=== PATIENT | female | born 1935 | race African-American/Black ===

== ENCOUNTER 2017-09-21 13:51 | Inpatient (IN) | payer OTHER ==
[~2017-09-21] VITALS: Ht 165.1 cm; Wt 72.9 kg
--- NOTE | 2017-09-21 14:16 | EKG ---
[address] [address] Test Date: 2017-09-21 Test Time: 14:03:52 Pat Name: BLAS HUGHES Department: Room: Gender: F Bunch Breaker: : 1935 Requested By: KESHA YEN Order Number: [id number] Reading MD: Arnol Greco MD Measurements Intervals [place] Rate: 85 P: 58 MI: 128 QRS: -12 QRSD: 68 T: 10 QT: 354 QTc: 427 Interpretive Statements SINUS RHYTHM LEFTWARD AXIS QRS(T) CONTOUR ABNORMALITY CONSISTENT WITH INFERIOR INFARCT PROBABLY OLD Electronically Signed On 09-22-2017 15:27:20 CDT by Arnol Greco MD
[2017-09-21 14:29] LABS: BASO % 0 % (0-3); EOS # 0.1 x10^3/uL (0.0-0.7); EOS % 1 % (0-3); HEMATOCRIT 36.2 % (36.0-47.0); HEMOGLOBIN 12.3 g/dL (12.0-15.5); LYMPH # 1.7 x10^3/uL (1.0-4.8); LYMPH % 33 % (24-48); MEAN CORPUSCULAR HEMOGLOBIN 32 pg (25-35); MEAN CORPUSCULAR HGB CONC 34 g/dL (31-37); MEAN CORPUSCULAR VOLUME 94 fL (79-100); MONO # 0.4 x10^3/uL (0.0-1.1); MONO % 7 % (0-9); NEUT # 3.1 x10^3uL (1.8-7.7); NEUT % 59 % (31-73); PLATELET COUNT 320 x10^3/uL (140-400); RED BLOOD COUNT 3.88 x10^6/uL (3.50-5.40); RED CELL DISTRIBUTION WIDTH 14.4 % (11.5-14.5); WHITE BLOOD COUNT 5.3 x10^3/uL (4.0-11.0)
[2017-09-21 14:43] LABS: ALBUMIN 2.9 g/dL (3.4-5.0); ALBUMIN/GLOBULIN RATIO 0.6 (1.0-1.7); CREATININE 0.9 mg/dL (0.6-1.0); GFR 72.9; MAGNESIUM 1.6 mg/dL (1.8-2.4); POTASSIUM 3.6 mmol/L (3.5-5.1); TOTAL BILIRUBIN 0.2 mg/dL (0.2-1.0); TOTAL PROTEIN 7.5 g/dL (6.4-8.2)
[2017-09-21 16:04] LABS: BACTERIA,URINE MANY /HPF (0-FEW); BILIRUBIN,URINE NEG (NEG); CLARITY,URINE HAZY; COLOR,URINE YELLOW; GLUCOSE,URINE 250 mg/dL (NEG); NITRITE,URINE POS (NEG); RBC,URINE OCC /HPF (0-2); SQUAMOUS EPITHELIAL CELL,UR OCC /LPF; UROBILINOGEN,URINE 0.2 mg/dL (0.2 mg/dL)
[2017-09-21] MEDS ORDERED: CEPHALEXIN 250 MG CAPSULE PO ONE (17:00)
--- NOTE | 2017-09-21 17:02 | ED.ADGEN ---
Past History Past Medical History: Anxiety, CVA, Dementia, Diabetes, Glaucoma, Hypertension , IBS, Schizophrenia, Other Past Surgical History: Other Alcohol Use: None Drug Use: None Adult General Chief Complaint Chief Complaint Medical screening exam for psychiatric admission [facility] HPI Patient is a 82-year-old -[place] female shelter patient with history of anxiety, schizophrenia CVA with left-sided hemiparesis presents with agitation, yelling at shelter and otherwise uncontrolled. Patient tentatively accepted by Dr. Jarrell for medical stabilization. Patient is a poor historian and is not able to provide meaningful information while in the emergency department[] Review of Systems Review of Systems ROS as per HPI All other systems were reviewed and found to be within normal limits, except as documented in this note. Current Medications Current Medications Current Medications Medications (Trade) Dose Ordered Sig/Chiara Start Time Stop Time Status Last Admin Dose Admin Cephalexin HCl (Keflex) 500 mg 1X ONCE 09/21/17 17:00 09/21/17 17:01 09/21/17 16:55 500 MG Allergies Allergies Allergies Coded Allergies Type Severity Reaction Last Updated Verified hydrocodone Allergy Unknown 09/21/17 Yes Physical Exam Physical Exam Constitutional: Well developed, anxious, tearful[] HENT: Normocephalic, atraumatic, bilateral external ears normal, oropharynx moist, nose normal. [] Eyes: PERRLA, EOMI, conjunctiva normal, no discharge. [] Neck: Normal range of motion, no tenderness. [] Cardiovascular:Heart rate regular rhythm, no murmur [] Lungs & Thorax: Bilateral breath sounds clear to auscultation [] Abdomen: Bowel sounds normal, soft, no tenderness. [] Skin: Warm, dry. [] Back: No tenderness, no CVA tenderness. [] Extremities: No tenderness,no edema. [] Neurologic: Alert and oriented, left-sided paralysis[] Psychologic: Affect normal, judgement normal, mood normal. [] Current Patient Data Vital Signs Vital Signs Date Time Temp Pulse Resp B/P (MAP) Pulse Ox O2 Delivery O2 Flow Rate FiO2 09/21/17 13:51 98.2 83 18 96 Room Air Lab Results Laboratory Tests Test 09/21/17 14:12 09/21/17 15:04 White Blood Count 5.3 x10^3/uL (4.0-11.0) Red Blood Count 3.88 x10^6/uL (3.50-5.40) Hemoglobin 12.3 g/dL (12.0-15.5) Hematocrit 36.2 % (36.0-47.0) Mean Corpuscular Volume 94 fL (79-100) Mean Corpuscular Hemoglobin 32 pg (25-35) Mean Corpuscular Hemoglobin Concent 34 g/dL (31-37) Red Cell Distribution Width 14.4 % (11.5-14.5) Platelet Count 320 x10^3/uL (140-400) Neutrophils (%) (Auto) 59 % (31-73) Lymphocytes (%) (Auto) 33 % (24-48) Monocytes (%) (Auto) 7 % (0-9) Eosinophils (%) (Auto) 1 % (0-3) Basophils (%) (Auto) 0 % (0-3) Neutrophils # (Auto) 3.1 x10^3uL (1.8-7.7) Lymphocytes # (Auto) 1.7 x10^3/uL (1.0-4.8) Monocytes # (Auto) 0.4 x10^3/uL (0.0-1.1) Eosinophils # (Auto) 0.1 x10^3/uL (0.0-0.7) Basophils # (Auto) 0.0 x10^3/uL (0.0-0.2) Sodium Level 144 mmol/L (136-145) Potassium Level 3.6 mmol/L (3.5-5.1) Chloride Level 108 mmol/L (98-107) H Carbon Dioxide Level 27 mmol/L (21-32) Anion Gap 9 (6-14) Blood Urea Nitrogen 10 mg/dL (7-20) Creatinine 0.9 mg/dL (0.6-1.0) Estimated GFR (Cockcroft-Gault) 72.9 BUN/Creatinine Ratio 11 (6-20) Glucose Level 181 mg/dL (70-99) H Calcium Level 9.0 mg/dL (8.5-10.1) Magnesium Level 1.6 mg/dL (1.8-2.4) L Total Bilirubin 0.2 mg/dL (0.2-1.0) Aspartate Amino Transferase (AST) 26 U/L (15-37) Alanine Aminotransferase (ALT) 32 U/L (14-59) Alkaline Phosphatase 79 U/L (46-116) Total Protein 7.5 g/dL (6.4-8.2) Albumin 2.9 g/dL (3.4-5.0) L Albumin/Globulin Ratio 0.6 (1.0-1.7) L Urine Collection Type U cath Urine Color Yellow Urine Clarity Hazy Urine pH 5.0 Urine Specific [place] >=1.030 Urine Protein Trace (NEG-TRACE) Urine Glucose (UA) 250 mg/dL (NEG) Urine Ketones (Stick) Trace mg/dL (NEG) Urine Blood Neg (NEG) Urine Nitrite Pos (NEG) Urine Bilirubin Neg (NEG) Urine Urobilinogen Dipstick 0.2 mg/dL (0.2 mg/dL) Urine Leukocyte Esterase Trace (NEG) Urine RBC Occ /HPF (0-2) Urine WBC 11-20 /HPF (0-4) Urine Squamous Epithelial Cells Occ /LPF Urine Bacteria Many /HPF (0-FEW) Urine Mucus Mod /LPF EKG EKG [EKG: Reviewed] Radiology/Procedures Radiology/Procedures [] Course & Med Decision Making Course & Med Decision Making Pertinent Labs and Imaging studies reviewed. (See chart for details) [Patient is medically stable for admission. First dose of antibiotics given in the emergency department.] Final Impression Final Impression [1. Encounter for medical screening exam 2. Urinary tract infection] Dragon Disclaimer Dragon Disclaimer This electronic medical record was generated, in whole or in part, using a voice recognition dictation system. KESHA YEN DO Sep 21, 2017 17:02
[2017-09-21 17:15] VITALS: BP 174/107
[2017-09-21] MEDS ORDERED: MAGN400O7 PO (20:04)
[2017-09-21] MEDS ORDERED: ASPI-630 PO (20:04)
[2017-09-21] MEDS ORDERED: LISI10TA2 PO (20:04)
[2017-09-21] MEDS ORDERED: DEXT15DR5 EACHEYE (20:04)
[2017-09-21] MEDS ORDERED: INSU100I17 SQ (20:04)
[2017-09-21] MEDS ORDERED: MENT118G TP (20:04)
[2017-09-21] MEDS ORDERED: ARIP5TAB13 PO (20:04)
[2017-09-21] MEDS ORDERED: LORA-254 PO (20:04)
[2017-09-21] MEDS ORDERED: BACL10TA PO (20:04)
[2017-09-21] MEDS ORDERED: QUET300T6 PO (20:04)
[2017-09-21] MEDS ORDERED: LORA10TA68 PO (20:04)
[2017-09-21] MEDS ORDERED: INSU100I27 SQ (20:04)
[2017-09-21] MEDS ORDERED: ACET325T9 PO ×2 (20:04)
[2017-09-21] MEDS ORDERED: METF10007 PO (20:04)
[2017-09-21] MEDS ORDERED: GLIP10TA13 PO (20:04)
[2017-09-21] MEDS ORDERED: TIMO10DR5 EACHEYE (20:04)
[2017-09-21] MEDS ORDERED: DONE10TA7 PO (20:04)
[2017-09-21] MEDS ORDERED: LATA2.5D2 EACHEYE (20:04)
[2017-09-21] MEDS ORDERED: PARO30TA45 PO (20:04)
[2017-09-21] MEDS ORDERED: OXYC5CAP PO ×2 (20:04)
[2017-09-21] MEDS ORDERED: ONDA4TAB7 PO (20:04)
[2017-09-21] MEDS ORDERED: DULO30CA2 PO (20:04)
[2017-09-21] MEDS ORDERED: ACETAMINOPHEN 325 MG TABLET PO PRN ×2 (20:15)
[2017-09-21] MEDS ORDERED: METHYL SALICYLATE/MENTHOL TOPICAL OINTMENT 29GM TUBE. TP PRN (20:15)
[2017-09-21] MEDS ORDERED: MAGNESIUM HYDROXIDE 2,400 MG/30 ML ORAL.SUSP. PO PRN ×2 (20:15)
[2017-09-21] MEDS ORDERED: NON FORMULARY ITEM (Menthol (Biofreeze) 1 APP) TP PRN (20:15)
[2017-09-21] MEDS ORDERED: MAG HYDROX/AL HYDROX/SIMETH 30 ML ORAL.SUSP PO PRN (20:15)
[2017-09-21] MEDS ORDERED: ONDANSETRON ODT 4 MG TAB.RAPDIS PO PRN (20:30)
[2017-09-21] MEDS ORDERED: CETIRIZINE HCL 10 MG TABLET PO PRN (20:41)
[2017-09-21] MEDS: POLYVINYL ALCOHOL/POVIDONE/PF OPHTH SOLUTION DROPERETTE. OU SCH (21:00)
[2017-09-21] MEDS: BACLOFEN 10 MG TABLET PO SCH (21:00)
[2017-09-21] MEDS: oxyCODONE IR 5 MG TABLET PO SCH (21:24)
[2017-09-21] MEDS: QUEtiapine 100 MG TABLET. PO SCH (21:24)
[2017-09-21] MEDS: ACETAMINOPHEN 325 MG TABLET PO SCH (21:25)
[2017-09-21] MEDS ORDERED: DEXTROSE 50% 25 GM / 50ML DISP.SYRIN. IV PRN (21:30)
[2017-09-21] MEDS: LATANOPROST 0.005% OPHTH SOLUTION 2.5ML BOTTLE. OU SCH (22:07)
[2017-09-21] MEDS: INSULIN GLARGINE 300 UNITS/3 ML INSULN.PEN. SQ SCH (22:11)
[2017-09-22 06:17] VITALS: BP 155/88
[2017-09-22] MEDS: oxyCODONE IR 5 MG TABLET PO PRN (06:32)
[2017-09-22] MEDS ORDERED: NON FORMULARY ITEM (Insulin Aspart (Novolog Flexpen) 0 UNIT) SQ SCH (07:30)
[2017-09-22] MEDS: INSULIN LISPRO 300 UNITS/3 ML INSULN.PEN. SQ SCH ×6 (08:28→16:47)
[2017-09-22] MEDS: POLYVINYL ALCOHOL/POVIDONE/PF OPHTH SOLUTION DROPERETTE. OU SCH ×2 (08:29→21:09)
[2017-09-22] MEDS: BACLOFEN 10 MG TABLET PO SCH ×3 (08:29→21:10)
[2017-09-22] MEDS: TIMOLOL 0.5% OPHTH SOLUTION 5ML BOTTLE. OU SCH (08:29)
[2017-09-22] MEDS: ACETAMINOPHEN 325 MG TABLET PO SCH ×2 (08:30→21:11)
[2017-09-22] MEDS: glipiZIDE 5 MG TABLET PO SCH ×2 (08:35→16:44)
[2017-09-22] MEDS: ARIPiprazole 5 MG TABLET PO SCH (08:35)
[2017-09-22] MEDS: LISINOPRIL 10 MG TABLET PO SCH (08:36)
[2017-09-22] MEDS: ASPIRIN 81 MG TAB.CHEW PO SCH (08:36)
[2017-09-22] MEDS: DONEPEZIL 23 MG TABLET PO SCH (08:36)
[2017-09-22] MEDS: DULoxetine HCL 30 MG CAPSULE.DR PO SCH (08:36)
[2017-09-22] MEDS: oxyCODONE IR 5 MG TABLET PO SCH ×4 (08:38→21:10)
[2017-09-22] MEDS ORDERED: PARoxetine 10 MG TABLET PO SCH (09:00)
[2017-09-22] MEDS: MAGNESIUM CHLORIDE ER 64 MG TABLET.ER PO SCH (13:32)
--- NOTE | 2017-09-22 15:44 | PDOC2 ---
CONSULT Date of Admission DATE: 09/21/17 Reason for Consult: Medical management Referring Physician: Dr Jarrlel Source: Caregiver, Chart review, Patient Problem List Problems Medical Problems: (1) Encounter for medical screening examination Status: Acute (2) Urinary tract infection Status: Acute History of Present Illness 82-year-old female evaluated in the emergency department from [facility] for worsening behavior. Records indicate that the patient was yelling and disruptive, verbally abusive and kicking at people in the [place] [facility]. She was medically cleared through the emergency department and found to have a urinary tract infection, she received 1 dose of Rocephin prior to being admitted to the [facility] behavioral health unit. I find the patient in the activity room sitting in her Broda chair with no apparent distress. She denies any complaints and is disoriented 3. She is pleasant and cooperative. Past medical history: CVA with left-sided hemiparesis, anxiety, dementia, diabetes, glaucoma, hypertension, irritable bowel syndrome, schizophrenia Past surgical history: No obvious surgical scars as evaluated Social history: Lives in a [place] [facility] facility, no tobacco alcohol or illicit drug abuse Current Medications Current Medications Cephalexin HCl (Keflex) 500 mg 1X ONCE PO Last administered on 09/21/17at 16:55 ; Start 09/21/17 at 17:00; Stop 09/21/17 at 17:01; Status DC Acetaminophen (Tylenol) 650 mg BID PO Last administered on 09/22/17at 08:30; Start 09/21/17 at 21:00 Acetaminophen (Tylenol) 650 mg PRN Q6HRS PRN PO mild pain ; Start 09/21/17 at 20:15 Lisinopril (Prinivil) 10 mg DAILY PO Last administered on 09/22/17at 08:36; Start 09/22/17 at 09:00 Lorazepam (Ativan) 1 mg PRN DAILY PRN PO crying outbursts; Start 09/21/17 at 20 :15 Magnesium Hydroxide (Milk Of Magnesia) 2,400 mg PRN BID PRN PO constipation if no BM 3 days; Start 09/21/17 at 20:15 Aripiprazole (Abilify) 5 mg DAILY PO Last administered on 09/22/17at 08:35; Start 09/22/17 at 09:00 Aspirin (Children'S Aspirin) 81 mg DAILY PO Last administered on 09/22/17 08: 36; Start 09/22/17 at 09:00 Baclofen (Lioresal) 5 mg TID PO Last administered on 09/22/17at 13:29; Start at 21:00 Artificial Tears (Refresh Classic) 1 drop BID OU Last administered on at 08:29; Start 09/21/17 at 21:00 Donepezil HCl (Aricept) 23 mg DAILY PO Last administered on 09/22/17at 08:36; Start 09/22/17 at 09:00 Duloxetine HCl (Cymbalta) 30 mg DAILY PO Last administered on 09/22/17 08:36; Start 09/22/17 at 09:00 Glipizide (Glucotrol) 10 mg BIDBFRMEAL PO Last administered on 09/22/17at 08:35 ; Start 09/22/17 at 07:30 Non-Formulary Medication (Insulin Aspart (Novolog Flexpen)) TIDAC SQ ; Start at 07:30; Status UNV Insulin Human Lispro (HumaLOG) 8 units TIDWMEALS SQ Last administered on at 11:47; Start 09/22/17 at 08:00 Insulin Glargine (Lantus) 14 units QHS SQ Last administered on 09/21/17at 22:11 ; Start 09/21/17 at 21:00 Latanoprost (Xalatan) 1 drop QHS OU Last administered on 09/21/17at 22:07; Start 09/21/17 at 21:00 Cetirizine HCl (ZyrTEC) 10 mg PRN Q24HRS PRN PO ALLERGIES; Start 09/21/17 at 20 :41 Non-Formulary Medication (Menthol (Biofreeze)) 1 marjorie PRN Q4HRS PRN TP lower back pain; Start 09/21/17 at 20:15; Status UNV Metformin HCl (Glucophage) 1,000 mg DAILYWSUP PO ; Start 09/22/17 at 17:00 Ondansetron HCl (Zofran Odt) 4 mg PRN Q8HRS PRN PO NAUSEA/VOMITING; Start 09/21 at 20:30 Oxycodone HCl (Roxicodone) 5 mg PRN Q12HR PRN PO SEVERE PAIN Last administered on 09/22/17at 06:32; Start 09/21/17 at 21:00 Oxycodone HCl (Roxicodone) 5 mg QID PO Last administered on 09/22/17at 11:54; Start 09/21/17 at 21:00 Paroxetine HCl (Paxil) 30 mg DAILY PO Last administered on 09/22/17at 08:36; Start 09/22/17 at 09:00 Quetiapine Fumarate (SEROquel) 300 mg QHS PO Last administered on 09/21/17at 21: 24; Start 09/21/17 at 21:00 Timolol Maleate (Timoptic 0.5% [facility]) 1 drop DAILY OU Last administered on 09/22at 08:29; Start 09/22/17 at 09:00 Acetaminophen (Tylenol) 650 mg PRN Q6HRS PRN PO PAIN / TEMP; Start 09/21/17 at 20:15; Status UNV Multi-Ingredient Ointment (Analgesic Farley) 1 marjorie PRN QID PRN TP MUSCLE PAIN; Start 09/21/17 at 20:15 Al Hydroxide/Mg Hydroxide (Mylanta Plus Xs) 15 ml PRN AFTMEALHC PRN PO DYSPEPSIA; Start 09/21/17 at 20:15 Magnesium Hydroxide (Milk Of Magnesia) 2,400 mg PRN QHS PRN PO CONSTIPATION; Start 09/21/17 at 20:15; Status UNV Insulin Human Lispro (HumaLOG) 0-7 UNITS TIDWMEALS SQ Last administered on 09/22at 11:48; Start 09/22/17 at 08:00 Dextrose 12.5 gm PRN Q15MIN PRN IV SEE COMMENTS; Start 09/21/17 at 21:30 Cefpodoxime Proxetil (Vantin) 200 mg BID PO ; Start 09/22/17 at 21:00; Stop at 21:00 Magnesium Chloride (Mag Delay) 64 mg DAILY PO Last administered on 09/22/17at 13 :32; Start 09/22/17 at 14:00 Lactobacillus Rhamnosus (Culturelle) 1 cap BID PO ; Start 09/22/17 at 21:00 Active Scripts Active Reported Zofran (Ondansetron Hcl) 4 Mg Tablet 4 Mg PO PRN Q8HRS PRN Xalatan (Latanoprost) 2.5 Ml Drops 1 Drop EACHEYE QHS Tylenol (Acetaminophen) 325 Mg Tablet 650 Mg PO BID Tylenol (Acetaminophen) 325 Mg Tablet 650 Mg PO PRN Q6HRS PRN Timoptic (Timolol Maleate) 10 Ml Drops 1 Drop EACHEYE DAILY Seroquel Xr (Quetiapine Fumarate) 300 Mg Tab.er.24h 300 Mg PO QHS Paxil (Paroxetine Hcl) 30 Mg Tablet 30 Mg PO DAILY Oxycodone Hcl 5 Mg Capsule 5 Mg PO QID PRN Oxycodone Hcl 5 Mg Capsule 5 Mg PO PRN Q12HR PRN Novolog Flexpen (Insulin Aspart) 100 Unit/1 Ml Insuln.pen 2-16 Unit SQ TIDAC Novolog Flexpen (Insulin Aspart) 100 Unit/1 Ml Insuln.pen 8 Unit SQ TIDAC Milk Of Magnesia (Magnesium Hydroxide) 400 Mg/5 Ml Oral.susp 30 Mg PO PRN BID PRN Metformin Hcl 1,000 Mg Tablet 1,000 Mg PO DAILYWSUP Lisinopril 10 Mg Tablet 10 Mg PO DAILY Levemir Flextouch (Insulin Detemir) 100 Unit/1 Ml Insuln.pen 14 Unit SQ HS Glipizide 10 Mg Tablet 10 Mg PO BID Donepezil Hcl 10 Mg Tablet 23 Mg PO DAILY Cymbalta (Duloxetine Hcl) 30 Mg Capsule.dr 30 Mg PO DAILY Claritin (Loratadine) 10 Mg Tablet 10 Mg PO PRN Q24HRS PRN Biofreeze (Menthol) 118 Ml Gel..ml. 1 Marjorie TP PRN Q4HRS PRN Baclofen 10 Mg Tablet 5 Mg PO TID Ativan (Lorazepam) 1 Mg Tablet 1 Mg PO PRN DAILY PRN Aspirin 81 Mg Tab.chew 81 Mg PO DAILY Artificial Tears Eye Drops (Dextran 70/Hypromellose) 15 Ml Drops 1 Drop EACHEYE BID Abilify (Aripiprazole) 5 Mg Tablet 5 Mg PO DAILY Allergies: Coded Allergies: hydrocodone (Verified Allergy, Unknown, 09/21/17) Review of System Patient replies no to/denies any complaints, however given her confusion and disorientation and accurate review of systems is unobtainable. General: Alert, Cooperative, No acute distress, Other (disoriented 3) HEENT: Atraumatic, Mucous membr. moist/pink, Other (conjunctiva clear) Lungs: Clear to auscultation, Normal air movement Heart: Normal S1, Normal S2, No murmurs Abdomen: Normal bowel sounds, Soft, No tenderness Extremities: Other (left hand and left leg contracted, no clubbing cyanosis or edema. There is a scabbed pressure ulcer at the posterior left heel approximately 1.5 cm in diameter with no surrounding erythema. There is also an area of mild skin breakdown at the dorsal aspect of the left foot) Neuro: Other (left hemiparesis and facial droop, slurred speech) Psych/Mental Status: Other (disoriented and cooperative) VITALS Vital Signs Date Time Temp Pulse Resp B/P (MAP) Pulse Ox O2 Delivery O2 Flow Rate FiO2 09/22/17 12:54 95 Room Air 09/22/17 08:36 55 155/88 09/22/17 06:32 16 09/22/17 06:17 97.8 Labs Laboratory Tests Test 09/21/17 14:12 09/21/17 14:42 09/21/17 15:04 09/21/17 19:08 White Blood Count 5.3 x10^3/uL (4.0-11.0) Red Blood Count 3.88 x10^6/uL (3.50-5.40) Hemoglobin 12.3 g/dL (12.0-15.5) Hematocrit 36.2 % (36.0-47.0) Mean Corpuscular Volume 94 fL (79-100) Mean Corpuscular Hemoglobin 32 pg (25-35) Mean Corpuscular Hemoglobin Concent 34 g/dL (31-37) Red Cell Distribution Width 14.4 % (11.5-14.5) Platelet Count 320 x10^3/uL (140-400) Neutrophils (%) (Auto) 59 % (31-73) Lymphocytes (%) (Auto) 33 % (24-48) Monocytes (%) (Auto) 7 % (0-9) Eosinophils (%) (Auto) 1 % (0-3) Basophils (%) (Auto) 0 % (0-3) Neutrophils # (Auto) 3.1 x10^3uL (1.8-7.7) Lymphocytes # (Auto) 1.7 x10^3/uL (1.0-4.8) Monocytes # (Auto) 0.4 x10^3/uL (0.0-1.1) Eosinophils # (Auto) 0.1 x10^3/uL (0.0-0.7) Basophils # (Auto) 0.0 x10^3/uL (0.0-0.2) Sodium Level 144 mmol/L (136-145) Potassium Level 3.6 mmol/L (3.5-5.1) Chloride Level 108 mmol/L (98-107) Carbon Dioxide Level 27 mmol/L (21-32) Anion Gap 9 (6-14) Blood Urea Nitrogen 10 mg/dL (7-20) Creatinine 0.9 mg/dL (0.6-1.0) Estimated GFR (Cockcroft-Gault) 72.9 BUN/Creatinine Ratio 11 (6-20) Glucose Level 181 mg/dL (70-99) Calcium Level 9.0 mg/dL (8.5-10.1) Magnesium Level 1.6 mg/dL (1.8-2.4) Total Bilirubin 0.2 mg/dL (0.2-1.0) Aspartate Amino Transf (AST/SGOT) 26 U/L (15-37) Alanine Aminotransferase (ALT/SGPT) 32 U/L (14-59) Alkaline Phosphatase 79 U/L (46-116) Total Protein 7.5 g/dL (6.4-8.2) Albumin 2.9 g/dL (3.4-5.0) Albumin/Globulin Ratio 0.6 (1.0-1.7) Thyroid Stimulating Hormone (TSH) 0.626 uIU/mL (0.358-3.740) Iron Level 78 ug/dL (50-170) Total Iron Binding Capacity 288 ug/dL (250-450) Iron Saturation 27 % (15-34) Triglycerides Level 358 mg/dL (0-150) Cholesterol Level 141 mg/dL (0-200) LDL Cholesterol, Calculated 23 mg/dL (0-100) VLDL Cholesterol, Calculated 71 mg/dL (0-40) Non-HDL Cholesterol Calculated 94 mg/dL (0-129) HDL Cholesterol 47 mg/dL (40-60) Cholesterol/HDL Ratio 3.0 Vitamin B12 Level 291 pg/mL (247-911) 25-Hydroxy Vitamin D Total 16.1 ng/mL (30-100) Treponema pallidum Antibody Nonreactive (Nonreactive) Urine Collection Type U cath Urine Color Yellow Urine Clarity Hazy Urine pH 5.0 Urine Specific [place] >=1.030 Urine Protein Trace (NEG-TRACE) Urine Glucose (UA) 250 mg/dL (NEG) Urine Ketones (Stick) Trace mg/dL (NEG) Urine Blood Neg (NEG) Urine Nitrite Pos (NEG) Urine Bilirubin Neg (NEG) Urine Urobilinogen Dipstick 0.2 mg/dL (0.2 mg/dL) Urine Leukocyte Esterase Trace (NEG) Urine RBC Occ /HPF (0-2) Urine WBC 11-20 /HPF (0-4) Urine Squamous Epithelial Cells Occ /LPF Urine Bacteria Many /HPF (0-FEW) Urine Mucus Mod /LPF Glucose (Fingerstick) 161 mg/dL (70-99) Test 09/22/17 07:35 09/22/17 11:35 Glucose (Fingerstick) 177 mg/dL (70-99) 229 mg/dL (70-99) Assessment/Plan 82-year-old female with multiple medical problems including left-sided hemiparesis from prior CVA now with worsening dementia and behavior. Wound care has already been consulted for what must be considered a diabetic foot ulcer. One blood pressure on the senior behavioral unit elevated at 155/88, will continue to monitor and if persistently elevated will treat as necessary. Urine was positive for infection and one dose Rocephin given, will initiate 10 days of Vantin therapy. Serum magnesium was low at 1.6 will initiate Slow-Mag by mouth. Vitamin D low at 16.1 we will initiate supplementation, triglycerides elevated at 358 will start TriCor. Will continue to follow and offer treatments as necessary. Thank you, Dr. Jarrell for allowing me to participate in the care of your patient. MISAEL POWELL DO Sep 22, 2017 15:43
[2017-09-22 16:06] VITALS: BP 151/88
[2017-09-22] MEDS: metFORMIN 500 MG TABLET PO SCH (16:44)
[2017-09-22 19:12] LABS: THYROXINE 5.4 ug/dL (4.5-12.0)
--- NOTE | 2017-09-22 20:17 | HP ---
ADMIT DATE: PSYCHIATRIC ADMISSION HISTORY/EVALUATION This note covers elements, not covered in my initial note, 09/22/2017. IDENTIFYING DATA: The patient is an 82-year-old -[place] female referred to us from [facility] by Dr. Quijano, her primary care physician, and Dr. Langley, her psychiatric provider, on account of significant crying spells, screaming out, hollering out being verbally abusive to staff and fellow residents. She was disruptive to other residents, threatening to hurt herself. She was kicking at other people, cursing name calling. Behaviors had failed outpatient psychiatric interventions. She was declining support from the therapist, referred for inpatient psychiatric stabilization. CHIEF COMPLAINT: "No, I don't do those things." The patient was seen individually evening of 09/22/2017, previously discussed with nursing staff on 3 or 4 occasions including prior to the patient's admission to gather background historical information, and criteria for inpatient psychiatric hospitalization were met. HISTORY OF PRESENT ILLNESS: The patient has a history of short term memory deficits, worsening psychosis, agitation. Records reveal that she has a past history of schizophrenia, but the patient denies this. She has had some sleep and appetite changes. No active suicidal or homicidal ideation. She does have a history of mood swings. PAST PSYCHIATRIC HISTORY: As noted above. PAST MEDICAL HISTORY: The patient does have a UTI and has been started on Vantin. She has a history of hypertension, diabetes mellitus, degenerative disk disease, osteoporosis, irritable bowel syndrome, glaucoma, status post CVA, Accu-Cheks a.c. and at bedtime, ambulates in Broda chair, sit to stand, 2 person pivot. DIET: Regular. CODE STATUS: Full code. ALLERGIES: HYDROCODONE. CURRENT PSYCHOTROPICS: Abilify 5 mg a day, Ativan 1 mg daily p.r.n., Cymbalta 30 mg a day, Paxil 30 mg a day, and has noted below the Paxil is being tapered down to 20 mg a day for 2 days, 10 mg for 2 days and then to be discontinued and she is also on Seroquel XR 300 mg at bedtime. FAMILY HISTORY: Noncontributory. SOCIAL HISTORY: No history of alcohol or drug abuse, physical, sexual or elder abuse. She is not known to be a perpetrator. REACTION TO HOSPITALIZATION: The patient is accepting of it, somewhat oblivious. ASSETS: Supportive living at [facility], supportive family. MENTAL STATUS EXAMINATION: The patient was seen individually evening of 09/22/2017. She is being fed by nursing staff for her supper. She is in a Broda chair, able to tell me that she was admitted here yesterday. She said she had come from [facility], but was unaware when I questioned her in what city [facility] was in. She was unable to name [place] as the city. Speech has some latency, low in volume, coherent, often responses monosyllabic. Abstraction fair, computation impaired, language function intact. Attention span short. She seems a little suspicious, but no active hallucinations, suicidal or homicidal ideation. Short term memory is impaired. IMPRESSION: Major neurocognitive disorder, probably vascular with delusion, depression; anxiety disorder, unspecified; impulse control disorder, unspecified; urinary tract infection. Rest as above. PLAN: Admit to geropsychiatry unit at [facility]. I will see the patient daily individually from a psychiatric standpoint, medical followup per Dr. Mcfarland/Dr. Michael. We will taper and stop the Paxil as noted above. Continue Abilify along with Cymbalta, Aricept, Seroquel for now. If agitation services, we will add Zyprexa p.r.n. Make sure her UTI is adequately addressed and add trazodone if needed for insomnia. If mood lability, agitation persists despite all of this, may consider addition of Depakote as a mood stabilizer. May need to increase Cymbalta if mood symptoms, agitation, anxiety seems to persist despite resolution of the UTI and discontinuation of the Paxil. Estimated length of stay is 10-12 days. DISCHARGE DISPOSITION: Will be back to [facility]. MELISSA SOLER MD DR: GABRIELA/sowmya JOB#: [id number] / [id number]
--- NOTE | 2017-09-22 20:17 | PDOC ---
Exam Note: Jonas Note: Please also refer to the separate dictated note~for this date of service dictated separately.~Patient seen individually. Discussed the patient with Nursing staff reviewed the chart.~Reviewed interim history and current functioning. Reviewed vital signs,~Labs/ Radiology~and current medications noted below. Continue current treatment with the changes noted in the dictated addendum note Assessment: Vital Signs: Vital Signs Date Time Temp Pulse Resp B/P (MAP) Pulse Ox O2 Delivery O2 Flow Rate FiO2 09/22/17 16:45 96 Room Air 09/22/17 16:06 97.8 80 18 151/88 (109) Labs: Laboratory Tests Test 09/22/17 07:35 09/22/17 11:35 09/22/17 16:22 09/22/17 19:13 Glucose (Fingerstick) 177 mg/dL (70-99) H 229 mg/dL (70-99) H 224 mg/dL (70-99) H 163 mg/dL (70-99) H Current Medications: Meds: Current Medications Cephalexin HCl (Keflex) 500 mg 1X ONCE PO Last administered on 09/21/17at 16:55 ; Start 09/21/17 at 17:00; Stop 09/21/17 at 17:01; Status DC Acetaminophen (Tylenol) 650 mg BID PO Last administered on 09/22/17at 08:30; Start 09/21/17 at 21:00 Acetaminophen (Tylenol) 650 mg PRN Q6HRS PRN PO mild pain ; Start 09/21/17 at 20:15 Lisinopril (Prinivil) 10 mg DAILY PO Last administered on 09/22/17at 08:36; Start 09/22/17 at 09:00 Lorazepam (Ativan) 1 mg PRN DAILY PRN PO crying outbursts; Start 09/21/17 at 20 :15 Magnesium Hydroxide (Milk Of Magnesia) 2,400 mg PRN BID PRN PO constipation if no BM 3 days; Start 09/21/17 at 20:15 Aripiprazole (Abilify) 5 mg DAILY PO Last administered on 09/22/17at 08:35; Start 09/22/17 at 09:00 Aspirin (Children'S Aspirin) 81 mg DAILY PO Last administered on 09/22/17at 08: 36; Start 09/22/17 at 09:00 Baclofen (Lioresal) 5 mg TID PO Last administered on 09/22/17at 13:29; Start at 21:00 Artificial Tears (Refresh Classic) 1 drop BID OU Last administered on at 08:29; Start 09/21/17 at 21:00 Donepezil HCl (Aricept) 23 mg DAILY PO Last administered on 09/22/17at 08:36; Start 09/22/17 at 09:00 Duloxetine HCl (Cymbalta) 30 mg DAILY PO Last administered on 09/22/17at 08:36; Start 09/22/17 at 09:00 Glipizide (Glucotrol) 10 mg BIDBFRMEAL PO Last administered on 09/22/17at 16:44 ; Start 09/22/17 at 07:30 Non-Formulary Medication (Insulin Aspart (Novolog Flexpen)) TIDAC SQ ; Start at 07:30; Status UNV Insulin Human Lispro (HumaLOG) 8 units TIDWMEALS SQ Last administered on at 16:46; Start 09/22/17 at 08:00 Insulin Glargine (Lantus) 14 units QHS SQ Last administered on 09/21/17at 22:11 ; Start 09/21/17 at 21:00 Latanoprost (Xalatan) 1 drop QHS OU Last administered on 09/21/17at 22:07; Start 09/21/17 at 21:00 Cetirizine HCl (ZyrTEC) 10 mg PRN Q24HRS PRN PO ALLERGIES; Start 09/21/17 at 20 :41 Non-Formulary Medication (Menthol (Biofreeze)) 1 marjorie PRN Q4HRS PRN TP lower back pain; Start 09/21/17 at 20:15; Status UNV Metformin HCl (Glucophage) 1,000 mg DAILYWSUP PO Last administered on at 16:44; Start 09/22/17 at 17:00 Ondansetron HCl (Zofran Odt) 4 mg PRN Q8HRS PRN PO NAUSEA/VOMITING; Start 09/21 at 20:30 Oxycodone HCl (Roxicodone) 5 mg PRN Q12HR PRN PO SEVERE PAIN Last administered on 09/22/17at 06:32; Start 09/21/17 at 21:00 Oxycodone HCl (Roxicodone) 5 mg QID PO Last administered on 09/22/17at 16:45; Start 09/21/17 at 21:00 Paroxetine HCl (Paxil) 30 mg DAILY PO Last administered on 09/22/17at 08:36; Start 09/22/17 at 09:00; Stop 09/22/17 at 17:29; Status DC Quetiapine Fumarate (SEROquel) 300 mg QHS PO Last administered on 09/21/17at 21: 24; Start 09/21/17 at 21:00 Timolol Maleate (Timoptic 0.5% [facility]) 1 drop DAILY OU Last administered on 09/22at 08:29; Start 09/22/17 at 09:00 Acetaminophen (Tylenol) 650 mg PRN Q6HRS PRN PO PAIN / TEMP; Start 09/21/17 at 20:15; Status UNV Multi-Ingredient Ointment (Analgesic [place]) 1 marjorie PRN QID PRN TP MUSCLE PAIN; Start 09/21/17 at 20:15 Al Hydroxide/Mg Hydroxide (Mylanta Plus Xs) 15 ml PRN AFTMEALHC PRN PO DYSPEPSIA; Start 09/21/17 at 20:15 Magnesium Hydroxide (Milk Of Magnesia) 2,400 mg PRN QHS PRN PO CONSTIPATION; Start 09/21/17 at 20:15; Status UNV Insulin Human Lispro (HumaLOG) 0-7 UNITS TIDWMEALS SQ Last administered on 09/22at 16:47; Start 09/22/17 at 08:00 Dextrose 12.5 gm PRN Q15MIN PRN IV SEE COMMENTS; Start 09/21/17 at 21:30 Cefpodoxime Proxetil (Vantin) 200 mg BID PO ; Start 09/22/17 at 21:00; Stop at 21:00 Magnesium Chloride (Mag Delay) 64 mg DAILY PO Last administered on 09/22/17at 13 :32; Start 09/22/17 at 14:00 Lactobacillus Rhamnosus (Culturelle) 1 cap BID PO ; Start 09/22/17 at 21:00 Magnesium Chloride (Mag Delay) 64 mg DAILY PO ; Start 09/23/17 at 09:00 Vitamin D (Vitamin D3) 50,000 unit WEEKLY PO ; Start 09/29/17 at 09:00 Fenofibrate (Tricor) 48 mg DAILY PO ; Start 09/23/17 at 09:00 Paroxetine HCl (Paxil) 20 mg DAILY PO ; Start 09/23/17 at 09:00; Stop 09/24/17 at 10:00 Paroxetine HCl (Paxil) 10 mg DAILY PO ; Start 09/25/17 at 09:00; Stop 09/26/17 at 10:00 Active Scripts Active Reported Zofran (Ondansetron Hcl) 4 Mg Tablet 4 Mg PO PRN Q8HRS PRN Xalatan (Latanoprost) 2.5 Ml Drops 1 Drop EACHEYE QHS Tylenol (Acetaminophen) 325 Mg Tablet 650 Mg PO BID Tylenol (Acetaminophen) 325 Mg Tablet 650 Mg PO PRN Q6HRS PRN Timoptic (Timolol Maleate) 10 Ml Drops 1 Drop EACHEYE DAILY Seroquel Xr (Quetiapine Fumarate) 300 Mg Tab.er.24h 300 Mg PO QHS Paxil (Paroxetine Hcl) 30 Mg Tablet 30 Mg PO DAILY Oxycodone Hcl 5 Mg Capsule 5 Mg PO QID PRN Oxycodone Hcl 5 Mg Capsule 5 Mg PO PRN Q12HR PRN Novolog Flexpen (Insulin Aspart) 100 Unit/1 Ml Insuln.pen 2-16 Unit SQ TIDAC Novolog Flexpen (Insulin Aspart) 100 Unit/1 Ml Insuln.pen 8 Unit SQ TIDAC Milk Of Magnesia (Magnesium Hydroxide) 400 Mg/5 Ml Oral.susp 30 Mg PO PRN BID PRN Metformin Hcl 1,000 Mg Tablet 1,000 Mg PO DAILYWSUP Lisinopril 10 Mg Tablet 10 Mg PO DAILY Levemir Flextouch (Insulin Detemir) 100 Unit/1 Ml Insuln.pen 14 Unit SQ HS Glipizide 10 Mg Tablet 10 Mg PO BID Donepezil Hcl 10 Mg Tablet 23 Mg PO DAILY Cymbalta (Duloxetine Hcl) 30 Mg Capsule.dr 30 Mg PO DAILY Claritin (Loratadine) 10 Mg Tablet 10 Mg PO PRN Q24HRS PRN Biofreeze (Menthol) 118 Ml Gel..ml. 1 Marjorie TP PRN Q4HRS PRN Baclofen 10 Mg Tablet 5 Mg PO TID Ativan (Lorazepam) 1 Mg Tablet 1 Mg PO PRN DAILY PRN Aspirin 81 Mg Tab.chew 81 Mg PO DAILY Artificial Tears Eye Drops (Dextran 70/Hypromellose) 15 Ml Drops 1 Drop EACHEYE BID Abilify (Aripiprazole) 5 Mg Tablet 5 Mg PO DAILY I have reviewed the current psychotropics carefully including drug interactions. Risk benefit ratio favors no change other than as noted in my dictated progress note. Diagnosis: Problems: (1) Encounter for medical screening examination (2) Urinary tract infection (3) Dementia with behavioral disturbance (4) Anxiety disorder (5) Dementia, vascular, with delusions (6) Dementia, vascular, with depression (7) Impulse control disorder (8) Urinary tract infection MELISSA SOLER MD Sep 22, 2017 20:17
[2017-09-22] MEDS: INSULIN GLARGINE 300 UNITS/3 ML INSULN.PEN. SQ SCH (21:00)
[2017-09-22] MEDS: LATANOPROST 0.005% OPHTH SOLUTION 2.5ML BOTTLE. OU SCH (21:09)
[2017-09-22] MEDS: LACTOBACILLUS RHAMNOSUS GG 1 CAPSULE. PO SCH (21:09)
[2017-09-22] MEDS: QUEtiapine 100 MG TABLET. PO SCH (21:10)
[2017-09-22] MEDS: CEFPODOXIME PROXETIL 100 MG TABLET PO SCH (21:12)
[2017-09-23 02:09] LABS: HEMOGLOBIN A1C 7.7 % (4.8-5.6)
[2017-09-23 05:56] VITALS: BP 146/70
[2017-09-23] MEDS: DONEPEZIL 23 MG TABLET PO SCH (08:20)
[2017-09-23] MEDS: CEFPODOXIME PROXETIL 100 MG TABLET PO SCH ×2 (08:20→20:03)
[2017-09-23] MEDS: glipiZIDE 5 MG TABLET PO SCH ×2 (08:20→17:24)
[2017-09-23] MEDS: ARIPiprazole 5 MG TABLET PO SCH (08:20)
[2017-09-23] MEDS: POLYVINYL ALCOHOL/POVIDONE/PF OPHTH SOLUTION DROPERETTE. OU SCH ×2 (08:20→20:02)
[2017-09-23] MEDS: LACTOBACILLUS RHAMNOSUS GG 1 CAPSULE. PO SCH ×2 (08:20→20:02)
[2017-09-23] MEDS: DULoxetine HCL 30 MG CAPSULE.DR PO SCH (08:21)
[2017-09-23] MEDS: BACLOFEN 10 MG TABLET PO SCH ×3 (08:21→20:02)
[2017-09-23] MEDS: LISINOPRIL 10 MG TABLET PO SCH (08:21)
[2017-09-23] MEDS: ACETAMINOPHEN 325 MG TABLET PO SCH ×2 (08:21→20:03)
[2017-09-23] MEDS: MAGNESIUM CHLORIDE ER 64 MG TABLET.ER PO SCH ×2 (08:22→09:00)
[2017-09-23] MEDS: ASPIRIN 81 MG TAB.CHEW PO SCH (08:22)
[2017-09-23] MEDS: INSULIN LISPRO 300 UNITS/3 ML INSULN.PEN. SQ SCH ×6 (08:24→17:29)
[2017-09-23] MEDS: TIMOLOL 0.5% OPHTH SOLUTION 5ML BOTTLE. OU SCH (08:28)
[2017-09-23] MEDS: oxyCODONE IR 5 MG TABLET PO SCH ×4 (08:28→20:02)
[2017-09-23] MEDS: FENOFIBRATE NANOCRYSTALLIZED 48 MG TABLET PO SCH (08:28)
[2017-09-23] MEDS: PARoxetine 20 MG TABLET PO SCH (08:29)
[2017-09-23 15:54] VITALS: BP 176/92
[2017-09-23] MEDS: metFORMIN 500 MG TABLET PO SCH (17:24)
[2017-09-23] MEDS: QUEtiapine 100 MG TABLET. PO SCH (20:02)
[2017-09-23] MEDS: LATANOPROST 0.005% OPHTH SOLUTION 2.5ML BOTTLE. OU SCH (20:02)
[2017-09-23] MEDS: INSULIN GLARGINE 300 UNITS/3 ML INSULN.PEN. SQ SCH (20:04)
--- NOTE | 2017-09-23 20:23 | PDOC ---
Exam Note: Jonas Note: Please also refer to the separate dictated note~for this date of service dictated separately.~Patient seen individually. Discussed the patient with Nursing staff reviewed the chart.~Reviewed interim history and current functioning. Reviewed vital signs,~Labs/ Radiology~and current medications noted below. Continue current treatment with the changes noted in the dictated addendum note Assessment: Vital Signs: Vital Signs Date Time Temp Pulse Resp B/P (MAP) Pulse Ox O2 Delivery O2 Flow Rate FiO2 09/23/17 20:02 16 97 09/23/17 17:25 Room Air 09/23/17 15:54 97.2 78 176/92 (120) I&O Intake and Output 09/23/17 06:59 Intake Total 840 ml Balance 840 ml Intake Oral 840 ml Labs: Laboratory Tests Test 09/23/17 07:17 09/23/17 11:48 09/23/17 16:12 09/23/17 19:39 Glucose (Fingerstick) 156 mg/dL (70-99) H 199 mg/dL (70-99) H 144 mg/dL (70-99) H 159 mg/dL (70-99) H Current Medications: Meds: Current Medications Cephalexin HCl (Keflex) 500 mg 1X ONCE PO Last administered on 09/21/17at 16:55 ; Start 09/21/17 at 17:00; Stop 09/21/17 at 17:01; Status DC Acetaminophen (Tylenol) 650 mg BID PO Last administered on 09/23/17at 20:03; Start 09/21/17 at 21:00 Acetaminophen (Tylenol) 650 mg PRN Q6HRS PRN PO mild pain ; Start 09/21/17 at 20:15 Lisinopril (Prinivil) 10 mg DAILY PO Last administered on 09/23/17at 08:21; Start 09/22/17 at 09:00 Lorazepam (Ativan) 1 mg PRN DAILY PRN PO crying outbursts; Start 09/21/17 at 20 :15 Magnesium Hydroxide (Milk Of Magnesia) 2,400 mg PRN BID PRN PO constipation if no BM 3 days; Start 09/21/17 at 20:15 Aripiprazole (Abilify) 5 mg DAILY PO Last administered on 09/23/17at 08:20; Start 09/22/17 at 09:00 Aspirin (Children'S Aspirin) 81 mg DAILY PO Last administered on 09/23/17at 08: 22; Start 09/22/17 at 09:00 Baclofen (Lioresal) 5 mg TID PO Last administered on 09/23/17at 20:02; Start at 21:00 Artificial Tears (Refresh Classic) 1 drop BID OU Last administered on at 20:02; Start 09/21/17 at 21:00 Donepezil HCl (Aricept) 23 mg DAILY PO Last administered on 09/23/17at 08:20; Start 09/22/17 at 09:00 Duloxetine HCl (Cymbalta) 30 mg DAILY PO Last administered on 09/23/17at 08:21; Start 09/22/17 at 09:00; Stop 09/23/17 at 19:38; Status DC Glipizide (Glucotrol) 10 mg BIDBFRMEAL PO Last administered on 09/23/17at 17:24 ; Start 09/22/17 at 07:30 Non-Formulary Medication (Insulin Aspart (Novolog Flexpen)) TIDAC SQ ; Start at 07:30; Status UNV Insulin Human Lispro (HumaLOG) 8 units TIDWMEALS SQ Last administered on at 17:29; Start 09/22/17 at 08:00 Insulin Glargine (Lantus) 14 units QHS SQ Last administered on 09/23/17at 20:04 ; Start 09/21/17 at 21:00 Latanoprost (Xalatan) 1 drop QHS OU Last administered on 09/23/17at 20:02; Start 09/21/17 at 21:00 Cetirizine HCl (ZyrTEC) 10 mg PRN Q24HRS PRN PO ALLERGIES; Start 09/21/17 at 20 :41 Non-Formulary Medication (Menthol (Biofreeze)) 1 marjorie PRN Q4HRS PRN TP lower back pain; Start 09/21/17 at 20:15; Status UNV Metformin HCl (Glucophage) 1,000 mg DAILYWSUP PO Last administered on at 17:24; Start 09/22/17 at 17:00 Ondansetron HCl (Zofran Odt) 4 mg PRN Q8HRS PRN PO NAUSEA/VOMITING; Start 09/21 at 20:30 Oxycodone HCl (Roxicodone) 5 mg PRN Q12HR PRN PO SEVERE PAIN Last administered on 09/22/17at 06:32; Start 09/21/17 at 21:00 Oxycodone HCl (Roxicodone) 5 mg QID PO Last administered on 09/23/17at 20:02; Start 09/21/17 at 21:00 Paroxetine HCl (Paxil) 30 mg DAILY PO Last administered on 09/22/17at 08:36; Start 09/22/17 at 09:00; Stop 09/22/17 at 17:29; Status DC Quetiapine Fumarate (SEROquel) 300 mg QHS PO Last administered on 09/23/17at 20: 02; Start 09/21/17 at 21:00 Timolol Maleate (Timoptic 0.5% [facility]) 1 drop DAILY OU Last administered on 09/23at 08:28; Start 09/22/17 at 09:00 Acetaminophen (Tylenol) 650 mg PRN Q6HRS PRN PO PAIN / TEMP; Start 09/21/17 at 20:15; Status UNV Multi-Ingredient Ointment (Analgesic [place]) 1 marjorie PRN QID PRN TP MUSCLE PAIN; Start 09/21/17 at 20:15 Al Hydroxide/Mg Hydroxide (Mylanta Plus Xs) 15 ml PRN AFTMEALHC PRN PO DYSPEPSIA; Start 09/21/17 at 20:15 Magnesium Hydroxide (Milk Of Magnesia) 2,400 mg PRN QHS PRN PO CONSTIPATION; Start 09/21/17 at 20:15; Status UNV Insulin Human Lispro (HumaLOG) 0-7 UNITS TIDWMEALS SQ Last administered on 09/23at 12:12; Start 09/22/17 at 08:00 Dextrose 12.5 gm PRN Q15MIN PRN IV SEE COMMENTS; Start 09/21/17 at 21:30 Cefpodoxime Proxetil (Vantin) 200 mg BID PO Last administered on 09/23/17at 20: 03; Start 09/22/17 at 21:00; Stop 10/02/17 at 21:00 Magnesium Chloride (Mag Delay) 64 mg DAILY PO Last administered on 09/23/17at 08 :22; Start 09/22/17 at 14:00; Stop 09/23/17 at 10:16; Status DC Lactobacillus Rhamnosus (Culturelle) 1 cap BID PO Last administered on at 20:02; Start 09/22/17 at 21:00 Magnesium Chloride (Mag Delay) 64 mg DAILY PO ; Start 09/23/17 at 09:00 Vitamin D (Vitamin D3) 50,000 unit WEEKLY PO ; Start 09/29/17 at 09:00 Fenofibrate (Tricor) 48 mg DAILY PO Last administered on 09/23/17at 08:28; Start 09/23/17 at 09:00 Paroxetine HCl (Paxil) 20 mg DAILY PO Last administered on 09/23/17at 08:29; Start 09/23/17 at 09:00; Stop 09/24/17 at 10:00 Paroxetine HCl (Paxil) 10 mg DAILY PO ; Start 09/25/17 at 09:00; Stop 09/26/17 at 10:00 Duloxetine HCl (Cymbalta) 30 mg DAILY PO ; Start 09/24/17 at 09:00 Duloxetine HCl (Cymbalta) 20 mg DAILY PO ; Start 09/24/17 at 09:00 Active Scripts Active Reported Zofran (Ondansetron Hcl) 4 Mg Tablet 4 Mg PO PRN Q8HRS PRN Xalatan (Latanoprost) 2.5 Ml Drops 1 Drop EACHEYE QHS Tylenol (Acetaminophen) 325 Mg Tablet 650 Mg PO BID Tylenol (Acetaminophen) 325 Mg Tablet 650 Mg PO PRN Q6HRS PRN Timoptic (Timolol Maleate) 10 Ml Drops 1 Drop EACHEYE DAILY Seroquel Xr (Quetiapine Fumarate) 300 Mg Tab.er.24h 300 Mg PO QHS Paxil (Paroxetine Hcl) 30 Mg Tablet 30 Mg PO DAILY Oxycodone Hcl 5 Mg Capsule 5 Mg PO QID PRN Oxycodone Hcl 5 Mg Capsule 5 Mg PO PRN Q12HR PRN Novolog Flexpen (Insulin Aspart) 100 Unit/1 Ml Insuln.pen 2-16 Unit SQ TIDAC Novolog Flexpen (Insulin Aspart) 100 Unit/1 Ml Insuln.pen 8 Unit SQ TIDAC Milk Of Magnesia (Magnesium Hydroxide) 400 Mg/5 Ml Oral.susp 30 Mg PO PRN BID PRN Metformin Hcl 1,000 Mg Tablet 1,000 Mg PO DAILYWSUP Lisinopril 10 Mg Tablet 10 Mg PO DAILY Levemir Flextouch (Insulin Detemir) 100 Unit/1 Ml Insuln.pen 14 Unit SQ HS Glipizide 10 Mg Tablet 10 Mg PO BID Donepezil Hcl 10 Mg Tablet 23 Mg PO DAILY Cymbalta (Duloxetine Hcl) 30 Mg Capsule.dr 30 Mg PO DAILY Claritin (Loratadine) 10 Mg Tablet 10 Mg PO PRN Q24HRS PRN Biofreeze (Menthol) 118 Ml Gel..ml. 1 Marjorie TP PRN Q4HRS PRN Baclofen 10 Mg Tablet 5 Mg PO TID Ativan (Lorazepam) 1 Mg Tablet 1 Mg PO PRN DAILY PRN Aspirin 81 Mg Tab.chew 81 Mg PO DAILY Artificial Tears Eye Drops (Dextran 70/Hypromellose) 15 Ml Drops 1 Drop EACHEYE BID Abilify (Aripiprazole) 5 Mg Tablet 5 Mg PO DAILY I have reviewed the current psychotropics carefully including drug interactions. Risk benefit ratio favors no change other than as noted in my dictated progress note. Diagnosis: Problems: (1) Encounter for medical screening examination (2) Urinary tract infection (3) Dementia with behavioral disturbance (4) Anxiety disorder (5) Dementia, vascular, with delusions (6) Dementia, vascular, with depression (7) Impulse control disorder (8) Urinary tract infection MELISSA SOLER MD Sep 23, 2017 20:23
[2017-09-24 05:56] VITALS: BP 145/81
[2017-09-24] MEDS: INSULIN LISPRO 300 UNITS/3 ML INSULN.PEN. SQ SCH ×6 (08:00→17:06)
[2017-09-24] MEDS: ARIPiprazole 5 MG TABLET PO SCH (08:17)
[2017-09-24] MEDS: DONEPEZIL 23 MG TABLET PO SCH (08:17)
[2017-09-24] MEDS: BACLOFEN 10 MG TABLET PO SCH ×3 (08:17→19:33)
[2017-09-24] MEDS: MAGNESIUM CHLORIDE ER 64 MG TABLET.ER PO SCH (08:17)
[2017-09-24] MEDS: FENOFIBRATE NANOCRYSTALLIZED 48 MG TABLET PO SCH (08:18)
[2017-09-24] MEDS: CEFPODOXIME PROXETIL 100 MG TABLET PO SCH ×2 (08:18→19:32)
[2017-09-24] MEDS: PARoxetine 20 MG TABLET PO SCH (08:18)
[2017-09-24] MEDS: LISINOPRIL 10 MG TABLET PO SCH (08:18)
[2017-09-24] MEDS: LACTOBACILLUS RHAMNOSUS GG 1 CAPSULE. PO SCH ×2 (08:18→19:32)
[2017-09-24] MEDS: ACETAMINOPHEN 325 MG TABLET PO SCH ×3 (08:18→19:49)
[2017-09-24] MEDS: glipiZIDE 5 MG TABLET PO SCH ×2 (08:19→17:04)
[2017-09-24] MEDS: POLYVINYL ALCOHOL/POVIDONE/PF OPHTH SOLUTION DROPERETTE. OU SCH ×2 (08:19→19:31)
[2017-09-24] MEDS: ASPIRIN 81 MG TAB.CHEW PO SCH (08:19)
[2017-09-24] MEDS: TIMOLOL 0.5% OPHTH SOLUTION 5ML BOTTLE. OU SCH (08:19)
[2017-09-24] MEDS: DULoxetine HCL 20 MG CAPSULE.DR PO SCH (08:22)
[2017-09-24] MEDS: DULoxetine HCL 30 MG CAPSULE.DR PO SCH (08:23)
[2017-09-24] MEDS: oxyCODONE IR 5 MG TABLET PO SCH ×6 (08:23→19:47)
[2017-09-24] MEDS: LORazepam 1 MG TABLET PO PRN ×2 (09:29→19:46)
[2017-09-24] MEDS: oxyCODONE IR 5 MG TABLET PO PRN (09:30)
[2017-09-24 16:26] VITALS: BP 166/102
[2017-09-24] MEDS: metFORMIN 500 MG TABLET PO SCH (17:04)
[2017-09-24] MEDS: QUEtiapine 100 MG TABLET. PO SCH (19:32)
[2017-09-24] MEDS: LATANOPROST 0.005% OPHTH SOLUTION 2.5ML BOTTLE. OU SCH (19:32)
[2017-09-24] MEDS: INSULIN GLARGINE 300 UNITS/3 ML INSULN.PEN. SQ SCH (20:11)
--- NOTE | 2017-09-24 22:16 | PDOC ---
Exam Note: Jonas Note: Please also refer to the separate dictated note~for this date of service dictated separately.~Patient seen individually. Discussed the patient with Nursing staff reviewed the chart.~Reviewed interim history and current functioning. Reviewed vital signs,~Labs/ Radiology~and current medications noted below. Continue current treatment with the changes noted in the dictated addendum note Assessment: Vital Signs: Vital Signs Date Time Temp Pulse Resp B/P (MAP) Pulse Ox O2 Delivery O2 Flow Rate FiO2 09/24/17 21:13 18 Room Air 09/24/17 16:26 98.9 86 166/102 (123) 93 I&O Intake and Output 09/24/17 07:01 Intake Total 720 ml Balance 720 ml Intake Oral 720 ml # Bowel Movements 1 Labs: Laboratory Tests Test 09/24/17 07:32 09/24/17 11:21 09/24/17 16:50 09/24/17 19:47 Glucose (Fingerstick) 116 mg/dL (70-99) H 230 mg/dL (70-99) H 128 mg/dL (70-99) H 110 mg/dL (70-99) H Current Medications: Meds: Current Medications Cephalexin HCl (Keflex) 500 mg 1X ONCE PO Last administered on 09/21/17at 16:55 ; Start 09/21/17 at 17:00; Stop 09/21/17 at 17:01; Status DC Acetaminophen (Tylenol) 650 mg BID PO Last administered on 09/24/17at 08:18; Start 09/21/17 at 21:00 Acetaminophen (Tylenol) 650 mg PRN Q6HRS PRN PO mild pain ; Start 09/21/17 at 20:15 Lisinopril (Prinivil) 10 mg DAILY PO Last administered on 09/24/17at 08:18; Start 09/22/17 at 09:00 Lorazepam (Ativan) 1 mg PRN DAILY PRN PO crying outbursts Last administered on 09/24/17at 19:46; Start 09/21/17 at 20:15 Magnesium Hydroxide (Milk Of Magnesia) 2,400 mg PRN BID PRN PO constipation if no BM 3 days; Start 09/21/17 at 20:15 Aripiprazole (Abilify) 5 mg DAILY PO Last administered on 09/24/17at 08:17; Start 09/22/17 at 09:00 Aspirin (Children'S Aspirin) 81 mg DAILY PO Last administered on 09/24/17 08: 19; Start 09/22/17 at 09:00 Baclofen (Lioresal) 5 mg TID PO Last administered on 09/24/17at 19:33; Start at 21:00 Artificial Tears (Refresh Classic) 1 drop BID OU Last administered on at 19:31; Start 09/21/17 at 21:00 Donepezil HCl (Aricept) 23 mg DAILY PO Last administered on 09/24/17at 08:17; Start 09/22/17 at 09:00 Duloxetine HCl (Cymbalta) 30 mg DAILY PO Last administered on 09/23/17at 08:21; Start 09/22/17 at 09:00; Stop 09/23/17 at 19:38; Status DC Glipizide (Glucotrol) 10 mg BIDBFRMEAL PO Last administered on 09/24/17at 17:04 ; Start 09/22/17 at 07:30 Non-Formulary Medication (Insulin Aspart (Novolog Flexpen)) TIDAC SQ ; Start at 07:30; Status UNV Insulin Human Lispro (HumaLOG) 8 units TIDWMEALS SQ Last administered on at 17:06; Start 09/22/17 at 08:00 Insulin Glargine (Lantus) 14 units QHS SQ Last administered on 09/23/17at 20:04 ; Start 09/21/17 at 21:00 Latanoprost (Xalatan) 1 drop QHS OU Last administered on 09/24/17at 19:32; Start 09/21/17 at 21:00 Cetirizine HCl (ZyrTEC) 10 mg PRN Q24HRS PRN PO ALLERGIES; Start 09/21/17 at 20 :41 Non-Formulary Medication (Menthol (Biofreeze)) 1 marjorie PRN Q4HRS PRN TP lower back pain; Start 09/21/17 at 20:15; Status UNV Metformin HCl (Glucophage) 1,000 mg DAILYWSUP PO Last administered on at 17:04; Start 09/22/17 at 17:00 Ondansetron HCl (Zofran Odt) 4 mg PRN Q8HRS PRN PO NAUSEA/VOMITING; Start 09/21 at 20:30 Oxycodone HCl (Roxicodone) 5 mg PRN Q12HR PRN PO SEVERE PAIN Last administered on 09/24/17at 09:30; Start 09/21/17 at 21:00 Oxycodone HCl (Roxicodone) 5 mg QID PO Last administered on 09/24/17at 19:47; Start 09/21/17 at 21:00 Paroxetine HCl (Paxil) 30 mg DAILY PO Last administered on 09/22/17at 08:36; Start 09/22/17 at 09:00; Stop 09/22/17 at 17:29; Status DC Quetiapine Fumarate (SEROquel) 300 mg QHS PO Last administered on 09/24/17 19: 32; Start 09/21/17 at 21:00 Timolol Maleate (Timoptic 0.5% [facility]) 1 drop DAILY OU Last administered on 09/24at 08:19; Start 09/22/17 at 09:00 Acetaminophen (Tylenol) 650 mg PRN Q6HRS PRN PO PAIN / TEMP; Start 09/21/17 at 20:15; Status UNV Multi-Ingredient Ointment (Analgesic [place]) 1 marjorie PRN QID PRN TP MUSCLE PAIN; Start 09/21/17 at 20:15 Al Hydroxide/Mg Hydroxide (Mylanta Plus Xs) 15 ml PRN AFTMEALHC PRN PO DYSPEPSIA; Start 09/21/17 at 20:15 Magnesium Hydroxide (Milk Of Magnesia) 2,400 mg PRN QHS PRN PO CONSTIPATION; Start 09/21/17 at 20:15; Status UNV Insulin Human Lispro (HumaLOG) 0-7 UNITS TIDWMEALS SQ Last administered on 09/23at 12:12; Start 09/22/17 at 08:00 Dextrose 12.5 gm PRN Q15MIN PRN IV SEE COMMENTS; Start 09/21/17 at 21:30 Cefpodoxime Proxetil (Vantin) 200 mg BID PO Last administered on 09/24/17at 19: 32; Start 09/22/17 at 21:00; Stop 10/02/17 at 21:00 Magnesium Chloride (Mag Delay) 64 mg DAILY PO Last administered on 09/23/17at 08 :22; Start 09/22/17 at 14:00; Stop 09/23/17 at 10:16; Status DC Lactobacillus Rhamnosus (Culturelle) 1 cap BID PO Last administered on at 19:32; Start 09/22/17 at 21:00 Magnesium Chloride (Mag Delay) 64 mg DAILY PO Last administered on 09/24/17at 08 :17; Start 09/23/17 at 09:00 Vitamin D (Vitamin D3) 50,000 unit WEEKLY PO ; Start 09/29/17 at 09:00 Fenofibrate (Tricor) 48 mg DAILY PO Last administered on 09/24/17at 08:18; Start 09/23/17 at 09:00 Paroxetine HCl (Paxil) 20 mg DAILY PO Last administered on 09/24/17at 08:18; Start 09/23/17 at 09:00; Stop 09/24/17 at 10:00; Status DC Paroxetine HCl (Paxil) 10 mg DAILY PO ; Start 09/25/17 at 09:00; Stop 09/26/17 at 10:00 Duloxetine HCl (Cymbalta) 30 mg DAILY PO Last administered on 09/24/17at 08:23; Start 09/24/17 at 09:00 Duloxetine HCl (Cymbalta) 20 mg DAILY PO Last administered on 09/24/17at 08:22; Start 09/24/17 at 09:00 Active Scripts Active Reported Zofran (Ondansetron Hcl) 4 Mg Tablet 4 Mg PO PRN Q8HRS PRN Xalatan (Latanoprost) 2.5 Ml Drops 1 Drop EACHEYE QHS Tylenol (Acetaminophen) 325 Mg Tablet 650 Mg PO BID Tylenol (Acetaminophen) 325 Mg Tablet 650 Mg PO PRN Q6HRS PRN Timoptic (Timolol Maleate) 10 Ml Drops 1 Drop EACHEYE DAILY Seroquel Xr (Quetiapine Fumarate) 300 Mg Tab.er.24h 300 Mg PO QHS Paxil (Paroxetine Hcl) 30 Mg Tablet 30 Mg PO DAILY Oxycodone Hcl 5 Mg Capsule 5 Mg PO QID PRN Oxycodone Hcl 5 Mg Capsule 5 Mg PO PRN Q12HR PRN Novolog Flexpen (Insulin Aspart) 100 Unit/1 Ml Insuln.pen 2-16 Unit SQ TIDAC Novolog Flexpen (Insulin Aspart) 100 Unit/1 Ml Insuln.pen 8 Unit SQ TIDAC Milk Of Magnesia (Magnesium Hydroxide) 400 Mg/5 Ml Oral.susp 30 Mg PO PRN BID PRN Metformin Hcl 1,000 Mg Tablet 1,000 Mg PO DAILYWSUP Lisinopril 10 Mg Tablet 10 Mg PO DAILY Levemir Flextouch (Insulin Detemir) 100 Unit/1 Ml Insuln.pen 14 Unit SQ HS Glipizide 10 Mg Tablet 10 Mg PO BID Donepezil Hcl 10 Mg Tablet 23 Mg PO DAILY Cymbalta (Duloxetine Hcl) 30 Mg Capsule.dr 30 Mg PO DAILY Claritin (Loratadine) 10 Mg Tablet 10 Mg PO PRN Q24HRS PRN Biofreeze (Menthol) 118 Ml Gel..ml. 1 Marjorie TP PRN Q4HRS PRN Baclofen 10 Mg Tablet 5 Mg PO TID Ativan (Lorazepam) 1 Mg Tablet 1 Mg PO PRN DAILY PRN Aspirin 81 Mg Tab.chew 81 Mg PO DAILY Artificial Tears Eye Drops (Dextran 70/Hypromellose) 15 Ml Drops 1 Drop EACHEYE BID Abilify (Aripiprazole) 5 Mg Tablet 5 Mg PO DAILY I have reviewed the current psychotropics carefully including drug interactions. Risk benefit ratio favors no change other than as noted in my dictated progress note. Diagnosis: Problems: (1) Encounter for medical screening examination (2) Urinary tract infection (3) Dementia with behavioral disturbance (4) Anxiety disorder (5) Dementia, vascular, with delusions (6) Dementia, vascular, with depression (7) Impulse control disorder (8) Urinary tract infection MELISSA SOLER MD Sep 24, 2017 22:16
[2017-09-25 05:52] VITALS: BP 130/60
[2017-09-25] MEDS: INSULIN LISPRO 300 UNITS/3 ML INSULN.PEN. SQ SCH ×6 (07:51→17:13)
[2017-09-25] MEDS: DULoxetine HCL 30 MG CAPSULE.DR PO SCH (07:53)
[2017-09-25] MEDS: DULoxetine HCL 20 MG CAPSULE.DR PO SCH (07:53)
[2017-09-25] MEDS: MAGNESIUM CHLORIDE ER 64 MG TABLET.ER PO SCH (07:53)
[2017-09-25] MEDS: ASPIRIN 81 MG TAB.CHEW PO SCH (07:53)
[2017-09-25] MEDS: ARIPiprazole 5 MG TABLET PO SCH (07:53)
[2017-09-25] MEDS: ACETAMINOPHEN 325 MG TABLET PO SCH ×2 (07:54→19:29)
[2017-09-25] MEDS: CEFPODOXIME PROXETIL 100 MG TABLET PO SCH ×2 (07:54→19:25)
[2017-09-25] MEDS: BACLOFEN 10 MG TABLET PO SCH ×3 (07:54→19:28)
[2017-09-25] MEDS: FENOFIBRATE NANOCRYSTALLIZED 48 MG TABLET PO SCH (07:54)
[2017-09-25] MEDS: LISINOPRIL 10 MG TABLET PO SCH (07:55)
[2017-09-25] MEDS: glipiZIDE 5 MG TABLET PO SCH ×2 (07:55→17:09)
[2017-09-25] MEDS: DONEPEZIL 23 MG TABLET PO SCH (07:55)
[2017-09-25] MEDS: POLYVINYL ALCOHOL/POVIDONE/PF OPHTH SOLUTION DROPERETTE. OU SCH ×2 (07:55→19:28)
[2017-09-25] MEDS: LACTOBACILLUS RHAMNOSUS GG 1 CAPSULE. PO SCH ×2 (07:55→19:29)
[2017-09-25] MEDS: PARoxetine 10 MG TABLET PO SCH (07:57)
[2017-09-25] MEDS: oxyCODONE IR 5 MG TABLET PO PRN (08:00)
[2017-09-25] MEDS: TIMOLOL 0.5% OPHTH SOLUTION 5ML BOTTLE. OU SCH (08:00)
[2017-09-25] MEDS: oxyCODONE IR 5 MG TABLET PO SCH ×4 (13:08→19:28)
[2017-09-25 16:22] VITALS: BP 132/80
[2017-09-25] MEDS: metFORMIN 500 MG TABLET PO SCH (17:09)
[2017-09-25] MEDS: QUEtiapine 100 MG TABLET. PO SCH (19:26)
[2017-09-25] MEDS: LATANOPROST 0.005% OPHTH SOLUTION 2.5ML BOTTLE. OU SCH (19:31)
[2017-09-25] MEDS: INSULIN GLARGINE 300 UNITS/3 ML INSULN.PEN. SQ SCH (19:32)
--- NOTE | 2017-09-25 20:53 | PDOC ---
Exam Note: Jonas Note: Please also refer to the separate dictated note~for this date of service dictated separately.~Patient seen individually. Discussed the patient with Nursing staff reviewed the chart.~Reviewed interim history and current functioning. Reviewed vital signs,~Labs/ Radiology~and current medications noted below. Continue current treatment with the changes noted in the dictated addendum note Assessment: Vital Signs: Vital Signs Date Time Temp Pulse Resp B/P (MAP) Pulse Ox O2 Delivery O2 Flow Rate FiO2 09/25/17 19:48 20 Room Air 09/25/17 18:17 96 09/25/17 16:22 97.9 82 132/80 (97) I&O Intake and Output 09/25/17 07:01 Intake Total 240 ml Balance 240 ml Intake Oral 240 ml # Bowel Movements 2 Labs: Laboratory Tests Test 09/25/17 07:33 09/25/17 10:15 09/25/17 11:49 09/25/17 16:36 Glucose (Fingerstick) 104 mg/dL (70-99) H 230 mg/dL (70-99) H 193 mg/dL (70-99) H Magnesium Level 1.8 mg/dL (1.8-2.4) Test 09/25/17 19:06 Glucose (Fingerstick) 185 mg/dL (70-99) H Current Medications: Meds: Current Medications Cephalexin HCl (Keflex) 500 mg 1X ONCE PO Last administered on 09/21/17at 16:55 ; Start 09/21/17 at 17:00; Stop 09/21/17 at 17:01; Status DC Acetaminophen (Tylenol) 650 mg BID PO Last administered on 09/25/17at 19:29; Start 09/21/17 at 21:00 Acetaminophen (Tylenol) 650 mg PRN Q6HRS PRN PO mild pain ; Start 09/21/17 at 20:15 Lisinopril (Prinivil) 10 mg DAILY PO Last administered on 09/25/17at 07:55; Start 09/22/17 at 09:00; Stop 09/25/17 at 13:14; Status DC Lorazepam (Ativan) 1 mg PRN DAILY PRN PO crying outbursts Last administered on 09/24/17at 19:46; Start 09/21/17 at 20:15 Magnesium Hydroxide (Milk Of Magnesia) 2,400 mg PRN BID PRN PO constipation if no BM 3 days; Start 09/21/17 at 20:15 Aripiprazole (Abilify) 5 mg DAILY PO Last administered on 09/25/17at 07:53; Start 09/22/17 at 09:00 Aspirin (Children'S Aspirin) 81 mg DAILY PO Last administered on 09/25/17 07: 53; Start 09/22/17 at 09:00 Baclofen (Lioresal) 5 mg TID PO Last administered on 09/25/17 19:28; Start at 21:00 Artificial Tears (Refresh Classic) 1 drop BID OU Last administered on 19:28; Start 09/21/17 at 21:00 Donepezil HCl (Aricept) 23 mg DAILY PO Last administered on 09/25/17at 07:55; Start 09/22/17 at 09:00 Duloxetine HCl (Cymbalta) 30 mg DAILY PO Last administered on 09/23/17at 08:21; Start 09/22/17 at 09:00; Stop 09/23/17 at 19:38; Status DC Glipizide (Glucotrol) 10 mg BIDBFRMEAL PO Last administered on 09/25/17at 17:09 ; Start 09/22/17 at 07:30 Non-Formulary Medication (Insulin Aspart (Novolog Flexpen)) TIDAC SQ ; Start at 07:30; Status UNV Insulin Human Lispro (HumaLOG) 8 units TIDWMEALS SQ Last administered on 17:12; Start 09/22/17 at 08:00 Insulin Glargine (Lantus) 14 units QHS SQ Last administered on 09/25/17 19:32 ; Start 09/21/17 at 21:00 Latanoprost (Xalatan) 1 drop QHS OU Last administered on 09/25/17 19:31; Start 09/21/17 at 21:00 Cetirizine HCl (ZyrTEC) 10 mg PRN Q24HRS PRN PO ALLERGIES; Start 09/21/17 at 20 :41 Non-Formulary Medication (Menthol (Biofreeze)) 1 marjorie PRN Q4HRS PRN TP lower back pain; Start 09/21/17 at 20:15; Status UNV Metformin HCl (Glucophage) 1,000 mg DAILYWSUP PO Last administered on at 17:09; Start 09/22/17 at 17:00 Ondansetron HCl (Zofran Odt) 4 mg PRN Q8HRS PRN PO NAUSEA/VOMITING; Start 09/21 at 20:30 Oxycodone HCl (Roxicodone) 5 mg PRN Q12HR PRN PO SEVERE PAIN Last administered on 09/25/17at 08:00; Start 09/21/17 at 21:00 Oxycodone HCl (Roxicodone) 5 mg QID PO Last administered on 09/25/17at 19:28; Start 09/21/17 at 21:00 Paroxetine HCl (Paxil) 30 mg DAILY PO Last administered on 09/22/17at 08:36; Start 09/22/17 at 09:00; Stop 09/22/17 at 17:29; Status DC Quetiapine Fumarate (SEROquel) 300 mg QHS PO Last administered on 09/24/17at 19: 32; Start 09/21/17 at 21:00; Stop 09/25/17 at 18:45; Status DC Timolol Maleate (Timoptic 0.5% [facility]) 1 drop DAILY OU Last administered on 09/25at 08:00; Start 09/22/17 at 09:00 Acetaminophen (Tylenol) 650 mg PRN Q6HRS PRN PO PAIN / TEMP; Start 09/21/17 at 20:15; Status UNV Multi-Ingredient Ointment (Analgesic [place]) 1 marjorie PRN QID PRN TP MUSCLE PAIN; Start 09/21/17 at 20:15 Al Hydroxide/Mg Hydroxide (Mylanta Plus Xs) 15 ml PRN AFTMEALHC PRN PO DYSPEPSIA; Start 09/21/17 at 20:15 Magnesium Hydroxide (Milk Of Magnesia) 2,400 mg PRN QHS PRN PO CONSTIPATION; Start 09/21/17 at 20:15; Status UNV Insulin Human Lispro (HumaLOG) 0-7 UNITS TIDWMEALS SQ Last administered on 09/25at 17:13; Start 09/22/17 at 08:00 Dextrose 12.5 gm PRN Q15MIN PRN IV SEE COMMENTS; Start 09/21/17 at 21:30 Cefpodoxime Proxetil (Vantin) 200 mg BID PO Last administered on 09/25/17at 19: 25; Start 09/22/17 at 21:00; Stop 10/02/17 at 21:00 Magnesium Chloride (Mag Delay) 64 mg DAILY PO Last administered on 09/23/17at 08 :22; Start 09/22/17 at 14:00; Stop 09/23/17 at 10:16; Status DC Lactobacillus Rhamnosus (Culturelle) 1 cap BID PO Last administered on at 19:29; Start 09/22/17 at 21:00 Magnesium Chloride (Mag Delay) 64 mg DAILY PO Last administered on 09/25/17at 07 :53; Start 09/23/17 at 09:00 Vitamin D (Vitamin D3) 50,000 unit WEEKLY PO ; Start 09/29/17 at 09:00 Fenofibrate (Tricor) 48 mg DAILY PO Last administered on 09/25/17at 07:54; Start 09/23/17 at 09:00 Paroxetine HCl (Paxil) 20 mg DAILY PO Last administered on 09/24/17at 08:18; Start 09/23/17 at 09:00; Stop 09/24/17 at 10:00; Status DC Paroxetine HCl (Paxil) 10 mg DAILY PO Last administered on 09/25/17at 07:57; Start 09/25/17 at 09:00; Stop 09/26/17 at 10:00 Duloxetine HCl (Cymbalta) 30 mg DAILY PO Last administered on 09/25/17at 07:53; Start 09/24/17 at 09:00 Duloxetine HCl (Cymbalta) 20 mg DAILY PO Last administered on 09/25/17at 07:53; Start 09/24/17 at 09:00 Lisinopril (Prinivil) 20 mg DAILY PO ; Start 09/26/17 at 09:00 Quetiapine Fumarate (SEROquel) 175 mg QHS PO Last administered on 09/25/17at 19: 26; Start 09/25/17 at 21:00 Quetiapine Fumarate (SEROquel) 75 mg 0900,1300 PO ; Start 09/26/17 at 09:00 Olanzapine (ZyPREXA ZYDIS) 2.5 mg PRN Q2HR PRN PO PSYCHOSIS; Start 09/25/17 at 18:45 Active Scripts Active Reported Zofran (Ondansetron Hcl) 4 Mg Tablet 4 Mg PO PRN Q8HRS PRN Xalatan (Latanoprost) 2.5 Ml Drops 1 Drop EACHEYE QHS Tylenol (Acetaminophen) 325 Mg Tablet 650 Mg PO BID Tylenol (Acetaminophen) 325 Mg Tablet 650 Mg PO PRN Q6HRS PRN Timoptic (Timolol Maleate) 10 Ml Drops 1 Drop EACHEYE DAILY Seroquel Xr (Quetiapine Fumarate) 300 Mg Tab.er.24h 300 Mg PO QHS Paxil (Paroxetine Hcl) 30 Mg Tablet 30 Mg PO DAILY Oxycodone Hcl 5 Mg Capsule 5 Mg PO QID PRN Oxycodone Hcl 5 Mg Capsule 5 Mg PO PRN Q12HR PRN Novolog Flexpen (Insulin Aspart) 100 Unit/1 Ml Insuln.pen 2-16 Unit SQ TIDAC Novolog Flexpen (Insulin Aspart) 100 Unit/1 Ml Insuln.pen 8 Unit SQ TIDAC Milk Of Magnesia (Magnesium Hydroxide) 400 Mg/5 Ml Oral.susp 30 Mg PO PRN BID PRN Metformin Hcl 1,000 Mg Tablet 1,000 Mg PO DAILYWSUP Lisinopril 10 Mg Tablet 10 Mg PO DAILY Levemir Flextouch (Insulin Detemir) 100 Unit/1 Ml Insuln.pen 14 Unit SQ HS Glipizide 10 Mg Tablet 10 Mg PO BID Donepezil Hcl 10 Mg Tablet 23 Mg PO DAILY Cymbalta (Duloxetine Hcl) 30 Mg Capsule.dr 30 Mg PO DAILY Claritin (Loratadine) 10 Mg Tablet 10 Mg PO PRN Q24HRS PRN Biofreeze (Menthol) 118 Ml Gel..ml. 1 Marjorie TP PRN Q4HRS PRN Baclofen 10 Mg Tablet 5 Mg PO TID Ativan (Lorazepam) 1 Mg Tablet 1 Mg PO PRN DAILY PRN Aspirin 81 Mg Tab.chew 81 Mg PO DAILY Artificial Tears Eye Drops (Dextran 70/Hypromellose) 15 Ml Drops 1 Drop EACHEYE BID Abilify (Aripiprazole) 5 Mg Tablet 5 Mg PO DAILY I have reviewed the current psychotropics carefully including drug interactions. Risk benefit ratio favors no change other than as noted in my dictated progress note. Diagnosis: Problems: (1) Encounter for medical screening examination (2) Urinary tract infection (3) Dementia with behavioral disturbance (4) Anxiety disorder (5) Dementia, vascular, with delusions (6) Dementia, vascular, with depression (7) Impulse control disorder (8) Urinary tract infection MELISSA SOLER MD Sep 25, 2017 20:53
--- NOTE | 2017-09-25 22:18 | PN ---
DATE: 09/23/2017 This is a late entry, 09/23/2017, covers the elements not covered in my initial note. SUBJECTIVE: I met with the patient in the evening. The patient remains withdrawn in her Broda chair, constantly yelling, screaming, repetitive calling out when awake, quite obsessive. REVIEW OF SYSTEMS: No CV, , pulmonary, eye, ENT system symptoms on review. Gait unsteady. Reliability poor, does complain of pain in her feet. MENTAL STATUS EXAM: Oriented to herself. Insight, judgment, recent memory is impaired, remote is better. Language function intact, attention span short. Mood and affect is depressed, anxious, obsessive, and labile. LABORATORY DATA: Reviewed. 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 PLAN: Increase Cymbalta to 50 mg a day. Continue rest unchanged. MAN Twila SOLER MD DR: GABRIELA/sowmya JOB#: [id number] / [id number]
[2017-09-26 05:56] VITALS: BP 130/64
[2017-09-26] MEDS: INSULIN LISPRO 300 UNITS/3 ML INSULN.PEN. SQ SCH ×6 (08:00→17:17)
[2017-09-26] MEDS: CEFPODOXIME PROXETIL 100 MG TABLET PO SCH ×2 (08:08→19:28)
[2017-09-26] MEDS: PARoxetine 10 MG TABLET PO SCH (08:08)
[2017-09-26] MEDS: BACLOFEN 10 MG TABLET PO SCH ×3 (08:08→19:28)
[2017-09-26] MEDS: DULoxetine HCL 20 MG CAPSULE.DR PO SCH (08:10)
[2017-09-26] MEDS: DONEPEZIL 23 MG TABLET PO SCH (08:10)
[2017-09-26] MEDS: DULoxetine HCL 30 MG CAPSULE.DR PO SCH (08:11)
[2017-09-26] MEDS: ACETAMINOPHEN 325 MG TABLET PO SCH ×2 (08:11→19:28)
[2017-09-26] MEDS: POLYVINYL ALCOHOL/POVIDONE/PF OPHTH SOLUTION DROPERETTE. OU SCH ×2 (08:12→19:25)
[2017-09-26] MEDS: LACTOBACILLUS RHAMNOSUS GG 1 CAPSULE. PO SCH ×2 (08:12→19:33)
[2017-09-26] MEDS: glipiZIDE 5 MG TABLET PO SCH ×2 (08:12→17:14)
[2017-09-26] MEDS: TIMOLOL 0.5% OPHTH SOLUTION 5ML BOTTLE. OU SCH (08:12)
[2017-09-26] MEDS: ASPIRIN 81 MG TAB.CHEW PO SCH (08:12)
[2017-09-26] MEDS: ARIPiprazole 5 MG TABLET PO SCH (08:12)
[2017-09-26] MEDS: MAGNESIUM CHLORIDE ER 64 MG TABLET.ER PO SCH (08:12)
[2017-09-26] MEDS: LISINOPRIL 20 MG TABLET PO SCH (08:17)
[2017-09-26] MEDS: QUEtiapine 50 MG TABLET. PO SCH ×2 (08:18→13:49)
[2017-09-26] MEDS: FENOFIBRATE NANOCRYSTALLIZED 48 MG TABLET PO SCH (08:18)
[2017-09-26] MEDS: oxyCODONE IR 5 MG TABLET PO SCH ×4 (08:19→21:00)
[2017-09-26] MEDS: LORazepam 1 MG TABLET PO PRN (09:32)
[2017-09-26] MEDS: oxyCODONE IR 5 MG TABLET PO PRN (09:32)
--- NOTE | 2017-09-26 12:55 | PN ---
DATE: 09/24/2017 PSYCHIATRIC PROGRESS NOTE This is a late entry, 09/24, covers elements not covered in my initial note. SUBJECTIVE: I met with the patient in the morning. The patient slept 6 hours previous evening, has complained of increasing pain during the day. Complains of back hurting, foot hurting. We will defer to Dr. Mcfarland for this and she is on Roxicodone. Ambulation impaired, in Broda chair. REVIEW OF SYSTEMS: No CV, , pulmonary, eye system symptoms on review. MENTAL STATUS EXAM: Oriented to herself. Insight, judgment, recent memory is impaired. Language function intact. Attention span short. She has been yelling out at times, somewhat anxious, depressed. No active suicidal or homicidal ideation. LABORATORY DATA: Reviewed. IMPRESSION: Major depressive disorder, recurrent; anxiety disorder, unspecified; major neurocognitive disorder, Alzheimer, vascular with delusion, depression. PLAN: Maintain Abilify along with Cymbalta, Aricept, Paxil, is being tapered to be stopped. May need to change Seroquel to give a portion of it during the day to help with mood lability. MAN Twila SOLER MD DR: GABRIELA/sowmya JOB#: [id number] / [id number]
[2017-09-26 15:46] VITALS: BP 106/70
[2017-09-26 16:10] LABS: BASO % 1 % (0-3); EOS # 0.1 x10^3/uL (0.0-0.7); EOS % 2 % (0-3); HEMATOCRIT 37.9 % (36.0-47.0); HEMOGLOBIN 12.8 g/dL (12.0-15.5); LYMPH # 1.7 x10^3/uL (1.0-4.8); LYMPH % 37 % (24-48); MEAN CORPUSCULAR HEMOGLOBIN 32 pg (25-35); MEAN CORPUSCULAR HGB CONC 34 g/dL (31-37); MEAN CORPUSCULAR VOLUME 94 fL (79-100); MONO # 0.4 x10^3/uL (0.0-1.1); MONO % 9 % (0-9); NEUT # 2.4 x10^3uL (1.8-7.7); NEUT % 52 % (31-73); PLATELET COUNT 298 x10^3/uL (140-400); RED BLOOD COUNT 4.01 x10^6/uL (3.50-5.40); RED CELL DISTRIBUTION WIDTH 14.4 % (11.5-14.5); WHITE BLOOD COUNT 4.6 x10^3/uL (4.0-11.0)
[2017-09-26 16:18] LABS: ALBUMIN/GLOBULIN RATIO 0.7 (1.0-1.7); CREATININE 0.9 mg/dL (0.6-1.0); GFR 72.9; POTASSIUM 4.1 mmol/L (3.5-5.1); TOTAL BILIRUBIN 0.2 mg/dL (0.2-1.0); TOTAL PROTEIN 7.5 g/dL (6.4-8.2)
[2017-09-26] MEDS: metFORMIN 500 MG TABLET PO SCH (17:16)
[2017-09-26] MEDS: QUEtiapine 100 MG TABLET. PO SCH (19:26)
[2017-09-26] MEDS: INSULIN GLARGINE 300 UNITS/3 ML INSULN.PEN. SQ SCH (19:31)
--- NOTE | 2017-09-26 20:56 | PDOC ---
Exam Note: Jonas Note: Please also refer to the separate dictated note~for this date of service dictated separately.~Patient seen individually. Discussed the patient with Nursing staff reviewed the chart.~Reviewed interim history and current functioning. Reviewed vital signs,~Labs/ Radiology~and current medications noted below. Continue current treatment with the changes noted in the dictated addendum note Assessment: Vital Signs: Vital Signs Date Time Temp Pulse Resp B/P (MAP) Pulse Ox O2 Delivery O2 Flow Rate FiO2 09/26/17 17:16 20 09/26/17 15:46 97.6 80 106/70 (82) 94 09/25/17 22:12 Room Air I&O Intake and Output 09/26/17 07:01 Intake Total 960 ml Balance 960 ml Intake Oral 960 ml # Voids 1 # Bowel Movements 2 Labs: Laboratory Tests Test 09/26/17 07:30 09/26/17 11:52 09/26/17 15:50 09/26/17 16:44 Glucose (Fingerstick) 127 mg/dL (70-99) H 163 mg/dL (70-99) H 157 mg/dL (70-99) H White Blood Count 4.6 x10^3/uL (4.0-11.0) Red Blood Count 4.01 x10^6/uL (3.50-5.40) Hemoglobin 12.8 g/dL (12.0-15.5) Hematocrit 37.9 % (36.0-47.0) Mean Corpuscular Volume 94 fL (79-100) Mean Corpuscular Hemoglobin 32 pg (25-35) Mean Corpuscular Hemoglobin Concent 34 g/dL (31-37) Red Cell Distribution Width 14.4 % (11.5-14.5) Platelet Count 298 x10^3/uL (140-400) Neutrophils (%) (Auto) 52 % (31-73) Lymphocytes (%) (Auto) 37 % (24-48) Monocytes (%) (Auto) 9 % (0-9) Eosinophils (%) (Auto) 2 % (0-3) Basophils (%) (Auto) 1 % (0-3) Neutrophils # (Auto) 2.4 x10^3uL (1.8-7.7) Lymphocytes # (Auto) 1.7 x10^3/uL (1.0-4.8) Monocytes # (Auto) 0.4 x10^3/uL (0.0-1.1) Eosinophils # (Auto) 0.1 x10^3/uL (0.0-0.7) Basophils # (Auto) 0.0 x10^3/uL (0.0-0.2) Sodium Level 141 mmol/L (136-145) Potassium Level 4.1 mmol/L (3.5-5.1) Chloride Level 105 mmol/L (98-107) Carbon Dioxide Level 29 mmol/L (21-32) Anion Gap 7 (6-14) Blood Urea Nitrogen 13 mg/dL (7-20) Creatinine 0.9 mg/dL (0.6-1.0) Estimated GFR (Cockcroft-Gault) 72.9 BUN/Creatinine Ratio 14 (6-20) Glucose Level 188 mg/dL (70-99) H Calcium Level 9.0 mg/dL (8.5-10.1) Total Bilirubin 0.2 mg/dL (0.2-1.0) Aspartate Amino Transferase (AST) 24 U/L (15-37) Alanine Aminotransferase (ALT) 28 U/L (14-59) Alkaline Phosphatase 64 U/L (46-116) Total Protein 7.5 g/dL (6.4-8.2) Albumin 3.0 g/dL (3.4-5.0) L Albumin/Globulin Ratio 0.7 (1.0-1.7) L Test 09/26/17 19:06 Glucose (Fingerstick) 169 mg/dL (70-99) H Current Medications: Meds: Current Medications Cephalexin HCl (Keflex) 500 mg 1X ONCE PO Last administered on 09/21/17at 16:55 ; Start 09/21/17 at 17:00; Stop 09/21/17 at 17:01; Status DC Acetaminophen (Tylenol) 650 mg BID PO Last administered on 09/26/17at 19:28; Start 09/21/17 at 21:00 Acetaminophen (Tylenol) 650 mg PRN Q6HRS PRN PO mild pain ; Start 09/21/17 at 20:15 Lisinopril (Prinivil) 10 mg DAILY PO Last administered on 09/25/17at 07:55; Start 09/22/17 at 09:00; Stop 09/25/17 at 13:14; Status DC Lorazepam (Ativan) 1 mg PRN DAILY PRN PO crying outbursts Last administered on 09/26/17at 09:32; Start 09/21/17 at 20:15 Magnesium Hydroxide (Milk Of Magnesia) 2,400 mg PRN BID PRN PO constipation if no BM 3 days; Start 09/21/17 at 20:15 Aripiprazole (Abilify) 5 mg DAILY PO Last administered on 09/26/17at 08:12; Start 09/22/17 at 09:00 Aspirin (Children'S Aspirin) 81 mg DAILY PO Last administered on 09/26/17 08: 12; Start 09/22/17 at 09:00 Baclofen (Lioresal) 5 mg TID PO Last administered on 09/26/17 19:28; Start at 21:00 Artificial Tears (Refresh Classic) 1 drop BID OU Last administered on 19:25; Start 09/21/17 at 21:00 Donepezil HCl (Aricept) 23 mg DAILY PO Last administered on 09/26/17 08:10; Start 09/22/17 at 09:00 Duloxetine HCl (Cymbalta) 30 mg DAILY PO Last administered on 09/23/17at 08:21; Start 09/22/17 at 09:00; Stop 09/23/17 at 19:38; Status DC Glipizide (Glucotrol) 10 mg BIDBFRMEAL PO Last administered on 09/26/17at 17:14 ; Start 09/22/17 at 07:30 Non-Formulary Medication (Insulin Aspart (Novolog Flexpen)) TIDAC SQ ; Start at 07:30; Status UNV Insulin Human Lispro (HumaLOG) 8 units TIDWMEALS SQ Last administered on 17:16; Start 09/22/17 at 08:00 Insulin Glargine (Lantus) 14 units QHS SQ Last administered on 09/26/17 19:31 ; Start 09/21/17 at 21:00 Latanoprost (Xalatan) 1 drop QHS OU Last administered on 09/25/17 19:31; Start 09/21/17 at 21:00 Cetirizine HCl (ZyrTEC) 10 mg PRN Q24HRS PRN PO ALLERGIES; Start 09/21/17 at 20 :41 Non-Formulary Medication (Menthol (Biofreeze)) 1 marjorie PRN Q4HRS PRN TP lower back pain; Start 09/21/17 at 20:15; Status UNV Metformin HCl (Glucophage) 1,000 mg DAILYWSUP PO Last administered on at 17:16; Start 09/22/17 at 17:00 Ondansetron HCl (Zofran Odt) 4 mg PRN Q8HRS PRN PO NAUSEA/VOMITING; Start 09/21 at 20:30 Oxycodone HCl (Roxicodone) 5 mg PRN Q12HR PRN PO SEVERE PAIN Last administered on 09/26/17at 09:32; Start 09/21/17 at 21:00 Oxycodone HCl (Roxicodone) 5 mg QID PO Last administered on 09/25/17at 19:28; Start 09/21/17 at 21:00; Stop 09/26/17 at 08:12; Status DC Paroxetine HCl (Paxil) 30 mg DAILY PO Last administered on 09/22/17at 08:36; Start 09/22/17 at 09:00; Stop 09/22/17 at 17:29; Status DC Quetiapine Fumarate (SEROquel) 300 mg QHS PO Last administered on 09/24/17at 19: 32; Start 09/21/17 at 21:00; Stop 09/25/17 at 18:45; Status DC Timolol Maleate (Timoptic 0.5% [facility]) 1 drop DAILY OU Last administered on 09/26at 08:12; Start 09/22/17 at 09:00 Acetaminophen (Tylenol) 650 mg PRN Q6HRS PRN PO PAIN / TEMP; Start 09/21/17 at 20:15; Status UNV Multi-Ingredient Ointment (Analgesic [place]) 1 marjorie PRN QID PRN TP MUSCLE PAIN; Start 09/21/17 at 20:15 Al Hydroxide/Mg Hydroxide (Mylanta Plus Xs) 15 ml PRN AFTMEALHC PRN PO DYSPEPSIA; Start 09/21/17 at 20:15 Magnesium Hydroxide (Milk Of Magnesia) 2,400 mg PRN QHS PRN PO CONSTIPATION; Start 09/21/17 at 20:15; Status UNV Insulin Human Lispro (HumaLOG) 0-7 UNITS TIDWMEALS SQ Last administered on 09/26at 17:17; Start 09/22/17 at 08:00 Dextrose 12.5 gm PRN Q15MIN PRN IV SEE COMMENTS; Start 09/21/17 at 21:30 Cefpodoxime Proxetil (Vantin) 200 mg BID PO Last administered on 09/26/17at 19: 28; Start 09/22/17 at 21:00; Stop 10/02/17 at 21:00 Magnesium Chloride (Mag Delay) 64 mg DAILY PO Last administered on 09/23/17at 08 :22; Start 09/22/17 at 14:00; Stop 09/23/17 at 10:16; Status DC Lactobacillus Rhamnosus (Culturelle) 1 cap BID PO Last administered on at 19:33; Start 09/22/17 at 21:00 Magnesium Chloride (Mag Delay) 64 mg DAILY PO Last administered on 09/26/17at 08 :12; Start 09/23/17 at 09:00 Vitamin D (Vitamin D3) 50,000 unit WEEKLY PO ; Start 09/29/17 at 09:00 Fenofibrate (Tricor) 48 mg DAILY PO Last administered on 09/26/17at 08:18; Start 09/23/17 at 09:00 Paroxetine HCl (Paxil) 20 mg DAILY PO Last administered on 09/24/17at 08:18; Start 09/23/17 at 09:00; Stop 09/24/17 at 10:00; Status DC Paroxetine HCl (Paxil) 10 mg DAILY PO Last administered on 09/26/17at 08:08; Start 09/25/17 at 09:00; Stop 09/26/17 at 10:00; Status DC Duloxetine HCl (Cymbalta) 30 mg DAILY PO Last administered on 09/26/17at 08:11; Start 09/24/17 at 09:00 Duloxetine HCl (Cymbalta) 20 mg DAILY PO Last administered on 09/26/17at 08:10; Start 09/24/17 at 09:00 Lisinopril (Prinivil) 20 mg DAILY PO Last administered on 09/26/17at 08:17; Start 09/26/17 at 09:00 Quetiapine Fumarate (SEROquel) 175 mg QHS PO Last administered on 09/26/17at 19: 26; Start 09/25/17 at 21:00 Quetiapine Fumarate (SEROquel) 75 mg 0900,1300 PO Last administered on at 13:49; Start 09/26/17 at 09:00 Olanzapine (ZyPREXA ZYDIS) 2.5 mg PRN Q2HR PRN PO PSYCHOSIS; Start 09/25/17 at 18:45 Oxycodone HCl (Roxicodone) 5 mg QID PO Last administered on 09/26/17at 17:16; Start 09/26/17 at 09:00 Active Scripts Active Reported Zofran (Ondansetron Hcl) 4 Mg Tablet 4 Mg PO PRN Q8HRS PRN Xalatan (Latanoprost) 2.5 Ml Drops 1 Drop EACHEYE QHS Tylenol (Acetaminophen) 325 Mg Tablet 650 Mg PO BID Tylenol (Acetaminophen) 325 Mg Tablet 650 Mg PO PRN Q6HRS PRN Timoptic (Timolol Maleate) 10 Ml Drops 1 Drop EACHEYE DAILY Seroquel Xr (Quetiapine Fumarate) 300 Mg Tab.er.24h 300 Mg PO QHS Paxil (Paroxetine Hcl) 30 Mg Tablet 30 Mg PO DAILY Oxycodone Hcl 5 Mg Capsule 5 Mg PO QID PRN Oxycodone Hcl 5 Mg Capsule 5 Mg PO PRN Q12HR PRN Novolog Flexpen (Insulin Aspart) 100 Unit/1 Ml Insuln.pen 2-16 Unit SQ TIDAC Novolog Flexpen (Insulin Aspart) 100 Unit/1 Ml Insuln.pen 8 Unit SQ TIDAC Milk Of Magnesia (Magnesium Hydroxide) 400 Mg/5 Ml Oral.susp 30 Mg PO PRN BID PRN Metformin Hcl 1,000 Mg Tablet 1,000 Mg PO DAILYWSUP Lisinopril 10 Mg Tablet 10 Mg PO DAILY Levemir Flextouch (Insulin Detemir) 100 Unit/1 Ml Insuln.pen 14 Unit SQ HS Glipizide 10 Mg Tablet 10 Mg PO BID Donepezil Hcl 10 Mg Tablet 23 Mg PO DAILY Cymbalta (Duloxetine Hcl) 30 Mg Capsule.dr 30 Mg PO DAILY Claritin (Loratadine) 10 Mg Tablet 10 Mg PO PRN Q24HRS PRN Biofreeze (Menthol) 118 Ml Gel..ml. 1 Marjorie TP PRN Q4HRS PRN Baclofen 10 Mg Tablet 5 Mg PO TID Ativan (Lorazepam) 1 Mg Tablet 1 Mg PO PRN DAILY PRN Aspirin 81 Mg Tab.chew 81 Mg PO DAILY Artificial Tears Eye Drops (Dextran 70/Hypromellose) 15 Ml Drops 1 Drop EACHEYE BID Abilify (Aripiprazole) 5 Mg Tablet 5 Mg PO DAILY I have reviewed the current psychotropics carefully including drug interactions. Risk benefit ratio favors no change other than as noted in my dictated progress note. Diagnosis: Problems: (1) Encounter for medical screening examination (2) Urinary tract infection (3) Dementia with behavioral disturbance (4) Anxiety disorder (5) Dementia, vascular, with delusions (6) Dementia, vascular, with depression (7) Impulse control disorder (8) Urinary tract infection MELISSA SOLER MD Sep 26, 2017 20:56
[2017-09-26] MEDS: LATANOPROST 0.005% OPHTH SOLUTION 2.5ML BOTTLE. OU SCH (22:57)
--- NOTE | 2017-09-26 22:59 | PN ---
DATE: 09/25/2017 PSYCHIATRIC PROGRESS NOTE This is a late entry, 09/25, covers elements not covered in my initial note. SUBJECTIVE: I met with the patient in the morning. The patient slept 7-1/2 hours previous evening. She continues to yell out at times, remains in pain. Ambulation impaired, in Broda chair. REVIEW OF SYSTEMS: No CV, , pulmonary, eye, ENT system symptoms on review. Nursing staff provided her music on the [place] and this seemed to calm her somewhat. Slept 7-1/2 hours previous evening. MENTAL STATUS EXAM: Oriented to herself. Insight, judgment, recent memory is impaired. Language function intact. Attention span short. Mood and affect somewhat labile. LABORATORY DATA: Reviewed. IMPRESSION: Major depressive disorder, recurrent; anxiety disorder, unspecified; major neurocognitive disorder, Alzheimer, vascular with delusion, depression. Rest unchanged. PLAN: Start Zyprexa 2.5 mg q.2 hours p.r.n. anxiety, psychosis, max 10 mg in 24 hours. Nursing staff had called me as an emergency earlier in the day and we have added this. We will also change the Seroquel 300 mg at bedtime to 175 mg at bedtime and 75 mg 9 a.m., 1 p.m. to help with the mood lability, agitation during the day. MAN Twila SOLER MD DR: GABRIELA/sowmya JOB#: [id number] / [id number]
[2017-09-27 05:19] VITALS: BP 148/66
[2017-09-27] MEDS: glipiZIDE 5 MG TABLET PO SCH ×2 (07:30→16:57)
[2017-09-27] MEDS: INSULIN LISPRO 300 UNITS/3 ML INSULN.PEN. SQ SCH ×6 (08:00→17:01)
[2017-09-27] MEDS: POLYVINYL ALCOHOL/POVIDONE/PF OPHTH SOLUTION DROPERETTE. OU SCH ×2 (09:50→21:43)
[2017-09-27] MEDS: DONEPEZIL 23 MG TABLET PO SCH (09:53)
[2017-09-27] MEDS: TIMOLOL 0.5% OPHTH SOLUTION 5ML BOTTLE. OU SCH (09:53)
[2017-09-27] MEDS: ARIPiprazole 5 MG TABLET PO SCH (09:53)
[2017-09-27] MEDS: LACTOBACILLUS RHAMNOSUS GG 1 CAPSULE. PO SCH ×2 (09:54→20:11)
[2017-09-27] MEDS: DULoxetine HCL 30 MG CAPSULE.DR PO SCH (09:54)
[2017-09-27] MEDS: ASPIRIN 81 MG TAB.CHEW PO SCH (09:54)
[2017-09-27] MEDS: BACLOFEN 10 MG TABLET PO SCH ×3 (09:55→20:10)
[2017-09-27] MEDS: MAGNESIUM CHLORIDE ER 64 MG TABLET.ER PO SCH (09:55)
[2017-09-27] MEDS: LISINOPRIL 20 MG TABLET PO SCH (09:57)
[2017-09-27] MEDS: QUEtiapine 50 MG TABLET. PO SCH ×2 (09:58→13:06)
[2017-09-27] MEDS: ACETAMINOPHEN 325 MG TABLET PO SCH ×2 (09:59→20:12)
[2017-09-27] MEDS: DULoxetine HCL 20 MG CAPSULE.DR PO SCH (10:01)
[2017-09-27] MEDS: CEFPODOXIME PROXETIL 100 MG TABLET PO SCH ×2 (10:11→20:18)
[2017-09-27] MEDS: oxyCODONE IR 5 MG TABLET PO SCH ×4 (10:15→20:18)
[2017-09-27] MEDS: FENOFIBRATE NANOCRYSTALLIZED 48 MG TABLET PO SCH (10:16)
[2017-09-27 15:59] VITALS: BP 106/66
[2017-09-27] MEDS: metFORMIN 500 MG TABLET PO SCH (16:58)
[2017-09-27] MEDS: QUEtiapine 100 MG TABLET. PO SCH (20:11)
--- NOTE | 2017-09-27 20:49 | PDOC ---
Exam Note: Jonas Note: Please also refer to the separate dictated note~for this date of service dictated separately.~Patient seen individually. Discussed the patient with Nursing staff reviewed the chart.~Reviewed interim history and current functioning. Reviewed vital signs,~Labs/ Radiology~and current medications noted below. Continue current treatment with the changes noted in the dictated addendum note Assessment: Vital Signs: Vital Signs Date Time Temp Pulse Resp B/P (MAP) Pulse Ox O2 Delivery O2 Flow Rate FiO2 09/27/17 20:18 18 Room Air 09/27/17 15:59 98.8 84 106/66 (79) 94 I&O Intake and Output 09/27/17 07:00 Intake Total 900 ml Balance 900 ml Intake Oral 900 ml # Voids 1 # Bowel Movements 2 Labs: Laboratory Tests Test 09/27/17 07:05 09/27/17 11:45 09/27/17 16:56 09/27/17 19:22 Glucose (Fingerstick) 102 mg/dL (70-99) H 215 mg/dL (70-99) H 218 mg/dL (70-99) H 150 mg/dL (70-99) H Current Medications: Meds: Current Medications Cephalexin HCl (Keflex) 500 mg 1X ONCE PO Last administered on 09/21/17at 16:55 ; Start 09/21/17 at 17:00; Stop 09/21/17 at 17:01; Status DC Acetaminophen (Tylenol) 650 mg BID PO Last administered on 09/27/17at 20:12; Start 09/21/17 at 21:00 Acetaminophen (Tylenol) 650 mg PRN Q6HRS PRN PO mild pain ; Start 09/21/17 at 20:15 Lisinopril (Prinivil) 10 mg DAILY PO Last administered on 09/25/17at 07:55; Start 09/22/17 at 09:00; Stop 09/25/17 at 13:14; Status DC Lorazepam (Ativan) 1 mg PRN DAILY PRN PO crying outbursts Last administered on 09/26/17at 09:32; Start 09/21/17 at 20:15 Magnesium Hydroxide (Milk Of Magnesia) 2,400 mg PRN BID PRN PO constipation if no BM 3 days; Start 09/21/17 at 20:15 Aripiprazole (Abilify) 5 mg DAILY PO Last administered on 09/27/17 09:53; Start 09/22/17 at 09:00 Aspirin (Children'S Aspirin) 81 mg DAILY PO Last administered on 09/27/17 09: 54; Start 09/22/17 at 09:00 Baclofen (Lioresal) 5 mg TID PO Last administered on 09/27/17at 20:10; Start at 21:00 Artificial Tears (Refresh Classic) 1 drop BID OU Last administered on at 09:50; Start 09/21/17 at 21:00 Donepezil HCl (Aricept) 23 mg DAILY PO Last administered on 09/27/17 09:53; Start 09/22/17 at 09:00 Duloxetine HCl (Cymbalta) 30 mg DAILY PO Last administered on 09/23/17at 08:21; Start 09/22/17 at 09:00; Stop 09/23/17 at 19:38; Status DC Glipizide (Glucotrol) 10 mg BIDBFRMEAL PO Last administered on 09/27/17at 16:57 ; Start 09/22/17 at 07:30 Non-Formulary Medication (Insulin Aspart (Novolog Flexpen)) TIDAC SQ ; Start at 07:30; Status UNV Insulin Human Lispro (HumaLOG) 8 units TIDWMEALS SQ Last administered on at 17:00; Start 09/22/17 at 08:00 Insulin Glargine (Lantus) 14 units QHS SQ Last administered on 09/26/17at 19:31 ; Start 09/21/17 at 21:00 Latanoprost (Xalatan) 1 drop QHS OU Last administered on 09/26/17at 22:57; Start 09/21/17 at 21:00 Cetirizine HCl (ZyrTEC) 10 mg PRN Q24HRS PRN PO ALLERGIES; Start 09/21/17 at 20 :41 Non-Formulary Medication (Menthol (Biofreeze)) 1 marjorie PRN Q4HRS PRN TP lower back pain; Start 09/21/17 at 20:15; Status UNV Metformin HCl (Glucophage) 1,000 mg DAILYWSUP PO Last administered on at 16:58; Start 09/22/17 at 17:00 Ondansetron HCl (Zofran Odt) 4 mg PRN Q8HRS PRN PO NAUSEA/VOMITING; Start 09/21 at 20:30 Oxycodone HCl (Roxicodone) 5 mg PRN Q12HR PRN PO SEVERE PAIN Last administered on 09/26/17at 09:32; Start 09/21/17 at 21:00 Oxycodone HCl (Roxicodone) 5 mg QID PO Last administered on 09/25/17at 19:28; Start 09/21/17 at 21:00; Stop 09/26/17 at 08:12; Status DC Paroxetine HCl (Paxil) 30 mg DAILY PO Last administered on 09/22/17at 08:36; Start 09/22/17 at 09:00; Stop 09/22/17 at 17:29; Status DC Quetiapine Fumarate (SEROquel) 300 mg QHS PO Last administered on 09/24/17at 19: 32; Start 09/21/17 at 21:00; Stop 09/25/17 at 18:45; Status DC Timolol Maleate (Timoptic 0.5% [facility]) 1 drop DAILY OU Last administered on 09/27at 09:53; Start 09/22/17 at 09:00 Acetaminophen (Tylenol) 650 mg PRN Q6HRS PRN PO PAIN / TEMP; Start 09/21/17 at 20:15; Status UNV Multi-Ingredient Ointment (Analgesic [place]) 1 marjorie PRN QID PRN TP MUSCLE PAIN; Start 09/21/17 at 20:15 Al Hydroxide/Mg Hydroxide (Mylanta Plus Xs) 15 ml PRN AFTMEALHC PRN PO DYSPEPSIA; Start 09/21/17 at 20:15 Magnesium Hydroxide (Milk Of Magnesia) 2,400 mg PRN QHS PRN PO CONSTIPATION; Start 09/21/17 at 20:15; Status UNV Insulin Human Lispro (HumaLOG) 0-7 UNITS TIDWMEALS SQ Last administered on 09/27at 17:01; Start 09/22/17 at 08:00 Dextrose 12.5 gm PRN Q15MIN PRN IV SEE COMMENTS; Start 09/21/17 at 21:30 Cefpodoxime Proxetil (Vantin) 200 mg BID PO Last administered on 09/27/17at 20: 18; Start 09/22/17 at 21:00; Stop 10/02/17 at 21:00 Magnesium Chloride (Mag Delay) 64 mg DAILY PO Last administered on 09/23/17at 08 :22; Start 09/22/17 at 14:00; Stop 09/23/17 at 10:16; Status DC Lactobacillus Rhamnosus (Culturelle) 1 cap BID PO Last administered on at 20:11; Start 09/22/17 at 21:00 Magnesium Chloride (Mag Delay) 64 mg DAILY PO Last administered on 09/27/17at 09 :55; Start 09/23/17 at 09:00 Vitamin D (Vitamin D3) 50,000 unit WEEKLY PO ; Start 09/29/17 at 09:00 Fenofibrate (Tricor) 48 mg DAILY PO Last administered on 09/27/17at 10:16; Start 09/23/17 at 09:00 Paroxetine HCl (Paxil) 20 mg DAILY PO Last administered on 09/24/17at 08:18; Start 09/23/17 at 09:00; Stop 09/24/17 at 10:00; Status DC Paroxetine HCl (Paxil) 10 mg DAILY PO Last administered on 09/26/17at 08:08; Start 09/25/17 at 09:00; Stop 09/26/17 at 10:00; Status DC Duloxetine HCl (Cymbalta) 30 mg DAILY PO Last administered on 09/27/17at 09:54; Start 09/24/17 at 09:00 Duloxetine HCl (Cymbalta) 20 mg DAILY PO Last administered on 09/27/17at 10:01; Start 09/24/17 at 09:00 Lisinopril (Prinivil) 20 mg DAILY PO Last administered on 09/27/17at 09:57; Start 09/26/17 at 09:00 Quetiapine Fumarate (SEROquel) 175 mg QHS PO Last administered on 09/27/17at 20: 11; Start 09/25/17 at 21:00 Quetiapine Fumarate (SEROquel) 75 mg 0900,1300 PO Last administered on at 13:06; Start 09/26/17 at 09:00 Olanzapine (ZyPREXA ZYDIS) 2.5 mg PRN Q2HR PRN PO PSYCHOSIS Last administered on 09/27/17at 04:33; Start 09/25/17 at 18:45 Oxycodone HCl (Roxicodone) 5 mg QID PO Last administered on 09/27/17at 20:18; Start 09/26/17 at 09:00 Active Scripts Active Reported Zofran (Ondansetron Hcl) 4 Mg Tablet 4 Mg PO PRN Q8HRS PRN Xalatan (Latanoprost) 2.5 Ml Drops 1 Drop EACHEYE QHS Tylenol (Acetaminophen) 325 Mg Tablet 650 Mg PO BID Tylenol (Acetaminophen) 325 Mg Tablet 650 Mg PO PRN Q6HRS PRN Timoptic (Timolol Maleate) 10 Ml Drops 1 Drop EACHEYE DAILY Seroquel Xr (Quetiapine Fumarate) 300 Mg Tab.er.24h 300 Mg PO QHS Paxil (Paroxetine Hcl) 30 Mg Tablet 30 Mg PO DAILY Oxycodone Hcl 5 Mg Capsule 5 Mg PO QID PRN Oxycodone Hcl 5 Mg Capsule 5 Mg PO PRN Q12HR PRN Novolog Flexpen (Insulin Aspart) 100 Unit/1 Ml Insuln.pen 2-16 Unit SQ TIDAC Novolog Flexpen (Insulin Aspart) 100 Unit/1 Ml Insuln.pen 8 Unit SQ TIDAC Milk Of Magnesia (Magnesium Hydroxide) 400 Mg/5 Ml Oral.susp 30 Mg PO PRN BID PRN Metformin Hcl 1,000 Mg Tablet 1,000 Mg PO DAILYWSUP Lisinopril 10 Mg Tablet 10 Mg PO DAILY Levemir Flextouch (Insulin Detemir) 100 Unit/1 Ml Insuln.pen 14 Unit SQ HS Glipizide 10 Mg Tablet 10 Mg PO BID Donepezil Hcl 10 Mg Tablet 23 Mg PO DAILY Cymbalta (Duloxetine Hcl) 30 Mg Capsule.dr 30 Mg PO DAILY Claritin (Loratadine) 10 Mg Tablet 10 Mg PO PRN Q24HRS PRN Biofreeze (Menthol) 118 Ml Gel..ml. 1 Marjorie TP PRN Q4HRS PRN Baclofen 10 Mg Tablet 5 Mg PO TID Ativan (Lorazepam) 1 Mg Tablet 1 Mg PO PRN DAILY PRN Aspirin 81 Mg Tab.chew 81 Mg PO DAILY Artificial Tears Eye Drops (Dextran 70/Hypromellose) 15 Ml Drops 1 Drop EACHEYE BID Abilify (Aripiprazole) 5 Mg Tablet 5 Mg PO DAILY I have reviewed the current psychotropics carefully including drug interactions. Risk benefit ratio favors no change other than as noted in my dictated progress note. Diagnosis: Problems: (1) Encounter for medical screening examination (2) Urinary tract infection (3) Dementia with behavioral disturbance (4) Anxiety disorder (5) Dementia, vascular, with delusions (6) Dementia, vascular, with depression (7) Impulse control disorder (8) Urinary tract infection MELISSA SOLER MD Sep 27, 2017 20:49
[2017-09-27] MEDS: INSULIN GLARGINE 300 UNITS/3 ML INSULN.PEN. SQ SCH (21:47)
[2017-09-27] MEDS: LATANOPROST 0.005% OPHTH SOLUTION 2.5ML BOTTLE. OU SCH (21:48)
--- NOTE | 2017-09-28 01:09 | PN ---
DATE: 09/26/2017 PSYCHIATRIC PROGRESS NOTE This is a late entry, 09/26, covers elements not covered in my initial note, 09/26. SUBJECTIVE: I met with the patient in the evening. The patient slept 6-1/4 hours previous evening. She continues to cry out, yell out at times, received p.r.n. Ativan, only helped somewhat, along with oxycodone and then she was not yelling since lunchtime. REVIEW OF SYSTEMS: Ambulation impaired, in Broda chair, has this pain in her lower extremities and contractures from the arms. No CV, , pulmonary, eye, ENT system symptoms on review. MENTAL STATUS EXAM: Oriented to herself and situation. Speech moderate latency, often responses monosyllabic. Abstraction fair, computation impaired, language function intact, attention span short. Mood and affect remain somewhat withdrawn, labile at times. LABORATORY DATA: Reviewed. IMPRESSION: Unchanged from initial note. PLAN: No change from initial note. We have added Zyprexa p.r.n., increased/adjusted the Seroquel for now. MELISSA SOLER MD DR: GABRIELA/sowmya JOB#: [id number] / [id number]
[2017-09-28 05:35] VITALS: BP 128/60
[2017-09-28] MEDS: INSULIN LISPRO 300 UNITS/3 ML INSULN.PEN. SQ SCH ×6 (07:41→17:00)
[2017-09-28] MEDS: ASPIRIN 81 MG TAB.CHEW PO SCH (07:45)
[2017-09-28] MEDS: DULoxetine HCL 30 MG CAPSULE.DR PO SCH (07:45)
[2017-09-28] MEDS: QUEtiapine 50 MG TABLET. PO SCH ×2 (07:45→14:42)
[2017-09-28] MEDS: DULoxetine HCL 20 MG CAPSULE.DR PO SCH (07:45)
[2017-09-28] MEDS: DONEPEZIL 23 MG TABLET PO SCH (07:45)
[2017-09-28] MEDS: ARIPiprazole 5 MG TABLET PO SCH (07:46)
[2017-09-28] MEDS: LACTOBACILLUS RHAMNOSUS GG 1 CAPSULE. PO SCH ×2 (07:46→20:23)
[2017-09-28] MEDS: CEFPODOXIME PROXETIL 100 MG TABLET PO SCH ×2 (07:46→20:23)
[2017-09-28] MEDS: MAGNESIUM CHLORIDE ER 64 MG TABLET.ER PO SCH (07:46)
[2017-09-28] MEDS: LISINOPRIL 20 MG TABLET PO SCH (07:46)
[2017-09-28] MEDS: glipiZIDE 5 MG TABLET PO SCH ×2 (07:46→17:09)
[2017-09-28] MEDS: ACETAMINOPHEN 325 MG TABLET PO SCH ×2 (07:47→20:24)
[2017-09-28] MEDS: POLYVINYL ALCOHOL/POVIDONE/PF OPHTH SOLUTION DROPERETTE. OU SCH ×3 (07:47→20:26)
[2017-09-28] MEDS: TIMOLOL 0.5% OPHTH SOLUTION 5ML BOTTLE. OU SCH ×2 (07:47→09:00)
[2017-09-28] MEDS: BACLOFEN 10 MG TABLET PO SCH ×3 (07:47→20:23)
[2017-09-28] MEDS: oxyCODONE IR 5 MG TABLET PO SCH ×4 (07:50→20:26)
[2017-09-28] MEDS: FENOFIBRATE NANOCRYSTALLIZED 48 MG TABLET PO SCH (07:50)
[2017-09-28] MEDS: LORazepam 1 MG TABLET PO PRN (10:39)
[2017-09-28 15:59] VITALS: BP 178/89
[2017-09-28] MEDS: metFORMIN 500 MG TABLET PO SCH (17:10)
[2017-09-28] MEDS: QUEtiapine 100 MG TABLET. PO SCH (20:23)
[2017-09-28] MEDS: DIVALPROEX ER 500 MG TAB.ER.24H PO SCH (20:26)
[2017-09-28] MEDS: INSULIN GLARGINE 300 UNITS/3 ML INSULN.PEN. SQ SCH (20:30)
--- NOTE | 2017-09-28 20:58 | PDOC ---
Exam Note: Jonas Note: Please also refer to the separate dictated note~for this date of service dictated separately.~Patient seen individually. Discussed the patient with Nursing staff reviewed the chart.~Reviewed interim history and current functioning. Reviewed vital signs,~Labs/ Radiology~and current medications noted below. Continue current treatment with the changes noted in the dictated addendum note Assessment: Vital Signs: Vital Signs Date Time Temp Pulse Resp B/P (MAP) Pulse Ox O2 Delivery O2 Flow Rate FiO2 09/28/17 20:26 18 09/28/17 18:15 99 Room Air 09/28/17 15:59 98.5 85 178/89 (118) I&O Intake and Output 09/28/17 07:00 Intake Total 900 ml Balance 900 ml Intake Oral 900 ml # Voids 1 # Bowel Movements 3 Labs: Laboratory Tests Test 09/28/17 07:15 09/28/17 12:01 09/28/17 16:32 09/28/17 19:05 Glucose (Fingerstick) 109 mg/dL (70-99) H 145 mg/dL (70-99) H 64 mg/dL (70-99) L 181 mg/dL (70-99) H Current Medications: Meds: Current Medications Cephalexin HCl (Keflex) 500 mg 1X ONCE PO Last administered on 09/21/17at 16:55 ; Start 09/21/17 at 17:00; Stop 09/21/17 at 17:01; Status DC Acetaminophen (Tylenol) 650 mg BID PO Last administered on 09/28/17at 20:24; Start 09/21/17 at 21:00 Acetaminophen (Tylenol) 650 mg PRN Q6HRS PRN PO mild pain ; Start 09/21/17 at 20:15 Lisinopril (Prinivil) 10 mg DAILY PO Last administered on 09/25/17at 07:55; Start 09/22/17 at 09:00; Stop 09/25/17 at 13:14; Status DC Lorazepam (Ativan) 1 mg PRN DAILY PRN PO crying outbursts Last administered on 09/28/17at 10:39; Start 09/21/17 at 20:15 Magnesium Hydroxide (Milk Of Magnesia) 2,400 mg PRN BID PRN PO constipation if no BM 3 days; Start 09/21/17 at 20:15 Aripiprazole (Abilify) 5 mg DAILY PO Last administered on 09/28/17at 07:46; Start 09/22/17 at 09:00; Stop 09/28/17 at 16:16; Status DC Aspirin (Children'S Aspirin) 81 mg DAILY PO Last administered on 09/28/17at 07: 45; Start 09/22/17 at 09:00 Baclofen (Lioresal) 5 mg TID PO Last administered on 09/28/17at 20:23; Start at 21:00 Artificial Tears (Refresh Classic) 1 drop BID OU Last administered on at 20:26; Start 09/21/17 at 21:00 Donepezil HCl (Aricept) 23 mg DAILY PO Last administered on 09/28/17at 07:45; Start 09/22/17 at 09:00 Duloxetine HCl (Cymbalta) 30 mg DAILY PO Last administered on 09/23/17at 08:21; Start 09/22/17 at 09:00; Stop 09/23/17 at 19:38; Status DC Glipizide (Glucotrol) 10 mg BIDBFRMEAL PO Last administered on 09/28/17at 17:09 ; Start 09/22/17 at 07:30 Non-Formulary Medication (Insulin Aspart (Novolog Flexpen)) TIDAC SQ ; Start at 07:30; Status UNV Insulin Human Lispro (HumaLOG) 8 units TIDWMEALS SQ Last administered on at 12:11; Start 09/22/17 at 08:00 Insulin Glargine (Lantus) 14 units QHS SQ Last administered on 09/28/17at 20:30 ; Start 09/21/17 at 21:00 Latanoprost (Xalatan) 1 drop QHS OU Last administered on 09/27/17at 21:48; Start 09/21/17 at 21:00 Cetirizine HCl (ZyrTEC) 10 mg PRN Q24HRS PRN PO ALLERGIES; Start 09/21/17 at 20 :41 Non-Formulary Medication (Menthol (Biofreeze)) 1 marjorie PRN Q4HRS PRN TP lower back pain; Start 09/21/17 at 20:15; Status UNV Metformin HCl (Glucophage) 1,000 mg DAILYWSUP PO Last administered on at 17:10; Start 09/22/17 at 17:00 Ondansetron HCl (Zofran Odt) 4 mg PRN Q8HRS PRN PO NAUSEA/VOMITING; Start 09/21 at 20:30 Oxycodone HCl (Roxicodone) 5 mg PRN Q12HR PRN PO SEVERE PAIN Last administered on 09/26/17at 09:32; Start 09/21/17 at 21:00 Oxycodone HCl (Roxicodone) 5 mg QID PO Last administered on 09/25/17at 19:28; Start 09/21/17 at 21:00; Stop 09/26/17 at 08:12; Status DC Paroxetine HCl (Paxil) 30 mg DAILY PO Last administered on 09/22/17at 08:36; Start 09/22/17 at 09:00; Stop 09/22/17 at 17:29; Status DC Quetiapine Fumarate (SEROquel) 300 mg QHS PO Last administered on 09/24/17at 19: 32; Start 09/21/17 at 21:00; Stop 09/25/17 at 18:45; Status DC Timolol Maleate (Timoptic 0.5% [facility]) 1 drop DAILY OU Last administered on 09/27at 09:53; Start 09/22/17 at 09:00 Acetaminophen (Tylenol) 650 mg PRN Q6HRS PRN PO PAIN / TEMP; Start 09/21/17 at 20:15; Status UNV Multi-Ingredient Ointment (Analgesic [place]) 1 marjorie PRN QID PRN TP MUSCLE PAIN; Start 09/21/17 at 20:15 Al Hydroxide/Mg Hydroxide (Mylanta Plus Xs) 15 ml PRN AFTMEALHC PRN PO DYSPEPSIA; Start 09/21/17 at 20:15 Magnesium Hydroxide (Milk Of Magnesia) 2,400 mg PRN QHS PRN PO CONSTIPATION; Start 09/21/17 at 20:15; Status UNV Insulin Human Lispro (HumaLOG) 0-7 UNITS TIDWMEALS SQ Last administered on 09/27at 17:01; Start 09/22/17 at 08:00 Dextrose 12.5 gm PRN Q15MIN PRN IV SEE COMMENTS; Start 09/21/17 at 21:30 Cefpodoxime Proxetil (Vantin) 200 mg BID PO Last administered on 09/28/17at 20: 23; Start 09/22/17 at 21:00; Stop 10/02/17 at 21:00 Magnesium Chloride (Mag Delay) 64 mg DAILY PO Last administered on 09/23/17at 08 :22; Start 09/22/17 at 14:00; Stop 09/23/17 at 10:16; Status DC Lactobacillus Rhamnosus (Culturelle) 1 cap BID PO Last administered on at 20:23; Start 09/22/17 at 21:00 Magnesium Chloride (Mag Delay) 64 mg DAILY PO Last administered on 09/28/17at 07 :46; Start 09/23/17 at 09:00 Vitamin D (Vitamin D3) 50,000 unit WEEKLY PO ; Start 09/29/17 at 09:00 Fenofibrate (Tricor) 48 mg DAILY PO Last administered on 09/28/17at 07:50; Start 09/23/17 at 09:00 Paroxetine HCl (Paxil) 20 mg DAILY PO Last administered on 09/24/17at 08:18; Start 09/23/17 at 09:00; Stop 09/24/17 at 10:00; Status DC Paroxetine HCl (Paxil) 10 mg DAILY PO Last administered on 09/26/17at 08:08; Start 09/25/17 at 09:00; Stop 09/26/17 at 10:00; Status DC Duloxetine HCl (Cymbalta) 30 mg DAILY PO Last administered on 09/28/17at 07:45; Start 09/24/17 at 09:00 Duloxetine HCl (Cymbalta) 20 mg DAILY PO Last administered on 09/28/17at 07:45; Start 09/24/17 at 09:00 Lisinopril (Prinivil) 20 mg DAILY PO Last administered on 09/28/17at 07:46; Start 09/26/17 at 09:00 Quetiapine Fumarate (SEROquel) 175 mg QHS PO Last administered on 09/28/17at 20: 23; Start 09/25/17 at 21:00 Quetiapine Fumarate (SEROquel) 75 mg 0900,1300 PO Last administered on at 14:42; Start 09/26/17 at 09:00 Olanzapine (ZyPREXA ZYDIS) 2.5 mg PRN Q2HR PRN PO PSYCHOSIS Last administered on 09/27/17at 04:33; Start 09/25/17 at 18:45 Oxycodone HCl (Roxicodone) 5 mg QID PO Last administered on 09/28/17at 20:26; Start 09/26/17 at 09:00 Divalproex Sodium (Depakote Er) 500 mg QHS PO Last administered on 09/28/17at 20 :26; Start 09/28/17 at 21:00 Active Scripts Active Reported Zofran (Ondansetron Hcl) 4 Mg Tablet 4 Mg PO PRN Q8HRS PRN Xalatan (Latanoprost) 2.5 Ml Drops 1 Drop EACHEYE QHS Tylenol (Acetaminophen) 325 Mg Tablet 650 Mg PO BID Tylenol (Acetaminophen) 325 Mg Tablet 650 Mg PO PRN Q6HRS PRN Timoptic (Timolol Maleate) 10 Ml Drops 1 Drop EACHEYE DAILY Seroquel Xr (Quetiapine Fumarate) 300 Mg Tab.er.24h 300 Mg PO QHS Paxil (Paroxetine Hcl) 30 Mg Tablet 30 Mg PO DAILY Oxycodone Hcl 5 Mg Capsule 5 Mg PO QID PRN Oxycodone Hcl 5 Mg Capsule 5 Mg PO PRN Q12HR PRN Novolog Flexpen (Insulin Aspart) 100 Unit/1 Ml Insuln.pen 2-16 Unit SQ TIDAC Novolog Flexpen (Insulin Aspart) 100 Unit/1 Ml Insuln.pen 8 Unit SQ TIDAC Milk Of Magnesia (Magnesium Hydroxide) 400 Mg/5 Ml Oral.susp 30 Mg PO PRN BID PRN Metformin Hcl 1,000 Mg Tablet 1,000 Mg PO DAILYWSUP Lisinopril 10 Mg Tablet 10 Mg PO DAILY Levemir Flextouch (Insulin Detemir) 100 Unit/1 Ml Insuln.pen 14 Unit SQ HS Glipizide 10 Mg Tablet 10 Mg PO BID Donepezil Hcl 10 Mg Tablet 23 Mg PO DAILY Cymbalta (Duloxetine Hcl) 30 Mg Capsule.dr 30 Mg PO DAILY Claritin (Loratadine) 10 Mg Tablet 10 Mg PO PRN Q24HRS PRN Biofreeze (Menthol) 118 Ml Gel..ml. 1 Marjorie TP PRN Q4HRS PRN Baclofen 10 Mg Tablet 5 Mg PO TID Ativan (Lorazepam) 1 Mg Tablet 1 Mg PO PRN DAILY PRN Aspirin 81 Mg Tab.chew 81 Mg PO DAILY Artificial Tears Eye Drops (Dextran 70/Hypromellose) 15 Ml Drops 1 Drop EACHEYE BID Abilify (Aripiprazole) 5 Mg Tablet 5 Mg PO DAILY I have reviewed the current psychotropics carefully including drug interactions. Risk benefit ratio favors no change other than as noted in my dictated progress note. Diagnosis: Problems: (1) Encounter for medical screening examination (2) Urinary tract infection (3) Dementia with behavioral disturbance (4) Anxiety disorder (5) Dementia, vascular, with delusions (6) Dementia, vascular, with depression (7) Impulse control disorder (8) Urinary tract infection MELISSA SOLER MD Sep 28, 2017 20:58
[2017-09-28] MEDS: LATANOPROST 0.005% OPHTH SOLUTION 2.5ML BOTTLE. OU SCH (21:00)
--- NOTE | 2017-09-28 23:06 | PN ---
DATE: 09/27/2017 PSYCHIATRIC PROGRESS NOTE This is a late entry of 09/27/2017, covers elements not covered in my initial note. SUBJECTIVE: I met with the patient in the evening. Per the nursing report, the patient slept 6 hours previous night, has been yelling after breakfast, but then she got her medications, was cooperative after that REVIEW OF SYSTEMS: Ambulation impaired, in Broda chair. Some discomfort in lower extremities and hands, which have contractures, status post CVA. Ambulation impaired. No CV, , pulmonary, eye, ENT system symptoms on review. MENTAL STATUS EXAM: Oriented to herself and situation. Speech, moderate latency, low in rate and rhythm, low in volume. Abstraction fair. Computation, unable to do serial sevens, remembered 1/3 objects at 2 minutes. No active suicidal or homicidal ideation. Attention span short. Mood and affect remains somewhat dysphoric, anxious, and labile at times. LABORATORY DATA: Reviewed. IMPRESSION: Major depressive disorder, recurrent with psychotic features; major neurocognitive disorder, vascular with delusion, depression. Rest unchanged. PLAN: Continue psychotropics from initial note. With the adjustment of Seroquel, we may have to adjust further Abilify along with Cymbalta, Aricept, and Seroquel. May consider addition of Depakote as a mood stabilizer if mood lability persists. May also taper and stop the Abilify in due course to avoid using 2 atypical antipsychotics. MAN Twila SOLER MD DR: GABRIELA/sowmya JOB#: [id number] / [id number]
[2017-09-29 05:54] VITALS: BP 112/61
[2017-09-29] MEDS: INSULIN LISPRO 300 UNITS/3 ML INSULN.PEN. SQ SCH ×6 (07:56→17:22)
[2017-09-29] MEDS: DONEPEZIL 23 MG TABLET PO SCH (08:03)
[2017-09-29] MEDS: QUEtiapine 50 MG TABLET. PO SCH ×2 (08:03→14:08)
[2017-09-29] MEDS: LACTOBACILLUS RHAMNOSUS GG 1 CAPSULE. PO SCH ×2 (08:04→20:16)
[2017-09-29] MEDS: MAGNESIUM CHLORIDE ER 64 MG TABLET.ER PO SCH (08:04)
[2017-09-29] MEDS: ACETAMINOPHEN 325 MG TABLET PO SCH ×2 (08:04→20:18)
[2017-09-29] MEDS: ASPIRIN 81 MG TAB.CHEW PO SCH (08:04)
[2017-09-29] MEDS: DULoxetine HCL 20 MG CAPSULE.DR PO SCH (08:04)
[2017-09-29] MEDS: DULoxetine HCL 30 MG CAPSULE.DR PO SCH (08:04)
[2017-09-29] MEDS: glipiZIDE 5 MG TABLET PO SCH ×2 (08:04→17:20)
[2017-09-29] MEDS: BACLOFEN 10 MG TABLET PO SCH ×3 (08:05→20:16)
[2017-09-29] MEDS: LISINOPRIL 20 MG TABLET PO SCH (08:05)
[2017-09-29] MEDS: CEFPODOXIME PROXETIL 100 MG TABLET PO SCH ×2 (08:05→20:18)
[2017-09-29] MEDS: POLYVINYL ALCOHOL/POVIDONE/PF OPHTH SOLUTION DROPERETTE. OU SCH ×2 (08:05→20:16)
[2017-09-29] MEDS: CHOLECALCIFEROL (VITAMIN D3) 50,000 UNIT CAPSULE PO SCH (08:07)
[2017-09-29] MEDS: FENOFIBRATE NANOCRYSTALLIZED 48 MG TABLET PO SCH (08:07)
[2017-09-29] MEDS: TIMOLOL 0.5% OPHTH SOLUTION 5ML BOTTLE. OU SCH (08:07)
[2017-09-29] MEDS: oxyCODONE IR 5 MG TABLET PO SCH ×4 (08:07→20:17)
[2017-09-29] MEDS: LORazepam 1 MG TABLET PO PRN (14:09)
[2017-09-29 15:56] VITALS: BP 138/65
[2017-09-29] MEDS: metFORMIN 500 MG TABLET PO SCH (17:20)
[2017-09-29] MEDS: LATANOPROST 0.005% OPHTH SOLUTION 2.5ML BOTTLE. OU SCH (20:16)
[2017-09-29] MEDS: DIVALPROEX ER 500 MG TAB.ER.24H PO SCH (20:16)
[2017-09-29] MEDS: QUEtiapine 100 MG TABLET. PO SCH (20:17)
[2017-09-29] MEDS: INSULIN GLARGINE 300 UNITS/3 ML INSULN.PEN. SQ SCH (20:18)
--- NOTE | 2017-09-29 20:32 | PDOC ---
Exam Note: Jonas Note: Please also refer to the separate dictated note~for this date of service dictated separately.~Patient seen individually. Discussed the patient with Nursing staff reviewed the chart.~Reviewed interim history and current functioning. Reviewed vital signs,~Labs/ Radiology~and current medications noted below. Continue current treatment with the changes noted in the dictated addendum note Assessment: Vital Signs: Vital Signs Date Time Temp Pulse Resp B/P (MAP) Pulse Ox O2 Delivery O2 Flow Rate FiO2 09/29/17 20:17 16 97 Room Air 09/29/17 15:56 97.6 91 138/65 (89) I&O Intake and Output 09/29/17 07:00 Intake Total 480 ml Balance 480 ml Intake Oral 480 ml # Voids 1 # Bowel Movements 2 Labs: Laboratory Tests Test 09/29/17 07:07 09/29/17 08:22 09/29/17 11:55 09/29/17 16:45 Glucose (Fingerstick) 53 mg/dL (70-99) L 101 mg/dL (70-99) H 173 mg/dL (70-99) H 113 mg/dL (70-99) H Test 09/29/17 19:08 Glucose (Fingerstick) 120 mg/dL (70-99) H Current Medications: Meds: Current Medications Cephalexin HCl (Keflex) 500 mg 1X ONCE PO Last administered on 09/21/17at 16:55 ; Start 09/21/17 at 17:00; Stop 09/21/17 at 17:01; Status DC Acetaminophen (Tylenol) 650 mg BID PO Last administered on 09/29/17at 20:18; Start 09/21/17 at 21:00 Acetaminophen (Tylenol) 650 mg PRN Q6HRS PRN PO mild pain ; Start 09/21/17 at 20:15 Lisinopril (Prinivil) 10 mg DAILY PO Last administered on 09/25/17at 07:55; Start 09/22/17 at 09:00; Stop 09/25/17 at 13:14; Status DC Lorazepam (Ativan) 1 mg PRN DAILY PRN PO crying outbursts Last administered on 09/29/17at 14:09; Start 09/21/17 at 20:15 Magnesium Hydroxide (Milk Of Magnesia) 2,400 mg PRN BID PRN PO constipation if no BM 3 days; Start 09/21/17 at 20:15 Aripiprazole (Abilify) 5 mg DAILY PO Last administered on 09/28/17at 07:46; Start 09/22/17 at 09:00; Stop 09/28/17 at 16:16; Status DC Aspirin (Children'S Aspirin) 81 mg DAILY PO Last administered on 09/29/17 08: 04; Start 09/22/17 at 09:00 Baclofen (Lioresal) 5 mg TID PO Last administered on 09/29/17 20:16; Start at 21:00 Artificial Tears (Refresh Classic) 1 drop BID OU Last administered on 20:16; Start 09/21/17 at 21:00 Donepezil HCl (Aricept) 23 mg DAILY PO Last administered on 09/29/17 08:03; Start 09/22/17 at 09:00 Duloxetine HCl (Cymbalta) 30 mg DAILY PO Last administered on 09/23/17at 08:21; Start 09/22/17 at 09:00; Stop 09/23/17 at 19:38; Status DC Glipizide (Glucotrol) 10 mg BIDBFRMEAL PO Last administered on 09/29/17at 17:20 ; Start 09/22/17 at 07:30 Non-Formulary Medication (Insulin Aspart (Novolog Flexpen)) TIDAC SQ ; Start at 07:30; Status UNV Insulin Human Lispro (HumaLOG) 8 units TIDWMEALS SQ Last administered on 17:22; Start 09/22/17 at 08:00 Insulin Glargine (Lantus) 14 units QHS SQ Last administered on 09/28/17at 20:30 ; Start 09/21/17 at 21:00 Latanoprost (Xalatan) 1 drop QHS OU Last administered on 09/29/17 20:16; Start 09/21/17 at 21:00 Cetirizine HCl (ZyrTEC) 10 mg PRN Q24HRS PRN PO ALLERGIES; Start 09/21/17 at 20 :41 Non-Formulary Medication (Menthol (Biofreeze)) 1 marjorie PRN Q4HRS PRN TP lower back pain; Start 09/21/17 at 20:15; Status UNV Metformin HCl (Glucophage) 1,000 mg DAILYWSUP PO Last administered on at 17:20; Start 09/22/17 at 17:00 Ondansetron HCl (Zofran Odt) 4 mg PRN Q8HRS PRN PO NAUSEA/VOMITING; Start 09/21 at 20:30 Oxycodone HCl (Roxicodone) 5 mg PRN Q12HR PRN PO SEVERE PAIN Last administered on 09/26/17at 09:32; Start 09/21/17 at 21:00 Oxycodone HCl (Roxicodone) 5 mg QID PO Last administered on 09/25/17at 19:28; Start 09/21/17 at 21:00; Stop 09/26/17 at 08:12; Status DC Paroxetine HCl (Paxil) 30 mg DAILY PO Last administered on 09/22/17at 08:36; Start 09/22/17 at 09:00; Stop 09/22/17 at 17:29; Status DC Quetiapine Fumarate (SEROquel) 300 mg QHS PO Last administered on 09/24/17at 19: 32; Start 09/21/17 at 21:00; Stop 09/25/17 at 18:45; Status DC Timolol Maleate (Timoptic 0.5% Oph) 1 drop DAILY OU Last administered on 09/29at 08:07; Start 09/22/17 at 09:00 Acetaminophen (Tylenol) 650 mg PRN Q6HRS PRN PO PAIN / TEMP; Start 09/21/17 at 20:15; Status UNV Multi-Ingredient Ointment (Analgesic [place]) 1 marjorie PRN QID PRN TP MUSCLE PAIN; Start 09/21/17 at 20:15 Al Hydroxide/Mg Hydroxide (Mylanta Plus Xs) 15 ml PRN AFTMEALHC PRN PO DYSPEPSIA; Start 09/21/17 at 20:15 Magnesium Hydroxide (Milk Of Magnesia) 2,400 mg PRN QHS PRN PO CONSTIPATION; Start 09/21/17 at 20:15; Status UNV Insulin Human Lispro (HumaLOG) 0-7 UNITS TIDWMEALS SQ Last administered on 09/29at 12:06; Start 09/22/17 at 08:00 Dextrose 12.5 gm PRN Q15MIN PRN IV SEE COMMENTS; Start 09/21/17 at 21:30 Cefpodoxime Proxetil (Vantin) 200 mg BID PO Last administered on 09/29/17at 20: 18; Start 09/22/17 at 21:00; Stop 10/02/17 at 21:00 Magnesium Chloride (Mag Delay) 64 mg DAILY PO Last administered on 09/23/17at 08 :22; Start 09/22/17 at 14:00; Stop 09/23/17 at 10:16; Status DC Lactobacillus Rhamnosus (Culturelle) 1 cap BID PO Last administered on at 20:16; Start 09/22/17 at 21:00 Magnesium Chloride (Mag Delay) 64 mg DAILY PO Last administered on 09/29/17at 08 :04; Start 09/23/17 at 09:00 Vitamin D (Vitamin D3) 50,000 unit WEEKLY PO Last administered on 09/29/17at 08: 07; Start 09/29/17 at 09:00 Fenofibrate (Tricor) 48 mg DAILY PO Last administered on 09/29/17at 08:07; Start 09/23/17 at 09:00 Paroxetine HCl (Paxil) 20 mg DAILY PO Last administered on 09/24/17at 08:18; Start 09/23/17 at 09:00; Stop 09/24/17 at 10:00; Status DC Paroxetine HCl (Paxil) 10 mg DAILY PO Last administered on 09/26/17at 08:08; Start 09/25/17 at 09:00; Stop 09/26/17 at 10:00; Status DC Duloxetine HCl (Cymbalta) 30 mg DAILY PO Last administered on 09/29/17at 08:04; Start 09/24/17 at 09:00 Duloxetine HCl (Cymbalta) 20 mg DAILY PO Last administered on 09/29/17at 08:04; Start 09/24/17 at 09:00 Lisinopril (Prinivil) 20 mg DAILY PO Last administered on 09/29/17at 08:05; Start 09/26/17 at 09:00 Quetiapine Fumarate (SEROquel) 175 mg QHS PO Last administered on 09/29/17at 20: 17; Start 09/25/17 at 21:00 Quetiapine Fumarate (SEROquel) 75 mg 0900,1300 PO Last administered on at 14:08; Start 09/26/17 at 09:00 Olanzapine (ZyPREXA ZYDIS) 2.5 mg PRN Q2HR PRN PO PSYCHOSIS Last administered on 09/27/17at 04:33; Start 09/25/17 at 18:45 Oxycodone HCl (Roxicodone) 5 mg QID PO Last administered on 09/29/17at 20:17; Start 09/26/17 at 09:00 Divalproex Sodium (Depakote Er) 500 mg QHS PO Last administered on 09/29/17at 20 :16; Start 09/28/17 at 21:00 Active Scripts Active Reported Zofran (Ondansetron Hcl) 4 Mg Tablet 4 Mg PO PRN Q8HRS PRN Xalatan (Latanoprost) 2.5 Ml Drops 1 Drop EACHEYE QHS Tylenol (Acetaminophen) 325 Mg Tablet 650 Mg PO BID Tylenol (Acetaminophen) 325 Mg Tablet 650 Mg PO PRN Q6HRS PRN Timoptic (Timolol Maleate) 10 Ml Drops 1 Drop EACHEYE DAILY Seroquel Xr (Quetiapine Fumarate) 300 Mg Tab.er.24h 300 Mg PO QHS Paxil (Paroxetine Hcl) 30 Mg Tablet 30 Mg PO DAILY Oxycodone Hcl 5 Mg Capsule 5 Mg PO QID PRN Oxycodone Hcl 5 Mg Capsule 5 Mg PO PRN Q12HR PRN Novolog Flexpen (Insulin Aspart) 100 Unit/1 Ml Insuln.pen 2-16 Unit SQ TIDAC Novolog Flexpen (Insulin Aspart) 100 Unit/1 Ml Insuln.pen 8 Unit SQ TIDAC Milk Of Magnesia (Magnesium Hydroxide) 400 Mg/5 Ml Oral.susp 30 Mg PO PRN BID PRN Metformin Hcl 1,000 Mg Tablet 1,000 Mg PO DAILYWSUP Lisinopril 10 Mg Tablet 10 Mg PO DAILY Levemir Flextouch (Insulin Detemir) 100 Unit/1 Ml Insuln.pen 14 Unit SQ HS Glipizide 10 Mg Tablet 10 Mg PO BID Donepezil Hcl 10 Mg Tablet 23 Mg PO DAILY Cymbalta (Duloxetine Hcl) 30 Mg Capsule. 30 Mg PO DAILY Claritin (Loratadine) 10 Mg Tablet 10 Mg PO PRN Q24HRS PRN Biofreeze (Menthol) 118 Ml Gel..ml. 1 Marjorie TP PRN Q4HRS PRN Baclofen 10 Mg Tablet 5 Mg PO TID Ativan (Lorazepam) 1 Mg Tablet 1 Mg PO PRN DAILY PRN Aspirin 81 Mg Tab.chew 81 Mg PO DAILY Artificial Tears Eye Drops (Dextran 70/Hypromellose) 15 Ml Drops 1 Drop EACHEYE BID Abilify (Aripiprazole) 5 Mg Tablet 5 Mg PO DAILY I have reviewed the current psychotropics carefully including drug interactions. Risk benefit ratio favors no change other than as noted in my dictated progress note. Diagnosis: Problems: (1) Encounter for medical screening examination (2) Urinary tract infection (3) Dementia with behavioral disturbance (4) Anxiety disorder (5) Dementia, vascular, with delusions (6) Dementia, vascular, with depression (7) Impulse control disorder (8) Urinary tract infection MELISSA SOLER MD Sep 29, 2017 20:32
[2017-09-30 05:52] VITALS: BP 122/72
[2017-09-30] MEDS: INSULIN LISPRO 300 UNITS/3 ML INSULN.PEN. SQ SCH ×6 (08:00→17:40)
[2017-09-30] MEDS: CEFPODOXIME PROXETIL 100 MG TABLET PO SCH ×2 (08:12→20:11)
[2017-09-30] MEDS: glipiZIDE 5 MG TABLET PO SCH ×2 (08:12→17:37)
[2017-09-30] MEDS: DONEPEZIL 23 MG TABLET PO SCH (08:12)
[2017-09-30] MEDS: ACETAMINOPHEN 325 MG TABLET PO SCH ×2 (08:15→20:11)
[2017-09-30] MEDS: DULoxetine HCL 20 MG CAPSULE.DR PO SCH (08:15)
[2017-09-30] MEDS: MAGNESIUM CHLORIDE ER 64 MG TABLET.ER PO SCH (08:15)
[2017-09-30] MEDS: FENOFIBRATE NANOCRYSTALLIZED 48 MG TABLET PO SCH (08:15)
[2017-09-30] MEDS: POLYVINYL ALCOHOL/POVIDONE/PF OPHTH SOLUTION DROPERETTE. OU SCH ×2 (08:16→20:09)
[2017-09-30] MEDS: LACTOBACILLUS RHAMNOSUS GG 1 CAPSULE. PO SCH ×2 (08:16→20:09)
[2017-09-30] MEDS: ASPIRIN 81 MG TAB.CHEW PO SCH (08:16)
[2017-09-30] MEDS: LISINOPRIL 20 MG TABLET PO SCH (08:16)
[2017-09-30] MEDS: TIMOLOL 0.5% OPHTH SOLUTION 5ML BOTTLE. OU SCH (08:16)
[2017-09-30] MEDS: BACLOFEN 10 MG TABLET PO SCH ×3 (08:20→20:10)
[2017-09-30] MEDS: DULoxetine HCL 30 MG CAPSULE.DR PO SCH (08:20)
[2017-09-30] MEDS: QUEtiapine 50 MG TABLET. PO SCH ×2 (08:20→12:28)
[2017-09-30] MEDS: oxyCODONE IR 5 MG TABLET PO SCH ×4 (08:21→20:10)
[2017-09-30 16:35] VITALS: BP 110/50
[2017-09-30] MEDS: metFORMIN 500 MG TABLET PO SCH (17:37)
[2017-09-30] MEDS: LATANOPROST 0.005% OPHTH SOLUTION 2.5ML BOTTLE. OU SCH (20:09)
[2017-09-30] MEDS: DIVALPROEX ER 500 MG TAB.ER.24H PO SCH (20:09)
[2017-09-30] MEDS: QUEtiapine 100 MG TABLET. PO SCH (20:12)
[2017-09-30] MEDS: INSULIN GLARGINE 300 UNITS/3 ML INSULN.PEN. SQ SCH (20:14)
--- NOTE | 2017-10-01 00:25 | PN ---
DATE: 09/28/2017 PSYCHIATRIC PROGRESS NOTE This is late entry 09/28, covers elements not covered in my initial note. SUBJECTIVE: I met with the patient in the evening. The patient slept just 3-1/2 hours previous evening. She has been yelling, somewhat labile in her mood, stays in bed, complaining. Ambulation impaired, in Broda chair. Complains of pain, lower extremity and arms due to contractures. Received Ativan at 10:40 a.m. No CV, , pulmonary, eye, ENT system symptoms on review. Reliability varies. MENTAL STATUS EXAM: Oriented to herself and situation. Speech moderate latency, low in rate and rhythm, low in volume. I had to put my head close to her mouth to hear her, which is typical for her. Abstraction fair, computation impaired, language function intact, attention span short. Mood and affect remains somewhat dysphoric, labile at times. LABORATORY DATA: Reviewed. IMPRESSION: Unchanged from initial note. PLAN: Discontinue the Abilify, start Depakote ER 500 mg p.o. at bedtime. Check CBC, CMP, valproic acid level in 3 days. Rest unchanged from initial note. MAN Twila SOLER MD DR: GABRIELA/sowmya JOB#: [id number] / [id number]
--- NOTE | 2017-10-01 00:50 | PN ---
DATE: 09/29/2017 PSYCHIATRIC PROGRESS NOTE This is a late entry 09/29/2017 covers elements not covered in my initial note. SUBJECTIVE: I met with the patient in the evening, staffed at a treatment team meeting with the entire team in the morning with the patient's niece, Mehreen, attending. Lengthy discussion about her diagnosis, current psychotropics, discharge, aftercare plans. She has been calling out frequently during the day, enjoys the blues music that nursing staff provided her on a stacy. Slept 7 hours. Likes to do jigsaw puzzles per her niece and activity therapy staff will provide this. A relative this weekend, but she has not been made aware of this. REVIEW OF SYSTEMS: Ambulation impaired, in wheelchair. No CV, , pulmonary, eye, system symptoms on review. Does have complaint due to contractures. MENTAL STATUS EXAM: Oriented to herself and situation. Speech moderate latency, low in rate and rhythm, low in volume. Abstraction fair, computation impaired, language function intact, attention span short. Mood and affect somewhat withdrawn, depressed, but better than before. LABORATORY DATA: Reviewed. IMPRESSION: Unchanged from initial note. PLAN: Continue psychotropics from initial note. Adjust the Depakote gradually to help mood lability. MELISSA SOLER MD DR: GABRIELA/sowmya JOB#: [id number] / [id number]
[2017-10-01 06:23] VITALS: BP 132/67
[2017-10-01 06:42] LABS: BASO % 0 % (0-3); EOS # 0.1 x10^3/uL (0.0-0.7); EOS % 3 % (0-3); HEMATOCRIT 36.5 % (36.0-47.0); HEMOGLOBIN 12.2 g/dL (12.0-15.5); LYMPH # 2.2 x10^3/uL (1.0-4.8); LYMPH % 51 % (24-48); MEAN CORPUSCULAR HEMOGLOBIN 32 pg (25-35); MEAN CORPUSCULAR HGB CONC 33 g/dL (31-37); MEAN CORPUSCULAR VOLUME 95 fL (79-100); MONO # 0.4 x10^3/uL (0.0-1.1); MONO % 9 % (0-9); NEUT # 1.6 x10^3uL (1.8-7.7); NEUT % 37 % (31-73); PLATELET COUNT 302 x10^3/uL (140-400); RED BLOOD COUNT 3.85 x10^6/uL (3.50-5.40); RED CELL DISTRIBUTION WIDTH 14.7 % (11.5-14.5); WHITE BLOOD COUNT 4.4 x10^3/uL (4.0-11.0)
[2017-10-01 06:54] LABS: ALBUMIN 2.8 g/dL (3.4-5.0); ALBUMIN/GLOBULIN RATIO 0.7 (1.0-1.7); ALK PHOS 51 U/L (46-116); ALT (SGPT) 20 U/L (14-59); ANION GAP 6 (6-14); AST (SGOT) 20 U/L (15-37); BLOOD UREA NITROGEN 13 mg/dL (7-20); BUN/CREATININE RATIO 14 (6-20); CALCIUM 9.1 mg/dL (8.5-10.1); CARBON DIOXIDE 31 mmol/L (21-32); CHLORIDE 107 mmol/L (98-107); CREATININE 0.9 mg/dL (0.6-1.0); GFR 72.9; GLUCOSE 96 mg/dL (70-99); POTASSIUM 4.4 mmol/L (3.5-5.1); SODIUM 144 mmol/L (136-145); TOTAL BILIRUBIN 0.2 mg/dL (0.2-1.0); TOTAL PROTEIN 7.1 g/dL (6.4-8.2)
[2017-10-01 07:01] LABS: VAL ACID 34 mcg/mL (50-100)
[2017-10-01] MEDS: INSULIN LISPRO 300 UNITS/3 ML INSULN.PEN. SQ SCH ×6 (08:00→17:00)
[2017-10-01] MEDS: glipiZIDE 5 MG TABLET PO SCH ×2 (08:52→17:22)
[2017-10-01] MEDS: POLYVINYL ALCOHOL/POVIDONE/PF OPHTH SOLUTION DROPERETTE. OU SCH ×2 (08:55→19:48)
[2017-10-01] MEDS: TIMOLOL 0.5% OPHTH SOLUTION 5ML BOTTLE. OU SCH (08:56)
[2017-10-01] MEDS: ASPIRIN 81 MG TAB.CHEW PO SCH (08:57)
[2017-10-01] MEDS: LACTOBACILLUS RHAMNOSUS GG 1 CAPSULE. PO SCH ×2 (08:57→19:49)
[2017-10-01] MEDS: DULoxetine HCL 20 MG CAPSULE.DR PO SCH (08:57)
[2017-10-01] MEDS: DONEPEZIL 23 MG TABLET PO SCH (08:57)
[2017-10-01] MEDS: BACLOFEN 10 MG TABLET PO SCH ×3 (08:59→19:50)
[2017-10-01] MEDS: MAGNESIUM CHLORIDE ER 64 MG TABLET.ER PO SCH (08:59)
[2017-10-01] MEDS: DULoxetine HCL 30 MG CAPSULE.DR PO SCH (09:00)
[2017-10-01] MEDS: oxyCODONE IR 5 MG TABLET PO SCH ×4 (09:00→19:52)
[2017-10-01] MEDS: FENOFIBRATE NANOCRYSTALLIZED 48 MG TABLET PO SCH (09:01)
[2017-10-01] MEDS: QUEtiapine 50 MG TABLET. PO SCH ×2 (09:01→12:45)
[2017-10-01] MEDS: CEFPODOXIME PROXETIL 100 MG TABLET PO SCH ×2 (09:02→19:52)
[2017-10-01] MEDS: ACETAMINOPHEN 325 MG TABLET PO SCH ×2 (09:03→19:52)
[2017-10-01] MEDS: LISINOPRIL 20 MG TABLET PO SCH (09:04)
[2017-10-01 16:03] VITALS: BP 122/65
[2017-10-01] MEDS: metFORMIN 500 MG TABLET PO SCH (17:22)
[2017-10-01] MEDS: LATANOPROST 0.005% OPHTH SOLUTION 2.5ML BOTTLE. OU SCH (19:49)
[2017-10-01] MEDS: DIVALPROEX ER 500 MG TAB.ER.24H PO SCH (19:50)
[2017-10-01] MEDS: QUEtiapine 100 MG TABLET. PO SCH (19:52)
[2017-10-01] MEDS: INSULIN GLARGINE 300 UNITS/3 ML INSULN.PEN. SQ SCH (19:55)
--- NOTE | 2017-10-01 22:23 | PDOC ---
Exam Note: Jonas Note: Please also refer to the separate dictated note~for this date of service dictated separately.~Patient seen individually. Discussed the patient with Nursing staff reviewed the chart.~Reviewed interim history and current functioning. Reviewed vital signs,~Labs/ Radiology~and current medications noted below. Continue current treatment with the changes noted in the dictated addendum note Assessment: Vital Signs: Vital Signs Date Time Temp Pulse Resp B/P (MAP) Pulse Ox O2 Delivery O2 Flow Rate FiO2 10/01/17 20:52 95 Room Air 10/01/17 18:30 16 10/01/17 16:03 97.0 79 122/65 (84) I&O Intake and Output 10/01/17 07:00 Intake Total 720 ml Balance 720 ml Intake Oral 720 ml # Bowel Movements 1 Labs: Laboratory Tests Test 10/01/17 06:15 10/01/17 07:03 10/01/17 12:00 10/01/17 16:45 White Blood Count 4.4 x10^3/uL (4.0-11.0) Red Blood Count 3.85 x10^6/uL (3.50-5.40) Hemoglobin 12.2 g/dL (12.0-15.5) Hematocrit 36.5 % (36.0-47.0) Mean Corpuscular Volume 95 fL (79-100) Mean Corpuscular Hemoglobin 32 pg (25-35) Mean Corpuscular Hemoglobin Concent 33 g/dL (31-37) Red Cell Distribution Width 14.7 % (11.5-14.5) H Platelet Count 302 x10^3/uL (140-400) Neutrophils (%) (Auto) 37 % (31-73) Lymphocytes (%) (Auto) 51 % (24-48) H Monocytes (%) (Auto) 9 % (0-9) Eosinophils (%) (Auto) 3 % (0-3) Basophils (%) (Auto) 0 % (0-3) Neutrophils # (Auto) 1.6 x10^3uL (1.8-7.7) L Lymphocytes # (Auto) 2.2 x10^3/uL (1.0-4.8) Monocytes # (Auto) 0.4 x10^3/uL (0.0-1.1) Eosinophils # (Auto) 0.1 x10^3/uL (0.0-0.7) Basophils # (Auto) 0.0 x10^3/uL (0.0-0.2) Sodium Level 144 mmol/L (136-145) Potassium Level 4.4 mmol/L (3.5-5.1) Chloride Level 107 mmol/L (98-107) Carbon Dioxide Level 31 mmol/L (21-32) Anion Gap 6 (6-14) Blood Urea Nitrogen 13 mg/dL (7-20) Creatinine 0.9 mg/dL (0.6-1.0) Estimated GFR (Cockcroft-Gault) 72.9 BUN/Creatinine Ratio 14 (6-20) Glucose Level 96 mg/dL (70-99) Calcium Level 9.1 mg/dL (8.5-10.1) Total Bilirubin 0.2 mg/dL (0.2-1.0) Aspartate Amino Transferase (AST) 20 U/L (15-37) Alanine Aminotransferase (ALT) 20 U/L (14-59) Alkaline Phosphatase 51 U/L (46-116) Total Protein 7.1 g/dL (6.4-8.2) Albumin 2.8 g/dL (3.4-5.0) L Albumin/Globulin Ratio 0.7 (1.0-1.7) L Valproic Acid Level 34 mcg/mL (50-100) L Valproic Acid Last Dose Date 09/30/17 Valproic Acid Last Dose Time 2100 Glucose (Fingerstick) 99 mg/dL (70-99) 210 mg/dL (70-99) H 120 mg/dL (70-99) H Test 10/01/17 19:15 Glucose (Fingerstick) 130 mg/dL (70-99) H Current Medications: Meds: Current Medications Cephalexin HCl (Keflex) 500 mg 1X ONCE PO Last administered on 09/21/17at 16:55 ; Start 09/21/17 at 17:00; Stop 09/21/17 at 17:01; Status DC Acetaminophen (Tylenol) 650 mg BID PO Last administered on 10/01/17at 19:52; Start 09/21/17 at 21:00 Acetaminophen (Tylenol) 650 mg PRN Q6HRS PRN PO mild pain ; Start 09/21/17 at 20:15 Lisinopril (Prinivil) 10 mg DAILY PO Last administered on 09/25/17at 07:55; Start 09/22/17 at 09:00; Stop 09/25/17 at 13:14; Status DC Lorazepam (Ativan) 1 mg PRN DAILY PRN PO crying outbursts Last administered on 09/29/17at 14:09; Start 09/21/17 at 20:15 Magnesium Hydroxide (Milk Of Magnesia) 2,400 mg PRN BID PRN PO constipation if no BM 3 days; Start 09/21/17 at 20:15 Aripiprazole (Abilify) 5 mg DAILY PO Last administered on 09/28/17at 07:46; Start 09/22/17 at 09:00; Stop 09/28/17 at 16:16; Status DC Aspirin (Children'S Aspirin) 81 mg DAILY PO Last administered on 10/01/17at 08: 57; Start 09/22/17 at 09:00 Baclofen (Lioresal) 5 mg TID PO Last administered on 10/01/17at 19:50; Start at 21:00 Artificial Tears (Refresh Classic) 1 drop BID OU Last administered on at 19:48; Start 09/21/17 at 21:00 Donepezil HCl (Aricept) 23 mg DAILY PO Last administered on 10/01/17 08:57; Start 09/22/17 at 09:00 Duloxetine HCl (Cymbalta) 30 mg DAILY PO Last administered on 09/23/17at 08:21; Start 09/22/17 at 09:00; Stop 09/23/17 at 19:38; Status DC Glipizide (Glucotrol) 10 mg BIDBFRMEAL PO Last administered on 10/01/17at 17:22 ; Start 09/22/17 at 07:30 Non-Formulary Medication (Insulin Aspart (Novolog Flexpen)) TIDAC SQ ; Start at 07:30; Status UNV Insulin Human Lispro (HumaLOG) 8 units TIDWMEALS SQ Last administered on at 12:28; Start 09/22/17 at 08:00; Stop 09/30/17 at 15:43; Status DC Insulin Glargine (Lantus) 14 units QHS SQ Last administered on 09/28/17at 20:30 ; Start 09/21/17 at 21:00; Stop 09/30/17 at 15:43; Status DC Latanoprost (Xalatan) 1 drop QHS OU Last administered on 10/01/17at 19:49; Start 09/21/17 at 21:00 Cetirizine HCl (ZyrTEC) 10 mg PRN Q24HRS PRN PO ALLERGIES; Start 09/21/17 at 20 :41 Non-Formulary Medication (Menthol (Biofreeze)) 1 marjorie PRN Q4HRS PRN TP lower back pain; Start 09/21/17 at 20:15; Status UNV Metformin HCl (Glucophage) 1,000 mg DAILYWSUP PO Last administered on at 17:22; Start 09/22/17 at 17:00 Ondansetron HCl (Zofran Odt) 4 mg PRN Q8HRS PRN PO NAUSEA/VOMITING; Start 09/21 at 20:30 Oxycodone HCl (Roxicodone) 5 mg PRN Q12HR PRN PO SEVERE PAIN Last administered on 09/26/17at 09:32; Start 09/21/17 at 21:00 Oxycodone HCl (Roxicodone) 5 mg QID PO Last administered on 09/25/17at 19:28; Start 09/21/17 at 21:00; Stop 09/26/17 at 08:12; Status DC Paroxetine HCl (Paxil) 30 mg DAILY PO Last administered on 09/22/17at 08:36; Start 09/22/17 at 09:00; Stop 09/22/17 at 17:29; Status DC Quetiapine Fumarate (SEROquel) 300 mg QHS PO Last administered on 09/24/17at 19: 32; Start 09/21/17 at 21:00; Stop 09/25/17 at 18:45; Status DC Timolol Maleate (Timoptic 0.5% [facility]) 1 drop DAILY OU Last administered on 10/01at 08:56; Start 09/22/17 at 09:00 Acetaminophen (Tylenol) 650 mg PRN Q6HRS PRN PO PAIN / TEMP; Start 09/21/17 at 20:15; Status UNV Multi-Ingredient Ointment (Analgesic [place]) 1 marjorie PRN QID PRN TP MUSCLE PAIN; Start 09/21/17 at 20:15 Al Hydroxide/Mg Hydroxide (Mylanta Plus Xs) 15 ml PRN AFTMEALHC PRN PO DYSPEPSIA; Start 09/21/17 at 20:15 Magnesium Hydroxide (Milk Of Magnesia) 2,400 mg PRN QHS PRN PO CONSTIPATION; Start 09/21/17 at 20:15; Status UNV Insulin Human Lispro (HumaLOG) 0-7 UNITS TIDWMEALS SQ Last administered on 10/01at 12:43; Start 09/22/17 at 08:00 Dextrose 12.5 gm PRN Q15MIN PRN IV SEE COMMENTS; Start 09/21/17 at 21:30 Cefpodoxime Proxetil (Vantin) 200 mg BID PO Last administered on 10/01/17at 19: 52; Start 09/22/17 at 21:00; Stop 10/02/17 at 21:00 Magnesium Chloride (Mag Delay) 64 mg DAILY PO Last administered on 09/23/17at 08 :22; Start 09/22/17 at 14:00; Stop 09/23/17 at 10:16; Status DC Lactobacillus Rhamnosus (Culturelle) 1 cap BID PO Last administered on at 19:49; Start 09/22/17 at 21:00 Magnesium Chloride (Mag Delay) 64 mg DAILY PO Last administered on 10/01/17at 08 :59; Start 09/23/17 at 09:00 Vitamin D (Vitamin D3) 50,000 unit WEEKLY PO Last administered on 09/29/17at 08: 07; Start 09/29/17 at 09:00 Fenofibrate (Tricor) 48 mg DAILY PO Last administered on 10/01/17at 09:01; Start 09/23/17 at 09:00 Paroxetine HCl (Paxil) 20 mg DAILY PO Last administered on 09/24/17at 08:18; Start 09/23/17 at 09:00; Stop 09/24/17 at 10:00; Status DC Paroxetine HCl (Paxil) 10 mg DAILY PO Last administered on 09/26/17at 08:08; Start 09/25/17 at 09:00; Stop 09/26/17 at 10:00; Status DC Duloxetine HCl (Cymbalta) 30 mg DAILY PO Last administered on 10/01/17 09:00; Start 09/24/17 at 09:00 Duloxetine HCl (Cymbalta) 20 mg DAILY PO Last administered on 10/01/17 08:57; Start 09/24/17 at 09:00 Lisinopril (Prinivil) 20 mg DAILY PO Last administered on 10/01/17 09:04; Start 09/26/17 at 09:00 Quetiapine Fumarate (SEROquel) 175 mg QHS PO Last administered on 10/01/17 19: 52; Start 09/25/17 at 21:00 Quetiapine Fumarate (SEROquel) 75 mg 0900,1300 PO Last administered on 12:45; Start 09/26/17 at 09:00 Olanzapine (ZyPREXA ZYDIS) 2.5 mg PRN Q2HR PRN PO PSYCHOSIS Last administered on 10/01/17 10:18; Start 09/25/17 at 18:45 Oxycodone HCl (Roxicodone) 5 mg QID PO Last administered on 10/01/17 19:52; Start 09/26/17 at 09:00 Divalproex Sodium (Depakote Er) 500 mg QHS PO Last administered on 10/01/17 19 :50; Start 09/28/17 at 21:00 Insulin Glargine (Lantus) 8 units QHS SQ Last administered on 10/01/17 19:55; Start 09/30/17 at 21:00 Insulin Human Lispro (HumaLOG) 5 units TIDWMEALS SQ Last administered on 17:00; Start 09/30/17 at 17:00 Active Scripts Active Reported Zofran (Ondansetron Hcl) 4 Mg Tablet 4 Mg PO PRN Q8HRS PRN Xalatan (Latanoprost) 2.5 Ml Drops 1 Drop EACHEYE QHS Tylenol (Acetaminophen) 325 Mg Tablet 650 Mg PO BID Tylenol (Acetaminophen) 325 Mg Tablet 650 Mg PO PRN Q6HRS PRN Timoptic (Timolol Maleate) 10 Ml Drops 1 Drop EACHEYE DAILY Seroquel Xr (Quetiapine Fumarate) 300 Mg Tab.er.24h 300 Mg PO QHS Paxil (Paroxetine Hcl) 30 Mg Tablet 30 Mg PO DAILY Oxycodone Hcl 5 Mg Capsule 5 Mg PO QID PRN Oxycodone Hcl 5 Mg Capsule 5 Mg PO PRN Q12HR PRN Novolog Flexpen (Insulin Aspart) 100 Unit/1 Ml Insuln.pen 2-16 Unit SQ TIDAC Novolog Flexpen (Insulin Aspart) 100 Unit/1 Ml Insuln.pen 8 Unit SQ TIDAC Milk Of Magnesia (Magnesium Hydroxide) 400 Mg/5 Ml Oral.susp 30 Mg PO PRN BID PRN Metformin Hcl 1,000 Mg Tablet 1,000 Mg PO DAILYWSUP Lisinopril 10 Mg Tablet 10 Mg PO DAILY Levemir Flextouch (Insulin Detemir) 100 Unit/1 Ml Insuln.pen 14 Unit SQ HS Glipizide 10 Mg Tablet 10 Mg PO BID Donepezil Hcl 10 Mg Tablet 23 Mg PO DAILY Cymbalta (Duloxetine Hcl) 30 Mg Capsule.dr 30 Mg PO DAILY Claritin (Loratadine) 10 Mg Tablet 10 Mg PO PRN Q24HRS PRN Biofreeze (Menthol) 118 Ml Gel..ml. 1 Marjorie TP PRN Q4HRS PRN Baclofen 10 Mg Tablet 5 Mg PO TID Ativan (Lorazepam) 1 Mg Tablet 1 Mg PO PRN DAILY PRN Aspirin 81 Mg Tab.chew 81 Mg PO DAILY Artificial Tears Eye Drops (Dextran 70/Hypromellose) 15 Ml Drops 1 Drop EACHEYE BID Abilify (Aripiprazole) 5 Mg Tablet 5 Mg PO DAILY I have reviewed the current psychotropics carefully including drug interactions. Risk benefit ratio favors no change other than as noted in my dictated progress note. Diagnosis: Problems: (1) Encounter for medical screening examination (2) Urinary tract infection (3) Dementia with behavioral disturbance (4) Anxiety disorder (5) Dementia, vascular, with delusions (6) Dementia, vascular, with depression (7) Impulse control disorder (8) Urinary tract infection MELISSA SOLER MD Oct 01, 2017 22:23
[2017-10-02] MEDS: oxyCODONE IR 5 MG TABLET PO PRN (06:38)
[2017-10-02 06:44] VITALS: BP 125/81
[2017-10-02] MEDS: INSULIN LISPRO 300 UNITS/3 ML INSULN.PEN. SQ SCH ×6 (07:44→17:18)
[2017-10-02] MEDS: TIMOLOL 0.5% OPHTH SOLUTION 5ML BOTTLE. OU SCH (09:12)
[2017-10-02] MEDS: QUEtiapine 50 MG TABLET. PO SCH ×2 (09:13→12:47)
[2017-10-02] MEDS: MAGNESIUM CHLORIDE ER 64 MG TABLET.ER PO SCH (09:14)
[2017-10-02] MEDS: CEFPODOXIME PROXETIL 100 MG TABLET PO SCH ×2 (09:14→20:44)
[2017-10-02] MEDS: LACTOBACILLUS RHAMNOSUS GG 1 CAPSULE. PO SCH ×2 (09:14→20:42)
[2017-10-02] MEDS: FENOFIBRATE NANOCRYSTALLIZED 48 MG TABLET PO SCH (09:14)
[2017-10-02] MEDS: DULoxetine HCL 30 MG CAPSULE.DR PO SCH (09:15)
[2017-10-02] MEDS: ASPIRIN 81 MG TAB.CHEW PO SCH (09:15)
[2017-10-02] MEDS: oxyCODONE IR 5 MG TABLET PO SCH ×4 (09:15→20:43)
[2017-10-02] MEDS: BACLOFEN 10 MG TABLET PO SCH ×3 (09:15→20:42)
[2017-10-02] MEDS: DULoxetine HCL 20 MG CAPSULE.DR PO SCH (09:16)
[2017-10-02] MEDS: POLYVINYL ALCOHOL/POVIDONE/PF OPHTH SOLUTION DROPERETTE. OU SCH ×2 (09:17→20:47)
[2017-10-02] MEDS: ACETAMINOPHEN 325 MG TABLET PO SCH ×2 (09:17→20:43)
[2017-10-02] MEDS: DONEPEZIL 23 MG TABLET PO SCH (09:17)
[2017-10-02] MEDS: LISINOPRIL 20 MG TABLET PO SCH (09:17)
[2017-10-02] MEDS: glipiZIDE 5 MG TABLET PO SCH ×2 (09:19→16:36)
[2017-10-02 16:30] VITALS: BP 117/59
[2017-10-02] MEDS: metFORMIN 500 MG TABLET PO SCH (17:10)
--- NOTE | 2017-10-02 20:04 | PDOC ---
Exam Note: Jonas Note: Please also refer to the separate dictated note~for this date of service dictated separately.~Patient seen individually. Discussed the patient with Nursing staff reviewed the chart.~Reviewed interim history and current functioning. Reviewed vital signs,~Labs/ Radiology~and current medications noted below. Continue current treatment with the changes noted in the dictated addendum note Assessment: Vital Signs: Vital Signs Date Time Temp Pulse Resp B/P (MAP) Pulse Ox O2 Delivery O2 Flow Rate FiO2 10/02/17 18:25 Room Air 10/02/17 17:12 95 10/02/17 16:30 97.8 77 18 117/59 (78) I&O Intake and Output 10/02/17 07:00 Intake Total 440 ml Balance 440 ml Intake Oral 440 ml # Bowel Movements 3 Labs: Laboratory Tests Test 10/02/17 07:35 10/02/17 11:44 10/02/17 16:45 10/02/17 19:00 Glucose (Fingerstick) 93 mg/dL (70-99) 177 mg/dL (70-99) H 223 mg/dL (70-99) H 179 mg/dL (70-99) H Current Medications: Meds: Current Medications Cephalexin HCl (Keflex) 500 mg 1X ONCE PO Last administered on 09/21/17at 16:55 ; Start 09/21/17 at 17:00; Stop 09/21/17 at 17:01; Status DC Acetaminophen (Tylenol) 650 mg BID PO Last administered on 10/02/17at 09:17; Start 09/21/17 at 21:00 Acetaminophen (Tylenol) 650 mg PRN Q6HRS PRN PO mild pain ; Start 09/21/17 at 20:15 Lisinopril (Prinivil) 10 mg DAILY PO Last administered on 09/25/17at 07:55; Start 09/22/17 at 09:00; Stop 09/25/17 at 13:14; Status DC Lorazepam (Ativan) 1 mg PRN DAILY PRN PO crying outbursts Last administered on 09/29/17at 14:09; Start 09/21/17 at 20:15 Magnesium Hydroxide (Milk Of Magnesia) 2,400 mg PRN BID PRN PO constipation if no BM 3 days; Start 09/21/17 at 20:15 Aripiprazole (Abilify) 5 mg DAILY PO Last administered on 09/28/17at 07:46; Start 09/22/17 at 09:00; Stop 09/28/17 at 16:16; Status DC Aspirin (Children'S Aspirin) 81 mg DAILY PO Last administered on 10/02/17at 09: 15; Start 09/22/17 at 09:00 Baclofen (Lioresal) 5 mg TID PO Last administered on 10/02/17at 14:17; Start at 21:00 Artificial Tears (Refresh Classic) 1 drop BID OU Last administered on at 09:17; Start 09/21/17 at 21:00 Donepezil HCl (Aricept) 23 mg DAILY PO Last administered on 10/02/17at 09:17; Start 09/22/17 at 09:00 Duloxetine HCl (Cymbalta) 30 mg DAILY PO Last administered on 09/23/17at 08:21; Start 09/22/17 at 09:00; Stop 09/23/17 at 19:38; Status DC Glipizide (Glucotrol) 10 mg BIDBFRMEAL PO Last administered on 10/02/17at 16:36 ; Start 09/22/17 at 07:30 Non-Formulary Medication (Insulin Aspart (Novolog Flexpen)) TIDAC SQ ; Start at 07:30; Status UNV Insulin Human Lispro (HumaLOG) 8 units TIDWMEALS SQ Last administered on at 12:28; Start 09/22/17 at 08:00; Stop 09/30/17 at 15:43; Status DC Insulin Glargine (Lantus) 14 units QHS SQ Last administered on 09/28/17at 20:30 ; Start 09/21/17 at 21:00; Stop 09/30/17 at 15:43; Status DC Latanoprost (Xalatan) 1 drop QHS OU Last administered on 10/01/17at 19:49; Start 09/21/17 at 21:00 Cetirizine HCl (ZyrTEC) 10 mg PRN Q24HRS PRN PO ALLERGIES; Start 09/21/17 at 20 :41 Non-Formulary Medication (Menthol (Biofreeze)) 1 marjorie PRN Q4HRS PRN TP lower back pain; Start 09/21/17 at 20:15; Status UNV Metformin HCl (Glucophage) 1,000 mg DAILYWSUP PO Last administered on at 17:10; Start 09/22/17 at 17:00 Ondansetron HCl (Zofran Odt) 4 mg PRN Q8HRS PRN PO NAUSEA/VOMITING; Start 09/21 at 20:30 Oxycodone HCl (Roxicodone) 5 mg PRN Q12HR PRN PO SEVERE PAIN Last administered on 10/02/17at 06:38; Start 09/21/17 at 21:00 Oxycodone HCl (Roxicodone) 5 mg QID PO Last administered on 09/25/17at 19:28; Start 09/21/17 at 21:00; Stop 09/26/17 at 08:12; Status DC Paroxetine HCl (Paxil) 30 mg DAILY PO Last administered on 09/22/17at 08:36; Start 09/22/17 at 09:00; Stop 09/22/17 at 17:29; Status DC Quetiapine Fumarate (SEROquel) 300 mg QHS PO Last administered on 09/24/17at 19: 32; Start 09/21/17 at 21:00; Stop 09/25/17 at 18:45; Status DC Timolol Maleate (Timoptic 0.5% Oph) 1 drop DAILY OU Last administered on 10/02at 09:12; Start 09/22/17 at 09:00 Acetaminophen (Tylenol) 650 mg PRN Q6HRS PRN PO PAIN / TEMP; Start 09/21/17 at 20:15; Status UNV Multi-Ingredient Ointment (Analgesic [place]) 1 marjorie PRN QID PRN TP MUSCLE PAIN; Start 09/21/17 at 20:15 Al Hydroxide/Mg Hydroxide (Mylanta Plus Xs) 15 ml PRN AFTMEALHC PRN PO DYSPEPSIA; Start 09/21/17 at 20:15 Magnesium Hydroxide (Milk Of Magnesia) 2,400 mg PRN QHS PRN PO CONSTIPATION; Start 09/21/17 at 20:15; Status UNV Insulin Human Lispro (HumaLOG) 0-7 UNITS TIDWMEALS SQ Last administered on 10/02at 17:17; Start 09/22/17 at 08:00 Dextrose 12.5 gm PRN Q15MIN PRN IV SEE COMMENTS; Start 09/21/17 at 21:30 Cefpodoxime Proxetil (Vantin) 200 mg BID PO Last administered on 10/02/17at 09: 14; Start 09/22/17 at 21:00; Stop 10/02/17 at 21:00 Magnesium Chloride (Mag Delay) 64 mg DAILY PO Last administered on 09/23/17at 08 :22; Start 09/22/17 at 14:00; Stop 09/23/17 at 10:16; Status DC Lactobacillus Rhamnosus (Culturelle) 1 cap BID PO Last administered on at 09:14; Start 09/22/17 at 21:00 Magnesium Chloride (Mag Delay) 64 mg DAILY PO Last administered on 10/02/17at 09 :14; Start 09/23/17 at 09:00 Vitamin D (Vitamin D3) 50,000 unit WEEKLY PO Last administered on 09/29/17at 08: 07; Start 09/29/17 at 09:00 Fenofibrate (Tricor) 48 mg DAILY PO Last administered on 10/02/17at 09:14; Start 09/23/17 at 09:00 Paroxetine HCl (Paxil) 20 mg DAILY PO Last administered on 09/24/17at 08:18; Start 09/23/17 at 09:00; Stop 09/24/17 at 10:00; Status DC Paroxetine HCl (Paxil) 10 mg DAILY PO Last administered on 09/26/17at 08:08; Start 09/25/17 at 09:00; Stop 09/26/17 at 10:00; Status DC Duloxetine HCl (Cymbalta) 30 mg DAILY PO Last administered on 10/02/17at 09:15; Start 09/24/17 at 09:00 Duloxetine HCl (Cymbalta) 20 mg DAILY PO Last administered on 10/02/17at 09:16; Start 09/24/17 at 09:00 Lisinopril (Prinivil) 20 mg DAILY PO Last administered on 10/02/17at 09:17; Start 09/26/17 at 09:00 Quetiapine Fumarate (SEROquel) 175 mg QHS PO Last administered on 10/01/17 19: 52; Start 09/25/17 at 21:00 Quetiapine Fumarate (SEROquel) 75 mg 0900,1300 PO Last administered on at 12:47; Start 09/26/17 at 09:00 Olanzapine (ZyPREXA ZYDIS) 2.5 mg PRN Q2HR PRN PO PSYCHOSIS Last administered on 10/01/17 10:18; Start 09/25/17 at 18:45 Oxycodone HCl (Roxicodone) 5 mg QID PO Last administered on 10/02/17 17:12; Start 09/26/17 at 09:00 Divalproex Sodium (Depakote Er) 500 mg QHS PO Last administered on 10/01/17 19 :50; Start 09/28/17 at 21:00 Insulin Glargine (Lantus) 8 units QHS SQ Last administered on 10/01/17at 19:55; Start 09/30/17 at 21:00 Insulin Human Lispro (HumaLOG) 5 units TIDWMEALS SQ Last administered on 17:18; Start 09/30/17 at 17:00 Active Scripts Active Reported Zofran (Ondansetron Hcl) 4 Mg Tablet 4 Mg PO PRN Q8HRS PRN Xalatan (Latanoprost) 2.5 Ml Drops 1 Drop EACHEYE QHS Tylenol (Acetaminophen) 325 Mg Tablet 650 Mg PO BID Tylenol (Acetaminophen) 325 Mg Tablet 650 Mg PO PRN Q6HRS PRN Timoptic (Timolol Maleate) 10 Ml Drops 1 Drop EACHEYE DAILY Seroquel Xr (Quetiapine Fumarate) 300 Mg Tab.er.24h 300 Mg PO QHS Paxil (Paroxetine Hcl) 30 Mg Tablet 30 Mg PO DAILY Oxycodone Hcl 5 Mg Capsule 5 Mg PO QID PRN Oxycodone Hcl 5 Mg Capsule 5 Mg PO PRN Q12HR PRN Novolog Flexpen (Insulin Aspart) 100 Unit/1 Ml Insuln.pen 2-16 Unit SQ TIDAC Novolog Flexpen (Insulin Aspart) 100 Unit/1 Ml Insuln.pen 8 Unit SQ TIDAC Milk Of Magnesia (Magnesium Hydroxide) 400 Mg/5 Ml Oral.susp 30 Mg PO PRN BID PRN Metformin Hcl 1,000 Mg Tablet 1,000 Mg PO DAILYWSUP Lisinopril 10 Mg Tablet 10 Mg PO DAILY Levemir Flextouch (Insulin Detemir) 100 Unit/1 Ml Insuln.pen 14 Unit SQ HS Glipizide 10 Mg Tablet 10 Mg PO BID Donepezil Hcl 10 Mg Tablet 23 Mg PO DAILY Cymbalta (Duloxetine Hcl) 30 Mg Capsule.dr 30 Mg PO DAILY Claritin (Loratadine) 10 Mg Tablet 10 Mg PO PRN Q24HRS PRN Biofreeze (Menthol) 118 Ml Gel..ml. 1 Marjorie TP PRN Q4HRS PRN Baclofen 10 Mg Tablet 5 Mg PO TID Ativan (Lorazepam) 1 Mg Tablet 1 Mg PO PRN DAILY PRN Aspirin 81 Mg Tab.chew 81 Mg PO DAILY Artificial Tears Eye Drops (Dextran 70/Hypromellose) 15 Ml Drops 1 Drop EACHEYE BID Abilify (Aripiprazole) 5 Mg Tablet 5 Mg PO DAILY I have reviewed the current psychotropics carefully including drug interactions. Risk benefit ratio favors no change other than as noted in my dictated progress note. Diagnosis: Problems: (1) Encounter for medical screening examination (2) Urinary tract infection (3) Dementia with behavioral disturbance (4) Anxiety disorder (5) Dementia, vascular, with delusions (6) Dementia, vascular, with depression (7) Impulse control disorder (8) Urinary tract infection MELISSA SOLER MD Oct 02, 2017 20:04
--- NOTE | 2017-10-02 20:04 | PDOC ---
Exam Note: Jonas Note: Late entry for date of service September.Please also refer to the separate dictated note~for this date of service dictated separately.~Patient seen individually. Discussed the patient with Nursing staff reviewed the chart.~ Reviewed interim history and current functioning. Reviewed vital signs,~Labs/ Radiology~and current medications noted below. Continue current treatment with the changes noted in the dictated addendum note Assessment: Vital Signs: VS - Last 72 Hours, by Label Date Time Temp Pulse Resp B/P (MAP) Pulse Ox O2 Delivery O2 Flow Rate FiO2 10/02/17 18:25 Room Air 10/02/17 17:12 95 Room Air 10/02/17 16:30 97.8 77 18 117/59 (78) 95 10/02/17 14:09 98 10/02/17 12:48 98 Room Air 10/02/17 09:17 77 125/81 10/02/17 09:15 98 Room Air 10/02/17 07:40 98 10/02/17 06:44 98.3 77 18 125/81 (96) 98 10/02/17 06:38 95 Room Air 10/01/17 19:52 95 Room Air 10/01/17 18:30 16 10/01/17 17:23 14 Room Air 10/01/17 16:03 97.0 79 18 122/65 (84) 95 10/01/17 12:44 14 Room Air 10/01/17 09:04 87 137/79 10/01/17 09:00 14 Room Air 10/01/17 06:23 97.4 68 18 132/67 (88) 97 Room Air 09/30/17 20:10 99 Room Air 09/30/17 17:38 18 99 Room Air 09/30/17 16:35 97.2 84 16 110/50 (70) 99 Room Air 09/30/17 12:28 18 99 Room Air 09/30/17 08:21 18 99 Room Air 09/30/17 08:16 75 122/72 09/30/17 05:52 98.0 75 16 122/72 (89) 99 09/29/17 20:17 16 97 Room Air Vital Signs Date Time Temp Pulse Resp B/P (MAP) Pulse Ox O2 Delivery O2 Flow Rate FiO2 10/02/17 18:25 Room Air 8/26/18 17:12 95 10/02/17 16:30 97.8 77 18 117/59 (78) I&O Intake and Output 10/02/17 07:00 Intake Total 440 ml Balance 440 ml Intake Oral 440 ml # Bowel Movements 3 Labs: Laboratory Tests Test 10/02/17 07:35 10/02/17 11:44 10/02/17 16:45 10/02/17 19:00 Glucose (Fingerstick) 93 mg/dL (70-99) 177 mg/dL (70-99) H 223 mg/dL (70-99) H 179 mg/dL (70-99) H Current Medications: Meds: Current Medications Cephalexin HCl (Keflex) 500 mg 1X ONCE PO Last administered on 09/21/17 16:55 ; Start 09/21/17 at 17:00; Stop 09/21/17 at 17:01; Status DC Acetaminophen (Tylenol) 650 mg BID PO Last administered on 10/02/17at 09:17; Start 09/21/17 at 21:00 Acetaminophen (Tylenol) 650 mg PRN Q6HRS PRN PO mild pain ; Start 09/21/17 at 20:15 Lisinopril (Prinivil) 10 mg DAILY PO Last administered on 09/25/17at 07:55; Start 09/22/17 at 09:00; Stop 09/25/17 at 13:14; Status DC Lorazepam (Ativan) 1 mg PRN DAILY PRN PO crying outbursts Last administered on 09/29/17at 14:09; Start 09/21/17 at 20:15 Magnesium Hydroxide (Milk Of Magnesia) 2,400 mg PRN BID PRN PO constipation if no BM 3 days; Start 09/21/17 at 20:15 Aripiprazole (Abilify) 5 mg DAILY PO Last administered on 09/28/17at 07:46; Start 09/22/17 at 09:00; Stop 09/28/17 at 16:16; Status DC Aspirin (Children'S Aspirin) 81 mg DAILY PO Last administered on 10/02/17at 09: 15; Start 09/22/17 at 09:00 Baclofen (Lioresal) 5 mg TID PO Last administered on 10/02/17at 14:17; Start at 21:00 Artificial Tears (Refresh Classic) 1 drop BID OU Last administered on at 09:17; Start 09/21/17 at 21:00 Donepezil HCl (Aricept) 23 mg DAILY PO Last administered on 10/02/17at 09:17; Start 09/22/17 at 09:00 Duloxetine HCl (Cymbalta) 30 mg DAILY PO Last administered on 09/23/17at 08:21; Start 09/22/17 at 09:00; Stop 09/23/17 at 19:38; Status DC Glipizide (Glucotrol) 10 mg BIDBFRMEAL PO Last administered on 10/02/17at 16:36 ; Start 09/22/17 at 07:30 Non-Formulary Medication (Insulin Aspart (Novolog Flexpen)) TIDAC SQ ; Start at 07:30; Status UNV Insulin Human Lispro (HumaLOG) 8 units TIDWMEALS SQ Last administered on at 12:28; Start 09/22/17 at 08:00; Stop 09/30/17 at 15:43; Status DC Insulin Glargine (Lantus) 14 units QHS SQ Last administered on 09/28/17at 20:30 ; Start 09/21/17 at 21:00; Stop 09/30/17 at 15:43; Status DC Latanoprost (Xalatan) 1 drop QHS OU Last administered on 10/01/17at 19:49; Start 09/21/17 at 21:00 Cetirizine HCl (ZyrTEC) 10 mg PRN Q24HRS PRN PO ALLERGIES; Start 09/21/17 at 20 :41 Non-Formulary Medication (Menthol (Biofreeze)) 1 marjorie PRN Q4HRS PRN TP lower back pain; Start 09/21/17 at 20:15; Status UNV Metformin HCl (Glucophage) 1,000 mg DAILYWSUP PO Last administered on at 17:10; Start 09/22/17 at 17:00 Ondansetron HCl (Zofran Odt) 4 mg PRN Q8HRS PRN PO NAUSEA/VOMITING; Start 09/21 at 20:30 Oxycodone HCl (Roxicodone) 5 mg PRN Q12HR PRN PO SEVERE PAIN Last administered on 10/02/17at 06:38; Start 09/21/17 at 21:00 Oxycodone HCl (Roxicodone) 5 mg QID PO Last administered on 09/25/17at 19:28; Start 09/21/17 at 21:00; Stop 09/26/17 at 08:12; Status DC Paroxetine HCl (Paxil) 30 mg DAILY PO Last administered on 09/22/17at 08:36; Start 09/22/17 at 09:00; Stop 09/22/17 at 17:29; Status DC Quetiapine Fumarate (SEROquel) 300 mg QHS PO Last administered on 09/24/17at 19: 32; Start 09/21/17 at 21:00; Stop 09/25/17 at 18:45; Status DC Timolol Maleate (Timoptic 0.5% [facility]) 1 drop DAILY OU Last administered on 10/02at 09:12; Start 09/22/17 at 09:00 Acetaminophen (Tylenol) 650 mg PRN Q6HRS PRN PO PAIN / TEMP; Start 09/21/17 at 20:15; Status UNV Multi-Ingredient Ointment (Analgesic [place]) 1 marjorie PRN QID PRN TP MUSCLE PAIN; Start 09/21/17 at 20:15 Al Hydroxide/Mg Hydroxide (Mylanta Plus Xs) 15 ml PRN AFTMEALHC PRN PO DYSPEPSIA; Start 09/21/17 at 20:15 Magnesium Hydroxide (Milk Of Magnesia) 2,400 mg PRN QHS PRN PO CONSTIPATION; Start 09/21/17 at 20:15; Status UNV Insulin Human Lispro (HumaLOG) 0-7 UNITS TIDWMEALS SQ Last administered on 10/02at 17:17; Start 09/22/17 at 08:00 Dextrose 12.5 gm PRN Q15MIN PRN IV SEE COMMENTS; Start 09/21/17 at 21:30 Cefpodoxime Proxetil (Vantin) 200 mg BID PO Last administered on 10/02/17at 09: 14; Start 09/22/17 at 21:00; Stop 10/02/17 at 21:00 Magnesium Chloride (Mag Delay) 64 mg DAILY PO Last administered on 09/23/17at 08 :22; Start 09/22/17 at 14:00; Stop 09/23/17 at 10:16; Status DC Lactobacillus Rhamnosus (Culturelle) 1 cap BID PO Last administered on at 09:14; Start 09/22/17 at 21:00 Magnesium Chloride (Mag Delay) 64 mg DAILY PO Last administered on 10/02/17at 09 :14; Start 09/23/17 at 09:00 Vitamin D (Vitamin D3) 50,000 unit WEEKLY PO Last administered on 09/29/17at 08: 07; Start 09/29/17 at 09:00 Fenofibrate (Tricor) 48 mg DAILY PO Last administered on 10/02/17at 09:14; Start 09/23/17 at 09:00 Paroxetine HCl (Paxil) 20 mg DAILY PO Last administered on 09/24/17at 08:18; Start 09/23/17 at 09:00; Stop 09/24/17 at 10:00; Status DC Paroxetine HCl (Paxil) 10 mg DAILY PO Last administered on 09/26/17at 08:08; Start 09/25/17 at 09:00; Stop 09/26/17 at 10:00; Status DC Duloxetine HCl (Cymbalta) 30 mg DAILY PO Last administered on 10/02/17at 09:15; Start 09/24/17 at 09:00 Duloxetine HCl (Cymbalta) 20 mg DAILY PO Last administered on 10/02/17at 09:16; Start 09/24/17 at 09:00 Lisinopril (Prinivil) 20 mg DAILY PO Last administered on 10/02/17at 09:17; Start 09/26/17 at 09:00 Quetiapine Fumarate (SEROquel) 175 mg QHS PO Last administered on 10/01/17at 19: 52; Start 09/25/17 at 21:00 Quetiapine Fumarate (SEROquel) 75 mg 0900,1300 PO Last administered on at 12:47; Start 09/26/17 at 09:00 Olanzapine (ZyPREXA ZYDIS) 2.5 mg PRN Q2HR PRN PO PSYCHOSIS Last administered on 10/01/17at 10:18; Start 09/25/17 at 18:45 Oxycodone HCl (Roxicodone) 5 mg QID PO Last administered on 10/02/17at 17:12; Start 09/26/17 at 09:00 Divalproex Sodium (Depakote Er) 500 mg QHS PO Last administered on 10/01/17at 19 :50; Start 09/28/17 at 21:00 Insulin Glargine (Lantus) 8 units QHS SQ Last administered on 10/01/17at 19:55; Start 09/30/17 at 21:00 Insulin Human Lispro (HumaLOG) 5 units TIDWMEALS SQ Last administered on at 17:18; Start 09/30/17 at 17:00 Active Scripts Active Reported Zofran (Ondansetron Hcl) 4 Mg Tablet 4 Mg PO PRN Q8HRS PRN Xalatan (Latanoprost) 2.5 Ml Drops 1 Drop EACHEYE QHS Tylenol (Acetaminophen) 325 Mg Tablet 650 Mg PO BID Tylenol (Acetaminophen) 325 Mg Tablet 650 Mg PO PRN Q6HRS PRN Timoptic (Timolol Maleate) 10 Ml Drops 1 Drop EACHEYE DAILY Seroquel Xr (Quetiapine Fumarate) 300 Mg Tab.er.24h 300 Mg PO QHS Paxil (Paroxetine Hcl) 30 Mg Tablet 30 Mg PO DAILY Oxycodone Hcl 5 Mg Capsule 5 Mg PO QID PRN Oxycodone Hcl 5 Mg Capsule 5 Mg PO PRN Q12HR PRN Novolog Flexpen (Insulin Aspart) 100 Unit/1 Ml Insuln.pen 2-16 Unit SQ TIDAC Novolog Flexpen (Insulin Aspart) 100 Unit/1 Ml Insuln.pen 8 Unit SQ TIDAC Milk Of Magnesia (Magnesium Hydroxide) 400 Mg/5 Ml Oral.susp 30 Mg PO PRN BID PRN Metformin Hcl 1,000 Mg Tablet 1,000 Mg PO DAILYWSUP Lisinopril 10 Mg Tablet 10 Mg PO DAILY Levemir Flextouch (Insulin Detemir) 100 Unit/1 Ml Insuln.pen 14 Unit SQ HS Glipizide 10 Mg Tablet 10 Mg PO BID Donepezil Hcl 10 Mg Tablet 23 Mg PO DAILY Cymbalta (Duloxetine Hcl) 30 Mg Capsule.dr 30 Mg PO DAILY Claritin (Loratadine) 10 Mg Tablet 10 Mg PO PRN Q24HRS PRN Biofreeze (Menthol) 118 Ml Gel..ml. 1 Marjorie TP PRN Q4HRS PRN Baclofen 10 Mg Tablet 5 Mg PO TID Ativan (Lorazepam) 1 Mg Tablet 1 Mg PO PRN DAILY PRN Aspirin 81 Mg Tab.chew 81 Mg PO DAILY Artificial Tears Eye Drops (Dextran 70/Hypromellose) 15 Ml Drops 1 Drop EACHEYE BID Abilify (Aripiprazole) 5 Mg Tablet 5 Mg PO DAILY I have reviewed the current psychotropics carefully including drug interactions. Risk benefit ratio favors no change other than as noted in my dictated progress note. Diagnosis: Problems: (1) Encounter for medical screening examination (2) Urinary tract infection (3) Dementia with behavioral disturbance (4) Anxiety disorder (5) Dementia, vascular, with delusions (6) Dementia, vascular, with depression (7) Impulse control disorder (8) Urinary tract infection MELISSA SOLER MD Oct 02, 2017 20:04
[2017-10-02] MEDS: LATANOPROST 0.005% OPHTH SOLUTION 2.5ML BOTTLE. OU SCH (20:41)
[2017-10-02] MEDS: DIVALPROEX ER 500 MG TAB.ER.24H PO SCH (20:42)
[2017-10-02] MEDS: QUEtiapine 100 MG TABLET. PO SCH (20:43)
[2017-10-02] MEDS: INSULIN GLARGINE 300 UNITS/3 ML INSULN.PEN. SQ SCH (20:44)
--- NOTE | 2017-10-03 01:43 | PN ---
DATE: 09/30/2017 PSYCHIATRIC PROGRESS NOTE This is a late entry of 09/30/2017, covers elements not covered in my initial note. SUBJECTIVE: I met with the patient in the evening. The patient slept 7-1/4 hours previous evening. Overall, doing better, less anxious, labile, less yelling. Blood sugar was low, insulin held. REVIEW OF SYSTEMS: Ambulation impaired, in Broda chair. No CV, , pulmonary, eye, ENT system symptoms on review. Reliability poor. MENTAL STATUS EXAM: Oriented to herself and situation. Speech moderate latency, often responses monosyllabic. Abstraction fair, computation impaired, language function intact, attention span short. Mood and affect remain somewhat withdrawn, depressed, but better than before. LABORATORY DATA: Reviewed. IMPRESSION: Unchanged from initial note. PLAN: No change from initial note. MAN Twila SOLER MD DR: GABRIELA/sowmya JOB#: [id number] / [id number]
[2017-10-03 05:32] VITALS: BP 113/60
[2017-10-03] MEDS: INSULIN LISPRO 300 UNITS/3 ML INSULN.PEN. SQ SCH ×6 (07:45→17:39)
[2017-10-03] MEDS: glipiZIDE 5 MG TABLET PO SCH ×2 (07:58→17:35)
[2017-10-03] MEDS: oxyCODONE IR 5 MG TABLET PO SCH ×4 (08:00→20:23)
[2017-10-03] MEDS: BACLOFEN 10 MG TABLET PO SCH ×3 (08:01→20:23)
[2017-10-03] MEDS: DULoxetine HCL 20 MG CAPSULE.DR PO SCH (10:39)
[2017-10-03] MEDS: LISINOPRIL 20 MG TABLET PO SCH (10:39)
[2017-10-03] MEDS: LACTOBACILLUS RHAMNOSUS GG 1 CAPSULE. PO SCH ×2 (10:39→20:22)
[2017-10-03] MEDS: DONEPEZIL 23 MG TABLET PO SCH (10:39)
[2017-10-03] MEDS: DULoxetine HCL 30 MG CAPSULE.DR PO SCH (10:41)
[2017-10-03] MEDS: QUEtiapine 50 MG TABLET. PO SCH ×2 (10:42→13:16)
[2017-10-03] MEDS: MAGNESIUM CHLORIDE ER 64 MG TABLET.ER PO SCH (10:43)
[2017-10-03] MEDS: ASPIRIN 81 MG TAB.CHEW PO SCH (10:45)
[2017-10-03] MEDS: ACETAMINOPHEN 325 MG TABLET PO SCH ×2 (10:45→20:23)
[2017-10-03] MEDS: TIMOLOL 0.5% OPHTH SOLUTION 5ML BOTTLE. OU SCH (10:45)
[2017-10-03] MEDS: FENOFIBRATE NANOCRYSTALLIZED 48 MG TABLET PO SCH (10:45)
[2017-10-03] MEDS: POLYVINYL ALCOHOL/POVIDONE/PF OPHTH SOLUTION DROPERETTE. OU SCH ×2 (10:46→21:00)
[2017-10-03 11:00] LABS: BACTERIA,URINE 0 /HPF (0-FEW); BILIRUBIN,URINE NEG (NEG); CLARITY,URINE CLEAR; COLOR,URINE YELLOW; GLUCOSE,URINE NEG (NEG); NITRITE,URINE NEG (NEG); SQUAMOUS EPITHELIAL CELL,UR FEW /LPF; UROBILINOGEN,URINE 0.2 mg/dL (0.2 mg/dL); WBC,URINE OCC /HPF (0-4)
[2017-10-03 15:40] VITALS: BP 117/67
[2017-10-03] MEDS: metFORMIN 500 MG TABLET PO SCH (17:35)
[2017-10-03] MEDS: LATANOPROST 0.005% OPHTH SOLUTION 2.5ML BOTTLE. OU SCH (20:22)
[2017-10-03] MEDS: DIVALPROEX ER 500 MG TAB.ER.24H PO SCH (20:22)
[2017-10-03] MEDS: QUEtiapine 100 MG TABLET. PO SCH (20:23)
[2017-10-03] MEDS: INSULIN GLARGINE 300 UNITS/3 ML INSULN.PEN. SQ SCH (20:25)
--- NOTE | 2017-10-03 20:51 | PDOC ---
Exam Note: Jonas Note: Please also refer to the separate dictated note~for this date of service dictated separately.~Patient seen individually. Discussed the patient with Nursing staff reviewed the chart.~Reviewed interim history and current functioning. Reviewed vital signs,~Labs/ Radiology~and current medications noted below. Continue current treatment with the changes noted in the dictated addendum note Assessment: Vital Signs: Vital Signs Date Time Temp Pulse Resp B/P (MAP) Pulse Ox O2 Delivery O2 Flow Rate FiO2 10/03/17 20:23 16 94 10/03/17 18:36 Room Air 10/03/17 15:40 97.1 81 117/67 (84) I&O Intake and Output 10/03/17 07:00 Intake Total 510 ml Balance 510 ml Intake Oral 510 ml # Bowel Movements 1 Labs: Laboratory Tests Test 10/03/17 07:13 10/03/17 10:32 10/03/17 11:39 10/03/17 16:33 Glucose (Fingerstick) 93 mg/dL (70-99) 127 mg/dL (70-99) H 205 mg/dL (70-99) H Urine Collection Type Unknown Urine Color Yellow Urine Clarity Clear Urine pH 7.0 Urine Specific [place] 1.020 Urine Protein Neg (NEG-TRACE) Urine Glucose (UA) Neg mg/dL (NEG) Urine Ketones (Stick) Neg mg/dL (NEG) Urine Blood Neg (NEG) Urine Nitrite Neg (NEG) Urine Bilirubin Neg (NEG) Urine Urobilinogen Dipstick 0.2 mg/dL (0.2 mg/dL) Urine Leukocyte Esterase Neg (NEG) Urine RBC 1-2 /HPF (0-2) Urine WBC Occ /HPF (0-4) Urine Squamous Epithelial Cells Few /LPF Urine Bacteria 0 /HPF (0-FEW) Current Medications: Meds: Current Medications Cephalexin HCl (Keflex) 500 mg 1X ONCE PO Last administered on 09/21/17at 16:55 ; Start 09/21/17 at 17:00; Stop 09/21/17 at 17:01; Status DC Acetaminophen (Tylenol) 650 mg BID PO Last administered on 10/03/17at 20:23; Start 09/21/17 at 21:00 Acetaminophen (Tylenol) 650 mg PRN Q6HRS PRN PO mild pain ; Start 09/21/17 at 20:15 Lisinopril (Prinivil) 10 mg DAILY PO Last administered on 09/25/17at 07:55; Start 09/22/17 at 09:00; Stop 09/25/17 at 13:14; Status DC Lorazepam (Ativan) 1 mg PRN DAILY PRN PO crying outbursts Last administered on 09/29/17at 14:09; Start 09/21/17 at 20:15 Magnesium Hydroxide (Milk Of Magnesia) 2,400 mg PRN BID PRN PO constipation if no BM 3 days; Start 09/21/17 at 20:15 Aripiprazole (Abilify) 5 mg DAILY PO Last administered on 09/28/17at 07:46; Start 09/22/17 at 09:00; Stop 09/28/17 at 16:16; Status DC Aspirin (Children'S Aspirin) 81 mg DAILY PO Last administered on 10/03/17at 10: 45; Start 09/22/17 at 09:00 Baclofen (Lioresal) 5 mg TID PO Last administered on 10/03/17at 20:23; Start at 21:00 Artificial Tears (Refresh Classic) 1 drop BID OU Last administered on at 10:46; Start 09/21/17 at 21:00 Donepezil HCl (Aricept) 23 mg DAILY PO Last administered on 10/03/17at 10:39; Start 09/22/17 at 09:00 Duloxetine HCl (Cymbalta) 30 mg DAILY PO Last administered on 09/23/17at 08:21; Start 09/22/17 at 09:00; Stop 09/23/17 at 19:38; Status DC Glipizide (Glucotrol) 10 mg BIDBFRMEAL PO Last administered on 10/03/17at 17:35 ; Start 09/22/17 at 07:30 Non-Formulary Medication (Insulin Aspart (Novolog Flexpen)) TIDAC SQ ; Start at 07:30; Status UNV Insulin Human Lispro (HumaLOG) 8 units TIDWMEALS SQ Last administered on at 12:28; Start 09/22/17 at 08:00; Stop 09/30/17 at 15:43; Status DC Insulin Glargine (Lantus) 14 units QHS SQ Last administered on 09/28/17at 20:30 ; Start 09/21/17 at 21:00; Stop 09/30/17 at 15:43; Status DC Latanoprost (Xalatan) 1 drop QHS OU Last administered on 10/03/17at 20:22; Start 09/21/17 at 21:00 Cetirizine HCl (ZyrTEC) 10 mg PRN Q24HRS PRN PO ALLERGIES; Start 09/21/17 at 20 :41 Non-Formulary Medication (Menthol (Biofreeze)) 1 marjorie PRN Q4HRS PRN TP lower back pain; Start 09/21/17 at 20:15; Status UNV Metformin HCl (Glucophage) 1,000 mg DAILYWSUP PO Last administered on at 17:35; Start 09/22/17 at 17:00 Ondansetron HCl (Zofran Odt) 4 mg PRN Q8HRS PRN PO NAUSEA/VOMITING; Start 09/21 at 20:30 Oxycodone HCl (Roxicodone) 5 mg PRN Q12HR PRN PO SEVERE PAIN Last administered on 10/02/17at 06:38; Start 09/21/17 at 21:00 Oxycodone HCl (Roxicodone) 5 mg QID PO Last administered on 09/25/17at 19:28; Start 09/21/17 at 21:00; Stop 09/26/17 at 08:12; Status DC Paroxetine HCl (Paxil) 30 mg DAILY PO Last administered on 09/22/17at 08:36; Start 09/22/17 at 09:00; Stop 09/22/17 at 17:29; Status DC Quetiapine Fumarate (SEROquel) 300 mg QHS PO Last administered on 09/24/17at 19: 32; Start 09/21/17 at 21:00; Stop 09/25/17 at 18:45; Status DC Timolol Maleate (Timoptic 0.5% [facility]) 1 drop DAILY OU Last administered on 10/03at 10:45; Start 09/22/17 at 09:00 Acetaminophen (Tylenol) 650 mg PRN Q6HRS PRN PO PAIN / TEMP; Start 09/21/17 at 20:15; Status UNV Multi-Ingredient Ointment (Analgesic [place]) 1 marjorie PRN QID PRN TP MUSCLE PAIN; Start 09/21/17 at 20:15 Al Hydroxide/Mg Hydroxide (Mylanta Plus Xs) 15 ml PRN AFTMEALHC PRN PO DYSPEPSIA; Start 09/21/17 at 20:15 Magnesium Hydroxide (Milk Of Magnesia) 2,400 mg PRN QHS PRN PO CONSTIPATION; Start 09/21/17 at 20:15; Status UNV Insulin Human Lispro (HumaLOG) 0-7 UNITS TIDWMEALS SQ Last administered on 10/03at 17:38; Start 09/22/17 at 08:00 Dextrose 12.5 gm PRN Q15MIN PRN IV SEE COMMENTS; Start 09/21/17 at 21:30 Cefpodoxime Proxetil (Vantin) 200 mg BID PO Last administered on 10/02/17at 20: 44; Start 09/22/17 at 21:00; Stop 10/02/17 at 21:00; Status DC Magnesium Chloride (Mag Delay) 64 mg DAILY PO Last administered on 09/23/17at 08 :22; Start 09/22/17 at 14:00; Stop 09/23/17 at 10:16; Status DC Lactobacillus Rhamnosus (Culturelle) 1 cap BID PO Last administered on at 20:22; Start 09/22/17 at 21:00 Magnesium Chloride (Mag Delay) 64 mg DAILY PO Last administered on 10/03/17at 10 :43; Start 09/23/17 at 09:00 Vitamin D (Vitamin D3) 50,000 unit WEEKLY PO Last administered on 09/29/17at 08: 07; Start 09/29/17 at 09:00 Fenofibrate (Tricor) 48 mg DAILY PO Last administered on 10/03/17at 10:45; Start 09/23/17 at 09:00 Paroxetine HCl (Paxil) 20 mg DAILY PO Last administered on 09/24/17at 08:18; Start 09/23/17 at 09:00; Stop 09/24/17 at 10:00; Status DC Paroxetine HCl (Paxil) 10 mg DAILY PO Last administered on 09/26/17at 08:08; Start 09/25/17 at 09:00; Stop 09/26/17 at 10:00; Status DC Duloxetine HCl (Cymbalta) 30 mg DAILY PO Last administered on 10/03/17 10:41; Start 09/24/17 at 09:00 Duloxetine HCl (Cymbalta) 20 mg DAILY PO Last administered on 10/03/17 10:39; Start 09/24/17 at 09:00 Lisinopril (Prinivil) 20 mg DAILY PO Last administered on 10/03/17 10:39; Start 09/26/17 at 09:00 Quetiapine Fumarate (SEROquel) 175 mg QHS PO Last administered on 10/03/17 20: 23; Start 09/25/17 at 21:00 Quetiapine Fumarate (SEROquel) 75 mg 0900,1300 PO Last administered on 13:16; Start 09/26/17 at 09:00 Olanzapine (ZyPREXA ZYDIS) 2.5 mg PRN Q2HR PRN PO PSYCHOSIS Last administered on 10/01/17 10:18; Start 09/25/17 at 18:45 Oxycodone HCl (Roxicodone) 5 mg QID PO Last administered on 10/03/17 20:23; Start 09/26/17 at 09:00 Divalproex Sodium (Depakote Er) 500 mg QHS PO Last administered on 10/03/17 20 :22; Start 09/28/17 at 21:00 Insulin Glargine (Lantus) 8 units QHS SQ Last administered on 10/02/17 20:44; Start 09/30/17 at 21:00; Stop 10/03/17 at 17:29; Status DC Insulin Human Lispro (HumaLOG) 5 units TIDWMEALS SQ Last administered on 17:39; Start 09/30/17 at 17:00 Insulin Glargine (Lantus) 6 units QHS SQ Last administered on 10/03/17 20:25; Start 10/03/17 at 21:00 Active Scripts Active Reported Zofran (Ondansetron Hcl) 4 Mg Tablet 4 Mg PO PRN Q8HRS PRN Xalatan (Latanoprost) 2.5 Ml Drops 1 Drop EACHEYE QHS Tylenol (Acetaminophen) 325 Mg Tablet 650 Mg PO BID Tylenol (Acetaminophen) 325 Mg Tablet 650 Mg PO PRN Q6HRS PRN Timoptic (Timolol Maleate) 10 Ml Drops 1 Drop EACHEYE DAILY Seroquel Xr (Quetiapine Fumarate) 300 Mg Tab.er.24h 300 Mg PO QHS Paxil (Paroxetine Hcl) 30 Mg Tablet 30 Mg PO DAILY Oxycodone Hcl 5 Mg Capsule 5 Mg PO QID PRN Oxycodone Hcl 5 Mg Capsule 5 Mg PO PRN Q12HR PRN Novolog Flexpen (Insulin Aspart) 100 Unit/1 Ml Insuln.pen 2-16 Unit SQ TIDAC Novolog Flexpen (Insulin Aspart) 100 Unit/1 Ml Insuln.pen 8 Unit SQ TIDAC Milk Of Magnesia (Magnesium Hydroxide) 400 Mg/5 Ml Oral.susp 30 Mg PO PRN BID PRN Metformin Hcl 1,000 Mg Tablet 1,000 Mg PO DAILYWSUP Lisinopril 10 Mg Tablet 10 Mg PO DAILY Levemir Flextouch (Insulin Detemir) 100 Unit/1 Ml Insuln.pen 14 Unit SQ HS Glipizide 10 Mg Tablet 10 Mg PO BID Donepezil Hcl 10 Mg Tablet 23 Mg PO DAILY Cymbalta (Duloxetine Hcl) 30 Mg Capsule.dr 30 Mg PO DAILY Claritin (Loratadine) 10 Mg Tablet 10 Mg PO PRN Q24HRS PRN Biofreeze (Menthol) 118 Ml Gel..ml. 1 Marjorie TP PRN Q4HRS PRN Baclofen 10 Mg Tablet 5 Mg PO TID Ativan (Lorazepam) 1 Mg Tablet 1 Mg PO PRN DAILY PRN Aspirin 81 Mg Tab.chew 81 Mg PO DAILY Artificial Tears Eye Drops (Dextran 70/Hypromellose) 15 Ml Drops 1 Drop EACHEYE BID Abilify (Aripiprazole) 5 Mg Tablet 5 Mg PO DAILY I have reviewed the current psychotropics carefully including drug interactions. Risk benefit ratio favors no change other than as noted in my dictated progress note. Diagnosis: Problems: (1) Encounter for medical screening examination (2) Urinary tract infection (3) Dementia with behavioral disturbance (4) Anxiety disorder (5) Dementia, vascular, with delusions (6) Dementia, vascular, with depression (7) Impulse control disorder (8) Urinary tract infection MELISSA SOLER MD Oct 03, 2017 20:51
--- NOTE | 2017-10-04 04:43 | PN ---
DATE: 10/01/2017 PSYCHIATRIC PROGRESS NOTE This is a late entry of 10/01/2017, covers elements not covered in my initial note. SUBJECTIVE: I met with the patient in the evening. The patient slept 8 hours previous evening. She has had a good day, yelling out at times, but less than before. Received Zyprexa p.r.n., then was quiet after that. REVIEW OF SYSTEMS: Ambulation impaired, in Broda chair. Complains of her contractures and discomfort in her lower ankle area. No CV, , pulmonary, eye, ENT system symptoms on review. Reliability poor. MENTAL STATUS EXAM: Oriented to herself and situation. Speech has moderate latency, low in rate and rhythm, low in volume, often responses monosyllabic. Abstraction fair, computation impaired, language function intact. Mood and affect somewhat withdrawn, but less depressed. LABORATORY DATA: Reviewed. IMPRESSION: Unchanged from initial note. PLAN: No change from initial note. MELISSA SOLER MD DR: GABRIELA/sowmya JOB#: [id number] / [id number]
--- NOTE | 2017-10-04 04:52 | PN ---
DATE: 10/02/2017 This is a late entry for 10/02/2017 covers elements not covered in my initial note. SUBJECTIVE: I met with the patient in the evening. The patient slept 8-3/4 hours previous evening. She is compliant with medications and cares, very little yelling during the day. REVIEW OF SYSTEMS: Ambulation impaired, in Broda chair, discomfort lower extremity secondary to contractures. No CV, , pulmonary, eye, ENT system symptoms on review. MENTAL STATUS EXAM: Oriented to herself and situation. Speech moderate latency, low in rate and rhythm, low in volume. Abstraction fair, computation impaired, language function intact, attention span short. Mood and affect somewhat withdrawn, but less depressed. LABORATORY DATA: Reviewed. IMPRESSION: Unchanged from initial note. PLAN: No change from initial note. MAN Twila SOLER MD DR: GABRIELA/sowmya JOB#: [id number] / [id number]
[2017-10-04 05:34] VITALS: BP 108/55
[2017-10-04] MEDS: INSULIN LISPRO 300 UNITS/3 ML INSULN.PEN. SQ SCH ×6 (07:59→17:17)
[2017-10-04] MEDS: glipiZIDE 5 MG TABLET PO SCH ×2 (08:37→17:12)
[2017-10-04] MEDS: MAGNESIUM CHLORIDE ER 64 MG TABLET.ER PO SCH (08:37)
[2017-10-04] MEDS: QUEtiapine 50 MG TABLET. PO SCH ×2 (08:37→13:51)
[2017-10-04] MEDS: ACETAMINOPHEN 325 MG TABLET PO SCH ×2 (08:38→20:18)
[2017-10-04] MEDS: DULoxetine HCL 20 MG CAPSULE.DR PO SCH (08:38)
[2017-10-04] MEDS: LACTOBACILLUS RHAMNOSUS GG 1 CAPSULE. PO SCH ×2 (08:38→20:17)
[2017-10-04] MEDS: DULoxetine HCL 30 MG CAPSULE.DR PO SCH (08:38)
[2017-10-04] MEDS: BACLOFEN 10 MG TABLET PO SCH ×3 (08:38→20:18)
[2017-10-04] MEDS: LISINOPRIL 20 MG TABLET PO SCH (08:39)
[2017-10-04] MEDS: DONEPEZIL 23 MG TABLET PO SCH (08:39)
[2017-10-04] MEDS: POLYVINYL ALCOHOL/POVIDONE/PF OPHTH SOLUTION DROPERETTE. OU SCH ×2 (08:39→20:17)
[2017-10-04] MEDS: ASPIRIN 81 MG TAB.CHEW PO SCH (08:39)
[2017-10-04] MEDS: TIMOLOL 0.5% OPHTH SOLUTION 5ML BOTTLE. OU SCH (08:40)
[2017-10-04] MEDS: FENOFIBRATE NANOCRYSTALLIZED 48 MG TABLET PO SCH (08:40)
[2017-10-04] MEDS: oxyCODONE IR 5 MG TABLET PO SCH ×4 (08:43→20:20)
[2017-10-04 16:08] VITALS: BP 135/76
[2017-10-04] MEDS: metFORMIN 500 MG TABLET PO SCH (17:13)
[2017-10-04] MEDS: QUEtiapine 100 MG TABLET. PO SCH (20:18)
[2017-10-04] MEDS: DIVALPROEX ER 500 MG TAB.ER.24H PO SCH (20:18)
[2017-10-04] MEDS: INSULIN GLARGINE 300 UNITS/3 ML INSULN.PEN. SQ SCH (20:21)
[2017-10-04] MEDS: LATANOPROST 0.005% OPHTH SOLUTION 2.5ML BOTTLE. OU SCH (20:23)
--- NOTE | 2017-10-04 21:01 | PDOC ---
Exam Note: Jonas Note: Please also refer to the separate dictated note~for this date of service dictated separately.~Patient seen individually. Discussed the patient with Nursing staff reviewed the chart.~Reviewed interim history and current functioning. Reviewed vital signs,~Labs/ Radiology~and current medications noted below. Continue current treatment with the changes noted in the dictated addendum note Assessment: Vital Signs: Vital Signs Date Time Temp Pulse Resp B/P (MAP) Pulse Ox O2 Delivery O2 Flow Rate FiO2 10/04/17 20:20 94 Room Air 10/04/17 17:14 18 10/04/17 16:08 96.9 100 135/76 (95) I&O Intake and Output 10/04/17 07:00 Intake Total 960 ml Balance 960 ml Intake Oral 960 ml # Bowel Movements 1 Labs: Laboratory Tests Test 10/04/17 07:25 10/04/17 11:32 10/04/17 16:32 10/04/17 19:00 Glucose (Fingerstick) 134 mg/dL (70-99) H 231 mg/dL (70-99) H 238 mg/dL (70-99) H 185 mg/dL (70-99) H Current Medications: Meds: Current Medications Cephalexin HCl (Keflex) 500 mg 1X ONCE PO Last administered on 09/21/17at 16:55 ; Start 09/21/17 at 17:00; Stop 09/21/17 at 17:01; Status DC Acetaminophen (Tylenol) 650 mg BID PO Last administered on 10/04/17at 20:18; Start 09/21/17 at 21:00 Acetaminophen (Tylenol) 650 mg PRN Q6HRS PRN PO mild pain ; Start 09/21/17 at 20:15 Lisinopril (Prinivil) 10 mg DAILY PO Last administered on 09/25/17at 07:55; Start 09/22/17 at 09:00; Stop 09/25/17 at 13:14; Status DC Lorazepam (Ativan) 1 mg PRN DAILY PRN PO crying outbursts Last administered on 09/29/17at 14:09; Start 09/21/17 at 20:15 Magnesium Hydroxide (Milk Of Magnesia) 2,400 mg PRN BID PRN PO constipation if no BM 3 days; Start 09/21/17 at 20:15 Aripiprazole (Abilify) 5 mg DAILY PO Last administered on 09/28/17at 07:46; Start 09/22/17 at 09:00; Stop 09/28/17 at 16:16; Status DC Aspirin (Children'S Aspirin) 81 mg DAILY PO Last administered on 10/04/17at 08: 39; Start 09/22/17 at 09:00 Baclofen (Lioresal) 5 mg TID PO Last administered on 10/04/17 20:18; Start at 21:00 Artificial Tears (Refresh Classic) 1 drop BID OU Last administered on at 20:17; Start 09/21/17 at 21:00 Donepezil HCl (Aricept) 23 mg DAILY PO Last administered on 10/04/17at 08:39; Start 09/22/17 at 09:00 Duloxetine HCl (Cymbalta) 30 mg DAILY PO Last administered on 09/23/17at 08:21; Start 09/22/17 at 09:00; Stop 09/23/17 at 19:38; Status DC Glipizide (Glucotrol) 10 mg BIDBFRMEAL PO Last administered on 10/04/17at 17:12 ; Start 09/22/17 at 07:30 Non-Formulary Medication (Insulin Aspart (Novolog Flexpen)) TIDAC SQ ; Start at 07:30; Status UNV Insulin Human Lispro (HumaLOG) 8 units TIDWMEALS SQ Last administered on at 12:28; Start 09/22/17 at 08:00; Stop 09/30/17 at 15:43; Status DC Insulin Glargine (Lantus) 14 units QHS SQ Last administered on 09/28/17at 20:30 ; Start 09/21/17 at 21:00; Stop 09/30/17 at 15:43; Status DC Latanoprost (Xalatan) 1 drop QHS OU Last administered on 10/04/17at 20:23; Start 09/21/17 at 21:00 Cetirizine HCl (ZyrTEC) 10 mg PRN Q24HRS PRN PO ALLERGIES; Start 09/21/17 at 20 :41 Non-Formulary Medication (Menthol (Biofreeze)) 1 marjorie PRN Q4HRS PRN TP lower back pain; Start 09/21/17 at 20:15; Status UNV Metformin HCl (Glucophage) 1,000 mg DAILYWSUP PO Last administered on at 17:13; Start 09/22/17 at 17:00 Ondansetron HCl (Zofran Odt) 4 mg PRN Q8HRS PRN PO NAUSEA/VOMITING; Start 09/21 at 20:30 Oxycodone HCl (Roxicodone) 5 mg PRN Q12HR PRN PO SEVERE PAIN Last administered on 10/02/17at 06:38; Start 09/21/17 at 21:00 Oxycodone HCl (Roxicodone) 5 mg QID PO Last administered on 09/25/17at 19:28; Start 09/21/17 at 21:00; Stop 09/26/17 at 08:12; Status DC Paroxetine HCl (Paxil) 30 mg DAILY PO Last administered on 09/22/17at 08:36; Start 09/22/17 at 09:00; Stop 09/22/17 at 17:29; Status DC Quetiapine Fumarate (SEROquel) 300 mg QHS PO Last administered on 09/24/17at 19: 32; Start 09/21/17 at 21:00; Stop 09/25/17 at 18:45; Status DC Timolol Maleate (Timoptic 0.5% [facility]) 1 drop DAILY OU Last administered on 10/04at 08:40; Start 09/22/17 at 09:00 Acetaminophen (Tylenol) 650 mg PRN Q6HRS PRN PO PAIN / TEMP; Start 09/21/17 at 20:15; Status UNV Multi-Ingredient Ointment (Analgesic [place]) 1 marjorei PRN QID PRN TP MUSCLE PAIN; Start 09/21/17 at 20:15 Al Hydroxide/Mg Hydroxide (Mylanta Plus Xs) 15 ml PRN AFTMEALHC PRN PO DYSPEPSIA; Start 09/21/17 at 20:15 Magnesium Hydroxide (Milk Of Magnesia) 2,400 mg PRN QHS PRN PO CONSTIPATION; Start 09/21/17 at 20:15; Status UNV Insulin Human Lispro (HumaLOG) 0-7 UNITS TIDWMEALS SQ Last administered on 10/04 17:16; Start 09/22/17 at 08:00 Dextrose 12.5 gm PRN Q15MIN PRN IV SEE COMMENTS; Start 09/21/17 at 21:30 Cefpodoxime Proxetil (Vantin) 200 mg BID PO Last administered on 10/02/17at 20: 44; Start 09/22/17 at 21:00; Stop 10/02/17 at 21:00; Status DC Magnesium Chloride (Mag Delay) 64 mg DAILY PO Last administered on 09/23/17at 08 :22; Start 09/22/17 at 14:00; Stop 09/23/17 at 10:16; Status DC Lactobacillus Rhamnosus (Culturelle) 1 cap BID PO Last administered on at 20:17; Start 09/22/17 at 21:00 Magnesium Chloride (Mag Delay) 64 mg DAILY PO Last administered on 10/04/17at 08 :37; Start 09/23/17 at 09:00 Vitamin D (Vitamin D3) 50,000 unit WEEKLY PO Last administered on 09/29/17at 08: 07; Start 09/29/17 at 09:00 Fenofibrate (Tricor) 48 mg DAILY PO Last administered on 10/04/17at 08:40; Start 09/23/17 at 09:00 Paroxetine HCl (Paxil) 20 mg DAILY PO Last administered on 09/24/17at 08:18; Start 09/23/17 at 09:00; Stop 09/24/17 at 10:00; Status DC Paroxetine HCl (Paxil) 10 mg DAILY PO Last administered on 09/26/17at 08:08; Start 09/25/17 at 09:00; Stop 09/26/17 at 10:00; Status DC Duloxetine HCl (Cymbalta) 30 mg DAILY PO Last administered on 10/04/17at 08:38; Start 09/24/17 at 09:00 Duloxetine HCl (Cymbalta) 20 mg DAILY PO Last administered on 10/04/17at 08:38; Start 09/24/17 at 09:00 Lisinopril (Prinivil) 20 mg DAILY PO Last administered on 10/04/17at 08:39; Start 09/26/17 at 09:00 Quetiapine Fumarate (SEROquel) 175 mg QHS PO Last administered on 10/04/17 20: 18; Start 09/25/17 at 21:00 Quetiapine Fumarate (SEROquel) 75 mg 0900,1300 PO Last administered on at 13:51; Start 09/26/17 at 09:00 Olanzapine (ZyPREXA ZYDIS) 2.5 mg PRN Q2HR PRN PO PSYCHOSIS Last administered on 10/01/17 10:18; Start 09/25/17 at 18:45 Oxycodone HCl (Roxicodone) 5 mg QID PO Last administered on 10/04/17 20:20; Start 09/26/17 at 09:00 Divalproex Sodium (Depakote Er) 500 mg QHS PO Last administered on 10/04/17 20 :18; Start 09/28/17 at 21:00 Insulin Glargine (Lantus) 8 units QHS SQ Last administered on 10/02/17at 20:44; Start 09/30/17 at 21:00; Stop 10/03/17 at 17:29; Status DC Insulin Human Lispro (HumaLOG) 5 units TIDWMEALS SQ Last administered on at 17:17; Start 09/30/17 at 17:00 Insulin Glargine (Lantus) 6 units QHS SQ Last administered on 10/04/17at 20:21; Start 10/03/17 at 21:00 Active Scripts Active Reported Zofran (Ondansetron Hcl) 4 Mg Tablet 4 Mg PO PRN Q8HRS PRN Xalatan (Latanoprost) 2.5 Ml Drops 1 Drop EACHEYE QHS Tylenol (Acetaminophen) 325 Mg Tablet 650 Mg PO BID Tylenol (Acetaminophen) 325 Mg Tablet 650 Mg PO PRN Q6HRS PRN Timoptic (Timolol Maleate) 10 Ml Drops 1 Drop EACHEYE DAILY Seroquel Xr (Quetiapine Fumarate) 300 Mg Tab.er.24h 300 Mg PO QHS Paxil (Paroxetine Hcl) 30 Mg Tablet 30 Mg PO DAILY Oxycodone Hcl 5 Mg Capsule 5 Mg PO QID PRN Oxycodone Hcl 5 Mg Capsule 5 Mg PO PRN Q12HR PRN Novolog Flexpen (Insulin Aspart) 100 Unit/1 Ml Insuln.pen 2-16 Unit SQ TIDAC Novolog Flexpen (Insulin Aspart) 100 Unit/1 Ml Insuln.pen 8 Unit SQ TIDAC Milk Of Magnesia (Magnesium Hydroxide) 400 Mg/5 Ml Oral.susp 30 Mg PO PRN BID PRN Metformin Hcl 1,000 Mg Tablet 1,000 Mg PO DAILYWSUP Lisinopril 10 Mg Tablet 10 Mg PO DAILY Levemir Flextouch (Insulin Detemir) 100 Unit/1 Ml Insuln.pen 14 Unit SQ HS Glipizide 10 Mg Tablet 10 Mg PO BID Donepezil Hcl 10 Mg Tablet 23 Mg PO DAILY Cymbalta (Duloxetine Hcl) 30 Mg Capsule.dr 30 Mg PO DAILY Claritin (Loratadine) 10 Mg Tablet 10 Mg PO PRN Q24HRS PRN Biofreeze (Menthol) 118 Ml Gel..ml. 1 Marjorie TP PRN Q4HRS PRN Baclofen 10 Mg Tablet 5 Mg PO TID Ativan (Lorazepam) 1 Mg Tablet 1 Mg PO PRN DAILY PRN Aspirin 81 Mg Tab.chew 81 Mg PO DAILY Artificial Tears Eye Drops (Dextran 70/Hypromellose) 15 Ml Drops 1 Drop EACHEYE BID Abilify (Aripiprazole) 5 Mg Tablet 5 Mg PO DAILY I have reviewed the current psychotropics carefully including drug interactions. Risk benefit ratio favors no change other than as noted in my dictated progress note. Diagnosis: Problems: (1) Encounter for medical screening examination (2) Urinary tract infection (3) Dementia with behavioral disturbance (4) Anxiety disorder (5) Dementia, vascular, with delusions (6) Dementia, vascular, with depression (7) Impulse control disorder (8) Urinary tract infection MELISSA SOLER MD Oct 04, 2017 21:01
--- NOTE | 2017-10-04 23:26 | PN ---
DATE: 10/03/2017 This is a late entry for 10/03/2017 covers elements not covered in my initial note. SUBJECTIVE: I met with the patient in the evening. The patient slept 7 hours previous evening. She has had less yelling, still withdrawn, but pleasant, smiling as I met with her. Abdomen is firm. We will defer to Dr. Mcfarland. REVIEW OF SYSTEMS: Ambulation impaired, in Broda chair and she has discomfort due to spasms in her lower extremities and hands, status post cerebrovascular accident. No CV, , pulmonary, eye, ENT system symptoms on review. MENTAL STATUS EXAM: Oriented to herself, situation at times. Speech moderate latency, low in rate and rhythm, low in volume, often responses monosyllabic. Abstraction fair, computation impaired, language function intact, attention span short. Mood and affect somewhat withdrawn, but less depressed. LABORATORY DATA: Reviewed. IMPRESSION: Unchanged from initial note, major depressive disorder, recurrent, in partial remission; major neurocognitive disorder, vascular with delusion, depression; anxiety disorder, unspecified; impulse control disorder, unspecified. PLAN: No change from a psychiatric standpoint. Transition to assisted later this week. MAN Twila SOLER MD DR: GABRIELA/sowmya JOB#: [id number] / [id number]
[2017-10-05 05:59] VITALS: BP 109/54
[2017-10-05] MEDS: QUEtiapine 50 MG TABLET. PO SCH ×2 (07:50→13:11)
[2017-10-05] MEDS: DONEPEZIL 23 MG TABLET PO SCH (07:51)
[2017-10-05] MEDS: MAGNESIUM CHLORIDE ER 64 MG TABLET.ER PO SCH (07:51)
[2017-10-05] MEDS: glipiZIDE 5 MG TABLET PO SCH ×2 (07:51→17:23)
[2017-10-05] MEDS: DULoxetine HCL 30 MG CAPSULE.DR PO SCH (07:51)
[2017-10-05] MEDS: BACLOFEN 10 MG TABLET PO SCH ×3 (07:51→19:46)
[2017-10-05] MEDS: DULoxetine HCL 20 MG CAPSULE.DR PO SCH (07:51)
[2017-10-05] MEDS: ACETAMINOPHEN 325 MG TABLET PO SCH ×2 (07:52→19:46)
[2017-10-05] MEDS: DIVALPROEX ER 500 MG TAB.ER.24H PO SCH (07:52)
[2017-10-05] MEDS: INSULIN LISPRO 300 UNITS/3 ML INSULN.PEN. SQ SCH ×6 (07:52→17:27)
[2017-10-05] MEDS: LACTOBACILLUS RHAMNOSUS GG 1 CAPSULE. PO SCH ×2 (07:52→19:44)
[2017-10-05] MEDS: POLYVINYL ALCOHOL/POVIDONE/PF OPHTH SOLUTION DROPERETTE. OU SCH ×2 (07:52→19:47)
[2017-10-05] MEDS: ASPIRIN 81 MG TAB.CHEW PO SCH (07:52)
[2017-10-05] MEDS: LISINOPRIL 20 MG TABLET PO SCH (07:59)
[2017-10-05] MEDS: TIMOLOL 0.5% OPHTH SOLUTION 5ML BOTTLE. OU SCH (07:59)
[2017-10-05] MEDS: oxyCODONE IR 5 MG TABLET PO SCH ×4 (07:59→19:49)
[2017-10-05] MEDS: FENOFIBRATE NANOCRYSTALLIZED 48 MG TABLET PO SCH (08:00)
[2017-10-05 16:21] VITALS: BP 121/56
[2017-10-05] MEDS: metFORMIN 500 MG TABLET PO SCH (17:23)
[2017-10-05] MEDS: QUEtiapine 100 MG TABLET. PO SCH (19:45)
[2017-10-05] MEDS: LATANOPROST 0.005% OPHTH SOLUTION 2.5ML BOTTLE. OU SCH (19:50)
[2017-10-05] MEDS: INSULIN GLARGINE 300 UNITS/3 ML INSULN.PEN. SQ SCH (19:59)
[2017-10-05] MEDS: NYSTATIN 100,000 UNITS/ML ORAL SUSPENSION 60ML BOTTLE. SWSW SCH (20:06)
--- NOTE | 2017-10-05 21:05 | PDOC ---
Exam Note: Jonas Note: Please also refer to the separate dictated note~for this date of service dictated separately.~Patient seen individually. Discussed the patient with Nursing staff reviewed the chart.~Reviewed interim history and current functioning. Reviewed vital signs,~Labs/ Radiology~and current medications noted below. Continue current treatment with the changes noted in the dictated addendum note Assessment: Vital Signs: Vital Signs Date Time Temp Pulse Resp B/P (MAP) Pulse Ox O2 Delivery O2 Flow Rate FiO2 10/05/17 19:49 20 10/05/17 17:22 96 Room Air 10/05/17 16:21 97.9 76 121/56 (77) I&O Intake and Output 10/05/17 07:00 Intake Total 630 ml Balance 630 ml Intake Oral 630 ml # Bowel Movements 2 Labs: Laboratory Tests Test 10/05/17 07:09 10/05/17 11:43 10/05/17 17:03 10/05/17 19:53 Glucose (Fingerstick) 95 mg/dL (70-99) 152 mg/dL (70-99) H 154 mg/dL (70-99) H 188 mg/dL (70-99) H Current Medications: Meds: Current Medications Cephalexin HCl (Keflex) 500 mg 1X ONCE PO Last administered on 09/21/17at 16:55 ; Start 09/21/17 at 17:00; Stop 09/21/17 at 17:01; Status DC Acetaminophen (Tylenol) 650 mg BID PO Last administered on 10/05/17at 19:46; Start 09/21/17 at 21:00 Acetaminophen (Tylenol) 650 mg PRN Q6HRS PRN PO mild pain ; Start 09/21/17 at 20:15 Lisinopril (Prinivil) 10 mg DAILY PO Last administered on 09/25/17at 07:55; Start 09/22/17 at 09:00; Stop 09/25/17 at 13:14; Status DC Lorazepam (Ativan) 1 mg PRN DAILY PRN PO crying outbursts Last administered on 09/29/17at 14:09; Start 09/21/17 at 20:15 Magnesium Hydroxide (Milk Of Magnesia) 2,400 mg PRN BID PRN PO constipation if no BM 3 days; Start 09/21/17 at 20:15 Aripiprazole (Abilify) 5 mg DAILY PO Last administered on 09/28/17 07:46; Start 09/22/17 at 09:00; Stop 09/28/17 at 16:16; Status DC Aspirin (Children'S Aspirin) 81 mg DAILY PO Last administered on 10/05/17at 07: 52; Start 09/22/17 at 09:00 Baclofen (Lioresal) 5 mg TID PO Last administered on 10/05/17 19:46; Start at 21:00 Artificial Tears (Refresh Classic) 1 drop BID OU Last administered on 19:47; Start 09/21/17 at 21:00 Donepezil HCl (Aricept) 23 mg DAILY PO Last administered on 10/05/17 07:51; Start 09/22/17 at 09:00 Duloxetine HCl (Cymbalta) 30 mg DAILY PO Last administered on 09/23/17at 08:21; Start 09/22/17 at 09:00; Stop 09/23/17 at 19:38; Status DC Glipizide (Glucotrol) 10 mg BIDBFRMEAL PO Last administered on 10/05/17at 17:23 ; Start 09/22/17 at 07:30 Non-Formulary Medication (Insulin Aspart (Novolog Flexpen)) TIDAC SQ ; Start at 07:30; Status UNV Insulin Human Lispro (HumaLOG) 8 units TIDWMEALS SQ Last administered on at 12:28; Start 09/22/17 at 08:00; Stop 09/30/17 at 15:43; Status DC Insulin Glargine (Lantus) 14 units QHS SQ Last administered on 09/28/17at 20:30 ; Start 09/21/17 at 21:00; Stop 09/30/17 at 15:43; Status DC Latanoprost (Xalatan) 1 drop QHS OU Last administered on 10/05/17at 19:50; Start 09/21/17 at 21:00 Cetirizine HCl (ZyrTEC) 10 mg PRN Q24HRS PRN PO ALLERGIES; Start 09/21/17 at 20 :41 Non-Formulary Medication (Menthol (Biofreeze)) 1 marjorie PRN Q4HRS PRN TP lower back pain; Start 09/21/17 at 20:15; Status UNV Metformin HCl (Glucophage) 1,000 mg DAILYWSUP PO Last administered on at 17:23; Start 09/22/17 at 17:00 Ondansetron HCl (Zofran Odt) 4 mg PRN Q8HRS PRN PO NAUSEA/VOMITING; Start 09/21 at 20:30 Oxycodone HCl (Roxicodone) 5 mg PRN Q12HR PRN PO SEVERE PAIN Last administered on 10/02/17at 06:38; Start 09/21/17 at 21:00 Oxycodone HCl (Roxicodone) 5 mg QID PO Last administered on 09/25/17at 19:28; Start 09/21/17 at 21:00; Stop 09/26/17 at 08:12; Status DC Paroxetine HCl (Paxil) 30 mg DAILY PO Last administered on 09/22/17at 08:36; Start 09/22/17 at 09:00; Stop 09/22/17 at 17:29; Status DC Quetiapine Fumarate (SEROquel) 300 mg QHS PO Last administered on 09/24/17at 19: 32; Start 09/21/17 at 21:00; Stop 09/25/17 at 18:45; Status DC Timolol Maleate (Timoptic 0.5% Oph) 1 drop DAILY OU Last administered on 10/05at 07:59; Start 09/22/17 at 09:00 Acetaminophen (Tylenol) 650 mg PRN Q6HRS PRN PO PAIN / TEMP; Start 09/21/17 at 20:15; Status UNV Multi-Ingredient Ointment (Analgesic [place]) 1 marjorie PRN QID PRN TP MUSCLE PAIN; Start 09/21/17 at 20:15 Al Hydroxide/Mg Hydroxide (Mylanta Plus Xs) 15 ml PRN AFTMEALHC PRN PO DYSPEPSIA; Start 09/21/17 at 20:15 Magnesium Hydroxide (Milk Of Magnesia) 2,400 mg PRN QHS PRN PO CONSTIPATION; Start 09/21/17 at 20:15; Status UNV Insulin Human Lispro (HumaLOG) 0-7 UNITS TIDWMEALS SQ Last administered on 10/05 17:26; Start 09/22/17 at 08:00 Dextrose 12.5 gm PRN Q15MIN PRN IV SEE COMMENTS; Start 09/21/17 at 21:30 Cefpodoxime Proxetil (Vantin) 200 mg BID PO Last administered on 10/02/17at 20: 44; Start 09/22/17 at 21:00; Stop 10/02/17 at 21:00; Status DC Magnesium Chloride (Mag Delay) 64 mg DAILY PO Last administered on 09/23/17at 08 :22; Start 09/22/17 at 14:00; Stop 09/23/17 at 10:16; Status DC Lactobacillus Rhamnosus (Culturelle) 1 cap BID PO Last administered on at 19:44; Start 09/22/17 at 21:00 Magnesium Chloride (Mag Delay) 64 mg DAILY PO Last administered on 10/05/17 07 :51; Start 09/23/17 at 09:00 Vitamin D (Vitamin D3) 50,000 unit WEEKLY PO Last administered on 09/29/17at 08: 07; Start 09/29/17 at 09:00 Fenofibrate (Tricor) 48 mg DAILY PO Last administered on 10/05/17at 08:00; Start 09/23/17 at 09:00 Paroxetine HCl (Paxil) 20 mg DAILY PO Last administered on 09/24/17at 08:18; Start 09/23/17 at 09:00; Stop 09/24/17 at 10:00; Status DC Paroxetine HCl (Paxil) 10 mg DAILY PO Last administered on 09/26/17at 08:08; Start 09/25/17 at 09:00; Stop 09/26/17 at 10:00; Status DC Duloxetine HCl (Cymbalta) 30 mg DAILY PO Last administered on 10/05/17at 07:51; Start 09/24/17 at 09:00 Duloxetine HCl (Cymbalta) 20 mg DAILY PO Last administered on 10/05/17 07:51; Start 09/24/17 at 09:00 Lisinopril (Prinivil) 20 mg DAILY PO Last administered on 10/05/17at 07:59; Start 09/26/17 at 09:00 Quetiapine Fumarate (SEROquel) 175 mg QHS PO Last administered on 10/05/17 19: 45; Start 09/25/17 at 21:00 Quetiapine Fumarate (SEROquel) 75 mg 0900,1300 PO Last administered on at 13:11; Start 09/26/17 at 09:00 Olanzapine (ZyPREXA ZYDIS) 2.5 mg PRN Q2HR PRN PO PSYCHOSIS Last administered on 10/01/17 10:18; Start 09/25/17 at 18:45 Oxycodone HCl (Roxicodone) 5 mg QID PO Last administered on 10/05/17at 19:49; Start 09/26/17 at 09:00 Divalproex Sodium (Depakote Er) 500 mg QHS PO Last administered on 10/05/17at 07 :52; Start 09/28/17 at 21:00 Insulin Glargine (Lantus) 8 units QHS SQ Last administered on 10/02/17at 20:44; Start 09/30/17 at 21:00; Stop 10/03/17 at 17:29; Status DC Insulin Human Lispro (HumaLOG) 5 units TIDWMEALS SQ Last administered on at 17:27; Start 09/30/17 at 17:00 Insulin Glargine (Lantus) 6 units QHS SQ Last administered on 10/05/17at 19:59; Start 10/03/17 at 21:00 Nystatin (Mycostatin) 5 ml QID SWSW ; Start 10/05/17 at 21:00 Active Scripts Active Reported Zofran (Ondansetron Hcl) 4 Mg Tablet 4 Mg PO PRN Q8HRS PRN Xalatan (Latanoprost) 2.5 Ml Drops 1 Drop EACHEYE QHS Tylenol (Acetaminophen) 325 Mg Tablet 650 Mg PO BID Tylenol (Acetaminophen) 325 Mg Tablet 650 Mg PO PRN Q6HRS PRN Timoptic (Timolol Maleate) 10 Ml Drops 1 Drop EACHEYE DAILY Seroquel Xr (Quetiapine Fumarate) 300 Mg Tab.er.24h 300 Mg PO QHS Paxil (Paroxetine Hcl) 30 Mg Tablet 30 Mg PO DAILY Oxycodone Hcl 5 Mg Capsule 5 Mg PO QID PRN Oxycodone Hcl 5 Mg Capsule 5 Mg PO PRN Q12HR PRN Novolog Flexpen (Insulin Aspart) 100 Unit/1 Ml Insuln.pen 2-16 Unit SQ TIDAC Novolog Flexpen (Insulin Aspart) 100 Unit/1 Ml Insuln.pen 8 Unit SQ TIDAC Milk Of Magnesia (Magnesium Hydroxide) 400 Mg/5 Ml Oral.susp 30 Mg PO PRN BID PRN Metformin Hcl 1,000 Mg Tablet 1,000 Mg PO DAILYWSUP Lisinopril 10 Mg Tablet 10 Mg PO DAILY Levemir Flextouch (Insulin Detemir) 100 Unit/1 Ml Insuln.pen 14 Unit SQ HS Glipizide 10 Mg Tablet 10 Mg PO BID Donepezil Hcl 10 Mg Tablet 23 Mg PO DAILY Cymbalta (Duloxetine Hcl) 30 Mg Capsule.dr 30 Mg PO DAILY Claritin (Loratadine) 10 Mg Tablet 10 Mg PO PRN Q24HRS PRN Biofreeze (Menthol) 118 Ml Gel..ml. 1 Marjorie TP PRN Q4HRS PRN Baclofen 10 Mg Tablet 5 Mg PO TID Ativan (Lorazepam) 1 Mg Tablet 1 Mg PO PRN DAILY PRN Aspirin 81 Mg Tab.chew 81 Mg PO DAILY Artificial Tears Eye Drops (Dextran 70/Hypromellose) 15 Ml Drops 1 Drop EACHEYE BID Abilify (Aripiprazole) 5 Mg Tablet 5 Mg PO DAILY I have reviewed the current psychotropics carefully including drug interactions. Risk benefit ratio favors no change other than as noted in my dictated progress note. Diagnosis: Problems: (1) Encounter for medical screening examination (2) Urinary tract infection (3) Dementia with behavioral disturbance (4) Anxiety disorder (5) Dementia, vascular, with delusions (6) Dementia, vascular, with depression (7) Impulse control disorder (8) Urinary tract infection MELISSA SOLER MD Oct 05, 2017 21:05
--- NOTE | 2017-10-06 04:17 | PN ---
DATE: 10/04/2017 PSYCHIATRIC PROGRESS NOTE This is a late entry of 10/04/2017, covers elements not covered in my initial note. SUBJECTIVE: I met with the patient in the evening. The patient slept 5-3/4 hours previous evening. She has not been yelling, appears better. Per nursing report, remains confused and withdrawn, but smiling as I met with her. REVIEW OF SYSTEMS: Ambulation impaired, in Broda chair. No CV, , pulmonary, eye, ENT system symptoms on review. MENTAL STATUS EXAM: Oriented to herself and situation. Speech moderate latency, low in rate and rhythm, often responses monosyllabic. Abstraction fair, computation impaired, language function intact, attention span short. Mood and affect somewhat withdrawn. LABORATORY DATA: Reviewed. IMPRESSION: Unchanged from initial note. PLAN: No change from initial note. MAN Twila SOLER MD DR: GABRIELA/sowmya JOB#: [id number] / [id number]
[2017-10-06 06:00] VITALS: BP 147/66
[2017-10-06] MEDS: oxyCODONE IR 5 MG TABLET PO PRN (06:35)
[2017-10-06] MEDS ORDERED: IOHEXOL 240 MG/ML 50ML VIAL. ONE (07:16)
[2017-10-06] MEDS: INSULIN LISPRO 300 UNITS/3 ML INSULN.PEN. SQ SCH ×6 (08:00→16:47)
--- NOTE | 2017-10-06 08:47 | RAD ---
Examination: CT of the abdomen pelvis with oral contrast HISTORY: History of asymmetric abdominal distention COMPARISON: None available TECHNIQUE: Axial CT images of the abdomen pelvis were performed without contrast. Coronal and sagittal reformats performed Exposure: One or more of the following individualized dose reduction techniques were utilized for this examination: 1. Automated exposure control 2. Adjustment of the mA and/or kV according to patient size 3. Use of iterative reconstruction technique FINDINGS: Minimal bibasilar lung atelectasis. No evidence of free air identified in the abdomen. The visualized noncontrasted liver, spleen, adrenals grossly appears unremarkable. The gallbladder is mildly distended. The visualized pancreas grossly appears unremarkable. The stomach is mildly distended. The small bowel is nondilated. Feces and gas noted in the colon. Few sigmoid colon diverticulosis. Urinary bladder is mildly distended. No evidence of intrarenal collecting system calculi or hydronephrosis. Mild aortic atherosclerosis. Severe compression change of L2 vertebral body. Moderate degenerative changes visualized lumbar spine. IMPRESSION: 1. No acute intra-abdominal findings. 2. Mild distended gallbladder. 3. Mild colon diverticulosis. 4. Age indeterminate severe compression change of L2 vertebral body. Electronically signed by: Joseph Ha MD (10/06/2017 8:44 AM) [id number]
[2017-10-06] MEDS: DONEPEZIL 23 MG TABLET PO SCH (09:08)
[2017-10-06] MEDS: DULoxetine HCL 30 MG CAPSULE.DR PO SCH (09:08)
[2017-10-06] MEDS: LACTOBACILLUS RHAMNOSUS GG 1 CAPSULE. PO SCH ×2 (09:08→20:23)
[2017-10-06] MEDS: MAGNESIUM CHLORIDE ER 64 MG TABLET.ER PO SCH (09:08)
[2017-10-06] MEDS: ASPIRIN 81 MG TAB.CHEW PO SCH (09:08)
[2017-10-06] MEDS: LISINOPRIL 20 MG TABLET PO SCH (09:08)
[2017-10-06] MEDS: DULoxetine HCL 20 MG CAPSULE.DR PO SCH (09:08)
[2017-10-06] MEDS: POLYVINYL ALCOHOL/POVIDONE/PF OPHTH SOLUTION DROPERETTE. OU SCH ×2 (09:09→20:23)
[2017-10-06] MEDS: BACLOFEN 10 MG TABLET PO SCH ×3 (09:09→20:24)
[2017-10-06] MEDS: FENOFIBRATE NANOCRYSTALLIZED 48 MG TABLET PO SCH (09:09)
[2017-10-06] MEDS: ACETAMINOPHEN 325 MG TABLET PO SCH ×2 (09:09→20:25)
[2017-10-06] MEDS: glipiZIDE 5 MG TABLET PO SCH ×2 (09:09→16:38)
[2017-10-06] MEDS: CHOLECALCIFEROL (VITAMIN D3) 50,000 UNIT CAPSULE PO SCH (09:09)
[2017-10-06] MEDS: TIMOLOL 0.5% OPHTH SOLUTION 5ML BOTTLE. OU SCH (09:10)
[2017-10-06] MEDS: NYSTATIN 100,000 UNITS/ML ORAL SUSPENSION 60ML BOTTLE. SWSW SCH ×4 (09:11→20:25)
[2017-10-06] MEDS: oxyCODONE IR 5 MG TABLET PO SCH ×4 (09:12→20:27)
[2017-10-06] MEDS: QUEtiapine 50 MG TABLET. PO SCH ×2 (09:13→12:36)
[2017-10-06 16:18] VITALS: BP 99/62
[2017-10-06] MEDS: metFORMIN 500 MG TABLET PO SCH (16:49)
[2017-10-06] MEDS: LATANOPROST 0.005% OPHTH SOLUTION 2.5ML BOTTLE. OU SCH (20:23)
[2017-10-06] MEDS: QUEtiapine 100 MG TABLET. PO SCH (20:24)
[2017-10-06] MEDS: DIVALPROEX ER 500 MG TAB.ER.24H PO SCH (20:24)
[2017-10-06] MEDS: INSULIN GLARGINE 300 UNITS/3 ML INSULN.PEN. SQ SCH (20:36)
--- NOTE | 2017-10-06 20:55 | PDOC ---
Exam Note: Jonas Note: Please also refer to the separate dictated note~for this date of service dictated separately.~Patient seen individually. Discussed the patient with Nursing staff reviewed the chart.~Reviewed interim history and current functioning. Reviewed vital signs,~Labs/ Radiology~and current medications noted below. Continue current treatment with the changes noted in the dictated addendum note Assessment: Vital Signs: Vital Signs Date Time Temp Pulse Resp B/P (MAP) Pulse Ox O2 Delivery O2 Flow Rate FiO2 10/06/17 20:27 95 Room Air 10/06/17 16:18 97.6 68 18 99/62 (74) I&O Intake and Output 10/06/17 07:00 Intake Total 420 ml Balance 420 ml Intake Oral 420 ml # Bowel Movements 5 Labs: Laboratory Tests Test 10/06/17 07:31 10/06/17 11:53 10/06/17 16:43 10/06/17 19:42 Glucose (Fingerstick) 94 mg/dL (70-99) 101 mg/dL (70-99) H 154 mg/dL (70-99) H 189 mg/dL (70-99) H Current Medications: Meds: Current Medications Cephalexin HCl (Keflex) 500 mg 1X ONCE PO Last administered on 09/21/17at 16:55 ; Start 09/21/17 at 17:00; Stop 09/21/17 at 17:01; Status DC Acetaminophen (Tylenol) 650 mg BID PO Last administered on 10/06/17at 20:25; Start 09/21/17 at 21:00 Acetaminophen (Tylenol) 650 mg PRN Q6HRS PRN PO mild pain ; Start 09/21/17 at 20:15 Lisinopril (Prinivil) 10 mg DAILY PO Last administered on 09/25/17at 07:55; Start 09/22/17 at 09:00; Stop 09/25/17 at 13:14; Status DC Lorazepam (Ativan) 1 mg PRN DAILY PRN PO crying outbursts Last administered on 09/29/17at 14:09; Start 09/21/17 at 20:15 Magnesium Hydroxide (Milk Of Magnesia) 2,400 mg PRN BID PRN PO constipation if no BM 3 days; Start 09/21/17 at 20:15 Aripiprazole (Abilify) 5 mg DAILY PO Last administered on 09/28/17 07:46; Start 09/22/17 at 09:00; Stop 09/28/17 at 16:16; Status DC Aspirin (Children'S Aspirin) 81 mg DAILY PO Last administered on 10/06/17 09: 08; Start 09/22/17 at 09:00 Baclofen (Lioresal) 5 mg TID PO Last administered on 10/06/17 20:24; Start at 21:00 Artificial Tears (Refresh Classic) 1 drop BID OU Last administered on 20:23; Start 09/21/17 at 21:00 Donepezil HCl (Aricept) 23 mg DAILY PO Last administered on 10/06/17 09:08; Start 09/22/17 at 09:00 Duloxetine HCl (Cymbalta) 30 mg DAILY PO Last administered on 09/23/17 08:21; Start 09/22/17 at 09:00; Stop 09/23/17 at 19:38; Status DC Glipizide (Glucotrol) 10 mg BIDBFRMEAL PO Last administered on 10/06/17at 16:38 ; Start 09/22/17 at 07:30 Non-Formulary Medication (Insulin Aspart (Novolog Flexpen)) TIDAC SQ ; Start at 07:30; Status UNV Insulin Human Lispro (HumaLOG) 8 units TIDWMEALS SQ Last administered on 12:28; Start 09/22/17 at 08:00; Stop 09/30/17 at 15:43; Status DC Insulin Glargine (Lantus) 14 units QHS SQ Last administered on 09/28/17at 20:30 ; Start 09/21/17 at 21:00; Stop 09/30/17 at 15:43; Status DC Latanoprost (Xalatan) 1 drop QHS OU Last administered on 10/06/17 20:23; Start 09/21/17 at 21:00 Cetirizine HCl (ZyrTEC) 10 mg PRN Q24HRS PRN PO ALLERGIES; Start 09/21/17 at 20 :41 Non-Formulary Medication (Menthol (Biofreeze)) 1 marjorie PRN Q4HRS PRN TP lower back pain; Start 09/21/17 at 20:15; Status UNV Metformin HCl (Glucophage) 1,000 mg DAILYWSUP PO Last administered on at 16:49; Start 09/22/17 at 17:00 Ondansetron HCl (Zofran Odt) 4 mg PRN Q8HRS PRN PO NAUSEA/VOMITING; Start 09/21 at 20:30 Oxycodone HCl (Roxicodone) 5 mg PRN Q12HR PRN PO SEVERE PAIN Last administered on 10/06/17at 06:35; Start 09/21/17 at 21:00 Oxycodone HCl (Roxicodone) 5 mg QID PO Last administered on 09/25/17at 19:28; Start 09/21/17 at 21:00; Stop 09/26/17 at 08:12; Status DC Paroxetine HCl (Paxil) 30 mg DAILY PO Last administered on 09/22/17at 08:36; Start 09/22/17 at 09:00; Stop 09/22/17 at 17:29; Status DC Quetiapine Fumarate (SEROquel) 300 mg QHS PO Last administered on 09/24/17at 19: 32; Start 09/21/17 at 21:00; Stop 09/25/17 at 18:45; Status DC Timolol Maleate (Timoptic 0.5% Oph) 1 drop DAILY OU Last administered on 10/06at 09:10; Start 09/22/17 at 09:00 Acetaminophen (Tylenol) 650 mg PRN Q6HRS PRN PO PAIN / TEMP; Start 09/21/17 at 20:15; Status UNV Multi-Ingredient Ointment (Analgesic [place]) 1 marjorie PRN QID PRN TP MUSCLE PAIN; Start 09/21/17 at 20:15 Al Hydroxide/Mg Hydroxide (Mylanta Plus Xs) 15 ml PRN AFTMEALHC PRN PO DYSPEPSIA; Start 09/21/17 at 20:15 Magnesium Hydroxide (Milk Of Magnesia) 2,400 mg PRN QHS PRN PO CONSTIPATION; Start 09/21/17 at 20:15; Status UNV Insulin Human Lispro (HumaLOG) 0-7 UNITS TIDWMEALS SQ Last administered on 10/06at 16:47; Start 09/22/17 at 08:00 Dextrose 12.5 gm PRN Q15MIN PRN IV SEE COMMENTS; Start 09/21/17 at 21:30 Cefpodoxime Proxetil (Vantin) 200 mg BID PO Last administered on 10/02/17at 20: 44; Start 09/22/17 at 21:00; Stop 10/02/17 at 21:00; Status DC Magnesium Chloride (Mag Delay) 64 mg DAILY PO Last administered on 09/23/17at 08 :22; Start 09/22/17 at 14:00; Stop 09/23/17 at 10:16; Status DC Lactobacillus Rhamnosus (Culturelle) 1 cap BID PO Last administered on 20:23; Start 09/22/17 at 21:00 Magnesium Chloride (Mag Delay) 64 mg DAILY PO Last administered on 10/06/17 09 :08; Start 09/23/17 at 09:00 Vitamin D (Vitamin D3) 50,000 unit WEEKLY PO Last administered on 10/06/17 09: 09; Start 09/29/17 at 09:00 Fenofibrate (Tricor) 48 mg DAILY PO Last administered on 10/06/17 09:09; Start 09/23/17 at 09:00 Paroxetine HCl (Paxil) 20 mg DAILY PO Last administered on 09/24/17 08:18; Start 09/23/17 at 09:00; Stop 09/24/17 at 10:00; Status DC Paroxetine HCl (Paxil) 10 mg DAILY PO Last administered on 09/26/17 08:08; Start 09/25/17 at 09:00; Stop 09/26/17 at 10:00; Status DC Duloxetine HCl (Cymbalta) 30 mg DAILY PO Last administered on 10/06/17 09:08; Start 09/24/17 at 09:00 Duloxetine HCl (Cymbalta) 20 mg DAILY PO Last administered on 10/06/17 09:08; Start 09/24/17 at 09:00 Lisinopril (Prinivil) 20 mg DAILY PO Last administered on 10/06/17 09:08; Start 09/26/17 at 09:00 Quetiapine Fumarate (SEROquel) 175 mg QHS PO Last administered on 10/06/17 20: 24; Start 09/25/17 at 21:00 Quetiapine Fumarate (SEROquel) 75 mg 0900,1300 PO Last administered on 12:36; Start 09/26/17 at 09:00 Olanzapine (ZyPREXA ZYDIS) 2.5 mg PRN Q2HR PRN PO PSYCHOSIS Last administered on 10/01/17 10:18; Start 09/25/17 at 18:45 Oxycodone HCl (Roxicodone) 5 mg QID PO Last administered on 10/06/17 20:27; Start 09/26/17 at 09:00 Divalproex Sodium (Depakote Er) 500 mg QHS PO Last administered on 10/06/17 20 :24; Start 09/28/17 at 21:00 Insulin Glargine (Lantus) 8 units QHS SQ Last administered on 10/02/17 20:44; Start 09/30/17 at 21:00; Stop 10/03/17 at 17:29; Status DC Insulin Human Lispro (HumaLOG) 5 units TIDWMEALS SQ Last administered on 16:46; Start 09/30/17 at 17:00 Insulin Glargine (Lantus) 6 units QHS SQ Last administered on 10/06/17 20:36; Start 10/03/17 at 21:00 Nystatin (Mycostatin) 5 ml QID SWSW Last administered on 10/06/17 16:54; Start 10/05/17 at 21:00 Iohexol (Omnipaque 240 Mg/ml) 50 ml STK-MED ONCE .ROUTE ; Start 10/06/17 at 07: 16; Stop 10/06/17 at 07:17; Status DC Active Scripts Active Reported Zofran (Ondansetron Hcl) 4 Mg Tablet 4 Mg PO PRN Q8HRS PRN Xalatan (Latanoprost) 2.5 Ml Drops 1 Drop EACHEYE QHS Tylenol (Acetaminophen) 325 Mg Tablet 650 Mg PO BID Tylenol (Acetaminophen) 325 Mg Tablet 650 Mg PO PRN Q6HRS PRN Timoptic (Timolol Maleate) 10 Ml Drops 1 Drop EACHEYE DAILY Seroquel Xr (Quetiapine Fumarate) 300 Mg Tab.er.24h 300 Mg PO QHS Paxil (Paroxetine Hcl) 30 Mg Tablet 30 Mg PO DAILY Oxycodone Hcl 5 Mg Capsule 5 Mg PO QID PRN Oxycodone Hcl 5 Mg Capsule 5 Mg PO PRN Q12HR PRN Novolog Flexpen (Insulin Aspart) 100 Unit/1 Ml Insuln.pen 2-16 Unit SQ TIDAC Novolog Flexpen (Insulin Aspart) 100 Unit/1 Ml Insuln.pen 8 Unit SQ TIDAC Milk Of Magnesia (Magnesium Hydroxide) 400 Mg/5 Ml Oral.susp 30 Mg PO PRN BID PRN Metformin Hcl 1,000 Mg Tablet 1,000 Mg PO DAILYWSUP Lisinopril 10 Mg Tablet 10 Mg PO DAILY Levemir Flextouch (Insulin Detemir) 100 Unit/1 Ml Insuln.pen 14 Unit SQ HS Glipizide 10 Mg Tablet 10 Mg PO BID Donepezil Hcl 10 Mg Tablet 23 Mg PO DAILY Cymbalta (Duloxetine Hcl) 30 Mg Capsule.dr 30 Mg PO DAILY Claritin (Loratadine) 10 Mg Tablet 10 Mg PO PRN Q24HRS PRN Biofreeze (Menthol) 118 Ml Gel..ml. 1 Marjorie TP PRN Q4HRS PRN Baclofen 10 Mg Tablet 5 Mg PO TID Ativan (Lorazepam) 1 Mg Tablet 1 Mg PO PRN DAILY PRN Aspirin 81 Mg Tab.chew 81 Mg PO DAILY Artificial Tears Eye Drops (Dextran 70/Hypromellose) 15 Ml Drops 1 Drop EACHEYE BID Abilify (Aripiprazole) 5 Mg Tablet 5 Mg PO DAILY I have reviewed the current psychotropics carefully including drug interactions. Risk benefit ratio favors no change other than as noted in my dictated progress note. Diagnosis: Problems: (1) Encounter for medical screening examination (2) Urinary tract infection (3) Dementia with behavioral disturbance (4) Anxiety disorder (5) Dementia, vascular, with delusions (6) Dementia, vascular, with depression (7) Impulse control disorder (8) Urinary tract infection MELISSA SOLER MD Oct 06, 2017 20:55
[2017-10-07] MEDS ORDERED: DULO20CA50 PO (00:57)
[2017-10-07] MEDS ORDERED: QUET25TA5 PO (01:00)
[2017-10-07] MEDS ORDERED: CHOL500021 PO (01:10)
[2017-10-07] MEDS ORDERED: DEXT50DI3 IV (01:11)
[2017-10-07] MEDS ORDERED: DIVA500T17 PO (01:11)
[2017-10-07] MEDS ORDERED: FENO48TA16 PO (01:13)
[2017-10-07] MEDS ORDERED: LACT1CAP21 PO (01:14)
[2017-10-07] MEDS ORDERED: MAG30ORA2 PO (01:16)
[2017-10-07] MEDS ORDERED: MAGN64TA6 PO (01:17)
[2017-10-07] MEDS ORDERED: NYST1000 PO (01:18)
[2017-10-07] MEDS ORDERED: OLAN5TAB5 PO (01:19)
--- NOTE | 2017-10-07 02:49 | PN ---
DATE: 10/05/2017 This is a late entry for 10/05/2017 covers elements not covered in my initial note. SUBJECTIVE: I met with the patient in the evening. The patient slept 7-3/4 hours previous night. She was yelling at times in the morning because she was cold, but the rest of the day, she has been very appropriate. REVIEW OF SYSTEMS: No CV, , pulmonary, eye system symptoms on review. Gait unsteady, in Broda chair. MENTAL STATUS EXAM: Oriented to herself and situation. Speech moderate latency, often responses monosyllabic, low in rate and rhythm, low in volume. Abstraction fair, computation impaired, language function intact. Short-term memory is impaired. No active suicidal or homicidal ideation. IMPRESSION: Unchanged from initial note. PLAN: No change from initial note. MAN Twila SOLER MD DR: GABRIELA/sowmya JOB#: [id number] / [id number]
[2017-10-07 06:45] VITALS: BP 153/84
[2017-10-07] MEDS: INSULIN LISPRO 300 UNITS/3 ML INSULN.PEN. SQ SCH ×2 (07:33→07:51)
[2017-10-07] MEDS: FENOFIBRATE NANOCRYSTALLIZED 48 MG TABLET PO SCH (07:48)
[2017-10-07] MEDS: LACTOBACILLUS RHAMNOSUS GG 1 CAPSULE. PO SCH (07:48)
[2017-10-07] MEDS: DULoxetine HCL 20 MG CAPSULE.DR PO SCH (07:48)
[2017-10-07] MEDS: DULoxetine HCL 30 MG CAPSULE.DR PO SCH (07:48)
[2017-10-07] MEDS: MAGNESIUM CHLORIDE ER 64 MG TABLET.ER PO SCH (07:48)
[2017-10-07] MEDS: ACETAMINOPHEN 325 MG TABLET PO SCH (07:48)
[2017-10-07 07:49] VITALS: BP 149/52
[2017-10-07] MEDS: ASPIRIN 81 MG TAB.CHEW PO SCH (07:49)
[2017-10-07] MEDS: LISINOPRIL 20 MG TABLET PO SCH (07:49)
[2017-10-07] MEDS: glipiZIDE 5 MG TABLET PO SCH (07:49)
[2017-10-07] MEDS: QUEtiapine 50 MG TABLET. PO SCH (07:50)
[2017-10-07] MEDS: DONEPEZIL 23 MG TABLET PO SCH (07:50)
[2017-10-07] MEDS: BACLOFEN 10 MG TABLET PO SCH (07:50)
[2017-10-07] MEDS: POLYVINYL ALCOHOL/POVIDONE/PF OPHTH SOLUTION DROPERETTE. OU SCH (07:50)
[2017-10-07] MEDS: TIMOLOL 0.5% OPHTH SOLUTION 5ML BOTTLE. OU SCH (07:50)
[2017-10-07] MEDS: oxyCODONE IR 5 MG TABLET PO SCH (07:52)
[2017-10-07] MEDS: NYSTATIN 100,000 UNITS/ML ORAL SUSPENSION 60ML BOTTLE. SWSW SCH (07:53)
--- NOTE | 2017-10-07 20:44 | PDOC ---
Exam Note: Jonas Note: Please also refer to the separate dictated note~for this date of service dictated separately.~Patient seen individually. Discussed the patient with Nursing staff reviewed the chart.~Reviewed interim history and current functioning. Reviewed vital signs,~Labs/ Radiology~and current medications noted below. Continue current treatment with the changes noted in the dictated addendum note Assessment: Vital Signs: Vital Signs Date Time Temp Pulse Resp B/P (MAP) Pulse Ox O2 Delivery O2 Flow Rate FiO2 10/07/17 11:30 18 93 Room Air 10/07/17 07:49 73 149/52 10/07/17 06:45 97.2 I&O Intake and Output 10/07/17 07:00 Intake Total 720 ml Balance 720 ml Intake Oral 720 ml # Bowel Movements 1 Labs: Laboratory Tests Test 10/07/17 07:07 Glucose (Fingerstick) 103 mg/dL (70-99) H Current Medications: Meds: Current Medications Cephalexin HCl (Keflex) 500 mg 1X ONCE PO Last administered on 09/21/17at 16:55 ; Start 09/21/17 at 17:00; Stop 09/21/17 at 17:01; Status DC Acetaminophen (Tylenol) 650 mg BID PO Last administered on 10/07/17at 07:48; Start 09/21/17 at 21:00; Stop 10/07/17 at 12:10; Status DC Acetaminophen (Tylenol) 650 mg PRN Q6HRS PRN PO mild pain ; Start 09/21/17 at 20:15; Stop 10/07/17 at 12:10; Status DC Lisinopril (Prinivil) 10 mg DAILY PO Last administered on 09/25/17at 07:55; Start 09/22/17 at 09:00; Stop 09/25/17 at 13:14; Status DC Lorazepam (Ativan) 1 mg PRN DAILY PRN PO crying outbursts Last administered on 09/29/17at 14:09; Start 09/21/17 at 20:15; Stop 10/07/17 at 12:10; Status DC Magnesium Hydroxide (Milk Of Magnesia) 2,400 mg PRN BID PRN PO constipation if no BM 3 days; Start 09/21/17 at 20:15; Stop 10/07/17 at 12:10; Status DC Aripiprazole (Abilify) 5 mg DAILY PO Last administered on 09/28/17at 07:46; Start 09/22/17 at 09:00; Stop 09/28/17 at 16:16; Status DC Aspirin (Children'S Aspirin) 81 mg DAILY PO Last administered on 10/07/17at 07: 49; Start 09/22/17 at 09:00; Stop 10/07/17 at 12:10; Status DC Baclofen (Lioresal) 5 mg TID PO Last administered on 10/07/17at 07:50; Start at 21:00; Stop 10/07/17 at 12:10; Status DC Artificial Tears (Refresh Classic) 1 drop BID OU Last administered on at 07:50; Start 09/21/17 at 21:00; Stop 10/07/17 at 12:10; Status DC Donepezil HCl (Aricept) 23 mg DAILY PO Last administered on 10/07/17at 07:50; Start 09/22/17 at 09:00; Stop 10/07/17 at 12:10; Status DC Duloxetine HCl (Cymbalta) 30 mg DAILY PO Last administered on 09/23/17at 08:21; Start 09/22/17 at 09:00; Stop 09/23/17 at 19:38; Status DC Glipizide (Glucotrol) 10 mg BIDBFRMEAL PO Last administered on 10/07/17at 07:49 ; Start 09/22/17 at 07:30; Stop 10/07/17 at 12:10; Status DC Non-Formulary Medication (Insulin Aspart (Novolog Flexpen)) TIDAC SQ ; Start at 07:30; Status UNV Insulin Human Lispro (HumaLOG) 8 units TIDWMEALS SQ Last administered on at 12:28; Start 09/22/17 at 08:00; Stop 09/30/17 at 15:43; Status DC Insulin Glargine (Lantus) 14 units QHS SQ Last administered on 09/28/17at 20:30 ; Start 09/21/17 at 21:00; Stop 09/30/17 at 15:43; Status DC Latanoprost (Xalatan) 1 drop QHS OU Last administered on 10/06/17at 20:23; Start 09/21/17 at 21:00; Stop 10/07/17 at 12:10; Status DC Cetirizine HCl (ZyrTEC) 10 mg PRN Q24HRS PRN PO ALLERGIES; Start 09/21/17 at 20 :41; Stop 10/07/17 at 12:10; Status DC Non-Formulary Medication (Menthol (Biofreeze)) 1 marjorie PRN Q4HRS PRN TP lower back pain; Start 09/21/17 at 20:15; Status UNV Metformin HCl (Glucophage) 1,000 mg DAILYWSUP PO Last administered on at 16:49; Start 09/22/17 at 17:00; Stop 10/07/17 at 12:10; Status DC Ondansetron HCl (Zofran Odt) 4 mg PRN Q8HRS PRN PO NAUSEA/VOMITING; Start 09/21 at 20:30; Stop 10/07/17 at 12:10; Status DC Oxycodone HCl (Roxicodone) 5 mg PRN Q12HR PRN PO SEVERE PAIN Last administered on 10/06/17at 06:35; Start 09/21/17 at 21:00; Stop 10/07/17 at 12:10; Status DC Oxycodone HCl (Roxicodone) 5 mg QID PO Last administered on 09/25/17at 19:28; Start 09/21/17 at 21:00; Stop 09/26/17 at 08:12; Status DC Paroxetine HCl (Paxil) 30 mg DAILY PO Last administered on 09/22/17at 08:36; Start 09/22/17 at 09:00; Stop 09/22/17 at 17:29; Status DC Quetiapine Fumarate (SEROquel) 300 mg QHS PO Last administered on 09/24/17at 19: 32; Start 09/21/17 at 21:00; Stop 09/25/17 at 18:45; Status DC Timolol Maleate (Timoptic 0.5% [facility]) 1 drop DAILY OU Last administered on 10/07at 07:50; Start 09/22/17 at 09:00; Stop 10/07/17 at 12:10; Status DC Acetaminophen (Tylenol) 650 mg PRN Q6HRS PRN PO PAIN / TEMP; Start 09/21/17 at 20:15; Status UNV Multi-Ingredient Ointment (Analgesic [place]) 1 marjorie PRN QID PRN TP MUSCLE PAIN; Start 09/21/17 at 20:15; Stop 10/07/17 at 12:10; Status DC Al Hydroxide/Mg Hydroxide (Mylanta Plus Xs) 15 ml PRN AFTMEALHC PRN PO DYSPEPSIA; Start 09/21/17 at 20:15; Stop 10/07/17 at 12:10; Status DC Magnesium Hydroxide (Milk Of Magnesia) 2,400 mg PRN QHS PRN PO CONSTIPATION; Start 09/21/17 at 20:15; Status UNV Insulin Human Lispro (HumaLOG) 0-7 UNITS TIDWMEALS SQ Last administered on 10/06at 16:47; Start 09/22/17 at 08:00; Stop 10/07/17 at 12:10; Status DC Dextrose 12.5 gm PRN Q15MIN PRN IV SEE COMMENTS; Start 09/21/17 at 21:30; Stop 10/07/17 at 12:10; Status DC Cefpodoxime Proxetil (Vantin) 200 mg BID PO Last administered on 10/02/17at 20: 44; Start 09/22/17 at 21:00; Stop 10/02/17 at 21:00; Status DC Magnesium Chloride (Mag Delay) 64 mg DAILY PO Last administered on 09/23/17at 08 :22; Start 09/22/17 at 14:00; Stop 09/23/17 at 10:16; Status DC Lactobacillus Rhamnosus (Culturelle) 1 cap BID PO Last administered on at 07:48; Start 09/22/17 at 21:00; Stop 10/07/17 at 12:10; Status DC Magnesium Chloride (Mag Delay) 64 mg DAILY PO Last administered on 10/07/17at 07 :48; Start 09/23/17 at 09:00; Stop 10/07/17 at 12:10; Status DC Vitamin D (Vitamin D3) 50,000 unit WEEKLY PO Last administered on 10/06/17at 09: 09; Start 09/29/17 at 09:00; Stop 10/07/17 at 12:10; Status DC Fenofibrate (Tricor) 48 mg DAILY PO Last administered on 10/07/17at 07:48; Start 09/23/17 at 09:00; Stop 10/07/17 at 12:10; Status DC Paroxetine HCl (Paxil) 20 mg DAILY PO Last administered on 09/24/17at 08:18; Start 09/23/17 at 09:00; Stop 09/24/17 at 10:00; Status DC Paroxetine HCl (Paxil) 10 mg DAILY PO Last administered on 09/26/17at 08:08; Start 09/25/17 at 09:00; Stop 09/26/17 at 10:00; Status DC Duloxetine HCl (Cymbalta) 30 mg DAILY PO Last administered on 10/07/17at 07:48; Start 09/24/17 at 09:00; Stop 10/07/17 at 12:10; Status DC Duloxetine HCl (Cymbalta) 20 mg DAILY PO Last administered on 10/07/17at 07:48; Start 09/24/17 at 09:00; Stop 10/07/17 at 12:10; Status DC Lisinopril (Prinivil) 20 mg DAILY PO Last administered on 10/07/17at 07:49; Start 09/26/17 at 09:00; Stop 10/07/17 at 12:10; Status DC Quetiapine Fumarate (SEROquel) 175 mg QHS PO Last administered on 10/06/17at 20: 24; Start 09/25/17 at 21:00; Stop 10/07/17 at 12:10; Status DC Quetiapine Fumarate (SEROquel) 75 mg 0900,1300 PO Last administered on at 07:50; Start 09/26/17 at 09:00; Stop 10/07/17 at 12:10; Status DC Olanzapine (ZyPREXA ZYDIS) 2.5 mg PRN Q2HR PRN PO PSYCHOSIS Last administered on 10/01/17at 10:18; Start 09/25/17 at 18:45; Stop 10/07/17 at 12:10; Status DC Oxycodone HCl (Roxicodone) 5 mg QID PO Last administered on 10/07/17at 07:52; Start 09/26/17 at 09:00; Stop 10/07/17 at 12:10; Status DC Divalproex Sodium (Depakote Er) 500 mg QHS PO Last administered on 10/06/17at 20 :24; Start 09/28/17 at 21:00; Stop 10/07/17 at 12:10; Status DC Insulin Glargine (Lantus) 8 units QHS SQ Last administered on 10/02/17at 20:44; Start 09/30/17 at 21:00; Stop 10/03/17 at 17:29; Status DC Insulin Human Lispro (HumaLOG) 5 units TIDWMEALS SQ Last administered on at 07:51; Start 09/30/17 at 17:00; Stop 10/07/17 at 12:10; Status DC Insulin Glargine (Lantus) 6 units QHS SQ Last administered on 10/06/17at 20:36; Start 10/03/17 at 21:00; Stop 10/07/17 at 12:10; Status DC Nystatin (Mycostatin) 5 ml QID SWSW Last administered on 10/07/17at 07:53; Start 10/05/17 at 21:00; Stop 10/07/17 at 12:10; Status DC Iohexol (Omnipaque 240 Mg/ml) 50 ml STK-MED ONCE .ROUTE ; Start 10/06/17 at 07: 16; Stop 10/06/17 at 07:17; Status DC Active Scripts Active Reported Zyprexa Zydis (Olanzapine) 5 Mg Tab.rapdis 2.5 Mg PO PRN Q2HR PRN Nystatin 100,000 Unit/1 Ml Oral.susp 5 Ml PO QID Mag64 (Magnesium Chloride) 64 Mg Tablet.er 64 Mg PO DAILY Mag-Al Plus Xs Suspension (Mag Hydrox/Al Hydrox/Simeth) 30 Ml Oral.susp 15 Ml PO PRN AFTMEALHC PRN Culturelle (Lactobacillus Rhamnosus Gg) 1 Each Capsule 1 Each PO BID Tricor (Fenofibrate Nanocrystallized) 48 Mg Tablet 48 Mg PO DAILY Divalproex Sodium Er (Divalproex Sodium) 500 Mg Tab.er.24h 500 Mg PO QHS D3-50 (Cholecalciferol (Vitamin D3)) 50,000 Unit Capsule 50,000 Unit PO WEEKLY Seroquel (Quetiapine Fumarate) 25 Mg Tablet 75 Mg PO BID91 Cymbalta (Duloxetine Hcl) 20 Mg Capsule.dr 20 Mg PO DAILY Zofran (Ondansetron Hcl) 4 Mg Tablet 4 Mg PO PRN Q8HRS PRN Xalatan (Latanoprost) 2.5 Ml Drops 1 Drop EACHEYE QHS Tylenol (Acetaminophen) 325 Mg Tablet 650 Mg PO BID Tylenol (Acetaminophen) 325 Mg Tablet 650 Mg PO PRN Q6HRS PRN Timoptic (Timolol Maleate) 10 Ml Drops 1 Drop EACHEYE DAILY Seroquel Xr (Quetiapine Fumarate) 300 Mg Tab.er.24h 175 Mg PO QHS Oxycodone Hcl 5 Mg Capsule 5 Mg PO QID PRN Oxycodone Hcl 5 Mg Capsule 5 Mg PO PRN Q12HR PRN Novolog Flexpen (Insulin Aspart) 100 Unit/1 Ml Insuln.pen 0-7 Unit SQ TIDAC Novolog Flexpen (Insulin Aspart) 100 Unit/1 Ml Insuln.pen 5 Unit SQ TIDAC Milk Of Magnesia (Magnesium Hydroxide) 400 Mg/5 Ml Oral.susp 30 Mg PO PRN BID PRN Metformin Hcl 1,000 Mg Tablet 1,000 Mg PO DAILYWSUP Lisinopril 10 Mg Tablet 20 Mg PO DAILY Levemir Flextouch (Insulin Detemir) 100 Unit/1 Ml Insuln.pen 6 Unit SQ HS Glipizide 10 Mg Tablet 10 Mg PO BID Donepezil Hcl 10 Mg Tablet 23 Mg PO DAILY Cymbalta (Duloxetine Hcl) 30 Mg Capsule.dr 30 Mg PO DAILY Claritin (Loratadine) 10 Mg Tablet 10 Mg PO PRN Q24HRS PRN Biofreeze (Menthol) 118 Ml Gel..ml. 1 Marjorie TP PRN Q4HRS PRN Baclofen 10 Mg Tablet 5 Mg PO TID Ativan (Lorazepam) 1 Mg Tablet 1 Mg PO PRN DAILY PRN Aspirin 81 Mg Tab.chew 81 Mg PO DAILY Artificial Tears Eye Drops (Dextran 70/Hypromellose) 15 Ml Drops 1 Drop EACHEYE BID I have reviewed the current psychotropics carefully including drug interactions. Risk benefit ratio favors no change other than as noted in my dictated progress note. Diagnosis: Problems: (1) Dementia with behavioral disturbance (2) Anxiety disorder (3) Dementia, vascular, with delusions (4) Dementia, vascular, with depression (5) Impulse control disorder (6) Urinary tract infection MELISSA SOLER MD Oct 07, 2017 20:44
--- NOTE | 2017-10-08 03:31 | PN ---
DATE: 10/06/2017 This is a late entry 10/06/2017, covers elements not covered in my initial note. SUBJECTIVE: I met with the patient in the evening and staffed at a treatment team meeting with the entire team in the morning. Reviewed the patient's progress. The yelling is much better. She remains somewhat withdrawn, but that is part of her physical disability. REVIEW OF SYSTEMS: She is in a Broda chair. No CV, , pulmonary, eye system symptoms on review. MENTAL STATUS EXAM: Oriented to herself and situation. Speech moderate latency, low in rate and rhythm, low in volume but pleasant, smiling as I met with her. Insight fair. Judgment intact to standard questioning. Short term memory is impaired, able to do one step on serial 7's. No suicidal or homicidal ideation. LABORATORY DATA: Reviewed. IMPRESSION: Unchanged from initial note. PLAN: No change from initial note. MELISSA SOLER MD DR: GABRIELA/sowmya JOB#: [id number] / [id number]
--- NOTE | 2017-10-09 08:48 | DS ---
DATE OF DISCHARGE: 10/07/2017 DISCHARGE SUMMARY/PSYCHIATRIC PROGRESS NOTE This is a late entry, date of service 10/07/2017, covers elements not covered in my initial note 10/07/2017. REASON FOR ADMISSION: Please refer to the admission history for details. Briefly, the patient is an 82-year-old -[place] female referred to us from [facility] in [place] by her primary care physician on account of worsening confusion, having uncontrollable crying spells, screaming, being verbally abusive and kicking at people. She was agitated, aggressive, disruptive, unmanageable at the facility resulting in this referral. SIGNIFICANT FINDINGS AND CLINICAL COURSE: Following admission, the patient was seen daily individually by myself from a psychiatric standpoint, medical followup per Dr. Mcfarland/Dr. Michael. She was extremely labile, initially yelling constantly persistently, extremely disruptive on the unit. She did have a UTI, which was treated on Vantin. Repeat UA 27 was negative. Adjustments were also made in her psychotropics and she has seemed to respond to a combination of Ativan p.r.n., Cymbalta 50 mg a day, Aricept 23 mg a day, Seroquel 75 mg 0900, 1300, 175 mg at bedtime, Zyprexa p.r.n., Depakote ER 500 mg p.o. at bedtime with Valproic acid level at 34. Prior to discharge, she was much calmer, still had memory deficits, inability to walk in a Broda chair, but pleasant, smiling, interactive as I would meet with her individually and no psychotic symptoms were evident. Mood lability was much improved and she was extremely stable at discharge. The Seroquel should gradually be tapered after about one [facility] of [facility] at the [facility] with stability, prior to discharge, 10/07/2017. REVIEW OF SYSTEMS: Ambulation impaired, in Broda chair. No CV, , pulmonary, eye system symptoms on review. She has discomfort in her extremities consequent to the contractures. MENTAL STATUS EXAM: Oriented to herself and situation. Speech has some latency, low in volume, coherent, abstraction fair, computation impaired, language function intact. Short term memory is impaired. No suicidal or homicidal ideation. No clear psychotic symptoms. LABORATORY DATA: Reviewed. FINAL DIAGNOSES: Major depressive disorder, recurrent, in partial remission; major neurocognitive disorder, early vascular, Alzheimer's with delusion, depression, behavioral disturbance; anxiety disorder, unspecified; impulse control disorder, unspecified; status post urinary tract infection. Rest unchanged from admission. DISCHARGE MEDICATIONS: Please refer to the MRAD. DISCHARGE INSTRUCTIONS: Outpatient psychiatric and medical [facility]up at the [facility]. Time for discharge day management greater than 30 minutes. MELISSA SOLER MD DR: GABRIELA/sowmya JOB#: [id number] / [id number]
== END 2017-10-07 11:30 | DRG 885 ==
LOC: ER 13:51 → GEROPSY 17:07
PROVIDERS: ADMIT Psychiatry & Neurology Psychiatry; ATTEND Psychiatry & Neurology Psychiatry
DX: F33.3 Major depressive disorder, recurrent, severe with psychotic symptoms (principal); F01.51 Vascular dementia, unspecified severity, with behavioral disturbance; N39.0 Urinary tract infection, site not specified; F02.81 Dementia in other diseases classified elsewhere, unspecified severity, with behavioral disturbance; I69.354 Hemiplegia and hemiparesis following cerebral infarction affecting left non-dominant side; E11.9 Type 2 diabetes mellitus without complications; F09 Unspecified mental disorder due to known physiological condition; F41.9 Anxiety disorder, unspecified; F63.9 Impulse disorder, unspecified; G30.9 Alzheimer's disease, unspecified; H40.9 Unspecified glaucoma; I10 Essential (primary) hypertension; K58.9 Irritable bowel syndrome, unspecified; M81.0 Age-related osteoporosis without current pathological fracture; Z79.899 Other long term (current) drug therapy
CPT/HCPCS: 36415; 74176; 80053; 80061; 80164; 81001; 82306; 82607; 82947; 83036; 83540; 83550; 83735; 84436; 84443; 84480; 85025; 86592; 87045; 87086; 87186; 87324; 93005; J1815; 99285-25

== ENCOUNTER 2017-11-24 19:09 | Inpatient (IN) | payer OTHER ==
[~2017-11-24] VITALS: Ht 175.3 cm; Wt 68.5 kg
[~2017-11-24 19:09] MED LIST: ACET325T9 PO; ARIP5TAB13 PO; ASPI-630 PO; BACL10TA PO; CHOL500021 PO; DEXT15DR5 EACHEYE; DEXT50DI3 IV; DIVA500T17 PO; DONE10TA7 PO; DULO20CA50 PO; DULO30CA2 PO; FENO48TA16 PO; GLIP10TA13 PO; INSU100I17 SQ; INSU100I27 SQ; LACT1CAP21 PO; LATA2.5D2 EACHEYE; LISI10TA2 PO; LORA-254 PO; LORA10TA68 PO; MAG30ORA2 PO; MAGN400O7 PO; MAGN64TA6 PO; MENT118G TP; METF10007 PO; NYST1000 PO; OLAN5TAB5 PO; ONDA4TAB7 PO; OXYC5CAP PO; PARO30TA45 PO; QUET25TA5 PO; QUET300T6 PO; TIMO10DR5 EACHEYE
--- NOTE | 2017-11-24 19:49 | PHYS DOC ---
Past History Past Medical History: Anxiety, CVA, Dementia, Diabetes, Glaucoma, Hypertension , IBS, Schizophrenia, Other Past Surgical History: Other Alcohol Use: None Drug Use: None Adult General Chief Complaint Chief Complaint: PSYCH EVALUATION HPI HPI Patient is a 82 year old female who presents to the emergency department for medical clearance. Patient brought to the emergency department from her shelter in [place], [place]. Patient accepted to the [facility] unit here at [facility] prior to arrival. Staff reports patient has been verbally abusive and aggressive towards staff. Patient has had prior admission to the [facility] unit in the past. Patient currently has no complaints. The patient does understand that she has not been getting along well at her shelter. Denies pain or feeling sick at this time. Reported history of schizophrenia, dementia, and previous history of CVA. Patient is wheelchair- bound at baseline. Review of Systems Review of Systems Constitutional: Denies fever or chills [] Eyes: Denies change in visual acuity, redness, or eye pain [] HENT: Denies nasal congestion or sore throat [] Respiratory: Denies cough or shortness of breath [] Cardiovascular: Denies chest pain or edema[] GI: Denies abdominal pain, nausea, vomiting, bloody stools or diarrhea [] : Denies dysuria or hematuria [] Musculoskeletal: Denies back pain or joint pain [] Integument: Denies rash or skin lesions [] Neurologic: Chronic paralysis, denies headache[] All other systems were reviewed and found to be within normal limits, except as documented in this note. Allergies Allergies Allergies Coded Allergies Type Severity Reaction Last Updated Verified hydrocodone Allergy Intermediate 09/23/17 Yes Physical Exam Physical Exam Constitutional: Alert, afebrile, no acute distress. [] HENT: Normocephalic, atraumatic, bilateral external ears normal, oropharynx moist, no oral exudates, nose normal. [] Eyes: PERRLA, EOMI, conjunctiva normal, no discharge. [] Neck: Normal range of motion, no tenderness, supple, no stridor. [] Cardiovascular:Heart rate regular rhythm, no murmur [] Lungs & Thorax: Bilateral breath sounds clear to auscultation [] Abdomen: Bowel sounds normal, soft, no tenderness, no masses, no pulsatile masses. [] Skin: Warm, dry, no erythema, no rash. [] Back: No tenderness, no CVA tenderness. [] Extremities: No tenderness, no cyanosis, no clubbing, ROM intact, no edema. [] Neurologic: Alert and oriented X 3, chronic-appearing bilateral extremity contractures. [] Current Patient Data Vital Signs Vital Signs Date Time Temp Pulse Resp B/P (MAP) Pulse Ox O2 Delivery O2 Flow Rate FiO2 11/24/17 19:14 98.9 75 20 100 Room Air Lab Results Laboratory Tests Test 11/24/17 19:40 11/24/17 19:57 White Blood Count 5.4 x10^3/uL Red Blood Count 3.97 x10^6/uL Hemoglobin 12.7 g/dL Hematocrit 37.8 % Mean Corpuscular Volume 95 fL Mean Corpuscular Hemoglobin 32 pg Mean Corpuscular Hemoglobin Concent 34 g/dL Red Cell Distribution Width 15.2 % Platelet Count 270 x10^3/uL Neutrophils (%) (Auto) 47 % Lymphocytes (%) (Auto) 41 % Monocytes (%) (Auto) 9 % Eosinophils (%) (Auto) 3 % Basophils (%) (Auto) 1 % Neutrophils # (Auto) 2.5 x10^3uL Lymphocytes # (Auto) 2.2 x10^3/uL Monocytes # (Auto) 0.5 x10^3/uL Eosinophils # (Auto) 0.2 x10^3/uL Basophils # (Auto) 0.0 x10^3/uL Sodium Level 140 mmol/L Potassium Level 3.8 mmol/L Chloride Level 106 mmol/L Carbon Dioxide Level 27 mmol/L Anion Gap 7 Blood Urea Nitrogen 10 mg/dL Creatinine 0.8 mg/dL Estimated GFR (Cockcroft-Gault) 83.5 BUN/Creatinine Ratio 13 Glucose Level 242 mg/dL Calcium Level 9.0 mg/dL Magnesium Level 1.7 mg/dL Total Bilirubin 0.2 mg/dL Aspartate Amino Transf (AST/SGOT) 26 U/L Alanine Aminotransferase (ALT/SGPT) 28 U/L Alkaline Phosphatase 65 U/L Total Protein 7.3 g/dL Albumin 2.9 g/dL Albumin/Globulin Ratio 0.7 Urine Collection Type U cath Urine Color Yellow Urine Clarity Clear Urine pH 5.5 Urine Specific [place] 1.020 Urine Protein Neg Urine Glucose (UA) 500 mg/dL Urine Ketones (Stick) Neg mg/dL Urine Blood Neg Urine Nitrite Neg Urine Bilirubin Neg Urine Urobilinogen Dipstick 0.2 mg/dL Urine Leukocyte Esterase Trace Urine RBC 0 /HPF Urine WBC 1-4 /HPF Urine Squamous Epithelial Cells Occ /LPF Urine Bacteria Mod /HPF EKG EKG Interpreted by me: Heart rate 78, sinus rhythm, leftward axis, normal intervals , no acute ST/T-wave abnormalities present[] Radiology/Procedures Radiology/Procedures Not performed[] Course & Med Decision Making Course & Med Decision Making Pertinent Labs and Imaging studies reviewed. (See chart for details) Lab work and EKG reviewed in the emergency department. Patient does not have any acute conditions including her from admission to the [facility] unit. Medically cleared from the emergency department. Dragon Disclaimer Dragon Disclaimer This electronic medical record was generated, in whole or in part, using a voice recognition dictation system. Departure Departure: Impression: Primary Impression: Medical clearance for psychiatric admission Disposition: ADMITTED INPATIENT Admitting Physician: Other Condition: STABLE Referrals: RENEA ANGELES (PCP) DEMETRIO CHIRINOS MD Nov 24, 2017 19:49
--- NOTE | 2017-11-24 19:56 | EKG ---
[address] [address] Test Date: 2017-11-24 Test Time: 19:48:52 Pat Name: BLAS HUGHES Department: Room: Gender: F Security Incident Response Specialist: : [id number] Requested By: DEMETRIO CHIRINOS Order Number: [id number] Reading MD: Arnol Greco MD Measurements Intervals [place] Rate: 78 P: 41 UT: 152 QRS: -17 QRSD: 68 T: 7 QT: 356 QTc: 409 Interpretive Statements SINUS RHYTHM Electronically Signed On 11-26-2017 13:44:48 CDT by Arnol Greco MD
[2017-11-24 20:06] LABS: BASO % 1 % (0-3); EOS # 0.2 x10^3/uL (0.0-0.7); EOS % 3 % (0-3); HEMATOCRIT 37.8 % (36.0-47.0); HEMOGLOBIN 12.7 g/dL (12.0-15.5); LYMPH # 2.2 x10^3/uL (1.0-4.8); LYMPH % 41 % (24-48); MEAN CORPUSCULAR HEMOGLOBIN 32 pg (25-35); MEAN CORPUSCULAR HGB CONC 34 g/dL (31-37); MEAN CORPUSCULAR VOLUME 95 fL (79-100); MONO # 0.5 x10^3/uL (0.0-1.1); MONO % 9 % (0-9); NEUT # 2.5 x10^3uL (1.8-7.7); NEUT % 47 % (31-73); PLATELET COUNT 270 x10^3/uL (140-400); RED BLOOD COUNT 3.97 x10^6/uL (3.50-5.40); RED CELL DISTRIBUTION WIDTH 15.2 % (11.5-14.5); WHITE BLOOD COUNT 5.4 x10^3/uL (4.0-11.0)
[2017-11-24 20:18] LABS: BILIRUBIN,URINE NEG (NEG); CLARITY,URINE CLEAR; COLOR,URINE YELLOW; GLUCOSE,URINE 500 mg/dL (NEG); NITRITE,URINE NEG (NEG); RBC,URINE 0 /HPF (0-2); UROBILINOGEN,URINE 0.2 mg/dL (0.2 mg/dL)
[2017-11-24 20:19] LABS: BACTERIA,URINE MOD /HPF (0-FEW); SQUAMOUS EPITHELIAL CELL,UR OCC /LPF
[2017-11-24 20:20] LABS: ALBUMIN 2.9 g/dL (3.4-5.0); ALBUMIN/GLOBULIN RATIO 0.7 (1.0-1.7); CREATININE 0.8 mg/dL (0.6-1.0); GFR 83.5; MAGNESIUM 1.7 mg/dL (1.8-2.4); POTASSIUM 3.8 mmol/L (3.5-5.1); TOTAL BILIRUBIN 0.2 mg/dL (0.2-1.0); TOTAL PROTEIN 7.3 g/dL (6.4-8.2)
[2017-11-24] MEDS ORDERED: ACETAMINOPHEN 325 MG TABLET PO PRN ×2 (22:30→23:15)
[2017-11-24] MEDS ORDERED: MAG HYDROX/AL HYDROX/SIMETH 30 ML ORAL.SUSP PO PRN (22:30)
[2017-11-24] MEDS ORDERED: METHYL SALICYLATE/MENTHOL TOPICAL OINTMENT 29GM TUBE. TP PRN (22:30)
[2017-11-24] MEDS ORDERED: MAGNESIUM HYDROXIDE 2,400 MG/30 ML ORAL.SUSP. PO PRN (22:30)
[2017-11-24] MEDS ORDERED: RISP1TAB43 PO (23:00)
[2017-11-24] MEDS ORDERED: DOCU50LI PO (23:00)
[2017-11-24] MEDS ORDERED: OXYB5TAB PO (23:00)
[2017-11-24] MEDS ORDERED: SERT25TA PO (23:00)
[2017-11-24] MEDS ORDERED: LORA0.5T PO (23:00)
[2017-11-24] MEDS ORDERED: NAPR220T70 PO (23:00)
[2017-11-24] MEDS ORDERED: FENT1PAT89 TD (23:00)
[2017-11-24] MEDS ORDERED: MINE120C TP (23:00)
[2017-11-24] MEDS ORDERED: GLIP5TAB10 PO (23:00)
[2017-11-24] MEDS ORDERED: ASPI-612 PO (23:00)
[2017-11-24] MEDS ORDERED: DOCUSATE 100 MG/10 ML SOLUTION. PO PRN (23:15)
[2017-11-24] MEDS ORDERED: DEXTROSE 50% 25 GM / 50ML DISP.SYRIN. IV PRN (23:15)
[2017-11-24] MEDS ORDERED: OXYBUTYNIN CHLORIDE 5 MG TABLET PO PRN (23:15)
[2017-11-24] MEDS ORDERED: FENTANYL TD SCH (23:15)
[2017-11-25 00:41] VITALS: BP 159/90
[2017-11-25] MEDS: LORazepam 0.5 MG TABLET PO PRN ×2 (06:10→16:28)
[2017-11-25 06:29] VITALS: BP 124/78
[2017-11-25] MEDS: SERTRALINE 25 MG TABLET. PO SCH (08:09)
[2017-11-25] MEDS: risperiDONE 1 MG TABLET. PO SCH ×2 (08:09→20:02)
[2017-11-25] MEDS: ASPIRIN ENTERIC COATED 81 MG TABLET.DR. PO SCH (08:09)
[2017-11-25] MEDS: glipiZIDE 5 MG TABLET PO SCH ×2 (08:09→16:27)
[2017-11-25] MEDS: LISINOPRIL 10 MG TABLET PO SCH (08:09)
[2017-11-25] MEDS: NAPROXEN 250 MG TABLET PO SCH ×2 (08:10→20:02)
[2017-11-25] MEDS: MINERAL OIL/PETROLATUM TOPICAL CREAM 113GM JAR. TP SCH ×2 (08:10→20:19)
[2017-11-25] MEDS: TIMOLOL 0.5% OPHTH SOLUTION 5ML BOTTLE. OU SCH (08:11)
[2017-11-25] MEDS: INSULIN LISPRO 300 UNITS/3 ML INSULN.PEN. SQ SCH ×3 (08:12→16:45)
[2017-11-25 13:04] LABS: THYROID STIM HORMONE (TSH) 1.494 uIU/mL (0.358-3.740)
[2017-11-25] MEDS ORDERED: CHOLECALCIFEROL (VITAMIN D3) 50,000 UNIT CAPSULE PO SCH (14:00)
[2017-11-25 16:00] VITALS: BP 150/79
[2017-11-25] MEDS: CHOLECALCIFEROL (VITAMIN D3) 50,000 UNIT CAPSULE PO SCH (16:27)
--- NOTE | 2017-11-25 16:31 | HP ---
ADMIT DATE: 11/24/2017 PSYCHIATRIC ADMISSION HISTORY/EVALUATION This note covers elements not covered in my initial note of 11/25/2017 IDENTIFYING DATA: The patient is an 82-year-old -[place] female, referred back to us from [facility] by Dr. Marlon Quijano, her primary care physician, Dr. Langley, her psychiatrist on account of yelling out "in order to upset/disturbed others." The other patients were getting agitated because of her yelling, cursing, kicking staff, screaming. She was reportedly yelling out to "pace people off." She has had significant sleep and appetite changes, appeared psychotic, unmanageable, referred for inpatient psychiatric stabilization. She was last here with us about 3 months back. CHIEF COMPLAINT: "I need help." I met with the patient in her room. She seemed to have had a bowel movement in bed and I did direct the nursing staff to assist her after I visited with her. HISTORY OF PRESENT ILLNESS: The patient has a history of dementia, Alzheimer's, vascular/depression. She has also had increasing psychotic symptoms, agitation as noted above and she does have a UTI, which could well contribute to this. Sleep and appetite have been significantly impaired. No active suicidal or homicidal ideation. Behaviors have been unmanageable at the facility. She does have a history of mood swings, but no clear history of bipolar disorder. PAST PSYCHIATRIC HISTORY: As above. MEDICAL HISTORY: Positive for UTI, hypertension, diabetes mellitus, repeated falls, glaucoma, irritable bowel syndrome without diarrhea, unspecified pain, low back pain, generalized muscle weakness, scoliosis, spondylosis, and acute vaginitis. ALLERGIES: HYDROCODONE. ACCU-CHEKS: Before meals and at bedtime DIET: Mechanical soft. Meds takes whole and drinks with straw. Ambulates up a Broda/Susan lift. CURRENT PSYCHOTROPICS: Aricept 10 mg a day, Ativan 0.5 q. 6 hours p.r.n. agitation. Risperdal 1 mg b.i.d. and Zoloft 25 mg a day. FAMILY HISTORY: Noncontributory. SOCIAL HISTORY: No alcohol, drug abuse, physical, sexual or elder abuse history is noted. Not known to be a perpetrator. REACTION TO HOSPITALIZATION: The patient accepting of it assets. Stable living at the above facility. MENTAL STATUS EXAMINATION: The patient was seen individually morning of 11/25/2017 in her room. She was able to tell me that she was admitted last night that she came from [facility]. She was yelling, cursing, wanting some help because she defecated in bed, some of which is understandable. Able to remember 1/3 objects at 3 minutes. Unable to do serial 7's. Appears somewhat paranoid, labile, psychotic. Intellect average. Insight limited, judgment marginal. LABORATORY DATA: Reviewed. IMPRESSION: History of major depressive disorder with psychotic features; major neurocognitive disorder, probably Alzheimer, vascular with delusion, depression, possible bipolar 1 disorder, mixed versus schizoaffective disorder, bipolar type with psychotic features; anxiety disorder, unspecified; impulse control disorder, unspecified; urinary tract infection. Rest as above. PLAN: Admit to Geropsychiatry Unit at [facility]. I will see the patient daily individually from a psychiatric standpoint, medical followup with Dr. Mcfarland/Dr. Michael, can defer management of UTI to medical management. We will continue the patient on her current psychotropics, observe baseline, then adjust as clinically indicated. Dr. Carrillo will assume care of the patient from 12 noon today until Tuesday morning 8 a.m. MAN Twila SOLER MD DR: GABRIELA/sowmya JOB#: [id number] / [id number]
[2017-11-25 19:13] LABS: THYROXINE 8.3 ug/dL (4.5-12.0)
[2017-11-25] MEDS: LATANOPROST 0.005% OPHTH SOLUTION 2.5ML BOTTLE. OU SCH (20:01)
[2017-11-25] MEDS: DONEPEZIL HCL 10 MG TABLET PO SCH (20:03)
[2017-11-25] MEDS: INSULIN GLARGINE 300 UNITS/3 ML INSULN.PEN. SQ SCH (20:17)
[2017-11-25 23:13] LABS: HEMOGLOBIN A1C 8.3 % (4.8-5.6)
--- NOTE | 2017-11-25 23:28 | PDOC ---
Exam Note: Jonas Note: Please also refer to the separate dictated note~for this date of service dictated separately.~Patient seen individually. Discussed the patient with Nursing staff reviewed the chart.~Reviewed interim history and current functioning. Reviewed vital signs,~Labs/ Radiology~and current medications noted below. Continue current treatment with the changes noted in the dictated addendum note Assessment: Vital Signs: Vital Signs Date Time Temp Pulse Resp B/P (MAP) Pulse Ox O2 Delivery O2 Flow Rate FiO2 11/25/17 16:00 98.0 78 16 150/79 (102) 96 Room Air I&O Intake and Output 11/25/17 07:00 # Bowel Movements 1 Labs: Laboratory Tests Test 11/25/17 08:07 11/25/17 11:57 11/25/17 16:26 11/25/17 20:14 Glucose (Fingerstick) 288 mg/dL (70-99) H 293 mg/dL (70-99) H 246 mg/dL (70-99) H 365 mg/dL (70-99) H Current Medications: Meds: Current Medications Acetaminophen (Tylenol) 650 mg PRN Q6HRS PRN PO PAIN / TEMP; Start 11/24/17 at 22:30 Multi-Ingredient Ointment (Analgesic [place]) 1 marjorie PRN QID PRN TP MUSCLE PAIN; Start 11/24/17 at 22:30 Al Hydroxide/Mg Hydroxide (Mylanta Plus Xs) 15 ml PRN AFTMEALHC PRN PO DYSPEPSIA; Start 11/24/17 at 22:30 Magnesium Hydroxide (Milk Of Magnesia) 2,400 mg PRN QHS PRN PO CONSTIPATION; Start 11/24/17 at 22:30 Donepezil HCl (Aricept) 10 mg HS PO Last administered on 11/25/17at 20:03; Start 11/25/17 at 21:00 Lorazepam (Ativan) 0.5 mg PRN Q6HRS PRN PO ANXIETY / AGITATION Last administered on 11/25/17at 16:28; Start 11/24/17 at 23:15 Risperidone (RisperDAL) 1 mg BID PO Last administered on 11/25/17at 20:02; Start 11/25/17 at 09:00 Sertraline HCl (Zoloft) 25 mg DAILY PO Last administered on 11/25/17at 08:09; Start 11/25/17 at 09:00 Acetaminophen (Tylenol) 650 mg PRN Q4HRS PRN PO mild pain ; Start 11/24/17 at 23:15 Docusate Sodium (Colace Solution) 100 mg PRN Q12HR PRN PO CONSTIPATION; Start 11/24/17 at 23:15 Lisinopril (Prinivil) 10 mg DAILY PO Last administered on 11/25/17at 08:09; Start 11/25/17 at 09:00 Multi-Ingred Cream/Lotion/Oil/ Oint (Hydrocerin) 1 marjorie BID TP Last administered on 11/25/17 20:19; Start 11/25/17 at 09:00 Aspirin (Aspirin Enteric Coated) 81 mg DAILY PO Last administered on 08:09; Start 11/25/17 at 09:00 Non-Formulary Medication (Fentanyl (DURAGESIC 12mcg/ hr)) 1 patch Q72H TD ; Start 11/24/17 at 23:15; Stop 11/25/17 at 02:23; Status DC Glipizide (Glucotrol) 5 mg BIDWMEALS PO Last administered on 11/25/17at 16:27; Start 11/25/17 at 08:00 Insulin Glargine (Lantus) 10 units QHS SQ Last administered on 11/25/17 20:17 ; Start 11/25/17 at 21:00 Latanoprost (Xalatan) 1 drop QHS OU Last administered on 11/25/17at 20:01; Start 11/25/17 at 21:00 Naproxen (Naprosyn) 250 mg BID PO Last administered on 11/25/17at 20:02; Start 11/25/17 at 09:00 Oxybutynin Chloride (Ditropan) 5 mg PRN Q12HR PRN PO Bladder Spasms; Start at 23:15 Timolol Maleate (Timoptic 0.5% [facility]) 1 drop DAILY OU Last administered on at 08:11; Start 11/25/17 at 09:00 Insulin Human Lispro (HumaLOG) 0-7 UNITS TIDWMEALS SQ Last administered on at 16:45; Start 11/25/17 at 08:00 Dextrose 12.5 gm PRN Q15MIN PRN IV SEE COMMENTS; Start 11/24/17 at 23:15 Fentanyl (Duragesic 12mcg/ Hr) 1 patch Q72H TD ; Start 11/26/17 at 17:00 Vitamin D (Vitamin D3) 50,000 unit WEEKLY PO ; Start 11/25/17 at 14:00; Stop 11/25/17 at 15:01; Status DC Vitamin D (Vitamin D3) 50,000 unit WEEKLY PO Last administered on 11/25/17at 16 :27; Start 11/25/17 at 17:00 Active Scripts Active Reported Zoloft (Sertraline Hcl) 25 Mg Tablet 25 Mg PO DAILY Risperdal (Risperidone) 1 Mg Tablet 1 Mg PO BID Oxybutynin Chloride Er (Oxybutynin Chloride) 5 Mg Tab.er.24 5 Mg PO PRN Q12HR PRN Eucerin Creme (Mineral Oil/Petrolatum,White) 120 Gm Cream..g. 1 Marjorie TP BID DURAGESIC 12mcg/hr (Fentanyl) 1 Each Patch.td72 1 Patch TD Q72H Docusate Sodium 50 Mg/5 Ml Liquid 10 Ml PO PRN Q12HR PRN Lorazepam 0.5 Mg Tablet 0.5 Mg PO PRN Q6HRS PRN Aleve (Naproxen Sodium) 220 Mg Tablet 220 Mg PO BID Glipizide 5 Mg Tablet 5 Mg PO BIDWMEALS Aspirin Ec (Aspirin) 81 Mg Tablet.dr 81 Mg PO DAILY Xalatan (Latanoprost) 2.5 Ml Drops 1 Drop EACHEYE QHS Tylenol (Acetaminophen) 325 Mg Tablet 650 Mg PO PRN Q4HRS PRN Timoptic (Timolol Maleate) 10 Ml Drops 1 Drop EACHEYE DAILY Novolog Flexpen (Insulin Aspart) 100 Unit/1 Ml Insuln.pen 0-14 Unit SQ TIDAC Lisinopril 10 Mg Tablet 10 Mg PO DAILY Levemir Flextouch (Insulin Detemir) 100 Unit/1 Ml Insuln.pen 10 Unit SQ HS Donepezil Hcl 10 Mg Tablet 10 Mg PO HS I have reviewed the current psychotropics carefully including drug interactions. Risk benefit ratio favors no change other than as noted in my dictated progress note. Diagnosis: Problems: (1) Dementia with behavioral disturbance (2) Anxiety disorder (3) Dementia, vascular, with delusions (4) Dementia, vascular, with depression (5) Impulse control disorder (6) Urinary tract infection MELISSA SOLER MD Nov 25, 2017 23:28
--- NOTE | 2017-11-26 04:31 | CONS ---
DATE OF CONSULTATION: 11/24/2017 REASON FOR CONSULTATION: Medical management. HISTORY OF PRESENT ILLNESS: The patient is an 82-year-old -Irish female patient, a resident at [facility], who was admitted on account of being agitated, yelling out, and disturbing others. She becomes very agitated with the staff and other residents, cursing staff, screams at the top of her lungs, all this in a background of Alzheimer dementia. She was actually discharged from this facility and recently for similar complaint. When I saw her this afternoon, she actually was in her reclining wheelchair, awake, and alert. On questioning her, denied any complaint. Nursing staff stated that she has been very quiet today and did not display any of this behavior so far. PAST MEDICAL HISTORY: Significant for hypertension, type 2 diabetes, degenerative disk disease, osteoporosis, irritable bowel syndrome, glaucoma and right middle cerebral artery territory infarct with left-sided hemiplegia with fixed flexion contraction of her left upper and left lower extremity. PAST SURGICAL HISTORY: Unremarkable. PSYCHIATRIC HISTORY: She is known to have history of schizophrenia. She has also history of short term memory deficit and worsening psychosis and agitation. DIET: She is on a regular diet. ALLERGIES: She is allergic to HYDROCODONE. MEDICATIONS: She is currently on the following medications: She is on Aricept 10 mg at bedtime, lisinopril 10 mg once a day, aspirin 81 mg once a day, Aleve 220 mg twice a day, fentanyl patch 12 mcg per hour topically every 72 hours, Tylenol 650 mg every 4 hours, sertraline 25 mg daily, risperidone 1 mg twice a day, lorazepam 0.5 mg every 6 hours, timolol maleate (Timoptic) 1 drop to both eyes daily, prostaglandin ____ latanoprost (Xalatan) 1 drop to both eyes at bedtime. She is on Colace 50 mg per 5 mL, she takes 100 mg twice a day, NovoLog insulin as per sliding scale before meals and detemir insulin 10 units at bedtime. She is on glipizide 5 mg twice a day, Eucerin cream applied topically twice a day, oxybutynin chloride extended release 5 mg every 12 hours. FAMILY HISTORY: Unremarkable. SOCIAL HISTORY: She is a resident at [facility]. She apparently does not smoke, drink alcohol or use any recreational drugs. REVIEW OF SYSTEMS: As per history of present illness. PHYSICAL EXAMINATION GENERAL: When I saw her today, she looked well and was clearly in no apparent respiratory distress, slightly pale, but no jaundice, cyanosis, or thyromegaly. No jugular venous distention. No limb edema. VITAL SIGNS: Her heart rate was 89, blood pressure was 124/78, temperature was 97.7, respiratory rate was 16, and oxygen saturation was 95% on room air. HEAD, EYES, EARS, NOSE, AND THROAT: Normocephalic, atraumatic. NECK: Supple. HEART: Showed normal first and second heart sounds. No gallop, rub or murmur. CHEST: Clear to auscultation. No crepitation or rhonchi. ABDOMEN: Slightly distended, soft, and nontender. No guarding or rigidity. No organomegaly. All hernial orifice intact. Bowel sounds normal. NEUROLOGIC: She is awake, alert, responding appropriately. All her cranial nerves intact. She has left-sided hemiplegia with fixed flexion contraction of his left upper and left lower extremity. LABORATORY DATA: Showed a white cell count 5400, hemoglobin 12.7, hematocrit of 7.8, MCV 95, and platelet count 270,000. Her serum sodium was 140, potassium 3.8, chloride 106, bicarbonate 27, anion gap of 7, BUN 10, creatinine 0.8, estimated GFR was 84 mL per minute. Her glucose was 242, calcium was 9, magnesium was 1.7. Total bilirubin, AST, ALT, alkaline phosphatase were normal. Total protein was 7.3, albumin 2.9. Her serum triglycerides were 171, total cholesterol 123, LDL was 38, VLDL was 34, and HDL cholesterol was 51. The ratio was 2. Her vitamin B12 was 364 pg/mL, which is well within normal range; however, her 25-hydroxy vitamin D3 was only 25.9. She is below the lower limit of normal. Her TSH was 1.494. Her serum iron was 85, TIBC was 326, and iron saturation was 26. Urinalysis showed the urine was yellow, clear with a pH of 5.5, specific gravity 1.020. The urine was negative for glucose, protein, large amount of glucose, negative for protein, blood, nitrite, bilirubin, and trace amount of leukocyte esterase. There were 0 rbc's, 1-4 wbc's, and moderate amount of bacteria. Her treponema pallidum antibodies were nonreactive. IMPRESSION: In summary, this is an 82-year-old -Irish female patient, a resident at [facility], who what was yet again admitted on account of agitation, yelling, screaming to top of her lung, trying to disturb other residents and cursing the staff, all this in a background of Alzheimer dementia. She has multiple medical problems including hypertension, type 2 diabetes, peripheral vascular disease, glaucoma. All in all, the patient's vital signs are stable. All her lab works are within normal range except her ergocalciferol. PLAN: My plan is to replenish his vitamin D, and obviously follow all her other labs that are still pending and make any necessary recommendation. Thank you, Dr. Jarrell for allowing me to participate in the care of this patient. KATHY GUZMAN MD DR: MOISÉS/sowmya JOB#: [id number] / [id number]
[2017-11-26] MEDS: LORazepam 0.5 MG TABLET PO PRN ×2 (05:37→20:41)
[2017-11-26 06:45] VITALS: BP 118/70
[2017-11-26] MEDS: risperiDONE 1 MG TABLET. PO SCH ×2 (08:00→20:39)
[2017-11-26] MEDS: ASPIRIN ENTERIC COATED 81 MG TABLET.DR. PO SCH (08:00)
[2017-11-26] MEDS: LISINOPRIL 10 MG TABLET PO SCH (08:01)
[2017-11-26] MEDS: SERTRALINE 25 MG TABLET. PO SCH (08:01)
[2017-11-26] MEDS: glipiZIDE 5 MG TABLET PO SCH ×2 (08:01→17:23)
[2017-11-26] MEDS: NAPROXEN 250 MG TABLET PO SCH ×2 (08:01→20:40)
[2017-11-26] MEDS: MINERAL OIL/PETROLATUM TOPICAL CREAM 113GM JAR. TP SCH ×2 (08:04→20:40)
[2017-11-26] MEDS: TIMOLOL 0.5% OPHTH SOLUTION 5ML BOTTLE. OU SCH (08:04)
[2017-11-26] MEDS: INSULIN LISPRO 300 UNITS/3 ML INSULN.PEN. SQ SCH ×4 (08:06→17:25)
[2017-11-26] MEDS ORDERED: 0.9 % SODIUM CHLORIDE 10 ML DISP.SYRIN. IV PRN (13:15)
[2017-11-26 16:08] VITALS: BP 120/75
[2017-11-26] MEDS: fentaNYL 12MCG/HR 1 PATCH PATCH TD SCH (17:24)
[2017-11-26] MEDS: 0.9 % SODIUM CHLORIDE 10 ML DISP.SYRIN. IV SCH (20:39)
[2017-11-26] MEDS: DONEPEZIL HCL 10 MG TABLET PO SCH (20:39)
[2017-11-26] MEDS: LATANOPROST 0.005% OPHTH SOLUTION 2.5ML BOTTLE. OU SCH (20:40)
[2017-11-26] MEDS: INSULIN GLARGINE 300 UNITS/3 ML INSULN.PEN. SQ SCH (20:46)
--- NOTE | 2017-11-27 03:24 | PN ---
DATE: 11/26/2017 SUBJECTIVE: The patient was seen today, met with the staff, chart reviewed. The patient stays in bed most of the time. She also has cervical dystonia. Staff reports no major behavior problems. The patient was admitted here because of increased agitation, cursing, kicking staff, screaming, that behavior was unmanageable. The patient apparently was here as an inpatient approximately 3 months ago. OBSERVATION: VITAL SIGNS: Temperature 97.8, blood pressure 118/70, pulse 84, respirations 22, O2 sat 95%. The patient slept about 6-1/2 hours last night. Her appetite has been fairly good. The patient is not having any side effects. CURRENT MEDICATIONS: Include Aricept, Ativan, Risperdal and Zoloft. LABORATORY DATA: The patient's lab reviewed. ASSESSMENT: Major depressive disorder with psychotic features, also major neurocognitive disorder, probably Alzheimer's with delusions. The patient is not having any major medical issues at this time. PLAN: The patient will continue with the treatment. TEZ MCINTYRE MD DR: KANDICE/sowmya JOB#: [id number] / [id number]
[2017-11-27 06:31] VITALS: BP 99/65
[2017-11-27] MEDS: glipiZIDE 5 MG TABLET PO SCH ×2 (08:19→17:32)
[2017-11-27] MEDS: 0.9 % SODIUM CHLORIDE 10 ML DISP.SYRIN. IV SCH ×2 (08:21→21:00)
[2017-11-27] MEDS: TIMOLOL 0.5% OPHTH SOLUTION 5ML BOTTLE. OU SCH (08:22)
[2017-11-27] MEDS: ASPIRIN ENTERIC COATED 81 MG TABLET.DR. PO SCH (08:22)
[2017-11-27] MEDS: NAPROXEN 250 MG TABLET PO SCH ×2 (08:22→20:05)
[2017-11-27] MEDS: risperiDONE 1 MG TABLET. PO SCH ×2 (08:22→20:05)
[2017-11-27] MEDS: SERTRALINE 25 MG TABLET. PO SCH (08:23)
[2017-11-27] MEDS: MINERAL OIL/PETROLATUM TOPICAL CREAM 113GM JAR. TP SCH ×2 (08:23→20:08)
[2017-11-27] MEDS: INSULIN LISPRO 300 UNITS/3 ML INSULN.PEN. SQ SCH ×3 (08:42→17:36)
[2017-11-27] MEDS: LISINOPRIL 10 MG TABLET PO SCH (09:00)
[2017-11-27] MEDS: LORazepam 0.5 MG TABLET PO PRN (10:05)
[2017-11-27 16:48] VITALS: BP 154/79
[2017-11-27] MEDS: DONEPEZIL HCL 10 MG TABLET PO SCH (20:05)
[2017-11-27] MEDS: INSULIN GLARGINE 300 UNITS/3 ML INSULN.PEN. SQ SCH (20:07)
[2017-11-27] MEDS: LATANOPROST 0.005% OPHTH SOLUTION 2.5ML BOTTLE. OU SCH (20:08)
[2017-11-28 06:29] VITALS: BP 94/63
[2017-11-28] MEDS: glipiZIDE 5 MG TABLET PO SCH ×2 (08:12→17:37)
[2017-11-28] MEDS: INSULIN LISPRO 300 UNITS/3 ML INSULN.PEN. SQ SCH ×3 (08:13→17:14)
[2017-11-28] MEDS: 0.9 % SODIUM CHLORIDE 10 ML DISP.SYRIN. IV SCH ×2 (08:14→19:49)
[2017-11-28] MEDS: TIMOLOL 0.5% OPHTH SOLUTION 5ML BOTTLE. OU SCH ×2 (08:16→19:45)
[2017-11-28] MEDS: NAPROXEN 250 MG TABLET PO SCH ×2 (08:16→19:44)
[2017-11-28] MEDS: ASPIRIN ENTERIC COATED 81 MG TABLET.DR. PO SCH (08:16)
[2017-11-28] MEDS: risperiDONE 1 MG TABLET. PO SCH ×2 (08:17→19:44)
[2017-11-28] MEDS: SERTRALINE 25 MG TABLET. PO SCH (08:17)
[2017-11-28] MEDS: MINERAL OIL/PETROLATUM TOPICAL CREAM 113GM JAR. TP SCH ×2 (08:17→19:45)
[2017-11-28] MEDS: LISINOPRIL 10 MG TABLET PO SCH (09:00)
[2017-11-28 16:36] VITALS: BP 117/74
[2017-11-28] MEDS: DONEPEZIL HCL 10 MG TABLET PO SCH (19:44)
[2017-11-28] MEDS: INSULIN GLARGINE 300 UNITS/3 ML INSULN.PEN. SQ SCH (19:47)
[2017-11-28] MEDS: LATANOPROST 0.005% OPHTH SOLUTION 2.5ML BOTTLE. OU SCH (19:50)
[2017-11-29 05:47] VITALS: BP 105/62
[2017-11-29 07:54] LABS: ALBUMIN 3.1 g/dL (3.4-5.0); ALBUMIN/GLOBULIN RATIO 0.7 (1.0-1.7); CALCIUM 8.8 mg/dL (8.5-10.1); CREATININE 0.7 mg/dL (0.6-1.0); GFR 97.4; POTASSIUM 4.1 mmol/L (3.5-5.1); TOTAL BILIRUBIN 0.5 mg/dL (0.2-1.0); TOTAL PROTEIN 7.6 g/dL (6.4-8.2)
[2017-11-29] MEDS: MINERAL OIL/PETROLATUM TOPICAL CREAM 113GM JAR. TP SCH ×2 (09:00→19:41)
[2017-11-29] MEDS: LISINOPRIL 10 MG TABLET PO SCH ×2 (09:00→09:33)
[2017-11-29] MEDS: glipiZIDE 5 MG TABLET PO SCH ×2 (09:26→16:55)
[2017-11-29] MEDS: INSULIN LISPRO 300 UNITS/3 ML INSULN.PEN. SQ SCH ×3 (09:29→16:56)
[2017-11-29] MEDS: ASPIRIN ENTERIC COATED 81 MG TABLET.DR. PO SCH (09:31)
[2017-11-29] MEDS: TIMOLOL 0.5% OPHTH SOLUTION 5ML BOTTLE. OU SCH (09:31)
[2017-11-29] MEDS: NAPROXEN 250 MG TABLET PO SCH ×2 (09:32→19:38)
[2017-11-29] MEDS: risperiDONE 1 MG TABLET. PO SCH ×2 (09:34→19:38)
[2017-11-29] MEDS: SERTRALINE 25 MG TABLET. PO SCH (09:34)
[2017-11-29] MEDS: DIVALPROEX 125 MG CAP.SPRINK PO SCH ×2 (09:36→16:55)
[2017-11-29] MEDS: 0.9 % SODIUM CHLORIDE 10 ML DISP.SYRIN. IV SCH ×2 (09:38→19:38)
--- NOTE | 2017-11-29 10:49 | PDOC ---
Exam Note: Jonas Note: Please also refer to the separate dictated note~for this date of service dictated separately.~Patient seen individually. Discussed the patient with Nursing staff reviewed the chart.~Reviewed interim history and current functioning. Reviewed vital signs,~Labs/ Radiology~and current medications noted below. Continue current treatment with the changes noted in the dictated addendum note. This is a late entry for 11/28/17 Assessment: Vital Signs: VS - Last 72 Hours, by Label Date Time Temp Pulse Resp B/P (MAP) Pulse Ox O2 Delivery O2 Flow Rate FiO2 11/29/17 09:00 90 105/62 11/29/17 05:47 98.3 90 20 105/62 (76) 96 11/28/17 16:36 98.2 82 16 117/74 (88) 98 Room Air 11/28/17 06:29 98.4 85 18 94/63 (73) 95 Room Air 11/27/17 16:48 98.6 88 16 154/79 (104) 96 11/27/17 06:31 98.3 82 16 99/65 (76) 94 Room Air 11/26/17 21:24 94 11/26/17 17:24 18 94 Room Air 11/26/17 16:08 98.8 95 17 120/75 (90) 94 Room Air Vital Signs Date Time Temp Pulse Resp B/P (MAP) Pulse Ox O2 Delivery O2 Flow Rate FiO2 11/29/17 09:00 90 105/62 11/29/17 05:47 98.3 20 96 11/28/17 16:36 Room Air I&O Intake and Output 11/29/17 07:00 Intake Total 560 ml Balance 560 ml Intake Oral 560 ml Labs: Laboratory Tests Test 11/28/17 11:46 11/28/17 16:51 11/28/17 19:37 11/29/17 07:35 Glucose (Fingerstick) 231 mg/dL (70-99) H 284 mg/dL (70-99) H 204 mg/dL (70-99) H Sodium Level 136 mmol/L (136-145) Potassium Level 4.1 mmol/L (3.5-5.1) Chloride Level 103 mmol/L (98-107) Carbon Dioxide Level 27 mmol/L (21-32) Anion Gap 6 (6-14) Blood Urea Nitrogen 14 mg/dL (7-20) Creatinine 0.7 mg/dL (0.6-1.0) Estimated GFR (Cockcroft-Gault) 97.4 BUN/Creatinine Ratio 20 (6-20) Glucose Level 225 mg/dL (70-99) H Calcium Level 8.8 mg/dL (8.5-10.1) Total Bilirubin 0.5 mg/dL (0.2-1.0) Aspartate Amino Transferase (AST) 30 U/L (15-37) Alanine Aminotransferase (ALT) 29 U/L (14-59) Alkaline Phosphatase 62 U/L (46-116) Total Protein 7.6 g/dL (6.4-8.2) Albumin 3.1 g/dL (3.4-5.0) L Albumin/Globulin Ratio 0.7 (1.0-1.7) L Current Medications: Meds: Current Medications Acetaminophen (Tylenol) 650 mg PRN Q6HRS PRN PO PAIN / TEMP Last administered on 11/26/17at 05:37; Start 11/24/17 at 22:30; Stop 11/26/17 at 12:41; Status DC Multi-Ingredient Ointment (Analgesic [place]) 1 marjorie PRN QID PRN TP MUSCLE PAIN Last administered on 11/26/17at 10:30; Start 11/24/17 at 22:30 Al Hydroxide/Mg Hydroxide (Mylanta Plus Xs) 15 ml PRN AFTMEALHC PRN PO DYSPEPSIA; Start 11/24/17 at 22:30 Magnesium Hydroxide (Milk Of Magnesia) 2,400 mg PRN QHS PRN PO CONSTIPATION; Start 11/24/17 at 22:30 Donepezil HCl (Aricept) 10 mg HS PO Last administered on 11/28/17at 19:44; Start 11/25/17 at 21:00 Lorazepam (Ativan) 0.5 mg PRN Q6HRS PRN PO ANXIETY / AGITATION Last administered on 11/27/17at 10:05; Start 11/24/17 at 23:15 Risperidone (RisperDAL) 1 mg BID PO Last administered on 11/29/17at 09:34; Start 11/25/17 at 09:00 Sertraline HCl (Zoloft) 25 mg DAILY PO Last administered on 11/29/17at 09:34; Start 11/25/17 at 09:00 Acetaminophen (Tylenol) 650 mg PRN Q4HRS PRN PO mild pain ; Start 11/24/17 at 23:15 Docusate Sodium (Colace Solution) 100 mg PRN Q12HR PRN PO CONSTIPATION; Start 11/24/17 at 23:15 Lisinopril (Prinivil) 10 mg DAILY PO Last administered on 11/29/17 09:00; Start 11/25/17 at 09:00 Multi-Ingred Cream/Lotion/Oil/ Oint (Hydrocerin) 1 marjorie BID TP Last administered on 11/29/17 09:00; Start 11/25/17 at 09:00 Aspirin (Aspirin Enteric Coated) 81 mg DAILY PO Last administered on 09:31; Start 11/25/17 at 09:00 Non-Formulary Medication (Fentanyl (DURAGESIC 12mcg/ hr)) 1 patch Q72H TD ; Start 11/24/17 at 23:15; Stop 11/25/17 at 02:23; Status DC Glipizide (Glucotrol) 5 mg BIDWMEALS PO Last administered on 11/29/17 09:26; Start 11/25/17 at 08:00 Insulin Glargine (Lantus) 10 units QHS SQ Last administered on 11/28/17 19:47 ; Start 11/25/17 at 21:00 Latanoprost (Xalatan) 1 drop QHS OU Last administered on 11/27/17 20:08; Start 11/25/17 at 21:00 Naproxen (Naprosyn) 250 mg BID PO Last administered on 11/29/17 09:32; Start 11/25/17 at 09:00 Oxybutynin Chloride (Ditropan) 5 mg PRN Q12HR PRN PO Bladder Spasms; Start at 23:15 Timolol Maleate (Timoptic 0.5% [facility]) 1 drop DAILY OU Last administered on 09:31; Start 11/25/17 at 09:00 Insulin Human Lispro (HumaLOG) 0-7 UNITS TIDWMEALS SQ Last administered on 09:29; Start 11/25/17 at 08:00 Dextrose 12.5 gm PRN Q15MIN PRN IV SEE COMMENTS; Start 11/24/17 at 23:15 Fentanyl (Duragesic 12mcg/ Hr) 1 patch Q72H TD Last administered on 11/26/17at 17:24; Start 11/26/17 at 17:00 Vitamin D (Vitamin D3) 50,000 unit WEEKLY PO ; Start 11/25/17 at 14:00; Stop 11/25/17 at 15:01; Status DC Vitamin D (Vitamin D3) 50,000 unit WEEKLY PO Last administered on 11/25/17at 16 :27; Start 11/25/17 at 17:00 Sodium Chloride (Normal Saline Flush) 10 ml PRN DAILY PRN IV SEE COMMENTS; Start 11/26/17 at 13:15 Sodium Chloride (Normal Saline Flush) 10 ml BID IV Last administered on at 09:38; Start 11/26/17 at 21:00 Divalproex Sodium (Depakote Sprinkles) 250 mg BIDWMEALS PO Last administered on 11/29/17at 09:36; Start 11/29/17 at 08:00 Active Scripts Active Reported Zoloft (Sertraline Hcl) 25 Mg Tablet 25 Mg PO DAILY Risperdal (Risperidone) 1 Mg Tablet 1 Mg PO BID Oxybutynin Chloride Er (Oxybutynin Chloride) 5 Mg Tab.er.24 5 Mg PO PRN Q12HR PRN Eucerin Creme (Mineral Oil/Petrolatum,White) 120 Gm Cream..g. 1 Marjorie TP BID DURAGESIC 12mcg/hr (Fentanyl) 1 Each Patch.td72 1 Patch TD Q72H Docusate Sodium 50 Mg/5 Ml Liquid 10 Ml PO PRN Q12HR PRN Lorazepam 0.5 Mg Tablet 0.5 Mg PO PRN Q6HRS PRN Aleve (Naproxen Sodium) 220 Mg Tablet 220 Mg PO BID Glipizide 5 Mg Tablet 5 Mg PO BIDWMEALS Aspirin Ec (Aspirin) 81 Mg Tablet.dr 81 Mg PO DAILY Xalatan (Latanoprost) 2.5 Ml Drops 1 Drop EACHEYE QHS Tylenol (Acetaminophen) 325 Mg Tablet 650 Mg PO PRN Q4HRS PRN Timoptic (Timolol Maleate) 10 Ml Drops 1 Drop EACHEYE DAILY Novolog Flexpen (Insulin Aspart) 100 Unit/1 Ml Insuln.pen 0-14 Unit SQ TIDAC Lisinopril 10 Mg Tablet 10 Mg PO DAILY Levemir Flextouch (Insulin Detemir) 100 Unit/1 Ml Insuln.pen 10 Unit SQ HS Donepezil Hcl 10 Mg Tablet 10 Mg PO HS I have reviewed the current psychotropics carefully including drug interactions. Risk benefit ratio favors no change other than as noted in my dictated progress note. Diagnosis: Problems: (1) Urinary tract infection (2) Impulse control disorder (3) Dementia, vascular, with depression (4) Dementia, vascular, with delusions (5) Anxiety disorder (6) Dementia with behavioral disturbance MELISSA SOLER MD Nov 29, 2017 10:49
[2017-11-29 16:14] VITALS: BP 116/74
[2017-11-29] MEDS: fentaNYL 12MCG/HR 1 PATCH PATCH TD SCH (16:57)
[2017-11-29] MEDS: DONEPEZIL HCL 10 MG TABLET PO SCH (19:38)
[2017-11-29] MEDS: LATANOPROST 0.005% OPHTH SOLUTION 2.5ML BOTTLE. OU SCH (19:39)
[2017-11-29] MEDS: CEFPODOXIME PROXETIL 100 MG TABLET PO SCH (19:39)
[2017-11-29] MEDS: INSULIN GLARGINE 300 UNITS/3 ML INSULN.PEN. SQ SCH (19:41)
[2017-11-30 06:12] VITALS: BP 90/66
[2017-11-30] MEDS: NAPROXEN 250 MG TABLET PO SCH ×2 (08:53→19:40)
[2017-11-30] MEDS: ASPIRIN ENTERIC COATED 81 MG TABLET.DR. PO SCH (08:53)
[2017-11-30] MEDS: SERTRALINE 25 MG TABLET. PO SCH (08:53)
[2017-11-30] MEDS: LISINOPRIL 10 MG TABLET PO SCH (08:54)
[2017-11-30] MEDS: glipiZIDE 5 MG TABLET PO SCH ×3 (08:54→18:24)
[2017-11-30] MEDS: risperiDONE 1 MG TABLET. PO SCH ×2 (08:55→19:40)
[2017-11-30] MEDS: CEFPODOXIME PROXETIL 100 MG TABLET PO SCH ×2 (08:55→19:40)
[2017-11-30] MEDS: DIVALPROEX 125 MG CAP.SPRINK PO SCH ×3 (08:56→18:24)
[2017-11-30] MEDS: INSULIN LISPRO 300 UNITS/3 ML INSULN.PEN. SQ SCH ×4 (08:57→18:25)
[2017-11-30] MEDS: MINERAL OIL/PETROLATUM TOPICAL CREAM 113GM JAR. TP SCH ×2 (08:58→19:46)
[2017-11-30] MEDS: 0.9 % SODIUM CHLORIDE 10 ML DISP.SYRIN. IV SCH ×2 (08:58→19:42)
[2017-11-30] MEDS: TIMOLOL 0.5% OPHTH SOLUTION 5ML BOTTLE. OU SCH (08:58)
[2017-11-30 16:15] VITALS: BP 155/81
[2017-11-30] MEDS: DONEPEZIL HCL 10 MG TABLET PO SCH (19:40)
[2017-11-30] MEDS: LATANOPROST 0.005% OPHTH SOLUTION 2.5ML BOTTLE. OU SCH (19:42)
[2017-11-30] MEDS: INSULIN GLARGINE 300 UNITS/3 ML INSULN.PEN. SQ SCH (19:45)
[2017-11-30] MEDS: LACTOBACILLUS RHAMNOSUS GG 1 CAPSULE. PO SCH (19:45)
--- NOTE | 2017-11-30 21:28 | PDOC ---
Exam Note: Jonas Note: Late entry for DOS 11/29/2017. Please also refer to the separate dictated note~ for this date of service dictated separately.~Patient seen individually. Discussed the patient with Nursing staff reviewed the chart.~Reviewed interim history and current functioning. Reviewed vital signs,~Labs/ Radiology~and current medications noted below. Continue current treatment with the changes noted in the dictated addendum note Assessment: Vital Signs: VS - Last 72 Hours, by Label Date Time Temp Pulse Resp B/P (MAP) Pulse Ox O2 Delivery O2 Flow Rate FiO2 11/30/17 16:15 98.5 112 20 155/81 (105) 97 11/30/17 08:54 82 90/66 11/30/17 06:12 97.6 82 16 90/66 (74) 98 11/29/17 20:57 20 98 11/29/17 16:57 16 Room Air 11/29/17 16:14 98.0 110 20 116/74 (88) 98 Room Air 11/29/17 09:00 90 105/62 11/29/17 05:47 98.3 90 20 105/62 (76) 96 11/28/17 16:36 98.2 82 16 117/74 (88) 98 Room Air 11/28/17 06:29 98.4 85 18 94/63 (73) 95 Room Air Vital Signs Date Time Temp Pulse Resp B/P (MAP) Pulse Ox O2 Delivery O2 Flow Rate FiO2 11/30/17 16:15 98.5 112 20 155/81 (105) 97 11/29/17 16:57 Room Air I&O Intake and Output 11/30/17 07:00 Intake Total 480 ml Balance 480 ml Intake Oral 480 ml Labs: Laboratory Tests Test 11/30/17 07:45 11/30/17 12:06 11/30/17 16:50 11/30/17 19:39 Glucose (Fingerstick) 197 mg/dL (70-99) H 303 mg/dL (70-99) H 292 mg/dL (70-99) H 230 mg/dL (70-99) H Current Medications: Meds: Current Medications Acetaminophen (Tylenol) 650 mg PRN Q6HRS PRN PO PAIN / TEMP Last administered on 11/26/17at 05:37; Start 11/24/17 at 22:30; Stop 11/26/17 at 12:41; Status DC Multi-Ingredient Ointment (Analgesic [place]) 1 marjorie PRN QID PRN TP MUSCLE PAIN Last administered on 11/26/17at 10:30; Start 11/24/17 at 22:30 Al Hydroxide/Mg Hydroxide (Mylanta Plus Xs) 15 ml PRN AFTMEALHC PRN PO DYSPEPSIA; Start 11/24/17 at 22:30 Magnesium Hydroxide (Milk Of Magnesia) 2,400 mg PRN QHS PRN PO CONSTIPATION; Start 11/24/17 at 22:30 Donepezil HCl (Aricept) 10 mg HS PO Last administered on 11/30/17 19:40; Start 11/25/17 at 21:00 Lorazepam (Ativan) 0.5 mg PRN Q6HRS PRN PO ANXIETY / AGITATION Last administered on 11/27/17at 10:05; Start 11/24/17 at 23:15 Risperidone (RisperDAL) 1 mg BID PO Last administered on 11/30/17 19:40; Start 11/25/17 at 09:00 Sertraline HCl (Zoloft) 25 mg DAILY PO Last administered on 11/30/17 08:53; Start 11/25/17 at 09:00; Stop 11/30/17 at 16:56; Status DC Acetaminophen (Tylenol) 650 mg PRN Q4HRS PRN PO mild pain ; Start 11/24/17 at 23:15 Docusate Sodium (Colace Solution) 100 mg PRN Q12HR PRN PO CONSTIPATION; Start 11/24/17 at 23:15 Lisinopril (Prinivil) 10 mg DAILY PO Last administered on 11/29/17at 09:00; Start 11/25/17 at 09:00 Multi-Ingred Cream/Lotion/Oil/ Oint (Hydrocerin) 1 marjorie BID TP Last administered on 11/30/17 19:46; Start 11/25/17 at 09:00 Aspirin (Aspirin Enteric Coated) 81 mg DAILY PO Last administered on 08:53; Start 11/25/17 at 09:00 Non-Formulary Medication (Fentanyl (DURAGESIC 12mcg/ hr)) 1 patch Q72H TD ; Start 11/24/17 at 23:15; Stop 11/25/17 at 02:23; Status DC Glipizide (Glucotrol) 5 mg BIDWMEALS PO Last administered on 11/30/17at 08:54; Start 11/25/17 at 08:00 Insulin Glargine (Lantus) 10 units QHS SQ Last administered on 11/30/17at 19:45 ; Start 11/25/17 at 21:00 Latanoprost (Xalatan) 1 drop QHS OU Last administered on 11/30/17at 19:42; Start 11/25/17 at 21:00 Naproxen (Naprosyn) 250 mg BID PO Last administered on 11/30/17 19:40; Start 11/25/17 at 09:00 Oxybutynin Chloride (Ditropan) 5 mg PRN Q12HR PRN PO Bladder Spasms; Start at 23:15 Timolol Maleate (Timoptic 0.5% [facility]) 1 drop DAILY OU Last administered on at 08:58; Start 11/25/17 at 09:00 Insulin Human Lispro (HumaLOG) 0-7 UNITS TIDWMEALS SQ Last administered on at 12:48; Start 11/25/17 at 08:00 Dextrose 12.5 gm PRN Q15MIN PRN IV SEE COMMENTS; Start 11/24/17 at 23:15 Fentanyl (Duragesic 12mcg/ Hr) 1 patch Q72H TD Last administered on 11/29/17at 16:57; Start 11/26/17 at 17:00 Vitamin D (Vitamin D3) 50,000 unit WEEKLY PO ; Start 11/25/17 at 14:00; Stop 11/25/17 at 15:01; Status DC Vitamin D (Vitamin D3) 50,000 unit WEEKLY PO Last administered on 11/25/17at 16 :27; Start 11/25/17 at 17:00 Sodium Chloride (Normal Saline Flush) 10 ml PRN DAILY PRN IV SEE COMMENTS; Start 11/26/17 at 13:15 Sodium Chloride (Normal Saline Flush) 10 ml BID IV Last administered on at 19:42; Start 11/26/17 at 21:00 Divalproex Sodium (Depakote Sprinkles) 250 mg BIDWMEALS PO Last administered on 11/30/17at 08:56; Start 11/29/17 at 08:00 Cefpodoxime Proxetil (Vantin) 100 mg BID PO Last administered on 11/30/17at 19: 40; Start 11/29/17 at 21:00; Stop 12/09/17 at 20:59 Lactobacillus Rhamnosus (Culturelle) 1 cap BID PO Last administered on at 19:45; Start 11/30/17 at 21:00 Sertraline HCl (Zoloft) 50 mg DAILY PO ; Start 12/01/17 at 09:00 Active Scripts Active Reported Zoloft (Sertraline Hcl) 25 Mg Tablet 25 Mg PO DAILY Risperdal (Risperidone) 1 Mg Tablet 1 Mg PO BID Oxybutynin Chloride Er (Oxybutynin Chloride) 5 Mg Tab.er.24 5 Mg PO PRN Q12HR PRN Eucerin Creme (Mineral Oil/Petrolatum,White) 120 Gm Cream..g. 1 Marjorie TP BID DURAGESIC 12mcg/hr (Fentanyl) 1 Each Patch.td72 1 Patch TD Q72H Docusate Sodium 50 Mg/5 Ml Liquid 10 Ml PO PRN Q12HR PRN Lorazepam 0.5 Mg Tablet 0.5 Mg PO PRN Q6HRS PRN Aleve (Naproxen Sodium) 220 Mg Tablet 220 Mg PO BID Glipizide 5 Mg Tablet 5 Mg PO BIDWMEALS Aspirin Ec (Aspirin) 81 Mg Tablet.dr 81 Mg PO DAILY Xalatan (Latanoprost) 2.5 Ml Drops 1 Drop EACHEYE QHS Tylenol (Acetaminophen) 325 Mg Tablet 650 Mg PO PRN Q4HRS PRN Timoptic (Timolol Maleate) 10 Ml Drops 1 Drop EACHEYE DAILY Novolog Flexpen (Insulin Aspart) 100 Unit/1 Ml Insuln.pen 0-14 Unit SQ TIDAC Lisinopril 10 Mg Tablet 10 Mg PO DAILY Levemir Flextouch (Insulin Detemir) 100 Unit/1 Ml Insuln.pen 10 Unit SQ HS Donepezil Hcl 10 Mg Tablet 10 Mg PO HS I have reviewed the current psychotropics carefully including drug interactions. Risk benefit ratio favors no change other than as noted in my dictated progress note. Diagnosis: Problems: (1) Dementia with behavioral disturbance (2) Anxiety disorder (3) Dementia, vascular, with delusions (4) Dementia, vascular, with depression (5) Impulse control disorder (6) Urinary tract infection MELISSA SOLER MD Nov 30, 2017 21:28
[2017-11-30] MEDS: LORazepam 0.5 MG TABLET PO PRN (22:00)
--- NOTE | 2017-11-30 23:39 | PDOC ---
Exam Note: Jonas Note: Please also refer to the separate dictated note~for this date of service dictated separately.~Patient seen individually. Discussed the patient with Nursing staff reviewed the chart.~Reviewed interim history and current functioning. Reviewed vital signs,~Labs/ Radiology~and current medications noted below. Continue current treatment with the changes noted in the dictated addendum note Assessment: Vital Signs: Vital Signs Date Time Temp Pulse Resp B/P (MAP) Pulse Ox O2 Delivery O2 Flow Rate FiO2 11/30/17 16:15 98.5 112 20 155/81 (105) 97 11/29/17 16:57 Room Air I&O Intake and Output 11/30/17 07:00 Intake Total 480 ml Balance 480 ml Intake Oral 480 ml Labs: Laboratory Tests Test 11/30/17 07:45 11/30/17 12:06 11/30/17 16:50 11/30/17 19:39 Glucose (Fingerstick) 197 mg/dL (70-99) H 303 mg/dL (70-99) H 292 mg/dL (70-99) H 230 mg/dL (70-99) H Current Medications: Meds: Current Medications Acetaminophen (Tylenol) 650 mg PRN Q6HRS PRN PO PAIN / TEMP Last administered on 11/26/17at 05:37; Start 11/24/17 at 22:30; Stop 11/26/17 at 12:41; Status DC Multi-Ingredient Ointment (Analgesic [place]) 1 marjorie PRN QID PRN TP MUSCLE PAIN Last administered on 11/26/17at 10:30; Start 11/24/17 at 22:30 Al Hydroxide/Mg Hydroxide (Mylanta Plus Xs) 15 ml PRN AFTMEALHC PRN PO DYSPEPSIA; Start 11/24/17 at 22:30 Magnesium Hydroxide (Milk Of Magnesia) 2,400 mg PRN QHS PRN PO CONSTIPATION; Start 11/24/17 at 22:30 Donepezil HCl (Aricept) 10 mg HS PO Last administered on 11/30/17at 19:40; Start 11/25/17 at 21:00 Lorazepam (Ativan) 0.5 mg PRN Q6HRS PRN PO ANXIETY / AGITATION Last administered on 11/30/17at 22:00; Start 11/24/17 at 23:15 Risperidone (RisperDAL) 1 mg BID PO Last administered on 11/30/17 19:40; Start 11/25/17 at 09:00 Sertraline HCl (Zoloft) 25 mg DAILY PO Last administered on 11/30/17 08:53; Start 11/25/17 at 09:00; Stop 11/30/17 at 16:56; Status DC Acetaminophen (Tylenol) 650 mg PRN Q4HRS PRN PO mild pain ; Start 11/24/17 at 23:15 Docusate Sodium (Colace Solution) 100 mg PRN Q12HR PRN PO CONSTIPATION; Start 11/24/17 at 23:15 Lisinopril (Prinivil) 10 mg DAILY PO Last administered on 11/29/17 09:00; Start 11/25/17 at 09:00 Multi-Ingred Cream/Lotion/Oil/ Oint (Hydrocerin) 1 marjorie BID TP Last administered on 11/30/17 19:46; Start 11/25/17 at 09:00 Aspirin (Aspirin Enteric Coated) 81 mg DAILY PO Last administered on 08:53; Start 11/25/17 at 09:00 Non-Formulary Medication (Fentanyl (DURAGESIC 12mcg/ hr)) 1 patch Q72H TD ; Start 11/24/17 at 23:15; Stop 11/25/17 at 02:23; Status DC Glipizide (Glucotrol) 5 mg BIDWMEALS PO Last administered on 11/30/17 08:54; Start 11/25/17 at 08:00 Insulin Glargine (Lantus) 10 units QHS SQ Last administered on 11/30/17 19:45 ; Start 11/25/17 at 21:00 Latanoprost (Xalatan) 1 drop QHS OU Last administered on 11/30/17 19:42; Start 11/25/17 at 21:00 Naproxen (Naprosyn) 250 mg BID PO Last administered on 11/30/17 19:40; Start 11/25/17 at 09:00 Oxybutynin Chloride (Ditropan) 5 mg PRN Q12HR PRN PO Bladder Spasms; Start at 23:15 Timolol Maleate (Timoptic 0.5% [place]) 1 drop DAILY OU Last administered on at 08:58; Start 11/25/17 at 09:00 Insulin Human Lispro (HumaLOG) 0-7 UNITS TIDWMEALS SQ Last administered on at 12:48; Start 11/25/17 at 08:00 Dextrose 12.5 gm PRN Q15MIN PRN IV SEE COMMENTS; Start 11/24/17 at 23:15 Fentanyl (Duragesic 12mcg/ Hr) 1 patch Q72H TD Last administered on 11/29/17at 16:57; Start 11/26/17 at 17:00 Vitamin D (Vitamin D3) 50,000 unit WEEKLY PO ; Start 11/25/17 at 14:00; Stop 11/25/17 at 15:01; Status DC Vitamin D (Vitamin D3) 50,000 unit WEEKLY PO Last administered on 11/25/17at 16 :27; Start 11/25/17 at 17:00 Sodium Chloride (Normal Saline Flush) 10 ml PRN DAILY PRN IV SEE COMMENTS; Start 11/26/17 at 13:15 Sodium Chloride (Normal Saline Flush) 10 ml BID IV Last administered on at 19:42; Start 11/26/17 at 21:00 Divalproex Sodium (Depakote Sprinkles) 250 mg BIDWMEALS PO Last administered on 11/30/17at 08:56; Start 11/29/17 at 08:00 Cefpodoxime Proxetil (Vantin) 100 mg BID PO Last administered on 11/30/17at 19: 40; Start 11/29/17 at 21:00; Stop 12/09/17 at 20:59 Lactobacillus Rhamnosus (Culturelle) 1 cap BID PO Last administered on at 19:45; Start 11/30/17 at 21:00 Sertraline HCl (Zoloft) 50 mg DAILY PO ; Start 12/01/17 at 09:00 Active Scripts Active Reported Zoloft (Sertraline Hcl) 25 Mg Tablet 25 Mg PO DAILY Risperdal (Risperidone) 1 Mg Tablet 1 Mg PO BID Oxybutynin Chloride Er (Oxybutynin Chloride) 5 Mg Tab.er.24 5 Mg PO PRN Q12HR PRN Eucerin Creme (Mineral Oil/Petrolatum,White) 120 Gm Cream..g. 1 Marjorie TP BID DURAGESIC 12mcg/hr (Fentanyl) 1 Each Patch.td72 1 Patch TD Q72H Docusate Sodium 50 Mg/5 Ml Liquid 10 Ml PO PRN Q12HR PRN Lorazepam 0.5 Mg Tablet 0.5 Mg PO PRN Q6HRS PRN Aleve (Naproxen Sodium) 220 Mg Tablet 220 Mg PO BID Glipizide 5 Mg Tablet 5 Mg PO BIDWMEALS Aspirin Ec (Aspirin) 81 Mg Tablet.dr 81 Mg PO DAILY Xalatan (Latanoprost) 2.5 Ml Drops 1 Drop EACHEYE QHS Tylenol (Acetaminophen) 325 Mg Tablet 650 Mg PO PRN Q4HRS PRN Timoptic (Timolol Maleate) 10 Ml Drops 1 Drop EACHEYE DAILY Novolog Flexpen (Insulin Aspart) 100 Unit/1 Ml Insuln.pen 0-14 Unit SQ TIDAC Lisinopril 10 Mg Tablet 10 Mg PO DAILY Levemir Flextouch (Insulin Detemir) 100 Unit/1 Ml Insuln.pen 10 Unit SQ HS Donepezil Hcl 10 Mg Tablet 10 Mg PO HS I have reviewed the current psychotropics carefully including drug interactions. Risk benefit ratio favors no change other than as noted in my dictated progress note. Diagnosis: Problems: (1) Dementia with behavioral disturbance (2) Anxiety disorder (3) Dementia, vascular, with delusions (4) Dementia, vascular, with depression (5) Impulse control disorder (6) Urinary tract infection MELISSA SOLER MD Nov 30, 2017 23:39
--- NOTE | 2017-12-01 00:58 | PN ---
DATE: 11/28/2017 This late entry of 11/28/2017 covers elements not covered in my initial note. SUBJECTIVE: I met with the patient in the evening and staffed a treatment team meeting and reviewed information from Dr. Carrillo who covered for me over the weekend. The patient slept 5-3/4 hours previous evening. The yelling during the day is somewhat better. She does have a UTI, which has been treated. REVIEW OF SYSTEMS: Ambulation impaired, in wheelchair. No CV, , pulmonary, eye, ENT system symptoms on review. MENTAL STATUS EXAM: Oriented to herself and situation. Speech has some latency, coherent, can be rapid, loud at times. Abstraction fair, computation impaired, language function intact, attention span short. Mood and affect remain somewhat anxious, labile and repetitive. LABORATORY DATA: Reviewed. IMPRESSION: Probable schizoaffective disorder, bipolar type, mixed; history of major depressive disorder, major neurocognitive disorder, Alzheimer, vascular with delusion, depression, urinary tract infection. PLAN: Start Depakote 250 mg at 9:00 a.m., 5:00 p.m. Check CBC, CMP, valproic acid level in 3 days. Continue Risperdal 1 mg b.i.d., Zoloft 25 mg a day, Aricept 10 mg a day. MAN Twila SOLER MD DR: GABRIELA/sowmya JOB#: [id number] / [id number]
--- NOTE | 2017-12-01 03:12 | PN ---
DATE: 11/29/2017 PSYCHIATRIC PROGRESS NOTE This late entry 11/29/2017 covers elements not covered in my initial note. SUBJECTIVE: I met with the patient in the evening. The patient slept 6-1/2 hours previous night. She was quiet in the morning, but in the afternoon she was yelling, agitated. When I questioned her, she said her bottom was hurting. We will have nursing staff check for any pressure sores. She does need that her needs be known. UA is positive. She is started on antibiotics and resolution of this should help with the agitation as well. REVIEW OF SYSTEMS: Ambulation impaired, in wheelchair. No CV, , pulmonary, eye system symptoms on review other than the pain on her bottom area. Reliability varies. MENTAL STATUS EXAM: Oriented to herself and situation. Speech has some latency, can be somewhat loud at times. Abstraction fair, computation impaired, language function intact, attention span short. Mood and affect somewhat labile. LABORATORY DATA: Reviewed. IMPRESSION: Bipolar 1 disorder, unspecified; major neurocognitive disorder, Alzheimer, vascular with delusion, depression; anxiety disorder, unspecified; impulse control disorder, unspecified. PLAN: Continue psychotropics from initial note. Check labs, valproic acid level on 12/02/2017. Adjust Depakote thereafter. MAN Twila SOLER MD DR: GABRIELA/sowmya JOB#: [id number] / [id number]
[2017-12-01 06:27] VITALS: BP 92/60
[2017-12-01] MEDS: LISINOPRIL 10 MG TABLET PO SCH ×2 (08:09→09:13)
[2017-12-01] MEDS: DIVALPROEX 125 MG CAP.SPRINK PO SCH ×2 (09:12→18:05)
[2017-12-01] MEDS: LACTOBACILLUS RHAMNOSUS GG 1 CAPSULE. PO SCH ×2 (09:12→19:53)
[2017-12-01] MEDS: CEFPODOXIME PROXETIL 100 MG TABLET PO SCH ×2 (09:13→19:53)
[2017-12-01] MEDS: ASPIRIN ENTERIC COATED 81 MG TABLET.DR. PO SCH (09:13)
[2017-12-01] MEDS: glipiZIDE 5 MG TABLET PO SCH ×2 (09:13→18:05)
[2017-12-01] MEDS: TIMOLOL 0.5% OPHTH SOLUTION 5ML BOTTLE. OU SCH (09:14)
[2017-12-01] MEDS: NAPROXEN 250 MG TABLET PO SCH ×2 (09:14→19:53)
[2017-12-01] MEDS: risperiDONE 1 MG TABLET. PO SCH ×2 (09:14→19:54)
[2017-12-01] MEDS: SERTRALINE 50 MG TABLET. PO SCH (09:17)
[2017-12-01] MEDS: MINERAL OIL/PETROLATUM TOPICAL CREAM 113GM JAR. TP SCH ×2 (09:17→20:55)
[2017-12-01] MEDS: 0.9 % SODIUM CHLORIDE 10 ML DISP.SYRIN. IV SCH ×2 (09:18→19:52)
[2017-12-01] MEDS: INSULIN LISPRO 300 UNITS/3 ML INSULN.PEN. SQ SCH ×3 (09:20→18:21)
[2017-12-01] MEDS ORDERED: DEXTROSE 50% 25 GM / 50ML DISP.SYRIN. IV PRN (16:00)
[2017-12-01 16:18] VITALS: BP 143/84
[2017-12-01] MEDS: DONEPEZIL HCL 10 MG TABLET PO SCH (19:53)
[2017-12-01] MEDS: LATANOPROST 0.005% OPHTH SOLUTION 2.5ML BOTTLE. OU SCH (19:53)
[2017-12-01] MEDS: INSULIN GLARGINE 300 UNITS/3 ML INSULN.PEN. SQ SCH (19:57)
--- NOTE | 2017-12-01 23:32 | PDOC ---
Exam Note: Jonas Note: Please also refer to the separate dictated note~for this date of service dictated separately.~Patient seen individually. Discussed the patient with Nursing staff reviewed the chart.~Reviewed interim history and current functioning. Reviewed vital signs,~Labs/ Radiology~and current medications noted below. Continue current treatment with the changes noted in the dictated addendum note Assessment: Vital Signs: Vital Signs Date Time Temp Pulse Resp B/P (MAP) Pulse Ox O2 Delivery O2 Flow Rate FiO2 12/01/17 16:18 97.9 89 19 143/84 (103) 98 Room Air I&O Intake and Output 12/01/17 07:00 Intake Total 340 ml Balance 340 ml Intake Oral 340 ml Labs: Laboratory Tests Test 12/01/17 05:40 12/01/17 07:28 12/01/17 11:42 12/01/17 16:49 Glucose (Fingerstick) 185 mg/dL (70-99) H 178 mg/dL (70-99) H 379 mg/dL (70-99) H 306 mg/dL (70-99) H Test 12/01/17 19:49 Glucose (Fingerstick) 318 mg/dL (70-99) H Current Medications: Meds: Current Medications Acetaminophen (Tylenol) 650 mg PRN Q6HRS PRN PO PAIN / TEMP Last administered on 11/26/17at 05:37; Start 11/24/17 at 22:30; Stop 11/26/17 at 12:41; Status DC Multi-Ingredient Ointment (Analgesic [place]) 1 marjorie PRN QID PRN TP MUSCLE PAIN Last administered on 11/26/17at 10:30; Start 11/24/17 at 22:30 Al Hydroxide/Mg Hydroxide (Mylanta Plus Xs) 15 ml PRN AFTMEALHC PRN PO DYSPEPSIA; Start 11/24/17 at 22:30 Magnesium Hydroxide (Milk Of Magnesia) 2,400 mg PRN QHS PRN PO CONSTIPATION; Start 11/24/17 at 22:30 Donepezil HCl (Aricept) 10 mg HS PO Last administered on 12/01/17at 19:53; Start 11/25/17 at 21:00 Lorazepam (Ativan) 0.5 mg PRN Q6HRS PRN PO ANXIETY / AGITATION Last administered on 11/30/17at 22:00; Start 11/24/17 at 23:15 Risperidone (RisperDAL) 1 mg BID PO Last administered on 12/01/17 19:54; Start 11/25/17 at 09:00 Sertraline HCl (Zoloft) 25 mg DAILY PO Last administered on 11/30/17 08:53; Start 11/25/17 at 09:00; Stop 11/30/17 at 16:56; Status DC Acetaminophen (Tylenol) 650 mg PRN Q4HRS PRN PO mild pain ; Start 11/24/17 at 23:15 Docusate Sodium (Colace Solution) 100 mg PRN Q12HR PRN PO CONSTIPATION; Start 11/24/17 at 23:15 Lisinopril (Prinivil) 10 mg DAILY PO Last administered on 11/29/17 09:00; Start 11/25/17 at 09:00 Multi-Ingred Cream/Lotion/Oil/ Oint (Hydrocerin) 1 marjorie BID TP Last administered on 12/01/17 09:17; Start 11/25/17 at 09:00 Aspirin (Aspirin Enteric Coated) 81 mg DAILY PO Last administered on 09:13; Start 11/25/17 at 09:00 Non-Formulary Medication (Fentanyl (DURAGESIC 12mcg/ hr)) 1 patch Q72H TD ; Start 11/24/17 at 23:15; Stop 11/25/17 at 02:23; Status DC Glipizide (Glucotrol) 5 mg BIDWMEALS PO Last administered on 12/01/17 18:05; Start 11/25/17 at 08:00 Insulin Glargine (Lantus) 10 units QHS SQ Last administered on 12/01/17 19:57 ; Start 11/25/17 at 21:00 Latanoprost (Xalatan) 1 drop QHS OU Last administered on 12/01/17 19:53; Start 11/25/17 at 21:00 Naproxen (Naprosyn) 250 mg BID PO Last administered on 12/01/17 19:53; Start 11/25/17 at 09:00 Oxybutynin Chloride (Ditropan) 5 mg PRN Q12HR PRN PO Bladder Spasms; Start at 23:15 Timolol Maleate (Timoptic 0.5% [facility]) 1 drop DAILY OU Last administered on 09:14; Start 11/25/17 at 09:00 Insulin Human Lispro (HumaLOG) 0-7 UNITS TIDWMEALS SQ Last administered on at 13:32; Start 11/25/17 at 08:00; Stop 12/01/17 at 15:59; Status DC Dextrose 12.5 gm PRN Q15MIN PRN IV SEE COMMENTS; Start 11/24/17 at 23:15 Fentanyl (Duragesic 12mcg/ Hr) 1 patch Q72H TD Last administered on 11/29/17at 16:57; Start 11/26/17 at 17:00 Vitamin D (Vitamin D3) 50,000 unit WEEKLY PO ; Start 11/25/17 at 14:00; Stop 11/25/17 at 15:01; Status DC Vitamin D (Vitamin D3) 50,000 unit WEEKLY PO Last administered on 11/25/17at 16 :27; Start 11/25/17 at 17:00 Sodium Chloride (Normal Saline Flush) 10 ml PRN DAILY PRN IV SEE COMMENTS; Start 11/26/17 at 13:15 Sodium Chloride (Normal Saline Flush) 10 ml BID IV Last administered on at 19:52; Start 11/26/17 at 21:00 Divalproex Sodium (Depakote Sprinkles) 250 mg BIDWMEALS PO Last administered on 12/01/17at 18:05; Start 11/29/17 at 08:00 Cefpodoxime Proxetil (Vantin) 100 mg BID PO Last administered on 12/01/17at 19: 53; Start 11/29/17 at 21:00; Stop 12/09/17 at 20:59 Lactobacillus Rhamnosus (Culturelle) 1 cap BID PO Last administered on 19:53; Start 11/30/17 at 21:00 Sertraline HCl (Zoloft) 50 mg DAILY PO Last administered on 12/01/17at 09:17; Start 12/01/17 at 09:00 Insulin Human Lispro (HumaLOG) 0-9 UNITS TIDWMEALS SQ Last administered on at 18:21; Start 12/01/17 at 17:00 Dextrose 12.5 gm PRN Q15MIN PRN IV SEE COMMENTS; Start 12/01/17 at 16:00 Active Scripts Active Reported Zoloft (Sertraline Hcl) 25 Mg Tablet 25 Mg PO DAILY Risperdal (Risperidone) 1 Mg Tablet 1 Mg PO BID Oxybutynin Chloride Er (Oxybutynin Chloride) 5 Mg Tab.er.24 5 Mg PO PRN Q12HR PRN Eucerin Creme (Mineral Oil/Petrolatum,White) 120 Gm Cream..g. 1 Marjorie TP BID DURAGESIC 12mcg/hr (Fentanyl) 1 Each Patch.td72 1 Patch TD Q72H Docusate Sodium 50 Mg/5 Ml Liquid 10 Ml PO PRN Q12HR PRN Lorazepam 0.5 Mg Tablet 0.5 Mg PO PRN Q6HRS PRN Aleve (Naproxen Sodium) 220 Mg Tablet 220 Mg PO BID Glipizide 5 Mg Tablet 5 Mg PO BIDWMEALS Aspirin Ec (Aspirin) 81 Mg Tablet.dr 81 Mg PO DAILY Xalatan (Latanoprost) 2.5 Ml Drops 1 Drop EACHEYE QHS Tylenol (Acetaminophen) 325 Mg Tablet 650 Mg PO PRN Q4HRS PRN Timoptic (Timolol Maleate) 10 Ml Drops 1 Drop EACHEYE DAILY Novolog Flexpen (Insulin Aspart) 100 Unit/1 Ml Insuln.pen 0-14 Unit SQ TIDAC Lisinopril 10 Mg Tablet 10 Mg PO DAILY Levemir Flextouch (Insulin Detemir) 100 Unit/1 Ml Insuln.pen 10 Unit SQ HS Donepezil Hcl 10 Mg Tablet 10 Mg PO HS I have reviewed the current psychotropics carefully including drug interactions. Risk benefit ratio favors no change other than as noted in my dictated progress note. Diagnosis: Problems: (1) Dementia with behavioral disturbance (2) Anxiety disorder (3) Dementia, vascular, with delusions (4) Dementia, vascular, with depression (5) Impulse control disorder (6) Urinary tract infection MELISSA SOLER MD Dec 01, 2017 23:32
[2017-12-02 05:51] VITALS: BP 122/77
[2017-12-02] MEDS: CEFPODOXIME PROXETIL 100 MG TABLET PO SCH ×2 (07:46→20:24)
[2017-12-02] MEDS: risperiDONE 1 MG TABLET. PO SCH ×2 (07:46→20:23)
[2017-12-02] MEDS: CHOLECALCIFEROL (VITAMIN D3) 50,000 UNIT CAPSULE PO SCH (07:46)
[2017-12-02] MEDS: SERTRALINE 50 MG TABLET. PO SCH (07:46)
[2017-12-02] MEDS: LACTOBACILLUS RHAMNOSUS GG 1 CAPSULE. PO SCH ×2 (07:46→20:25)
[2017-12-02] MEDS: ASPIRIN ENTERIC COATED 81 MG TABLET.DR. PO SCH (07:47)
[2017-12-02] MEDS: TIMOLOL 0.5% OPHTH SOLUTION 5ML BOTTLE. OU SCH (07:47)
[2017-12-02] MEDS: glipiZIDE 5 MG TABLET PO SCH ×2 (07:47→18:38)
[2017-12-02] MEDS: NAPROXEN 250 MG TABLET PO SCH ×2 (07:47→20:23)
[2017-12-02] MEDS: DIVALPROEX 125 MG CAP.SPRINK PO SCH ×2 (07:47→18:38)
[2017-12-02] MEDS: INSULIN LISPRO 300 UNITS/3 ML INSULN.PEN. SQ SCH ×3 (07:52→17:00)
[2017-12-02] MEDS: MINERAL OIL/PETROLATUM TOPICAL CREAM 113GM JAR. TP SCH ×2 (07:53→21:00)
[2017-12-02] MEDS: 0.9 % SODIUM CHLORIDE 10 ML DISP.SYRIN. IV SCH ×2 (07:53→20:22)
[2017-12-02 08:26] LABS: BASO % 1 % (0-3); EOS # 0.1 x10^3/uL (0.0-0.7); EOS % 3 % (0-3); HEMATOCRIT 38.4 % (36.0-47.0); LYMPH # 1.6 x10^3/uL (1.0-4.8); LYMPH % 38 % (24-48); MEAN CORPUSCULAR HEMOGLOBIN 32 pg (25-35); MEAN CORPUSCULAR HGB CONC 34 g/dL (31-37); MEAN CORPUSCULAR VOLUME 96 fL (79-100); MONO # 0.4 x10^3/uL (0.0-1.1); MONO % 10 % (0-9); NEUT # 2.1 x10^3uL (1.8-7.7); NEUT % 50 % (31-73); PLATELET COUNT 356 x10^3/uL (140-400); RED BLOOD COUNT 4.01 x10^6/uL (3.50-5.40); RED CELL DISTRIBUTION WIDTH 14.5 % (11.5-14.5); WHITE BLOOD COUNT 4.1 x10^3/uL (4.0-11.0)
[2017-12-02 08:35] LABS: VAL ACID 25 mcg/mL (50-100)
[2017-12-02 11:28] LABS: ALBUMIN 3.2 g/dL (3.4-5.0); ALBUMIN/GLOBULIN RATIO 0.7 (1.0-1.7); CALCIUM 9.3 mg/dL (8.5-10.1); CREATININE 0.7 mg/dL (0.6-1.0); GFR 97.4; POTASSIUM 4.6 mmol/L (3.5-5.1); TOTAL BILIRUBIN 0.4 mg/dL (0.2-1.0); TOTAL PROTEIN 7.8 g/dL (6.4-8.2)
[2017-12-02 15:54] VITALS: BP 109/71
[2017-12-02] MEDS: fentaNYL 12MCG/HR 1 PATCH PATCH TD SCH (18:39)
[2017-12-02] MEDS: LATANOPROST 0.005% OPHTH SOLUTION 2.5ML BOTTLE. OU SCH (20:22)
[2017-12-02] MEDS: DONEPEZIL HCL 10 MG TABLET PO SCH (20:24)
[2017-12-02] MEDS: INSULIN GLARGINE 300 UNITS/3 ML INSULN.PEN. SQ SCH (20:28)
--- NOTE | 2017-12-02 23:45 | PDOC ---
Exam Note: Jonas Note: Please also refer to the separate dictated note~for this date of service dictated separately.~Patient seen individually. Discussed the patient with Nursing staff reviewed the chart.~Reviewed interim history and current functioning. Reviewed vital signs,~Labs/ Radiology~and current medications noted below. Continue current treatment with the changes noted in the dictated addendum note Assessment: Vital Signs: Vital Signs Date Time Temp Pulse Resp B/P (MAP) Pulse Ox O2 Delivery O2 Flow Rate FiO2 12/02/17 22:39 97 12/02/17 15:54 98.0 73 16 109/71 (84) Room Air I&O Intake and Output 12/02/17 07:00 Intake Total 1140 ml Balance 1140 ml Intake Oral 1140 ml # Voids 1 Labs: Laboratory Tests Test 12/02/17 07:20 12/02/17 08:03 12/02/17 11:23 12/02/17 16:21 Glucose (Fingerstick) 228 mg/dL (70-99) H 228 mg/dL (70-99) H 252 mg/dL (70-99) H White Blood Count 4.1 x10^3/uL (4.0-11.0) Red Blood Count 4.01 x10^6/uL (3.50-5.40) Hemoglobin 13.0 g/dL (12.0-15.5) Hematocrit 38.4 % (36.0-47.0) Mean Corpuscular Volume 96 fL (79-100) Mean Corpuscular Hemoglobin 32 pg (25-35) Mean Corpuscular Hemoglobin Concent 34 g/dL (31-37) Red Cell Distribution Width 14.5 % (11.5-14.5) Platelet Count 356 x10^3/uL (140-400) Neutrophils (%) (Auto) 50 % (31-73) Lymphocytes (%) (Auto) 38 % (24-48) Monocytes (%) (Auto) 10 % (0-9) H Eosinophils (%) (Auto) 3 % (0-3) Basophils (%) (Auto) 1 % (0-3) Neutrophils # (Auto) 2.1 x10^3uL (1.8-7.7) Lymphocytes # (Auto) 1.6 x10^3/uL (1.0-4.8) Monocytes # (Auto) 0.4 x10^3/uL (0.0-1.1) Eosinophils # (Auto) 0.1 x10^3/uL (0.0-0.7) Basophils # (Auto) 0.0 x10^3/uL (0.0-0.2) Sodium Level 136 mmol/L (136-145) Potassium Level 4.6 mmol/L (3.5-5.1) Chloride Level 103 mmol/L (98-107) Carbon Dioxide Level 29 mmol/L (21-32) Anion Gap 4 (6-14) L Blood Urea Nitrogen 17 mg/dL (7-20) Creatinine 0.7 mg/dL (0.6-1.0) Estimated GFR (Cockcroft-Gault) 97.4 BUN/Creatinine Ratio 24 (6-20) H Glucose Level 231 mg/dL (70-99) H Calcium Level 9.3 mg/dL (8.5-10.1) Magnesium Level 1.8 mg/dL (1.8-2.4) Total Bilirubin 0.4 mg/dL (0.2-1.0) Aspartate Amino Transferase (AST) 23 U/L (15-37) Alanine Aminotransferase (ALT) 26 U/L (14-59) Alkaline Phosphatase 61 U/L (46-116) Total Protein 7.8 g/dL (6.4-8.2) Albumin 3.2 g/dL (3.4-5.0) L Albumin/Globulin Ratio 0.7 (1.0-1.7) L Valproic Acid Level 25 mcg/mL (50-100) L Valproic Acid Last Dose Date 12/01/2017 Valproic Acid Last Dose Time 1700 Test 12/02/17 19:11 Glucose (Fingerstick) 237 mg/dL (70-99) H Current Medications: Meds: Current Medications Acetaminophen (Tylenol) 650 mg PRN Q6HRS PRN PO PAIN / TEMP Last administered on 11/26/17at 05:37; Start 11/24/17 at 22:30; Stop 11/26/17 at 12:41; Status DC Multi-Ingredient Ointment (Analgesic [place]) 1 marjorie PRN QID PRN TP MUSCLE PAIN Last administered on 11/26/17at 10:30; Start 11/24/17 at 22:30 Al Hydroxide/Mg Hydroxide (Mylanta Plus Xs) 15 ml PRN AFTMEALHC PRN PO DYSPEPSIA; Start 11/24/17 at 22:30 Magnesium Hydroxide (Milk Of Magnesia) 2,400 mg PRN QHS PRN PO CONSTIPATION; Start 11/24/17 at 22:30 Donepezil HCl (Aricept) 10 mg HS PO Last administered on 12/02/17 20:24; Start 11/25/17 at 21:00 Lorazepam (Ativan) 0.5 mg PRN Q6HRS PRN PO ANXIETY / AGITATION Last administered on 11/30/17 22:00; Start 11/24/17 at 23:15 Risperidone (RisperDAL) 1 mg BID PO Last administered on 12/02/17 20:23; Start 11/25/17 at 09:00 Sertraline HCl (Zoloft) 25 mg DAILY PO Last administered on 11/30/17 08:53; Start 11/25/17 at 09:00; Stop 11/30/17 at 16:56; Status DC Acetaminophen (Tylenol) 650 mg PRN Q4HRS PRN PO mild pain ; Start 11/24/17 at 23:15 Docusate Sodium (Colace Solution) 100 mg PRN Q12HR PRN PO CONSTIPATION; Start 11/24/17 at 23:15 Lisinopril (Prinivil) 10 mg DAILY PO Last administered on 11/29/17at 09:00; Start 11/25/17 at 09:00 Multi-Ingred Cream/Lotion/Oil/ Oint (Hydrocerin) 1 marjorie BID TP Last administered on 12/02/17at 07:53; Start 11/25/17 at 09:00 Aspirin (Aspirin Enteric Coated) 81 mg DAILY PO Last administered on 07:47; Start 11/25/17 at 09:00 Non-Formulary Medication (Fentanyl (DURAGESIC 12mcg/ hr)) 1 patch Q72H TD ; Start 11/24/17 at 23:15; Stop 11/25/17 at 02:23; Status DC Glipizide (Glucotrol) 5 mg BIDWMEALS PO Last administered on 12/02/17at 18:38; Start 11/25/17 at 08:00 Insulin Glargine (Lantus) 10 units QHS SQ Last administered on 12/02/17 20:28 ; Start 11/25/17 at 21:00 Latanoprost (Xalatan) 1 drop QHS OU Last administered on 12/02/17 20:22; Start 11/25/17 at 21:00 Naproxen (Naprosyn) 250 mg BID PO Last administered on 12/02/17 20:23; Start 11/25/17 at 09:00 Oxybutynin Chloride (Ditropan) 5 mg PRN Q12HR PRN PO Bladder Spasms; Start at 23:15 Timolol Maleate (Timoptic 0.5% [facility]) 1 drop DAILY OU Last administered on 07:47; Start 11/25/17 at 09:00 Insulin Human Lispro (HumaLOG) 0-7 UNITS TIDWMEALS SQ Last administered on at 13:32; Start 11/25/17 at 08:00; Stop 12/01/17 at 15:59; Status DC Dextrose 12.5 gm PRN Q15MIN PRN IV SEE COMMENTS; Start 11/24/17 at 23:15 Fentanyl (Duragesic 12mcg/ Hr) 1 patch Q72H TD Last administered on 12/02/17 18:39; Start 11/26/17 at 17:00 Vitamin D (Vitamin D3) 50,000 unit WEEKLY PO ; Start 11/25/17 at 14:00; Stop 11/25/17 at 15:01; Status DC Vitamin D (Vitamin D3) 50,000 unit WEEKLY PO Last administered on 12/02/17at 07 :46; Start 11/25/17 at 17:00 Sodium Chloride (Normal Saline Flush) 10 ml PRN DAILY PRN IV SEE COMMENTS; Start 11/26/17 at 13:15 Sodium Chloride (Normal Saline Flush) 10 ml BID IV Last administered on at 20:22; Start 11/26/17 at 21:00 Divalproex Sodium (Depakote Sprinkles) 250 mg BIDWMEALS PO Last administered on 12/02/17 18:38; Start 11/29/17 at 08:00 Cefpodoxime Proxetil (Vantin) 100 mg BID PO Last administered on 10/26/18at 20: 24; Start 11/29/17 at 21:00; Stop 12/09/17 at 20:59 Lactobacillus Rhamnosus (Culturelle) 1 cap BID PO Last administered on at 20:25; Start 11/30/17 at 21:00 Sertraline HCl (Zoloft) 50 mg DAILY PO Last administered on 12/02/17at 07:46; Start 12/01/17 at 09:00 Insulin Human Lispro (HumaLOG) 0-9 UNITS TIDWMEALS SQ Last administered on at 17:00; Start 12/01/17 at 17:00 Dextrose 12.5 gm PRN Q15MIN PRN IV SEE COMMENTS; Start 12/01/17 at 16:00 Active Scripts Active Reported Zoloft (Sertraline Hcl) 25 Mg Tablet 25 Mg PO DAILY Risperdal (Risperidone) 1 Mg Tablet 1 Mg PO BID Oxybutynin Chloride Er (Oxybutynin Chloride) 5 Mg Tab.er.24 5 Mg PO PRN Q12HR PRN Eucerin Creme (Mineral Oil/Petrolatum,White) 120 Gm Cream..g. 1 Marjorie TP BID DURAGESIC 12mcg/hr (Fentanyl) 1 Each Patch.td72 1 Patch TD Q72H Docusate Sodium 50 Mg/5 Ml Liquid 10 Ml PO PRN Q12HR PRN Lorazepam 0.5 Mg Tablet 0.5 Mg PO PRN Q6HRS PRN Aleve (Naproxen Sodium) 220 Mg Tablet 220 Mg PO BID Glipizide 5 Mg Tablet 5 Mg PO BIDWMEALS Aspirin Ec (Aspirin) 81 Mg Tablet.dr 81 Mg PO DAILY Xalatan (Latanoprost) 2.5 Ml Drops 1 Drop EACHEYE QHS Tylenol (Acetaminophen) 325 Mg Tablet 650 Mg PO PRN Q4HRS PRN Timoptic (Timolol Maleate) 10 Ml Drops 1 Drop EACHEYE DAILY Novolog Flexpen (Insulin Aspart) 100 Unit/1 Ml Insuln.pen 0-14 Unit SQ TIDAC Lisinopril 10 Mg Tablet 10 Mg PO DAILY Levemir Flextouch (Insulin Detemir) 100 Unit/1 Ml Insuln.pen 10 Unit SQ HS Donepezil Hcl 10 Mg Tablet 10 Mg PO HS I have reviewed the current psychotropics carefully including drug interactions. Risk benefit ratio favors no change other than as noted in my dictated progress note. Diagnosis: Problems: (1) Dementia with behavioral disturbance (2) Anxiety disorder (3) Dementia, vascular, with delusions (4) Dementia, vascular, with depression (5) Impulse control disorder (6) Urinary tract infection MELISSA SOLER MD Dec 02, 2017 23:45
[2017-12-03 06:28] VITALS: BP 101/62
[2017-12-03] MEDS: DIVALPROEX 125 MG CAP.SPRINK PO SCH ×2 (08:18→18:05)
[2017-12-03] MEDS: risperiDONE 1 MG TABLET. PO SCH ×2 (08:18→20:04)
[2017-12-03] MEDS: CEFPODOXIME PROXETIL 100 MG TABLET PO SCH ×2 (08:18→20:05)
[2017-12-03] MEDS: ASPIRIN ENTERIC COATED 81 MG TABLET.DR. PO SCH (08:18)
[2017-12-03] MEDS: LACTOBACILLUS RHAMNOSUS GG 1 CAPSULE. PO SCH ×2 (08:18→20:04)
[2017-12-03] MEDS: SERTRALINE 50 MG TABLET. PO SCH (08:18)
[2017-12-03] MEDS: NAPROXEN 250 MG TABLET PO SCH ×2 (08:18→20:05)
[2017-12-03] MEDS: glipiZIDE 5 MG TABLET PO SCH ×2 (08:18→18:05)
[2017-12-03] MEDS: TIMOLOL 0.5% OPHTH SOLUTION 5ML BOTTLE. OU SCH (08:19)
[2017-12-03] MEDS: 0.9 % SODIUM CHLORIDE 10 ML DISP.SYRIN. IV SCH ×2 (08:20→20:05)
[2017-12-03] MEDS: LISINOPRIL 10 MG TABLET PO SCH (08:22)
[2017-12-03] MEDS: INSULIN LISPRO 300 UNITS/3 ML INSULN.PEN. SQ SCH ×3 (08:22→17:00)
[2017-12-03] MEDS: MINERAL OIL/PETROLATUM TOPICAL CREAM 113GM JAR. TP SCH ×2 (08:23→21:00)
--- NOTE | 2017-12-03 14:00 | PN ---
DATE: 11/30/2017 PSYCHIATRIC PROGRESS NOTE This late entry 11/30/2017 covers elements not covered in my initial note. SUBJECTIVE: I met with the patient in the evening. The patient slept 8-3/4 hours previous night. She has had slightly less yelling since the morning. When she gets wet or when she is cold, that is when the yelling is persistent. No CV, , pulmonary, eye system symptoms on review. Reliability poor. She complains of some discomfort in her bottom area. REVIEW OF SYSTEMS: Ambulation impaired, in Broda chair. MENTAL STATUS EXAM: Oriented to herself and situation. Speech moderate latency, often responses monosyllabic. Abstraction fair, computation impaired, language function intact. Mood and affect somewhat withdrawn. LABORATORY DATA: Reviewed. IMPRESSION: Unchanged from initial note. PLAN: No change from initial note. She is on Zoloft 25 mg a day. We will increase to 50 mg a day. Rest unchanged from initial note. MAN Twila SOLER MD DR: GABRIELA/sowmya JOB#: [id number] / [id number]
[2017-12-03 17:05] VITALS: BP 129/74
[2017-12-03] MEDS: DONEPEZIL HCL 10 MG TABLET PO SCH (20:04)
[2017-12-03] MEDS: LATANOPROST 0.005% OPHTH SOLUTION 2.5ML BOTTLE. OU SCH (20:05)
[2017-12-03] MEDS: INSULIN GLARGINE 300 UNITS/3 ML INSULN.PEN. SQ SCH (20:06)
--- NOTE | 2017-12-03 23:14 | PDOC ---
Exam Note: Jonas Note: Please also refer to the separate dictated note~for this date of service dictated separately.~Patient seen individually. Discussed the patient with Nursing staff reviewed the chart.~Reviewed interim history and current functioning. Reviewed vital signs,~Labs/ Radiology~and current medications noted below. Continue current treatment with the changes noted in the dictated addendum note Assessment: Vital Signs: Vital Signs Date Time Temp Pulse Resp B/P (MAP) Pulse Ox O2 Delivery O2 Flow Rate FiO2 12/03/17 17:05 98.1 64 20 129/74 (92) 97 Room Air I&O Intake and Output 12/03/17 07:00 Intake Total 1080 ml Balance 1080 ml Intake Oral 1080 ml # Voids 1 Labs: Laboratory Tests Test 12/03/17 07:09 12/03/17 11:41 12/03/17 17:23 12/03/17 19:06 Glucose (Fingerstick) 175 mg/dL (70-99) H 233 mg/dL (70-99) H 208 mg/dL (70-99) H 173 mg/dL (70-99) H Current Medications: Meds: Current Medications Acetaminophen (Tylenol) 650 mg PRN Q6HRS PRN PO PAIN / TEMP Last administered on 11/26/17at 05:37; Start 11/24/17 at 22:30; Stop 11/26/17 at 12:41; Status DC Multi-Ingredient Ointment (Analgesic [place]) 1 marjorie PRN QID PRN TP MUSCLE PAIN Last administered on 11/26/17at 10:30; Start 11/24/17 at 22:30 Al Hydroxide/Mg Hydroxide (Mylanta Plus Xs) 15 ml PRN AFTMEALHC PRN PO DYSPEPSIA; Start 11/24/17 at 22:30 Magnesium Hydroxide (Milk Of Magnesia) 2,400 mg PRN QHS PRN PO CONSTIPATION; Start 11/24/17 at 22:30 Donepezil HCl (Aricept) 10 mg HS PO Last administered on 12/03/17at 20:04; Start 11/25/17 at 21:00 Lorazepam (Ativan) 0.5 mg PRN Q6HRS PRN PO ANXIETY / AGITATION Last administered on 11/30/17at 22:00; Start 11/24/17 at 23:15 Risperidone (RisperDAL) 1 mg BID PO Last administered on 12/03/17 20:04; Start 11/25/17 at 09:00 Sertraline HCl (Zoloft) 25 mg DAILY PO Last administered on 11/30/17at 08:53; Start 11/25/17 at 09:00; Stop 11/30/17 at 16:56; Status DC Acetaminophen (Tylenol) 650 mg PRN Q4HRS PRN PO mild pain ; Start 11/24/17 at 23:15 Docusate Sodium (Colace Solution) 100 mg PRN Q12HR PRN PO CONSTIPATION; Start 11/24/17 at 23:15 Lisinopril (Prinivil) 10 mg DAILY PO Last administered on 11/29/17at 09:00; Start 11/25/17 at 09:00 Multi-Ingred Cream/Lotion/Oil/ Oint (Hydrocerin) 1 marjorie BID TP Last administered on 12/03/17 21:00; Start 11/25/17 at 09:00 Aspirin (Aspirin Enteric Coated) 81 mg DAILY PO Last administered on 08:18; Start 11/25/17 at 09:00 Non-Formulary Medication (Fentanyl (DURAGESIC 12mcg/ hr)) 1 patch Q72H TD ; Start 11/24/17 at 23:15; Stop 11/25/17 at 02:23; Status DC Glipizide (Glucotrol) 5 mg BIDWMEALS PO Last administered on 12/03/17 18:05; Start 11/25/17 at 08:00 Insulin Glargine (Lantus) 10 units QHS SQ Last administered on 12/03/17at 20:06 ; Start 11/25/17 at 21:00 Latanoprost (Xalatan) 1 drop QHS OU Last administered on 12/03/17 20:05; Start 11/25/17 at 21:00 Naproxen (Naprosyn) 250 mg BID PO Last administered on 12/03/17at 20:05; Start 11/25/17 at 09:00 Oxybutynin Chloride (Ditropan) 5 mg PRN Q12HR PRN PO Bladder Spasms; Start at 23:15 Timolol Maleate (Timoptic 0.5% [facility]) 1 drop DAILY OU Last administered on at 08:19; Start 11/25/17 at 09:00 Insulin Human Lispro (HumaLOG) 0-7 UNITS TIDWMEALS SQ Last administered on at 13:32; Start 11/25/17 at 08:00; Stop 12/01/17 at 15:59; Status DC Dextrose 12.5 gm PRN Q15MIN PRN IV SEE COMMENTS; Start 11/24/17 at 23:15 Fentanyl (Duragesic 12mcg/ Hr) 1 patch Q72H TD Last administered on 12/02/17at 18:39; Start 11/26/17 at 17:00 Vitamin D (Vitamin D3) 50,000 unit WEEKLY PO ; Start 11/25/17 at 14:00; Stop 11/25/17 at 15:01; Status DC Vitamin D (Vitamin D3) 50,000 unit WEEKLY PO Last administered on 12/02/17at 07 :46; Start 11/25/17 at 17:00 Sodium Chloride (Normal Saline Flush) 10 ml PRN DAILY PRN IV SEE COMMENTS; Start 11/26/17 at 13:15 Sodium Chloride (Normal Saline Flush) 10 ml BID IV Last administered on at 20:05; Start 11/26/17 at 21:00 Divalproex Sodium (Depakote Sprinkles) 250 mg BIDWMEALS PO Last administered on 12/03/17at 18:05; Start 11/29/17 at 08:00 Cefpodoxime Proxetil (Vantin) 100 mg BID PO Last administered on 12/03/17at 20: 05; Start 11/29/17 at 21:00; Stop 12/09/17 at 20:59 Lactobacillus Rhamnosus (Culturelle) 1 cap BID PO Last administered on at 20:04; Start 11/30/17 at 21:00 Sertraline HCl (Zoloft) 50 mg DAILY PO Last administered on 12/03/17at 08:18; Start 12/01/17 at 09:00 Insulin Human Lispro (HumaLOG) 0-9 UNITS TIDWMEALS SQ Last administered on at 17:00; Start 12/01/17 at 17:00 Dextrose 12.5 gm PRN Q15MIN PRN IV SEE COMMENTS; Start 12/01/17 at 16:00 Active Scripts Active Reported Zoloft (Sertraline Hcl) 25 Mg Tablet 25 Mg PO DAILY Risperdal (Risperidone) 1 Mg Tablet 1 Mg PO BID Oxybutynin Chloride Er (Oxybutynin Chloride) 5 Mg Tab.er.24 5 Mg PO PRN Q12HR PRN Eucerin Creme (Mineral Oil/Petrolatum,White) 120 Gm Cream..g. 1 Marjorie TP BID DURAGESIC 12mcg/hr (Fentanyl) 1 Each Patch.td72 1 Patch TD Q72H Docusate Sodium 50 Mg/5 Ml Liquid 10 Ml PO PRN Q12HR PRN Lorazepam 0.5 Mg Tablet 0.5 Mg PO PRN Q6HRS PRN Aleve (Naproxen Sodium) 220 Mg Tablet 220 Mg PO BID Glipizide 5 Mg Tablet 5 Mg PO BIDWMEALS Aspirin Ec (Aspirin) 81 Mg Tablet.dr 81 Mg PO DAILY Xalatan (Latanoprost) 2.5 Ml Drops 1 Drop EACHEYE QHS Tylenol (Acetaminophen) 325 Mg Tablet 650 Mg PO PRN Q4HRS PRN Timoptic (Timolol Maleate) 10 Ml Drops 1 Drop EACHEYE DAILY Novolog Flexpen (Insulin Aspart) 100 Unit/1 Ml Insuln.pen 0-14 Unit SQ TIDAC Lisinopril 10 Mg Tablet 10 Mg PO DAILY Levemir Flextouch (Insulin Detemir) 100 Unit/1 Ml Insuln.pen 10 Unit SQ HS Donepezil Hcl 10 Mg Tablet 10 Mg PO HS I have reviewed the current psychotropics carefully including drug interactions. Risk benefit ratio favors no change other than as noted in my dictated progress note. Diagnosis: Problems: (1) Dementia with behavioral disturbance (2) Anxiety disorder (3) Dementia, vascular, with delusions (4) Dementia, vascular, with depression (5) Impulse control disorder (6) Urinary tract infection MELISSA SOLER MD Dec 03, 2017 23:14
--- NOTE | 2017-12-04 00:11 | PN ---
DATE: 12/02/2017 This is a late entry for date of service 12/02/2017 and covers elements not covered in my initial note. SUBJECTIVE: I met with the patient in the evening. The patient slept 7-1/2 hours previous night, less anxious, labile, less yelling. REVIEW OF SYSTEMS: Ambulation impaired, in Broda chair. No CV, , pulmonary, eye, ENT system symptoms on review. MENTAL STATUS EXAM: Oriented to herself and situation. Speech moderate latency, often responses monosyllabic. Abstraction fair, computation impaired, language function intact, attention span short. Mood and affect, lability is improved. LABORATORY DATA: Reviewed. IMPRESSION: Bipolar 1 disorder, unspecified; major neurocognitive disorder, Alzheimer, vascular with delusion, behavioral disturbance; impulse control disorder; anxiety disorder, unspecified. PLAN: No change from initial note. MAN Twila SOLER MD DR: GABRIELA/sowmya JOB#: [id number] / [id number]
[2017-12-04 06:19] VITALS: BP 108/68
[2017-12-04] MEDS: ASPIRIN ENTERIC COATED 81 MG TABLET.DR. PO SCH (07:56)
[2017-12-04] MEDS: CEFPODOXIME PROXETIL 100 MG TABLET PO SCH ×2 (07:56→19:58)
[2017-12-04] MEDS: DIVALPROEX 125 MG CAP.SPRINK PO SCH ×2 (07:57→18:04)
[2017-12-04] MEDS: LACTOBACILLUS RHAMNOSUS GG 1 CAPSULE. PO SCH ×2 (07:57→19:57)
[2017-12-04] MEDS: LISINOPRIL 10 MG TABLET PO SCH (07:57)
[2017-12-04] MEDS: NAPROXEN 250 MG TABLET PO SCH ×2 (07:57→19:58)
[2017-12-04] MEDS: risperiDONE 1 MG TABLET. PO SCH ×2 (07:57→19:58)
[2017-12-04] MEDS: TIMOLOL 0.5% OPHTH SOLUTION 5ML BOTTLE. OU SCH (07:57)
[2017-12-04] MEDS: MINERAL OIL/PETROLATUM TOPICAL CREAM 113GM JAR. TP SCH ×2 (07:58→20:03)
[2017-12-04] MEDS: SERTRALINE 50 MG TABLET. PO SCH (07:58)
[2017-12-04] MEDS: glipiZIDE 5 MG TABLET PO SCH ×2 (07:58→18:04)
[2017-12-04] MEDS: INSULIN LISPRO 300 UNITS/3 ML INSULN.PEN. SQ SCH ×3 (07:59→17:00)
[2017-12-04] MEDS: 0.9 % SODIUM CHLORIDE 10 ML DISP.SYRIN. IV SCH ×2 (08:00→21:00)
[2017-12-04 16:51] VITALS: BP 133/79
--- NOTE | 2017-12-04 18:04 | PN ---
DATE: 12/03/2017 PSYCHIATRIC PROGRESS NOTE This late entry 12/03/2017 covers elements, not covered in my initial note. SUBJECTIVE: I met with the patient in the evening. The patient has been yelling much less. REVIEW OF SYSTEMS: Ambulation impaired, in Broda chair. No complaints of coccygeal pain. No CV, , pulmonary, eye, ENT system symptoms on review. MENTAL STATUS EXAM: Oriented to herself and situation. Speech moderate latency, coherent. Abstraction fair, computation impaired, unable to do serial 7's, less paranoid, pleasant, smiling as I met with her. No suicidal or homicidal ideation. LABORATORY DATA: Reviewed. IMPRESSION: Schizoaffective disorder, bipolar type; major neurocognitive disorder, Alzheimer, vascular with delusion, depression. Rest unchanged. PLAN: No change from initial note. Maintain Aricept along with Ativan p.r.n., Risperdal, Zoloft, Depakote was initiated. Check labs level. Adjust further as clinically indicated. MELISSA SOLER MD DR: GABRIELA/sowmya JOB#: [id number] / [id number]
[2017-12-04] MEDS: DONEPEZIL HCL 10 MG TABLET PO SCH (19:58)
[2017-12-04] MEDS: LATANOPROST 0.005% OPHTH SOLUTION 2.5ML BOTTLE. OU SCH (20:00)
[2017-12-04] MEDS: INSULIN GLARGINE 300 UNITS/3 ML INSULN.PEN. SQ SCH (20:01)
--- NOTE | 2017-12-04 23:14 | PDOC ---
Exam Note: Jonas Note: Please also refer to the separate dictated note~for this date of service dictated separately.~Patient seen individually. Discussed the patient with Nursing staff reviewed the chart.~Reviewed interim history and current functioning. Reviewed vital signs,~Labs/ Radiology~and current medications noted below. Continue current treatment with the changes noted in the dictated addendum note Assessment: Vital Signs: Vital Signs Date Time Temp Pulse Resp B/P (MAP) Pulse Ox O2 Delivery O2 Flow Rate FiO2 12/04/17 16:51 98.2 65 19 133/79 (97) 91 Room Air I&O Intake and Output 12/04/17 07:00 Intake Total 840 ml Balance 840 ml Intake Oral 840 ml Labs: Laboratory Tests Test 12/04/17 07:36 12/04/17 11:36 12/04/17 17:07 12/04/17 19:16 Glucose (Fingerstick) 116 mg/dL (70-99) H 182 mg/dL (70-99) H 181 mg/dL (70-99) H 154 mg/dL (70-99) H Current Medications: Meds: Current Medications Acetaminophen (Tylenol) 650 mg PRN Q6HRS PRN PO PAIN / TEMP Last administered on 11/26/17at 05:37; Start 11/24/17 at 22:30; Stop 11/26/17 at 12:41; Status DC Multi-Ingredient Ointment (Analgesic [place]) 1 marjorie PRN QID PRN TP MUSCLE PAIN Last administered on 11/26/17at 10:30; Start 11/24/17 at 22:30 Al Hydroxide/Mg Hydroxide (Mylanta Plus Xs) 15 ml PRN AFTMEALHC PRN PO DYSPEPSIA; Start 11/24/17 at 22:30 Magnesium Hydroxide (Milk Of Magnesia) 2,400 mg PRN QHS PRN PO CONSTIPATION; Start 11/24/17 at 22:30 Donepezil HCl (Aricept) 10 mg HS PO Last administered on 12/04/17at 19:58; Start 11/25/17 at 21:00 Lorazepam (Ativan) 0.5 mg PRN Q6HRS PRN PO ANXIETY / AGITATION Last administered on 11/30/17at 22:00; Start 11/24/17 at 23:15 Risperidone (RisperDAL) 1 mg BID PO Last administered on 12/04/17 19:58; Start 11/25/17 at 09:00 Sertraline HCl (Zoloft) 25 mg DAILY PO Last administered on 11/30/17at 08:53; Start 11/25/17 at 09:00; Stop 11/30/17 at 16:56; Status DC Acetaminophen (Tylenol) 650 mg PRN Q4HRS PRN PO mild pain ; Start 11/24/17 at 23:15 Docusate Sodium (Colace Solution) 100 mg PRN Q12HR PRN PO CONSTIPATION; Start 11/24/17 at 23:15 Lisinopril (Prinivil) 10 mg DAILY PO Last administered on 12/04/17 07:57; Start 11/25/17 at 09:00 Multi-Ingred Cream/Lotion/Oil/ Oint (Hydrocerin) 1 marjorie BID TP Last administered on 12/04/17 07:58; Start 11/25/17 at 09:00 Aspirin (Aspirin Enteric Coated) 81 mg DAILY PO Last administered on 07:56; Start 11/25/17 at 09:00 Non-Formulary Medication (Fentanyl (DURAGESIC 12mcg/ hr)) 1 patch Q72H TD ; Start 11/24/17 at 23:15; Stop 11/25/17 at 02:23; Status DC Glipizide (Glucotrol) 5 mg BIDWMEALS PO Last administered on 12/04/17 18:04; Start 11/25/17 at 08:00 Insulin Glargine (Lantus) 10 units QHS SQ Last administered on 12/04/17at 20:01 ; Start 11/25/17 at 21:00; Stop 12/04/17 at 22:11; Status DC Latanoprost (Xalatan) 1 drop QHS OU Last administered on 12/04/17 20:00; Start 11/25/17 at 21:00 Naproxen (Naprosyn) 250 mg BID PO Last administered on 12/04/17 19:58; Start 11/25/17 at 09:00 Oxybutynin Chloride (Ditropan) 5 mg PRN Q12HR PRN PO Bladder Spasms; Start at 23:15 Timolol Maleate (Timoptic 0.5% [facility]) 1 drop DAILY OU Last administered on 07:57; Start 11/25/17 at 09:00 Insulin Human Lispro (HumaLOG) 0-7 UNITS TIDWMEALS SQ Last administered on at 13:32; Start 11/25/17 at 08:00; Stop 12/01/17 at 15:59; Status DC Dextrose 12.5 gm PRN Q15MIN PRN IV SEE COMMENTS; Start 11/24/17 at 23:15 Fentanyl (Duragesic 12mcg/ Hr) 1 patch Q72H TD Last administered on 12/02/17at 18:39; Start 11/26/17 at 17:00 Vitamin D (Vitamin D3) 50,000 unit WEEKLY PO ; Start 11/25/17 at 14:00; Stop 11/25/17 at 15:01; Status DC Vitamin D (Vitamin D3) 50,000 unit WEEKLY PO Last administered on 12/02/17at 07 :46; Start 11/25/17 at 17:00 Sodium Chloride (Normal Saline Flush) 10 ml PRN DAILY PRN IV SEE COMMENTS; Start 11/26/17 at 13:15 Sodium Chloride (Normal Saline Flush) 10 ml BID IV Last administered on at 08:00; Start 11/26/17 at 21:00 Divalproex Sodium (Depakote Sprinkles) 250 mg BIDWMEALS PO Last administered on 12/04/17at 18:04; Start 11/29/17 at 08:00 Cefpodoxime Proxetil (Vantin) 100 mg BID PO Last administered on 12/04/17 19: 58; Start 11/29/17 at 21:00; Stop 12/09/17 at 20:59 Lactobacillus Rhamnosus (Culturelle) 1 cap BID PO Last administered on 19:57; Start 11/30/17 at 21:00 Sertraline HCl (Zoloft) 50 mg DAILY PO Last administered on 12/04/17at 07:58; Start 12/01/17 at 09:00 Insulin Human Lispro (HumaLOG) 0-9 UNITS TIDWMEALS SQ Last administered on at 17:00; Start 12/01/17 at 17:00 Dextrose 12.5 gm PRN Q15MIN PRN IV SEE COMMENTS; Start 12/01/17 at 16:00; Status Cancel Insulin Glargine (Lantus) 15 units QHS SQ ; Start 12/05/17 at 21:00 Active Scripts Active Reported Zoloft (Sertraline Hcl) 25 Mg Tablet 25 Mg PO DAILY Risperdal (Risperidone) 1 Mg Tablet 1 Mg PO BID Oxybutynin Chloride Er (Oxybutynin Chloride) 5 Mg Tab.er.24 5 Mg PO PRN Q12HR PRN Eucerin Creme (Mineral Oil/Petrolatum,White) 120 Gm Cream..g. 1 Marjorie TP BID DURAGESIC 12mcg/hr (Fentanyl) 1 Each Patch.td72 1 Patch TD Q72H Docusate Sodium 50 Mg/5 Ml Liquid 10 Ml PO PRN Q12HR PRN Lorazepam 0.5 Mg Tablet 0.5 Mg PO PRN Q6HRS PRN Aleve (Naproxen Sodium) 220 Mg Tablet 220 Mg PO BID Glipizide 5 Mg Tablet 5 Mg PO BIDWMEALS Aspirin Ec (Aspirin) 81 Mg Tablet.dr 81 Mg PO DAILY Xalatan (Latanoprost) 2.5 Ml Drops 1 Drop EACHEYE QHS Tylenol (Acetaminophen) 325 Mg Tablet 650 Mg PO PRN Q4HRS PRN Timoptic (Timolol Maleate) 10 Ml Drops 1 Drop EACHEYE DAILY Novolog Flexpen (Insulin Aspart) 100 Unit/1 Ml Insuln.pen 0-14 Unit SQ TIDAC Lisinopril 10 Mg Tablet 10 Mg PO DAILY Levemir Flextouch (Insulin Detemir) 100 Unit/1 Ml Insuln.pen 10 Unit SQ HS Donepezil Hcl 10 Mg Tablet 10 Mg PO HS I have reviewed the current psychotropics carefully including drug interactions. Risk benefit ratio favors no change other than as noted in my dictated progress note. Diagnosis: Problems: (1) Dementia with behavioral disturbance (2) Anxiety disorder (3) Dementia, vascular, with delusions (4) Dementia, vascular, with depression (5) Impulse control disorder (6) Urinary tract infection MELISSA SOLER MD Dec 04, 2017 23:14
--- NOTE | 2017-12-05 02:06 | PN ---
DATE: 12/01/2017 PSYCHIATRIC PROGRESS NOTE This late entry, 12/01/2017, covers elements not covered in my initial note. SUBJECTIVE: I met with the patient in the evening, staffed at treatment team meeting with the entire team in the morning. The patient's blood pressure was somewhat low. Lisinopril was held. The patient remains in a Broda chair, sits with her head bent forward, was yelling at times, received Ativan. Coccygeal lesion is better. REVIEW OF SYSTEMS: Ambulation impaired. No CV, , pulmonary, eye, ENT system symptoms on review. MENTAL STATUS EXAM: Oriented to herself and situation. Speech moderate latency, often responses monosyllabic. Abstraction fair, computation impaired, language function intact, attention span short. Mood and affect somewhat withdrawn, less anxious, labile. LABORATORY DATA: Reviewed. IMPRESSION: Schizoaffective disorder, bipolar type, mixed, major neurocognitive disorder, Alzheimer, vascular with delusion, depression. Rest unchanged. PLAN: No change from initial note. We will follow labs on the Depakote on the and adjust thereafter. MAN Twila SOLER MD DR: GABRIELA/sowmya JOB#: [id number] / [id number]
[2017-12-05 06:17] VITALS: BP 91/61
[2017-12-05] MEDS: INSULIN LISPRO 300 UNITS/3 ML INSULN.PEN. SQ SCH ×3 (08:00→17:03)
[2017-12-05] MEDS: LACTOBACILLUS RHAMNOSUS GG 1 CAPSULE. PO SCH ×2 (08:45→20:22)
[2017-12-05] MEDS: DIVALPROEX 125 MG CAP.SPRINK PO SCH ×2 (08:45→17:00)
[2017-12-05] MEDS: CEFPODOXIME PROXETIL 100 MG TABLET PO SCH ×2 (08:46→20:22)
[2017-12-05] MEDS: SERTRALINE 50 MG TABLET. PO SCH (08:46)
[2017-12-05] MEDS: risperiDONE 1 MG TABLET. PO SCH ×2 (08:46→20:22)
[2017-12-05] MEDS: ASPIRIN ENTERIC COATED 81 MG TABLET.DR. PO SCH (08:46)
[2017-12-05] MEDS: NAPROXEN 250 MG TABLET PO SCH ×2 (08:47→20:22)
[2017-12-05] MEDS: glipiZIDE 5 MG TABLET PO SCH ×2 (08:48→17:01)
[2017-12-05] MEDS: LISINOPRIL 10 MG TABLET PO SCH (08:49)
[2017-12-05] MEDS: TIMOLOL 0.5% OPHTH SOLUTION 5ML BOTTLE. OU SCH (08:53)
[2017-12-05] MEDS: 0.9 % SODIUM CHLORIDE 10 ML DISP.SYRIN. IV SCH ×2 (08:53→20:25)
[2017-12-05] MEDS: MINERAL OIL/PETROLATUM TOPICAL CREAM 113GM JAR. TP SCH ×2 (08:54→20:53)
[2017-12-05 15:43] VITALS: BP 111/65
[2017-12-05] MEDS: fentaNYL 12MCG/HR 1 PATCH PATCH TD SCH (17:02)
[2017-12-05] MEDS: DONEPEZIL HCL 10 MG TABLET PO SCH (20:22)
[2017-12-05] MEDS: LATANOPROST 0.005% OPHTH SOLUTION 2.5ML BOTTLE. OU SCH (20:25)
[2017-12-05] MEDS ORDERED: INSULIN GLARGINE 300 UNITS/3 ML INSULN.PEN. SQ SCH (21:00)
--- NOTE | 2017-12-05 23:16 | PDOC ---
Exam Note: Jonas Note: Please also refer to the separate dictated note~for this date of service dictated separately.~Patient seen individually. Discussed the patient with Nursing staff reviewed the chart.~Reviewed interim history and current functioning. Reviewed vital signs,~Labs/ Radiology~and current medications noted below. Continue current treatment with the changes noted in the dictated addendum note Assessment: Vital Signs: Vital Signs Date Time Temp Pulse Resp B/P (MAP) Pulse Ox O2 Delivery O2 Flow Rate FiO2 12/05/17 21:02 98 Room Air 12/05/17 15:43 97.8 71 17 111/65 (80) I&O Intake and Output 12/05/17 07:00 Intake Total 120 ml Balance 120 ml Intake Oral 120 ml # Bowel Movements 1 Labs: Laboratory Tests Test 12/05/17 07:43 12/05/17 11:21 12/05/17 16:34 12/05/17 19:03 Glucose (Fingerstick) 126 mg/dL (70-99) H 248 mg/dL (70-99) H 255 mg/dL (70-99) H 236 mg/dL (70-99) H Current Medications: Meds: Current Medications Acetaminophen (Tylenol) 650 mg PRN Q6HRS PRN PO PAIN / TEMP Last administered on 11/26/17at 05:37; Start 11/24/17 at 22:30; Stop 11/26/17 at 12:41; Status DC Multi-Ingredient Ointment (Analgesic Buford) 1 marjorie PRN QID PRN TP MUSCLE PAIN Last administered on 11/26/17at 10:30; Start 11/24/17 at 22:30 Al Hydroxide/Mg Hydroxide (Mylanta Plus Xs) 15 ml PRN AFTMEALHC PRN PO DYSPEPSIA; Start 11/24/17 at 22:30 Magnesium Hydroxide (Milk Of Magnesia) 2,400 mg PRN QHS PRN PO CONSTIPATION; Start 11/24/17 at 22:30 Donepezil HCl (Aricept) 10 mg HS PO Last administered on 12/05/17at 20:22; Start 11/25/17 at 21:00 Lorazepam (Ativan) 0.5 mg PRN Q6HRS PRN PO ANXIETY / AGITATION Last administered on 11/30/17at 22:00; Start 11/24/17 at 23:15 Risperidone (RisperDAL) 1 mg BID PO Last administered on 12/05/17 20:22; Start 11/25/17 at 09:00 Sertraline HCl (Zoloft) 25 mg DAILY PO Last administered on 11/30/17 08:53; Start 11/25/17 at 09:00; Stop 11/30/17 at 16:56; Status DC Acetaminophen (Tylenol) 650 mg PRN Q4HRS PRN PO mild pain Last administered on 12/05/17at 10:51; Start 11/24/17 at 23:15 Docusate Sodium (Colace Solution) 100 mg PRN Q12HR PRN PO CONSTIPATION; Start 11/24/17 at 23:15 Lisinopril (Prinivil) 10 mg DAILY PO Last administered on 12/05/17 08:49; Start 11/25/17 at 09:00 Multi-Ingred Cream/Lotion/Oil/ Oint (Hydrocerin) 1 marjorie BID TP Last administered on 12/04/17 07:58; Start 11/25/17 at 09:00 Aspirin (Aspirin Enteric Coated) 81 mg DAILY PO Last administered on 08:46; Start 11/25/17 at 09:00 Non-Formulary Medication (Fentanyl (DURAGESIC 12mcg/ hr)) 1 patch Q72H TD ; Start 11/24/17 at 23:15; Stop 11/25/17 at 02:23; Status DC Glipizide (Glucotrol) 5 mg BIDWMEALS PO Last administered on 12/05/17 17:01; Start 11/25/17 at 08:00 Insulin Glargine (Lantus) 10 units QHS SQ Last administered on 12/04/17 20:01 ; Start 11/25/17 at 21:00; Stop 12/04/17 at 22:11; Status DC Latanoprost (Xalatan) 1 drop QHS OU Last administered on 12/05/17 20:25; Start 11/25/17 at 21:00 Naproxen (Naprosyn) 250 mg BID PO Last administered on 12/05/17 20:22; Start 11/25/17 at 09:00 Oxybutynin Chloride (Ditropan) 5 mg PRN Q12HR PRN PO Bladder Spasms; Start at 23:15 Timolol Maleate (Timoptic 0.5% Oph) 1 drop DAILY OU Last administered on 07:57; Start 11/25/17 at 09:00 Insulin Human Lispro (HumaLOG) 0-7 UNITS TIDWMEALS SQ Last administered on 13:32; Start 11/25/17 at 08:00; Stop 12/01/17 at 15:59; Status DC Dextrose 12.5 gm PRN Q15MIN PRN IV SEE COMMENTS; Start 11/24/17 at 23:15 Fentanyl (Duragesic 12mcg/ Hr) 1 patch Q72H TD Last administered on 12/05/17 17:02; Start 11/26/17 at 17:00 Vitamin D (Vitamin D3) 50,000 unit WEEKLY PO ; Start 11/25/17 at 14:00; Stop 11/25/17 at 15:01; Status DC Vitamin D (Vitamin D3) 50,000 unit WEEKLY PO Last administered on 12/02/17 07 :46; Start 11/25/17 at 17:00 Sodium Chloride (Normal Saline Flush) 10 ml PRN DAILY PRN IV SEE COMMENTS; Start 11/26/17 at 13:15 Sodium Chloride (Normal Saline Flush) 10 ml BID IV Last administered on 20:25; Start 11/26/17 at 21:00 Divalproex Sodium (Depakote Sprinkles) 250 mg BIDWMEALS PO Last administered on 12/05/17 17:00; Start 11/29/17 at 08:00 Cefpodoxime Proxetil (Vantin) 100 mg BID PO Last administered on 12/05/17 20: 22; Start 11/29/17 at 21:00; Stop 12/09/17 at 20:59 Lactobacillus Rhamnosus (Culturelle) 1 cap BID PO Last administered on 20:22; Start 11/30/17 at 21:00 Sertraline HCl (Zoloft) 50 mg DAILY PO Last administered on 12/05/17 08:46; Start 12/01/17 at 09:00 Insulin Human Lispro (HumaLOG) 0-9 UNITS TIDWMEALS SQ Last administered on 10/ 29/18at 17:03; Start 12/01/17 at 17:00 Dextrose 12.5 gm PRN Q15MIN PRN IV SEE COMMENTS; Start 12/01/17 at 16:00; Status Cancel Insulin Glargine (Lantus) 15 units QHS SQ Last administered on 12/05/17at 20:27 ; Start 12/05/17 at 21:00 Active Scripts Active Reported Zoloft (Sertraline Hcl) 25 Mg Tablet 25 Mg PO DAILY Risperdal (Risperidone) 1 Mg Tablet 1 Mg PO BID Oxybutynin Chloride Er (Oxybutynin Chloride) 5 Mg Tab.er.24 5 Mg PO PRN Q12HR PRN Eucerin Creme (Mineral Oil/Petrolatum,White) 120 Gm Cream..g. 1 Marjorie TP BID DURAGESIC 12mcg/hr (Fentanyl) 1 Each Patch.td72 1 Patch TD Q72H Docusate Sodium 50 Mg/5 Ml Liquid 10 Ml PO PRN Q12HR PRN Lorazepam 0.5 Mg Tablet 0.5 Mg PO PRN Q6HRS PRN Aleve (Naproxen Sodium) 220 Mg Tablet 220 Mg PO BID Glipizide 5 Mg Tablet 5 Mg PO BIDWMEALS Aspirin Ec (Aspirin) 81 Mg Tablet.dr 81 Mg PO DAILY Xalatan (Latanoprost) 2.5 Ml Drops 1 Drop EACHEYE QHS Tylenol (Acetaminophen) 325 Mg Tablet 650 Mg PO PRN Q4HRS PRN Timoptic (Timolol Maleate) 10 Ml Drops 1 Drop EACHEYE DAILY Novolog Flexpen (Insulin Aspart) 100 Unit/1 Ml Insuln.pen 0-14 Unit SQ TIDAC Lisinopril 10 Mg Tablet 10 Mg PO DAILY Levemir Flextouch (Insulin Detemir) 100 Unit/1 Ml Insuln.pen 10 Unit SQ HS Donepezil Hcl 10 Mg Tablet 10 Mg PO HS I have reviewed the current psychotropics carefully including drug interactions. Risk benefit ratio favors no change other than as noted in my dictated progress note. Diagnosis: Problems: (1) Dementia with behavioral disturbance (2) Anxiety disorder (3) Dementia, vascular, with delusions (4) Dementia, vascular, with depression (5) Impulse control disorder (6) Urinary tract infection MELISSA SOLER MD Dec 05, 2017 23:16
[2017-12-05] MEDS ORDERED: CEFP200T PO (23:25)
[2017-12-05] MEDS ORDERED: NAPR-683 PO (23:28)
[2017-12-05] MEDS ORDERED: NAPR-514 PO (23:28)
[2017-12-05] MEDS ORDERED: DOCU50LI PO (23:35)
[2017-12-05] MEDS ORDERED: CHOL500021 PO (23:44)
[2017-12-05] MEDS ORDERED: DIVA125C2 PO (23:46)
[2017-12-05] MEDS ORDERED: LACT1CAP21 PO (23:48)
[2017-12-05] MEDS ORDERED: MAGN2400 PO (23:50)
[2017-12-05] MEDS ORDERED: METH29OI TP (23:51)
--- NOTE | 2017-12-06 01:09 | PN ---
DATE: 12/04/2017 PSYCHIATRIC PROGRESS NOTE This late entry 12/04/2017 covers elements not covered in my initial note. SUBJECTIVE: I met with the patient in the evenings. The patient slept 7-3/4 hours previous night. She has been calm, only had one episode of yelling at night, cooperative with cares. Medication compliant, pleasant. REVIEW OF SYSTEMS: Ambulation impaired, in Broda chair. No CV, , pulmonary, eye, ENT system symptoms on review. She has no complaint of pain in the coccygeal region. MENTAL STATUS EXAM: Oriented to herself and situation. Speech is coherent, has some latency. Abstraction fair, computation impaired, language function intact, attention span short. Mood and affect remain somewhat withdrawn. LABORATORY DATA: Reviewed. IMPRESSION: Bipolar 1 disorder, mixed with psychotic features; major neurocognitive disorder, Alzheimer, vascular with delusion, depression. Rest unchanged. PLAN: No change from initial note. MAN Twila SOLER MD DR: GABRIELA/sowmya JOB#: [id number] / [id number]
[2017-12-06 06:38] VITALS: BP 118/74
[2017-12-06] MEDS: INSULIN LISPRO 300 UNITS/3 ML INSULN.PEN. SQ SCH ×2 (08:00→12:00)
[2017-12-06] MEDS: DIVALPROEX 125 MG CAP.SPRINK PO SCH (08:08)
[2017-12-06] MEDS: glipiZIDE 5 MG TABLET PO SCH (08:09)
[2017-12-06] MEDS: 0.9 % SODIUM CHLORIDE 10 ML DISP.SYRIN. IV SCH (08:11)
[2017-12-06] MEDS: TIMOLOL 0.5% OPHTH SOLUTION 5ML BOTTLE. OU SCH ×2 (08:12→08:27)
[2017-12-06] MEDS: LACTOBACILLUS RHAMNOSUS GG 1 CAPSULE. PO SCH (08:12)
[2017-12-06] MEDS: ASPIRIN ENTERIC COATED 81 MG TABLET.DR. PO SCH (08:12)
[2017-12-06 08:13] VITALS: BP 118/74
[2017-12-06] MEDS: NAPROXEN 250 MG TABLET PO SCH (08:13)
[2017-12-06] MEDS: risperiDONE 1 MG TABLET. PO SCH (08:13)
[2017-12-06] MEDS: LISINOPRIL 10 MG TABLET PO SCH (08:13)
[2017-12-06] MEDS: SERTRALINE 50 MG TABLET. PO SCH (08:14)
[2017-12-06] MEDS: CEFPODOXIME PROXETIL 100 MG TABLET PO SCH (08:14)
[2017-12-06] MEDS: MINERAL OIL/PETROLATUM TOPICAL CREAM 113GM JAR. TP SCH (08:15)
--- NOTE | 2017-12-06 18:34 | PDOC ---
Exam Note: Jonas Note: Please also refer to the separate dictated note~for this date of service dictated separately.~Patient seen individually. Discussed the patient with Nursing staff reviewed the chart.~Reviewed interim history and current functioning. Reviewed vital signs,~Labs/ Radiology~and current medications noted below. Continue current treatment with the changes noted in the dictated addendum note Assessment: Vital Signs: Vital Signs Date Time Temp Pulse Resp B/P (MAP) Pulse Ox O2 Delivery O2 Flow Rate FiO2 12/06/17 08:13 74 118/74 12/06/17 06:38 97.3 16 97 12/05/17 21:02 Room Air I&O Intake and Output 12/06/17 07:00 Intake Total 900 ml Balance 900 ml Intake Oral 900 ml # Voids 1 # Bowel Movements 1 Labs: Laboratory Tests Test 12/05/17 19:03 12/06/17 07:42 12/06/17 12:14 Glucose (Fingerstick) 236 mg/dL (70-99) H 117 mg/dL (70-99) H 253 mg/dL (70-99) H Current Medications: Meds: Current Medications Acetaminophen (Tylenol) 650 mg PRN Q6HRS PRN PO PAIN / TEMP Last administered on 11/26/17at 05:37; Start 11/24/17 at 22:30; Stop 11/26/17 at 12:41; Status DC Multi-Ingredient Ointment (Analgesic Coram) 1 marjorie PRN QID PRN TP MUSCLE PAIN Last administered on 11/26/17at 10:30; Start 11/24/17 at 22:30; Stop 12/06/17 at 13:31; Status DC Al Hydroxide/Mg Hydroxide (Mylanta Plus Xs) 15 ml PRN AFTMEALHC PRN PO DYSPEPSIA; Start 11/24/17 at 22:30; Stop 12/06/17 at 13:31; Status DC Magnesium Hydroxide (Milk Of Magnesia) 2,400 mg PRN QHS PRN PO CONSTIPATION; Start 11/24/17 at 22:30; Stop 12/06/17 at 13:31; Status DC Donepezil HCl (Aricept) 10 mg HS PO Last administered on 12/05/17at 20:22; Start 11/25/17 at 21:00; Stop 12/06/17 at 13:31; Status DC Lorazepam (Ativan) 0.5 mg PRN Q6HRS PRN PO ANXIETY / AGITATION Last administered on 11/30/17at 22:00; Start 11/24/17 at 23:15; Stop 12/06/17 at 13 :31; Status DC Risperidone (RisperDAL) 1 mg BID PO Last administered on 12/06/17at 08:13; Start 11/25/17 at 09:00; Stop 12/06/17 at 13:32; Status DC Sertraline HCl (Zoloft) 25 mg DAILY PO Last administered on 11/30/17at 08:53; Start 11/25/17 at 09:00; Stop 11/30/17 at 16:56; Status DC Acetaminophen (Tylenol) 650 mg PRN Q4HRS PRN PO mild pain Last administered on 12/05/17at 10:51; Start 11/24/17 at 23:15; Stop 12/06/17 at 13:32; Status DC Docusate Sodium (Colace Solution) 100 mg PRN Q12HR PRN PO CONSTIPATION; Start 11/24/17 at 23:15; Stop 12/06/17 at 13:32; Status DC Lisinopril (Prinivil) 10 mg DAILY PO Last administered on 12/06/17at 08:13; Start 11/25/17 at 09:00; Stop 12/06/17 at 13:32; Status DC Multi-Ingred Cream/Lotion/Oil/ Oint (Hydrocerin) 1 marjorie BID TP Last administered on 12/06/17 08:15; Start 11/25/17 at 09:00; Stop 12/06/17 at 13 :32; Status DC Aspirin (Aspirin Enteric Coated) 81 mg DAILY PO Last administered on 08:12; Start 11/25/17 at 09:00; Stop 12/06/17 at 13:32; Status DC Non-Formulary Medication (Fentanyl (DURAGESIC 12mcg/ hr)) 1 patch Q72H TD ; Start 11/24/17 at 23:15; Stop 11/25/17 at 02:23; Status DC Glipizide (Glucotrol) 5 mg BIDWMEALS PO Last administered on 12/06/17at 08:09; Start 11/25/17 at 08:00; Stop 12/06/17 at 13:32; Status DC Insulin Glargine (Lantus) 10 units QHS SQ Last administered on 12/04/17at 20:01 ; Start 11/25/17 at 21:00; Stop 12/04/17 at 22:11; Status DC Latanoprost (Xalatan) 1 drop QHS OU Last administered on 12/05/17at 20:25; Start 11/25/17 at 21:00; Stop 12/06/17 at 13:32; Status DC Naproxen (Naprosyn) 250 mg BID PO Last administered on 12/06/17at 08:13; Start 11/25/17 at 09:00; Stop 12/06/17 at 13:32; Status DC Oxybutynin Chloride (Ditropan) 5 mg PRN Q12HR PRN PO Bladder Spasms; Start at 23:15; Stop 12/06/17 at 13:32; Status DC Timolol Maleate (Timoptic 0.5% [facility]) 1 drop DAILY OU Last administered on at 07:57; Start 11/25/17 at 09:00; Stop 12/06/17 at 13:32; Status DC Insulin Human Lispro (HumaLOG) 0-7 UNITS TIDWMEALS SQ Last administered on at 13:32; Start 11/25/17 at 08:00; Stop 12/01/17 at 15:59; Status DC Dextrose 12.5 gm PRN Q15MIN PRN IV SEE COMMENTS; Start 11/24/17 at 23:15; Stop 12/06/17 at 13:32; Status DC Fentanyl (Duragesic 12mcg/ Hr) 1 patch Q72H TD Last administered on 12/05/17at 17:02; Start 11/26/17 at 17:00; Stop 12/06/17 at 13:32; Status DC Vitamin D (Vitamin D3) 50,000 unit WEEKLY PO ; Start 11/25/17 at 14:00; Stop 11/25/17 at 15:01; Status DC Vitamin D (Vitamin D3) 50,000 unit WEEKLY PO Last administered on 12/02/17at 07 :46; Start 11/25/17 at 17:00; Stop 12/06/17 at 13:32; Status DC Sodium Chloride (Normal Saline Flush) 10 ml PRN DAILY PRN IV SEE COMMENTS; Start 11/26/17 at 13:15; Stop 12/06/17 at 13:32; Status DC Sodium Chloride (Normal Saline Flush) 10 ml BID IV Last administered on at 08:11; Start 11/26/17 at 21:00; Stop 12/06/17 at 13:32; Status DC Divalproex Sodium (Depakote Sprinkles) 250 mg BIDWMEALS PO Last administered on 12/06/17at 08:08; Start 11/29/17 at 08:00; Stop 12/06/17 at 13:32; Status DC Cefpodoxime Proxetil (Vantin) 100 mg BID PO Last administered on 12/06/17at 08: 14; Start 11/29/17 at 21:00; Stop 12/06/17 at 13:32; Status DC Lactobacillus Rhamnosus (Culturelle) 1 cap BID PO Last administered on at 08:12; Start 11/30/17 at 21:00; Stop 12/06/17 at 13:32; Status DC Sertraline HCl (Zoloft) 50 mg DAILY PO Last administered on 12/06/17at 08:14; Start 12/01/17 at 09:00; Stop 12/06/17 at 13:32; Status DC Insulin Human Lispro (HumaLOG) 0-9 UNITS TIDWMEALS SQ Last administered on at 17:03; Start 12/01/17 at 17:00; Stop 12/06/17 at 13:32; Status DC Dextrose 12.5 gm PRN Q15MIN PRN IV SEE COMMENTS; Start 12/01/17 at 16:00; Status Cancel Insulin Glargine (Lantus) 15 units QHS SQ Last administered on 12/05/17at 20:27 ; Start 12/05/17 at 21:00; Stop 12/06/17 at 13:32; Status DC Active Scripts Active Reported Analgesic Coram (Methyl Salicylate/Menthol) 28 Gm Oint...g. 1 Marjorie TP PRN QID PRN Milk Of Magnesia (Magnesium Hydroxide) 2,400 Mg/10 Ml Oral.susp 2,400 Mg PO PRN QHS PRN Culturelle (Lactobacillus Rhamnosus Gg) 1 Each Capsule 1 Each PO BID Depakote Sprinkle (Divalproex Sodium) 125 Mg Cap.sprink 250 Mg PO BIDWMEALS D3-50 (Cholecalciferol (Vitamin D3)) 50,000 Unit Capsule 50,000 Unit PO WEEKLY Docusate Sodium 50 Mg/5 Ml Liquid 100 Mg PO PRN Q12HR PRN Naprosyn (Naproxen) 500 Mg Tablet 250 Mg PO BID Cefpodoxime Proxetil 200 Mg Tablet 100 Mg PO BID Zoloft (Sertraline Hcl) 25 Mg Tablet 50 Mg PO DAILY Risperdal (Risperidone) 1 Mg Tablet 1 Mg PO BID Oxybutynin Chloride Er (Oxybutynin Chloride) 5 Mg Tab.er.24 5 Mg PO PRN Q12HR PRN Eucerin Creme (Mineral Oil/Petrolatum,White) 120 Gm Cream..g. 1 Marjorie TP BID DURAGESIC 12mcg/hr (Fentanyl) 1 Each Patch.td72 1 Patch TD Q72H Lorazepam 0.5 Mg Tablet 0.5 Mg PO PRN Q6HRS PRN Glipizide 5 Mg Tablet 5 Mg PO BIDWMEALS Aspirin Ec (Aspirin) 81 Mg Tablet.dr 81 Mg PO DAILY Xalatan (Latanoprost) 2.5 Ml Drops 1 Drop EACHEYE QHS Tylenol (Acetaminophen) 325 Mg Tablet 650 Mg PO PRN Q4HRS PRN Timoptic (Timolol Maleate) 10 Ml Drops 1 Drop EACHEYE DAILY Novolog Flexpen (Insulin Aspart) 100 Unit/1 Ml Insuln.pen 0-9 Units SQ TIDAC Lisinopril 10 Mg Tablet 10 Mg PO DAILY Levemir Flextouch (Insulin Detemir) 100 Unit/1 Ml Insuln.pen 15 Unit SQ HS Donepezil Hcl 10 Mg Tablet 10 Mg PO HS I have reviewed the current psychotropics carefully including drug interactions. Risk benefit ratio favors no change other than as noted in my dictated progress note. Diagnosis: Problems: (1) Schizoaffective disorder, bipolar type (2) Impulse control disorder (3) Dementia, vascular, with depression (4) Dementia, vascular, with delusions (5) Anxiety disorder MELISSA SOLER MD Dec 06, 2017 18:34
--- NOTE | 2017-12-06 21:58 | PN ---
DATE: 12/05/2017 PSYCHIATRIC PROGRESS NOTE This late entry 12/05/2017 covers elements not covered in my initial note. SUBJECTIVE: I met with the patient in the evening. The patient slept 8 hours previous night, yelling off and on, but much better than before. REVIEW OF SYSTEMS: Ambulation impaired, in Broda chair. No complaints of sacral pain. No CV, , pulmonary, eye system symptoms on review. Reliability poor. MENTAL STATUS EXAM: Oriented to herself. Insight, judgment, recent memory is impaired. Language function is intact. Attention span is short. Mood and affect is somewhat withdrawn. Verbal response often monosyllabic. LABORATORY DATA: Reviewed. IMPRESSION: Schizoaffective disorder, bipolar type, mixed with psychotic features, in partial remission; major neurocognitive disorder, Alzheimer, vascular with delusion, depression. Rest unchanged. PLAN: No change from initial note with possible transition to shelter on 12/06/2017. MAN Twila SOLER MD DR: GABRIELA/sowmya JOB#: [id number] / [id number]
--- NOTE | 2017-12-07 21:03 | DS ---
DATE OF DISCHARGE: 12/06/2017 DISCHARGE SUMMARY/PSYCHIATRIC PROGRESS NOTE This late entry 12/06/2017 covers elements not covered in my initial note. REASON FOR ADMISSION: Please refer to the admission history for details. Briefly, the patient is an 82-year-old -Al[place] female referred to us from [facility] by her primary care physician on account of recurrence of yelling, which has been extremely disruptive and upsetting to the entire milieu at the nursing facility and to the other residents there. The other residents reportedly have been agitated with her because of her yelling out. She has been cursing, kicking at staff and screaming. This is all within the context of her diagnosis of schizoaffective disorder, bipolar type and major neurocognitive disorder, Alzheimer, vascular with delusion, behavioral disturbance. SIGNIFICANT FINDINGS AND CLINICAL COURSE: Following admission, the patient was seen daily individually by myself from a psychiatric standpoint, medical followup with Dr. Mcfarland/Dr. Michael. She did have a UTI diagnosed at admission and was treated on a course of Vantin. Some of her agitation, mood lability, yelling seemed to improve with this, but despite this was quite persistent. She complained of some sacral pain and this was addressed. Further adjustments were made in her psychotropics. She seemed to respond to a combination of Aricept 10 mg a day, Ativan 0.5 mg q. 6 hours p.r.n. anxiety, Risperdal 1 mg b.i.d., Zoloft 50 mg a day, Depakote 250 b.i.d. Gradually, the yelling was much improved. She remains somewhat confused, withdrawn. REVIEW OF SYSTEMS: Ambulation impaired, in wheelchair. No CV, , pulmonary, eye, ENT system symptoms on review. MENTAL STATUS EXAM: Oriented to herself and situation. Speech has some latency, coherent, often responses monosyllabic. Abstraction fair, computation impaired, language function intact, attention span short. Mood and affect remains somewhat withdrawn, but improved. LABORATORY DATA: Reviewed. FINAL DIAGNOSES: Schizoaffective disorder, bipolar type, mixed with psychotic features, in partial remission; major neurocognitive disorder, Alzheimer, vascular with delusion, depression, behavioral disturbance since partial remission; anxiety disorder, unspecified; impulse control disorder, unspecified; status post urinary tract infection. Rest unchanged from admission. DISCHARGE MEDICATIONS: Please refer to the MRAD. DISCHARGE INSTRUCTIONS: Outpatient psychiatric and medical followup at the senior care. Time for discharge day management greater than 30 minutes. MELISSA SOLER MD DR: GABRIELA/sowmya JOB#: [id number] / [id number]
== END 2017-12-06 13:25 | DRG 57 ==
LOC: ER 19:09 → ER HOLD 21:30 → GEROPSY 22:13
PROVIDERS: ADMIT Psychiatry & Neurology Psychiatry; ATTEND Psychiatry & Neurology Psychiatry
DX: G30.9 Alzheimer's disease, unspecified (principal); F01.51 Vascular dementia, unspecified severity, with behavioral disturbance; F02.81 Dementia in other diseases classified elsewhere, unspecified severity, with behavioral disturbance; G81.94 Hemiplegia, unspecified affecting left nondominant side; N39.0 Urinary tract infection, site not specified; F25.0 Schizoaffective disorder, bipolar type; E11.9 Type 2 diabetes mellitus without complications; F63.9 Impulse disorder, unspecified; G24.9 Dystonia, unspecified; F41.9 Anxiety disorder, unspecified; I10 Essential (primary) hypertension; H40.9 Unspecified glaucoma; M81.0 Age-related osteoporosis without current pathological fracture; M53.3 Sacrococcygeal disorders, not elsewhere classified; K58.9 Irritable bowel syndrome, unspecified; Z79.899 Other long term (current) drug therapy; Z86.73 Personal history of transient ischemic attack (TIA), and cerebral infarction without residual deficits; Z99.3 Dependence on wheelchair; Z87.440 Personal history of urinary (tract) infections; Z88.5 Allergy status to narcotic agent
CPT/HCPCS: 36415; 80053; 80061; 80164; 81001; 82306; 82607; 82947; 83036; 83540; 83550; 83735; 84436; 84443; 84480; 85025; 86592; 87086; 87186; 93005; J1815